=== PATIENT | female | born 1955 | race Caucasian/White ===

== ENCOUNTER 2020-04-23 15:33 | Emergency (ER) | payer OTHER ==
[2020-04-23] MEDS ORDERED: METHYLPREDNISOLONE 40 MG INJ ONE (22:09)
[2020-04-23] MEDS ORDERED: NA CHLORIDE 0.9% 250 ML ONE (22:09)
[2020-04-23] MEDS ORDERED: MORPHINE 2 MG/ML SYR ONE (22:09)
[2020-04-23] MEDS ORDERED: ONDANSETRON 4 MG/2 ML VIAL ONE (22:11)
[2020-04-23 22:44] LABS: Absolute Lymphocytes (CBC) 1.3 K/uL (0.7-4.9); Basophils % 0.4 % (0-1.3); Hematocrit 39.5 % (36.0-45.0); Lymphocytes % 28.7 % (15.3-44.8); MPV 8.1 fL (7.6-11.3); Protime INR 0.88; RBC Red Blood Cell Count 4.25 M/uL (3.86-4.86)
[2020-04-23 23:02] LABS: BUN Blood Urea Nitrogen 29 mg/dL (7-18); Bicarbonate 29 mmol/L (21-32); Glucose Level 166 mg/dL (74-106); Magnesium 2.4 mg/dL (1.8-2.4); NT PRO-BNP 456 pg/mL (<125); Potassium 4.6 mmol/L (3.5-5.1); Sodium Level 139 mmol/L (136-145); Troponin (Emerg Dept Use Only) < 0.02 ng/mL (0.0-0.045)
--- NOTE | 2020-04-23 23:24 | ER ---
Nurse's Notes [facility] Name: Kathleen Wahl Age: 64 yrs Sex: Female : 1955 Arrival Date: 04/23/2020 Time: 15:35 Bed 18 Private MD: Diagnosis: Coronavirus infection, unspecified Presentation: 04/23 15:50 Chief complaint: Patient states: Covid positive 04/14. Finished antibiotics, not ll1 feeling better. Almost done with prednisone. Still weak and tired. Some nausea and gas. Coronavirus screen: Client denies travel out of the [place] in the last 14 days. cough unrelated to allergies, difficulty breathing, fatigue, Client presents with at least one sign or symptom that may indicate coronavirus-19. Standard/surgical mask placed on the client. Client reports previous positive COVID test result. Ebola Screen: Patient denies travel to an Ebola-affected area in the 21 days before illness onset. Initial Sepsis Screen: Does the patient meet any 2 criteria? HR > 90 bpm. No. Patient's initial sepsis screen is negative. Does the patient have a suspected source of infection? Yes: Productive cough/pneumonia. Risk Assessment: Do you want to hurt yourself or someone else? Patient reports no desire to harm self or others. Onset of symptoms was April 13, 2020. 15:50 Method Of Arrival: Wheelchair ll1 15:50 Acuity: JANI 3 ll1 Historical: - Allergies: 15:49 Pseudoephedrine; ll1 15:49 paper tape; ll1 15:49 Tramadol HCl; ll1 - PMHx: 15:49 Hypertension; High Cholesterol; Hepatitis; kidney disease; ll1 - PSHx: 15:49 Cholecystectomy; Appendectomy; Tonsillectomy; Hysterectomy; ll1 - Immunization history:: Flu vaccine is up to date. - Social history:: Smoking status: Patient reports the use of cigarette tobacco products, 2 cigs/day. Screenin:00 Abuse screen: Denies threats or abuse. Nutritional screening: No deficits noted. vg1 Tuberculosis screening: No symptoms or risk factors identified. Fall Risk No fall in past 12 months (0 pts). No secondary diagnosis (0 pts). IV access (20 points). Ambulatory Aid- None/Bed Rest/Nurse Assist (0 pts). Gait- Normal/Bed Rest/Wheelchair (0 pts) Mental Status- Oriented to own ability (0 pts). Total Raman Fall Scale indicates No Risk (0-24 pts). Assessment: 22:00 General: Appears in no apparent distress. comfortable, Behavior is calm, cooperative. vg1 Pain: Complains of pain in Patient states all over. Pain currently is 8 out of 10 on a pain scale. 22:00 Neuro: Level of Consciousness is awake, alert, obeys commands, Oriented to person, vg1 place, time, situation. Cardiovascular: Rhythm is regular. Respiratory: Airway is patent Respiratory effort is even, unlabored, Respiratory pattern is regular, symmetrical. Respiratory: Reports shortness of breath on exertion cough that is productive. GI: No signs and/or symptoms were reported involving the gastrointestinal system. : No signs and/or symptoms were reported regarding the genitourinary system. EENT: No signs and/or symptoms were reported regarding the EENT system. Derm: Skin is intact, is healthy with good turgor. Musculoskeletal: Circulation, motion, and sensation intact. 22:00 Respiratory: Breath sounds with wheezes bilaterally. vg1 22:30 Reassessment: Received VO to administer Zofran 4mg IVP x1. vg1 23:00 Reassessment: Patient appears in no apparent distress at this time. Patient and/or vg1 family updated on plan of care and expected duration. Pain level reassessed. Patient is alert, oriented x 3, equal unlabored respirations, skin warm/dry/pink. Vital Signs: 15:50 BP 133 / 60; Pulse 95; Resp 17; Temp 99.2; Pulse Ox 97% on R/A; Weight 57.61 kg; Height ll1 5 ft. 1 in. (154.94 cm); Pain 7/10; 21:30 BP 127 / 61; Pulse 81; Resp 20; Pulse Ox 95% on R/A; vg1 22:00 BP 111 / 55; Pulse 82; Resp 20; Pulse Ox 95% on R/A; vg1 23:00 BP 110 / 91; Pulse 83; Resp 18; Pulse Ox 96% on R/A; vg1 15:50 Body Mass Index 24.00 (57.61 kg, 154.94 cm) ll1 ED Course: 15:35 Patient arrived in ED. rg4 15:48 Arm band placed on. ll1 15:52 Triage completed. ll1 21:04 Da Mcfarland PA is PHCP. cp 21:04 Da Garcia MD is Attending Physician. cp 21:05 Karly Mcleod, RN is Primary Nurse. vg1 22:00 Patient has correct armband on for positive identification. Bed in low position. Call vg1 light in reach. Side rails up X 1. 22:16 XRAY Chest (1 view) In Process Unspecified. EDMS 22:20 Inserted saline lock: 20 gauge in left forearm, using aseptic technique. Blood vg1 collected. 22:20 Initial lab(s) drawn, by ms, sent to lab. vg1 23:19 No provider procedures requiring assistance completed. vg1 23:50 IV discontinued, intact, bleeding controlled, No redness/swelling at site. Pressure vg1 dressing applied. Administered Medications: 22:31 Drug: NS 0.9% 250 ml Route: IV; Rate: calculated rate; Site: left forearm; vg1 23:08 Follow up: IV Status: Completed infusion; IV Intake: 250ml vg1 22:32 Drug: SOLU-Medrol 80 mg Route: IVP; Site: left forearm; vg1 23:10 Follow up: Response: No adverse reaction vg1 22:32 Drug: morphine 2 mg Route: IVP; Site: left forearm; vg1 23:10 Follow up: Response: RASS: Alert and Calm (0) vg1 22:32 Drug: Zofran (Ondansetron) 4 mg Route: IVP; Site: left forearm; vg1 23:10 Follow up: Response: No adverse reaction vg1 Intake: 23:08 IV: 250ml; Total: 250ml. vg1 Outcome: 23:23 Discharge ordered by . cp 23:50 Discharged to home ambulatory. vg1 23:50 Condition: good 23:50 Discharge instructions given to patient, Instructed on discharge instructions, follow up and referral plans. medication usage, Demonstrated understanding of instructions, follow-up care, medications, Prescriptions given X 3. 23:51 Patient left the ED. vg1 Signatures: Dispatcher [employer] EDMS Da Mcfarland PA PA cp Garcia, Rubi rg4 Karly Mcleod RN RN vg1 Ofelia Mauricio RN RN ll1 Corrections: (The following items were deleted from the chart) 23:09 22:00 BP 111 / 22; Pulse 82bpm; Resp 20bpm; Pulse Ox 95% RA; vg1 vg1 23:44 21:55 Reassessment: Received VO to administer Zofran 4mg IVP x1 vg1 vg1
--- NOTE | 2020-04-23 23:24 | EDPHYS ---
Physician Documentation [facility] Name: Kathleen Wahl Age: 64 yrs Sex: Female : 1955 Arrival Date: 04/23/2020 Time: 15:35 Bed 18 Private MD: ED Physician Da Garcia HPI: 04/23 21:20 This 64 yrs old Female presents to ER via Wheelchair with complaints of cp Shortness Of Breath, Covid+. 21:20 The patient has shortness of breath with light activity. cp 21:20 Onset: The symptoms/episode began/occurred gradually. cp 21:20 Associated signs and symptoms: Pertinent positives: headache, Pertinent negatives: cp chest pain, productive cough, fever, vomiting. Patient reports testing positive for COVID-19 on 04-14-2020. Currently taking oral prednisone and has 1 dose remaining. Completed course of antibiotics . Historical: - Allergies: 15:49 Pseudoephedrine; ll1 15:49 paper tape; ll1 15:49 Tramadol HCl; ll1 - PMHx: 15:49 Hypertension; High Cholesterol; Hepatitis; kidney disease; ll1 - PSHx: 15:49 Cholecystectomy; Appendectomy; Tonsillectomy; Hysterectomy; ll1 - Immunization history:: Flu vaccine is up to date. - Social history:: Smoking status: Patient reports the use of cigarette tobacco products, 2 cigs/day. ROS: 21:30 Constitutional: Negative for fever, poor PO intake. cp 21:30 Eyes: Negative for injury, pain, redness, and discharge. cp 21:30 ENT: Negative for ear pain, sore throat, difficulty swallowing, difficulty handling secretions. 21:30 Cardiovascular: Negative for chest pain, edema, palpitations. 21:30 Respiratory: Positive for cough, with no reported sputum, shortness of breath, on exertion. Negative for wheezing. 21:30 Abdomen/GI: Negative for abdominal pain, nausea, vomiting, and diarrhea. 21:30 Neuro: Positive for headache, Negative for altered mental status, dizziness, syncope, weakness. 21:30 All other systems are negative. Exam: 21:35 Constitutional: The patient appears in no acute distress, alert, awake, cp non-diaphoretic, non-toxic, well developed, well nourished. 21:35 Head/Face: Normocephalic, atraumatic. cp 21:35 Eyes: Periorbital structures: appear normal, Conjunctiva: normal, no exudate, no injection, Sclera: no appreciated abnormality, Lids and lashes: appear normal, bilaterally. 21:35 ENT: External ear(s): are unremarkable, Nose: is normal, Posterior pharynx: Airway: no evidence of obstruction, patent. 21:35 Neck: ROM/movement: is normal, is supple, without pain, no range of motions limitations, no meningismus. 21:35 Chest/axilla: Inspection: normal, Palpation: is normal, no crepitus, no tenderness. 21:35 Cardiovascular: Rate: normal, Rhythm: regular, Edema: is not appreciated, JVD: is not appreciated. 21:35 Respiratory: the patient does not display signs of respiratory distress, Respirations: normal, no use of accessory muscles, no retractions, labored breathing, is not present, Breath sounds: are clear throughout, no decreased breath sounds, no stridor, no wheezing. 21:35 Abdomen/GI: Inspection: abdomen appears normal, Palpation: abdomen is soft and non-tender, in all quadrants. 21:35 Back: pain, is absent, ROM is normal. 21:35 Neuro: Orientation: to person, place \T\ time. Mentation: is normal, Cerebellar function: is grossly normal, Motor: moves all fours, strength is normal, Sensation: is normal. 22:18 ECG was reviewed by the Attending Physician. cp Vital Signs: 15:50 BP 133 / 60; Pulse 95; Resp 17; Temp 99.2; Pulse Ox 97% on R/A; Weight 57.61 kg; Height ll1 5 ft. 1 in. (154.94 cm); Pain 7/10; 21:30 BP 127 / 61; Pulse 81; Resp 20; Pulse Ox 95% on R/A; vg1 22:00 BP 111 / 55; Pulse 82; Resp 20; Pulse Ox 95% on R/A; vg1 23:00 BP 110 / 91; Pulse 83; Resp 18; Pulse Ox 96% on R/A; vg1 15:50 Body Mass Index 24.00 (57.61 kg, 154.94 cm) ll1 MDM: 21:11 Patient medically screened. [facility] 23:22 Data reviewed: vital signs, nurses notes, lab test result(s), EKG, radiologic studies, cp plain films. Test interpretation: by ED physician or midlevel provider: ECG, chest xray negative for focal pneumonia. 23:22 ED course: VSS. Patient appears non-toxic and no signs of respiratory distress. Patient cp maintains oxygen sats above 90% on RA when ambulating and at rest oxygen sats were 96% on RA. Will discharge to home for continued monitoring. 04/23 21:18 Order name: Basic Metabolic Panel; Complete Time: 23:13 cp 04/23 23:13 Interpretation: Normal except: GLUC 166; BUN 29; GFR 49. cp 04/23 21:18 Order name: CBC with Diff; Complete Time: 23:13 cp 04/23 23:14 Interpretation: Normal except: MCV 92.9; PLT 128; RDW 17.8. cp 04/23 21:18 Order name: Magnesium; Complete Time: 23:13 cp 04/23 21:18 Order name: NT PRO-BNP; Complete Time: 23:13 cp 04/23 23:14 Interpretation: Abnormal: NT PRO-BNP 456. cp 04/23 21:18 Order name: PT-INR; Complete Time: 23:13 cp 04/23 21:18 Order name: Troponin (emerg Dept Use Only); Complete Time: 23:13 cp 04/23 21:18 Order name: EKG; Complete Time: 21:19 cp 04/23 21:18 Order name: XRAY Chest (1 view) cp 04/23 21:18 Order name: Cardiac monitoring; Complete Time: 22:32 cp 04/23 22:52 Order name: Urine Dipstick--Ancillary (enter results) [facility] 04/23 21:18 Order name: EKG - Nurse/Tech; Complete Time: 22:32 cp 04/23 21:18 Order name: IV Saline Lock; Complete Time: 22:32 cp 04/23 21:18 Order name: Labs collected and sent; Complete Time: 22:32 cp 04/23 21:18 Order name: O2 Per Protocol; Complete Time: 21:51 cp 04/23 21:18 Order name: O2 Sat Monitoring; Complete Time: 21:51 cp 04/23 21:20 Order name: Urine Dipstick-Ancillary (obtain specimen); Complete Time: 23:17 cp 04/23 22:36 Order name: Misc. Order: ambulate patient with pulse oxygen meter; Complete Time: 23:17 cp EC:18 Rate is 79 beats/min. Rhythm is regular. [place] interval is normal. QRS interval is normal. cp QT interval is normal. T waves are Inverted in lead aVR. Interpreted by me. Reviewed by me. Administered Medications: 22:31 Drug: NS 0.9% 250 ml Route: IV; Rate: calculated rate; Site: left forearm; vg1 23:08 Follow up: IV Status: Completed infusion; IV Intake: 250ml vg1 22:32 Drug: SOLU-Medrol 80 mg Route: IVP; Site: left forearm; vg1 23:10 Follow up: Response: No adverse reaction vg1 22:32 Drug: morphine 2 mg Route: IVP; Site: left forearm; vg1 23:10 Follow up: Response: RASS: Alert and Calm (0) vg1 22:32 Drug: Zofran (Ondansetron) 4 mg Route: IVP; Site: left forearm; vg1 23:10 Follow up: Response: No adverse reaction vg1 Disposition: 04/24 05:40 Co-signature as Attending Physician, Da Garcia MD I agree with the assessment and [facility] plan of care. Disposition: 04/23/20 23:23 Discharged to Home. Impression: Coronavirus infection, unspecified. - Condition is Stable. - Discharge Instructions: COVID-19. - Prescriptions for Albuterol Sulfate 2.5 mg /3 mL (0.083 %) Inhalation Solution for Nebulization - inhale 1 unit by NEBULIZATION route every 8 hours As needed; 1 box. Albuterol Sulfate 90 mcg/actuation - inhale 1-2 puff by INHALATION route every 4-6 hours; 1 Inhaler. Medrol (Orlin) 4 mg Oral Tablets, Dose Pack - take 1 tablet by ORAL route as directed - follow package instructions; 1 packet. - Medication Reconciliation Form, Thank You Letter, Antibiotic Education, Prescription Opioid Use form. - Follow up: Private Physician; When: 1 - 2 days; Reason: Recheck today's complaints. - Problem is new. - Symptoms have improved. Signatures: Dispatcher [employer] Da Nazario MD MD cha Page, Corey, PA PA cp Garcia, Victoria RN RN 1 Ofelia Mauricio RN RN 1 Corrections: (The following items were deleted from the chart) 04/23 23:51 23:23 04/23/2020 23:23 Discharged to Home. Impression: Coronavirus infection, vg1 unspecified. Condition is Stable. Forms are Medication Reconciliation Form, Thank You Letter, Antibiotic Education, Prescription Opioid Use. Follow up: Private Physician; When: 1 - 2 days; Reason: Recheck today's complaints. Problem is new. Symptoms have improved. cp
[2020-04-24 00:08] LABS: Urine Blood NEGATIVE (NEG); Urine Glucose 2+ (NEG); Urine Protein NEGATIVE (NEG); Urine Specific Gravity 1.015 (1.005-1.030); Urine pH 5.5 (5.0-7.0)
[2020-04-24 00:16] VITALS: TEMP 99.2
[2020-04-24 00:20] VITALS: BP 110/91; O2SAT 96
--- NOTE | 2020-04-24 08:35 | RAD REPORT ---
EXAM DESCRIPTION: RAD - Chest Single View - 04/23/2020 10:15 pm CLINICAL HISTORY: SOB Chest pain. COMPARISON: Chest Pa And Lat (2 Views) dated 12/09/2016; CHEST PA AND LAT 2 VIEW dated 01/29/2015; CH EST PA AND LAT 2 VIEW dated 05/21/2009; CHEST SINGLE VIEW dated 08/22/2008 FINDINGS: Portable technique limits examination quality. The lungs are grossly clear. The heart is normal in size. No displaced fractures. IMPRESSION: No acute intrathoracic process suspected.
== END 2020-04-23 23:51 | disposition home or self-care (01) ==
LOC: ER 15:33
DX: U07.1 COVID-19 (principal); I10 Essential (primary) hypertension; F17.210 Nicotine dependence, cigarettes, uncomplicated; Z88.5 Allergy status to narcotic agent; Z91.048 Other nonmedicinal substance allergy status
CPT/HCPCS: 96365; 93005; 85025; 80048; 36415; 83735; 85610; 81003; 84484; 83880; 71045; 96375; 99284; J2270; J7050; J2405; J2920

== ENCOUNTER 2021-03-25 14:43 | Emergency (ER) | payer OTHER ==
--- OUTSIDE RECORDS SUMMARY | 2021-03-25 15:13 | XMS REPORT | Continuity of Care Document ---
:1955 Author Organization [facility] t Address [address] [place] [address] Care Team Providers Name Role Phone Unavailable Unavailable Unavailable Problems This patient has no known problems. Allergies, Adverse Reactions, Alerts This patient has no known allergies or adverse reactions. Medications This patient has no known medications. Procedures This patient has no known procedures. Encounters Start End Encounter Admission Attending Care Care Encounter Source Date/Time Date/Time Type Type Clinicians Facility Department ID 2021-02-20 2021-02-20 ambulatory [facility] [id number] [facility] 2021-02-20 2021-02-20 ambulatory [facility] [id number] [facility] 2021-02-18 2021-02-18 ambulatory [facility] [id number] [facility] 2021-02-03 2021-02-03 Outpatient [facility] [id number] [facility] 2020-12-19 2020-12-19 Outpatient [facility] [id number] [facility] 2020-12-17 2020-12-17 Out[facility] [id number] [facility] 2020-11-21 2020-11-21 Out[facility] [id number] [facility] 2020-11-06 2020-11-06 Out[facility] [id number] [facility] 2020-11-03 2020-11-03 Out[facility] [id number] [facility] 2020-10-23 2020-10-23 [facility] [id number] [facility] 2020-10-16 2020-10-16 Out[facility] [id number] [facility] 2020-10-15 2020-10-15 [facility] [id number] [facility] 2020-09-04 2020-09-04 Out[facility] [id number] [facility] 2020-08-13 2020-08-13 Out[facility] [id number] [facility] 2020-08-08 2020-08-08 Out[facility] [id number] [facility] 2020-08-06 2020-08-06 Out[facility] [id number] [facility] 2020-08-04 2020-08-04 Out[facility] [id number] [facility] 2020-08-04 2020-08-04 [facility] [id number] [facility] 2020-07-18 2020-07-18 Out[facility] [id number] [facility] 2020-07-16 2020-07-16 Out[facility] [id number] [facility] 2020-07-15 2020-07-15 Out[facility] [id number] [facility] 2020-07-11 2020-07-11 Outpatient [facility] [id number] [facility] 2020-07-02 2020-07-02 Out[facility] [id number] [facility] 2020-07-01 2020-07-01 Out[facility] [id number] [facility] Results This patient has no known results.
[2021-03-25] MEDS ORDERED: ALBUTEROL 2.5 MG/3 ML NEB SOL ONE (15:44)
[2021-03-25] MEDS ORDERED: IPRATROPIUM BROM 0.5MG/2.5ML ONE (15:44)
[2021-03-25 16:02] LABS: Absolute Lymphocytes (CBC) 1.7 K/uL (0.7-4.9); Basophils % 0.7 % (0-1.3); Hematocrit 38.9 % (36.0-45.0); Lymphocytes % 33.7 % (15.3-44.8); MPV 7.4 fL (7.6-11.3); RBC Red Blood Cell Count 3.98 M/uL (3.86-4.86)
[2021-03-25 16:03] LABS: Protime INR 0.92
[2021-03-25 16:23] LABS: ALT/SGPT 40 U/L (12-78); AST/SGOT 42 U/L (15-37); Albumin 3.5 g/dL (3.4-5.0); Alkaline Phosphatase 129 U/L (45-117); BUN Blood Urea Nitrogen 27 mg/dL (7-18); Bicarbonate 29 mmol/L (21-32); Bilirubin Direct < 0.1 mg/dL (0-0.2); Bilirubin Total 0.2 mg/dL (0.2-1.0); Glucose Level 113 mg/dL (74-106); NT PRO-BNP 307 pg/mL (<125); Potassium 4.6 mmol/L (3.5-5.1); Protein, Total 7.9 g/dL (6.4-8.2); Sodium Level 141 mmol/L (136-145); Troponin (Emerg Dept Use Only) < 0.02 ng/mL (0.0-0.045)
--- NOTE | 2021-03-25 16:59 | RAD REPORT ---
EXAM DESCRIPTION: RAD - Chest Single View - 03/25/2021 4:32 pm CLINICAL HISTORY: COUGH COMPARISON: Chest Pa And Lat (2 Views) dated 07/11/2020; Chest Single View dated 04/23/2020; Chest Pa A nd Lat (2 Views) dated 12/09/2016; CHEST PA AND LAT 2 VIEW dated 01/29/2015 FINDINGS: Lines: None. Lungs: No evidence of edema or pneumonia. Pleural: No significant pleural effusions or pneumothorax. Cardiac: The heart size is within normal limits. Bones: No acute fractures. Other: IMPRESSION: No acute cardiopulmonary disease.
--- NOTE | 2021-03-25 18:16 | EDPHYS ---
Physician Documentation [facility] Name: Kathleen Wahl Age: 65 yrs Sex: Female : 1955 Arrival Date: 03/25/2021 Time: 14:45 Bed 20 Private MD: AUGUSTIN Physician Ellie Byrne HPI: 03/25 15:36 This 65 yrs old Female presents to ER via Ambulatory with complaints of Cough, Chest sp3 Congestion, Chest Pain. 15:36 65-year-old female with a history of hepatitis, hyperlipidemia, hypertension, chronic sp3 kidney disease presents with cough, congestion and generalized weakness for over 1 month. Patient was seen by her PCP who ordered some outpatient imaging but has not put patient on any therapy as of yet. Patient sees Dr. Byrne primary care here in the community. Patient denies chest pain or back pain but does state that she gets mild shortness of breath and has a large productive cough.. Historical: - Allergies: 15:03 paper tape; [facility] 15:03 Pseudoephedrine; [facility] 15:03 Tramadol HCl; 5 - PMHx: 15:03 Hepatitis; High Cholesterol; Hypertension; kidney disease; 5 - Immunization history:: Adult Immunizations up to date. - Social history:: Smoking status: Patient reports the use of cigarette tobacco products, smokes one-half pack cigarettes per day. ROS: 15:40 Constitutional: Negative for fever, chills, and weight loss, Eyes: Negative for injury, sp3 pain, redness, and discharge, ENT: Negative for injury, pain, and discharge, Neck: Negative for injury, pain, and swelling, Cardiovascular: Negative for chest pain, palpitations, and edema, Abdomen/GI: Negative for abdominal pain, nausea, vomiting, diarrhea, and constipation, Back: Negative for injury and pain, MS/Extremity: Negative for injury and deformity, Skin: Negative for injury, rash, and discoloration, Neuro: Negative for headache, weakness, numbness, tingling, and seizure, Psych: Negative for depression, anxiety, suicide ideation, homicidal ideation, and hallucinations, Allergy/Immunology: Negative for hives, rash, and allergies, Hematologic/Lymphatic: Negative for swollen nodes, abnormal bleeding, and unusual bruising. 15:40 Respiratory: Positive for cough. 15:40 All other systems are negative. Exam: 15:41 Constitutional: This is a well developed, well nourished patient who is awake, alert, sp3 and in no acute distress. Head/Face: Normocephalic, atraumatic. Eyes: Pupils equal round and reactive to light, extra-ocular motions intact. Lids and lashes normal. Conjunctiva and sclera are non-icteric and not injected. Cornea within normal limits. Periorbital areas with no swelling, redness, or edema. Neck: Trachea midline, no thyromegaly or masses palpated, and no cervical lymphadenopathy. Supple, full range of motion without nuchal rigidity, or vertebral point tenderness. No Meningismus. Chest/axilla: Normal chest wall appearance and motion. Nontender with no deformity. No lesions are appreciated. Cardiovascular: Regular rate and rhythm with a normal S1 and S2. No gallops, murmurs, or rubs. Normal PMI, no JVD. No pulse deficits. Abdomen/GI: Soft, non-tender, with normal bowel sounds. No distension or tympany. No guarding or rebound. No evidence of tenderness throughout. Back: No spinal tenderness. No costovertebral tenderness. Full range of motion. Skin: Warm, dry with normal turgor. Normal color with no rashes, no lesions, and no evidence of cellulitis. MS/ Extremity: Pulses equal, no cyanosis. Neurovascular intact. Full, normal range of motion. Neuro: Awake and alert, GCS 15, oriented to person, place, time, and situation. Cranial nerves II-XII grossly intact. Motor strength 5/5 in all extremities. Sensory grossly intact. Cerebellar exam normal. Normal gait. Psych: Awake, alert, with orientation to person, place and time. Behavior, mood, and affect are within normal limits. 15:41 Respiratory: Active cough and rhonchi throughout coupled with some wheezing. Patient has active productive cough as well. Patient had Covid in the past and has had 3 doses of vaccine.. Vital Signs: 14:59 BP 137 / 96; Pulse 107; Resp 20; Temp 97.1; Pulse Ox 97% ; Weight 50.35 kg; Height 5 jh5 ft. 1 in. (154.94 cm); 16:00 BP 112 / 83; Pulse 88; Resp 12; Pulse Ox 100% on R/A; ll3 17:00 BP 105 / 53; Pulse 100; Resp 17; Pulse Ox 96% on R/A; ll3 18:15 BP 121 / 67; Pulse 99; Resp 18; Pulse Ox 96% on R/A; ll3 14:59 Body Mass Index 20.97 (50.35 kg, 154.94 cm) 5 MDM: 15:28 Patient medically screened. sp3 15:44 Data reviewed: vital signs, nurses notes. ED course: 65-year-old female with upper sp3 respiratory symptoms with possible bronchitis and/or pneumonia. Will check laboratory values chest x-ray, Covid test as well as give nebulizers and other medications as indicated. I am not suspicious for sepsis or shock or ACS at this time.. 18:12 ED course: Patient is improved with nebulizer treatment. Will discharge patient home on sp3 Levaquin, prednisone, and Nebules since patient has a nebulizer machine at home.. 03/25 15:35 Order name: Basic Metabolic Panel; Complete Time: 17:24 sp3 03/25 15:35 Order name: CBC with Diff; Complete Time: 17:24 sp3 03/25 15:35 Order name: LFT's; Complete Time: 17:24 sp3 03/25 15:35 Order name: NT PRO-BNP; Complete Time: 17:24 sp3 03/25 15:35 Order name: PT-INR; Complete Time: 17:24 sp3 03/25 15:35 Order name: Troponin (emerg Dept Use Only); Complete Time: 17:24 sp3 03/25 15:35 Order name: XRAY Chest (1 view); Complete Time: 17:24 sp3 03/25 15:35 Order name: Cardiac monitoring; Complete Time: 15:40 sp3 03/25 15:35 Order name: EKG - Nurse/Tech; Complete Time: 15:39 sp3 03/25 15:35 Order name: IV Saline Lock; Complete Time: 15:50 sp3 03/25 15:35 Order name: Labs collected and sent; Complete Time: 15:50 sp3 03/25 15:35 Order name: O2 Per Protocol; Complete Time: 15:41 sp3 03/25 15:35 Order name: O2 Sat Monitoring; Complete Time: 15:41 sp3 Administered Medications: 15:50 Drug: DuoNeb (albuterol 2.5 mg, ipratropium 0.5 mg) (3:1) (2.5 mg - 0.5 mg) 3 ml Route: ll3 Nebulizer; 16:30 Follow up: Response: No adverse reaction; Marked relief of symptoms ll3 18:31 Drug: Rocephin (cefTRIAXone) 1 grams Route: IV; Rate: calculated rate; Site: right ll3 antecubital; 18:54 Follow up: Response: No adverse reaction ll3 18:39 Drug: HYDROcodone-acetaminophen 5 mg-325 mg 2 tabs Route: PO; ll3 18:54 Follow up: Response: No adverse reaction ll3 Disposition Summary: 03/25/21 18:15 Discharge Ordered Location: Home sp3 Condition: Stable sp3 Diagnosis - Acute bronchitis, unspecified sp3 Followup: sp3 - With: Private Physician - When: - Reason: Re-evaluation by your physician Discharge Instructions: - Discharge Summary Sheet sp3 - Acute Bronchitis, Adult sp3 Forms: - Medication Reconciliation Form sp3 - Thank You Letter sp3 - Antibiotic Education sp3 - Prescription Opioid Use sp3 Prescriptions: - Prednisone 20 mg Oral Tablet - take 2 tablets by ORAL route once daily for 5 days; 10 tablet; Refills: 0, sp3 Product Selection Permitted - levofloxacin 500 mg Oral Tablet - take 1 tablet by ORAL route once daily for 7 days; 7 tablet; Refills: 0, sp3 Product Selection Permitted - Albuterol Sulfate 2.5 mg /3 mL (0.083 %) Inhalation Solution for Nebulization - inhale 1 unit by NEBULIZATION route every 8 hours As needed; 1 box; Refills: 0, sp3 Product Selection Permitted Signatures: Dispatcher [employer] Ellie Oliva MD MD sp3 Riya Quintero RN RN jh5 Miguel Ma RN RN ll3
--- NOTE | 2021-03-25 18:16 | ER ---
Nurse's Notes [facility] Name: Kathleen Wahl Age: 65 yrs Sex: Female : 1955 Arrival Date: 03/25/2021 Time: 14:45 Bed 20 Private MD: Diagnosis: Acute bronchitis, unspecified Presentation: 03/25 14:59 Chief complaint: Patient states: congestion, cough, runny nose x3 days. Coronavirus [facility] screen: Vaccine status: Patient reports receiving the 2nd dose of the covid vaccine. Client denies travel out of the [place] in the last 14 days. Ebola Screen: Patient negative for fever greater than or equal to 101.5 degrees Fahrenheit, and additional compatible Ebola Virus Disease symptoms Patient denies exposure to infectious person. Patient denies travel to an Ebola-affected area in the 21 days before illness onset. Initial Sepsis Screen: Does the patient meet any 2 criteria? HR > 90 bpm. Does the patient have a suspected source of infection? Yes: Productive cough/pneumonia. Risk Assessment: Do you want to hurt yourself or someone else? Patient reports no desire to harm self or others. Onset of symptoms was March 23, 2021. 14:59 Method Of Arrival: Ambulatory [facility] 14:59 Acuity: JANI 3 [facility] Triage Assessment: 15:04 General: Appears distressed, uncomfortable, slender, well groomed, well developed, [facility] Behavior is calm, cooperative, appropriate for age. Pain: Denies pain. Cardiovascular: Capillary refill Patient's skin is warm and dry. Historical: - Allergies: 15:03 paper tape; [facility] 15:03 Pseudoephedrine; [facility] 15:03 Tramadol HCl; [facility] - PMHx: 15:03 Hepatitis; High Cholesterol; Hypertension; kidney disease; [facility] - Immunization history:: Adult Immunizations up to date. - Social history:: Smoking status: Patient reports the use of cigarette tobacco products, smokes one-half pack cigarettes per day. Screenin:30 Abuse screen: Denies threats or abuse. Nutritional screening: No deficits noted. ll3 Tuberculosis screening: No symptoms or risk factors identified. 18:17 Fall Risk IV access (20 points). Total Raman Fall Scale indicates No Risk (0-24 pts). 3 Assessment: 15:27 General: Appears in no apparent distress. uncomfortable, Behavior is calm, cooperative, ll3 Reports feeling ill for Since tuesday. Pain: Complains of pain in H/A, Chest Pain does not radiate. Pain began Tuesday. Neuro: Level of Consciousness is awake, alert, obeys commands, Oriented to person, place, time, situation, Reports headache since Tuesday. Cardiovascular: Patient's skin is warm and dry. Respiratory: Airway is patent Respiratory effort is even, unlabored, Respiratory pattern is regular, symmetrical, Breath sounds with wheezes bilaterally. Parent/caregiver reports the patient having shortness of breath cough that is non-productive. Derm: Skin is pink, warm \T\ dry. 16:30 Reassessment: Patient appears in no apparent distress at this time. Patient and/or ll3 family updated on plan of care and expected duration. Pain level reassessed. Patient is alert, oriented x 3, equal unlabored respirations, skin warm/dry/pink. Patient states symptoms have improved. 17:25 Reassessment: Patient appears in no apparent distress at this time. Patient and/or ll3 family updated on plan of care and expected duration. Pain level reassessed. Patient is alert, oriented x 3, equal unlabored respirations, skin warm/dry/pink. 18:17 Reassessment: Patient appears in no apparent distress at this time. Patient and/or ll3 family updated on plan of care and expected duration. Pain level reassessed. Patient is alert, oriented x 3, equal unlabored respirations, skin warm/dry/pink. Vital Signs: 14:59 BP 137 / 96; Pulse 107; Resp 20; Temp 97.1; Pulse Ox 97% ; Weight 50.35 kg; Height 5 [facility] ft. 1 in. (154.94 cm); 16:00 BP 112 / 83; Pulse 88; Resp 12; Pulse Ox 100% on R/A; ll3 17:00 BP 105 / 53; Pulse 100; Resp 17; Pulse Ox 96% on R/A; ll3 18:15 BP 121 / 67; Pulse 99; Resp 18; Pulse Ox 96% on R/A; ll3 14:59 Body Mass Index 20.97 (50.35 kg, 154.94 cm) [facility] ED Course: 14:45 Patient arrived in ED. [facility] 15:03 Triage completed. jh5 15:10 Ellie Byrne MD is Attending Physician. sp3 15:14 Miguel Ma, RN is Primary Nurse. ll3 15:30 Patient has correct armband on for positive identification. Bed in low position. Call 3 light in reach. Side rails up X 1. traffic monitor specialist on. Pulse ox on. NIBP on. 15:51 Basic Metabolic Panel Sent. 5 15:51 CBC with Diff Sent. 5 15:51 LFT's Sent. 5 15:51 NT PRO-BNP Sent. 5 15:52 PT-INR Sent. [facility] 15:52 Troponin (emerg Dept Use Only) Sent. 5 15:52 Initial lab(s) drawn, by tn, sent to lab. Inserted saline lock: 20 gauge in right 5 forearm, using aseptic technique. Blood collected. 16:30 EKG done. 3 16:32 XRAY Chest (1 view) In Process Unspecified. EDMS 18:17 Arm band placed on. 3 18:17 Patient maintains SpO2 saturation greater than 95% on room air. ll3 18:53 No provider procedures requiring assistance completed. IV discontinued, intact, ll3 bleeding controlled, No redness/swelling at site. Pressure dressing applied. Administered Medications: 15:50 Drug: DuoNeb (albuterol 2.5 mg, ipratropium 0.5 mg) (3:1) (2.5 mg - 0.5 mg) 3 ml Route: ll3 Nebulizer; 16:30 Follow up: Response: No adverse reaction; Marked relief of symptoms ll3 18:31 Drug: Rocephin (cefTRIAXone) 1 grams Route: IV; Rate: calculated rate; Site: right 3 antecubital; 18:54 Follow up: Response: No adverse reaction ll3 18:39 Drug: HYDROcodone-acetaminophen 5 mg-325 mg 2 tabs Route: PO; ll3 18:54 Follow up: Response: No adverse reaction 3 Outcome: 18:15 Discharge ordered by . sp3 18:53 Discharged to home ambulatory, with family. ll3 18:53 Condition: stable 18:53 Discharge instructions given to patient, family, Instructed on discharge instructions, follow up and referral plans. medication usage, Demonstrated understanding of instructions, follow-up care, medications, Prescriptions given X 3. 18:54 Patient left the ED. ll3 Signatures: Dispatcher [employer] Claudia Valentine 5 Ellie Byrne MD MD sp3 Riya Quintero RN RN 5 Miguel Ma RN RN ll3 Dorothy Pro 5 Corrections: (The following items were deleted from the chart) 16:31 16:30 Initial Neb Treatment Given as ordered 3 3
[2021-03-25] MEDS ORDERED: CEFTRIAXONE 1000 MG/VIAL ONE (18:20)
[2021-03-25] MEDS ORDERED: NA CHLORIDE 0.9% 50 ML ONE (18:21)
[2021-03-25] MEDS ORDERED: HYDROCODONE/APAP 5/325 MG TAB ONE (18:36)
[2021-03-25 19:14] VITALS: TEMP 97.1
[2021-03-25 19:17] VITALS: O2SAT 96
[2021-03-25 19:18] VITALS: BP 121/67
== END 2021-03-25 18:54 | disposition home or self-care (01) ==
LOC: ER 14:43
DX: J20.9 Acute bronchitis, unspecified (principal)
CPT/HCPCS: 36415; 71045; 80048; 80076; 83880; 84484; 85025; 85610; 94640; 96374; 99285

== ENCOUNTER 2021-06-10 16:19 | Inpatient (IN) | payer OTHER ==
--- OUTSIDE RECORDS SUMMARY | 2021-06-10 16:21 | XMS REPORT | Continuity of Care Document ---
:1955 Author Organization [facility] t Address [address] [place] [address] Care Team Providers Name Role Phone Edgar Byrne Attending Clinician Unavailable ATTAR Attending Clinician Unavailable Problems This patient has no known problems. Allergies, Adverse Reactions, Alerts This patient has no known allergies or adverse reactions. Medications This patient has no known medications. Procedures This patient has no known procedures. Encounters Start End Encounter Admission Attending Care Care Encounter Source Date/Time Date/Time Type Type Clinicians Facility Department ID 2021-05-13 Outpatient [facility], [facility] 14:[facility]:55 [place] [id number] [facility] 2021-05-13 Outpatient [facility] 14[facility]27:12 [place] [id number] [facility] 2021-05-13 Outpatient [facility] 14[facility]22:21 [place] [id number] [facility] 2021-05-13 Outpatient [facility] 14[facility]02:06 [place] [id number] [facility] 2021-05-13 Outpatient [facility] 13[facility]45:45 [place] [id number] [facility] 2021-05-13 Outpatient [facility] 13:20:23 [place] [id number] [facility] 2021-05-13 Outpatient Byrne, [facility] [id number] [facility] 12:40:59 [facility] [id number] [facility] 2021-05-21 2021-05-21 Outpatient ATTAR, [facility] [id number] [address] 00:00:00 00:00:00 [facility] [address] [facility] 2021-04-09 2021-04-09 ambulatory [facility] [id number] [facility] 2021-04-06 2021-04-06 ambulatory [facility] [id number] [facility] 2021-03-24 2021-03-24 ambulatory [facility] [id number] [facility] 2021-02-20 2021-02-20 ambulatory [facility] [id number] [facility] 2021-02-20 2021-02-20 ambulatory [facility] [id number] [facility] 2021-02-18 2021-02-18 ambulatory [facility] [id number] [facility] 2021-02-03 2021-02-03 Outpatient [facility] [id number] [facility] 2020-12-19 2020-12-19 Outpatient [facility] [id number] [facility] 2020-12-17 2020-12-17 Outpatient [facility] [id number] [facility] 2020-11-21 2020-11-21 Outpatient [facility] [id number] [facility] 2020-11-06 2020-11-06 Outpatient [facility] [id number] [facility] 2020-11-03 2020-11-03 Outpatient [facility] [id number] [facility] 2020-10-23 2020-10-23 Outpatient [facility] [id number] [facility] 2020-10-16 2020-10-16 Outpatient [facility] [id number] [facility] 2020-10-15 2020-10-15 Outpatient [facility] [id number] [facility] 2020-09-04 2020-09-04 Outpatient [facility] [id number] [facility] 2020-08-13 2020-08-13 Outpatient [facility] [id number] [facility] 2020-08-08 2020-08-08 Outpatient [facility] [id number] [facility] 2020-08-06 2020-08-06 Outpatient [facility] [id number] [facility] 2020-08-04 2020-08-04 Outpatient [facility] [id number] [facility] 2020-08-04 2020-08-04 Outpatient [facility] [id number] [facility] 2020-07-18 2020-07-18 Outpatient [facility] [id number] [facility] 2020-07-16 2020-07-16 Outpatient [facility] [id number] [facility] 2020-07-15 2020-07-15 Outpatient [facility] [id number] [facility] 2020-07-11 2020-07-11 Outpatient [facility] [id number] [facility] 2020-07-02 2020-07-02 Outpatient [facility] [id number] [facility] 2020-07-01 2020-07-01 Outpatient [facility] [id number] [facility] Results This patient has no known results.
[2021-06-10] MEDS ORDERED: NA CHLORIDE 0.9% 1,000 ML ONE ×2 (17:13→21:13)
--- NOTE | 2021-06-10 17:39 | RAD REPORT ---
EXAM DESCRIPTION: CT - Head Brain Wo Cont - 06/10/2021 5:14 pm CLINICAL HISTORY: SYNCOPE Headache, drowsiness COMPARISON: No comparisons TECHNIQUE: All CT scans are performed using dose optimization technique as appropriate and may inclu de automated exposure control or mA/KV adjustment according to patient size. FINDINGS: No intracranial hemorrhage, hydrocephalus or extra-axial fluid collection.Mild generalized brain atrophy is present with moderate periventricular and deep white matter chronic microvascular i schemic changes.No areas of brain edema or evidence of midline shift. The paranasal sinuses and mastoids are clear. The calvarium is intact. IMPRESSION: No acute intracranial abnormality.
[2021-06-10] MEDS ORDERED: METOCLOPRAMIDE 10 MG/2mL INJ ONE (18:22)
[2021-06-10] MEDS ORDERED: KETOROLAC 30 MG/ML INJ ONE (18:23)
[2021-06-10 18:31] LABS: Urine Blood Negative (Negative); Urine Glucose 2+ (Negative); Urine Protein Negative (Negative)
[2021-06-10 19:39] LABS: Potassium 6.1 mmol/L (3.5-5.1)
--- NOTE | 2021-06-10 20:06 | EDPHYS ---
Physician Documentation [facility] Name: Kathleen Wahl Age: 65 yrs Sex: Female : 1955 Arrival Date: 06/10/2021 Time: 16:24 Bed 24 Private MD: ED Physician Roni Dunbar HPI: 06/10 18:00 This 65 yrs old Female presents to ER via Wheelchair with complaints of Passed Out ma2 Prior To Arrival. 18:00 The patient has experienced syncope. Onset: The symptoms/episode began/occurred ma2 suddenly, 1 day(s) ago. Duration: This was a single episode. Associated signs and symptoms: Pertinent negatives: ataxia, chest pain, confusion. The patient has not experienced similar symptoms in the past. Historical: - Allergies: 16:33 paper tape; ap3 16:33 Pseudoephedrine; ap3 16:33 Tramadol HCl; ap3 - PMHx: 16:33 Hepatitis; High Cholesterol; Hypertension; kidney disease; Chronic obstructive lung ap3 disease; - PSHx: 16:33 Cholecystectomy; hysterectomy; ap3 - Immunization history:: Client reports receiving the 2nd dose of the Covid vaccine, and booster Pneumococcal vaccine status is unknown, Flu vaccine is up to date. - Social history:: Smoking status: Patient reports the use of cigarette tobacco products, smokes one-half pack cigarettes per day. - Family history:: not pertinent. ROS: 18:00 Constitutional: Negative for fever, chills, and weight loss. ma2 18:00 All other systems are negative. Exam: 18:00 Abdomen/GI: Exam negative for ma2 18:00 Constitutional: This is a well developed, well nourished patient who is awake, alert, and in no acute distress. ENT: Nares patent. No nasal discharge, no septal abnormalities noted. Tympanic membranes are normal and external auditory canals are clear. Oropharynx with no redness, swelling, or masses, exudates, or evidence of obstruction, uvula midline. Mucous membranes moist. Neck: Trachea midline, no thyromegaly or masses palpated, and no cervical lymphadenopathy. Supple, full range of motion without nuchal rigidity, or vertebral point tenderness. No Meningismus. Chest/axilla: Normal chest wall appearance and motion. Nontender with no deformity. No lesions are appreciated. Cardiovascular: Regular rate and rhythm with a normal S1 and S2. No gallops, murmurs, or rubs. Normal PMI, no JVD. No pulse deficits. Respiratory: Lungs have equal breath sounds bilaterally, clear to auscultation and percussion. No rales, rhonchi or wheezes noted. No increased work of breathing, no retractions or nasal flaring. Abdomen/GI: Soft, non-tender, with normal bowel sounds. No distension or tympany. No guarding or rebound. No evidence of tenderness throughout. MS/ Extremity: Pulses equal, no cyanosis. Neurovascular intact. Full, normal range of motion. Neuro: Awake and alert, GCS 15, oriented to person, place, time, and situation. Cranial nerves II-XII grossly intact. Motor strength 5/5 in all extremities. Sensory grossly intact. Cerebellar exam normal. Normal gait. Vital Signs: 16:29 BP 126 / 68; Pulse 78; Resp 17; Temp 98.1; Pulse Ox 99% ; Weight 48.99 kg; Height 5 ft. ap3 1 in. (154.94 cm); 19:17 BP 93 / 30; Pulse 69; Resp 18; Pulse Ox 93% ; lr4 20:24 BP 95 / 53; Pulse 69; Resp 18; Pulse Ox 96% ; lr4 20:37 BP 137 / 68; Pulse 80; Resp 22; Pulse Ox 97% ; lr4 20:52 BP 137 / 68; Pulse 74; Resp 18; Pulse Ox 98% on R/A; ss7 22:21 BP 115 / 66; Pulse 67; Resp 18; Pulse Ox 98% ; lr4 23:00 BP 109 / 73; Pulse 69; Resp 18; Pulse Ox 97% ; ss7 02 00:26 BP 88 / 53; Pulse 63; Resp 18; Pulse Ox 97% ; ll3 06/10 16:29 Body Mass Index 20.41 (48.99 kg, 154.94 cm) ap3 MDM: 06/10 19:01 Patient medically screened. rn 20:02 Differential Diagnosis: cardiac arrhythmia, idiopathic syncope, vasovagal episode, rn aortic stenosis, hypovolemia, hyperglycemia, dehydration, acute renal failure.. Data reviewed: vital signs, nurses notes, lab test result(s), EKG, and as a result, I will admit patient. Counseling: I had a detailed discussion with the patient and/or guardian regarding: the historical points, exam findings, and any diagnostic results supporting the discharge/admit diagnosis, lab results, the need for further work-up and treatment in the hospital. Response to treatment: the patient's symptoms have mildly improved after treatment, and as a result, I will admit patient. Admission orders: after a detailed discussion of the patient's condition and case, the admit orders are written by me. Special discussion:. ED course: Pt with acute renal failure and hyperglycemia, + hyperkalemia, will give insulin and kayexalate. NS boluses going. BP steady at the moment, improving with fluids compared to when she got here. Was signed out to me by Dr. Fitzgerald at shift change, now admitted to Dr. Harvey.. 06/10 17:05 Order name: Basic Metabolic Panel; Complete Time: 22:55 ma2 06/10 17:05 Order name: CBC with Diff; Complete Time: 22:55 ma2 06/10 17:05 Order name: CPK; Complete Time: 22:55 ma2 06/10 17:05 Order name: Ckmb; Complete Time: 22:55 ma2 06/10 17:05 Order name: Hepatic Function; Complete Time: 22:55 ma2 06/10 17:05 Order name: Lipase; Complete Time: 22:55 ma2 06/10 17:05 Order name: Magnesium; Complete Time: 22:55 ma2 06/10 17:05 Order name: Protime (+inr); Complete Time: 22:55 ma2 06/10 17:05 Order name: Ptt, Activated; Complete Time: 22:55 ma2 06/10 18:10 Order name: Glucose, Ancillary Testing; Complete Time: 18:25 EDMS 06/10 18:30 Order name: Urine Dipstick-Ancillary; Complete Time: 18:48 EDMS 06/10 18:51 Order name: SARS-COV-2 RT PCR (Document "Date of Onset" if Symptomatic); Complete Time: ma2 22:55 06/10 22:33 Order name: CBC Smear Scan; Complete Time: 22:55 EDMS 06/10 22:44 Order name: Glucose, Ancillary Testing; Complete Time: 22:55 EDMS 06/10 17:05 Order name: CT Head Brain wo Cont; Complete Time: 17:44 ma2 06/10 17:05 Order name: EKG; Complete Time: 17:06 ma2 06/10 17:05 Order name: Cardiac monitoring; Complete Time: 17:32 ma2 06/10 17:05 Order name: EKG - Nurse/Tech; Complete Time: 18:17 vt2 06/10 17:05 Order name: IV Saline Lock; Complete Time: 17:32 vt2 06/10 23:34 Order name: Glucose, Ancillary Testing; Complete Time: 00:36 EDMS 06/11 00:51 Order name: Hemoglobin A1c EDMS 06/10 17:05 Order name: Labs collected and sent; Complete Time: 17:32 ma2 06/10 17:05 Order name: NPO; Complete Time: 17:32 vt2 06/10 17:05 Order name: O2 Per Protocol; Complete Time: 17:32 vt2 06/10 17:05 Order name: O2 Sat Monitoring; Complete Time: 17:32 ma2 06/10 17:05 Order name: Urine Dipstick-Ancillary (obtain specimen); Complete Time: 18:29 vt2 06/10 17:48 Order name: Labs - recollect needed: recollec all tubes; Complete Time: 18:16 bd 06/10 18:15 Order name: Labs - recollect needed: recollect lavender and blue top; Complete Time: bd 18:16 Administered Medications: 18:00 Drug: NS 0.9% 1000 ml Route: IV; Rate: 1 bolus; Site: left forearm; lr4 19:00 Follow up: IV Status: Completed infusion; IV Intake: 1000ml lr4 19:16 Follow up: IV Status: Completed infusion; IV Intake: 1000ml lr4 18:25 Not Given (Physician Discretion): Ketorolac 60 mg IVP once lr4 18:26 Drug: Reglan (metoCLOPramide) 10 mg Route: IVP; Site: left antecubital; lr4 19:00 Follow up: Response: Pain is decreased lr4 18:26 Drug: TORadol (ketorolac) 30 mg Route: IVP; Site: left antecubital; lr4 22:22 Follow up: Response: No adverse reaction; Pain is decreased lr4 23:34 Follow up: Response: No adverse reaction ss7 19:15 Drug: NS 0.9% 1000 ml Route: IV; Rate: 1 bolus; Site: left forearm; lr4 20:15 Follow up: IV Status: Completed infusion; IV Intake: 1000ml lr4 20:15 Follow up: IV Status: Completed infusion ss7 21:20 Drug: Insulin Regular Human 10 units {Co-Signature: [email or web address] (Debbie Bowie RN).} Route: ss7 IVP; Site: left forearm; 23:33 Follow up: Response: No adverse reaction ss7 21:20 Drug: Kayexalate (polystyrene) 15 grams Route: PO; ss7 23:33 Follow up: Response: No adverse reaction ss7 21:24 Drug: Insulin Regular Human 10 units {Co-Signature: [email or web address] (Debbie Bowie RN).} Route: ss7 Sub-Q; Site: left lower abdomen; 23:33 Follow up: Response: No adverse reaction ss7 21:25 Drug: NS 0.9% 1000 ml Route: IV; Rate: 1000 ml; Site: left forearm; ss7 22:25 Follow up: Response: No adverse reaction; IV Status: Completed infusion ss7 Point of Care Testing: Blood Glucose: 22:37 Blood Glucose: 482 mg/dL; ll3 23:32 Blood Glucose: 308 mg/dL; ll3 Ranges: Critical Glucose Levels:Adult <50 mg/dl or >400 mg/dl <40 mg/dl or >180 mg/dl Disposition Summary: 06/10/21 20:05 Hospitalization Ordered Hospitalization Status: Inpatient Admission rn Provider: Campos Harvey rn Condition: Stable rn Problem: new rn Symptoms: have improved rn Bed/Room Type: Standard rn [facility]:04[facility] Room Assignment: [facility](06/11/21 00:04) Diagnosis - Acute kidney failure, unspecified rn - Hypo-osmolality and hyponatremia rn - Hyperglycemia, unspecified rn - Dehydration rn - Hyperkalemia rn Forms: - Medication Reconciliation Form rn - SBAR form rn dialysis time excluding procedures: 20:02 Critical care time: Bedside Care: 30 minutes, Consultation: 5 minutes. Total time: 35 rn minutes Signatures: Dispatcher [facility] EDTeena Ramey Roman, MD MD rn Garcia, Cindy, RN RN Campos Fitzgerald MD MD ma2 Meg Samuels RN RN ap3 Amy Reed RN RN ss7 Debbie Bowie RN RN lr4 Debbie Bowie RN lr4 Corrections: (The following items were deleted from the chart) 23: 20:05 Telemetry/MedSurg (Inpatient) rn : 20:05 rn cg 06/11 00:04 06/10 23:13 Intensive Care Unit cg cg 06/11 00:04 06/10 23:13 3- cg cg
--- NOTE | 2021-06-10 20:06 | ER ---
Nurse's Notes [facility] Name: Kathleen Wahl Age: 65 yrs Sex: Female : 1955 Arrival Date: 06/10/2021 Time: 16:24 Bed 24 Private MD: Diagnosis: Acute kidney failure, unspecified;Hypo-osmolality and hyponatremia;Hyperglycemia, unspecified;Dehydration;Hyperkalemia Presentation: 06/10 16:29 Chief complaint: Patient states: she passed out twice yesterday and once today when on ap3 the phone with her PCP's nurse. The nurse on the phone informed her to come be evaluated in the ED. Coronavirus screen: At this time, the client does not indicate any symptoms associated with coronavirus-19. Ebola Screen: No symptoms or risks identified at this time. Initial Sepsis Screen: Does the patient meet any 2 criteria? No. Patient's initial sepsis screen is negative. Does the patient have a suspected source of infection? No. Patient's initial sepsis screen is negative. Risk Assessment: Do you want to hurt yourself or someone else? Patient reports no desire to harm self or others. Onset of symptoms was June 09, 2021. 16:29 Method Of Arrival: Wheelchair ap3 16:29 Acuity: JANI 3 ap3 Triage Assessment: 16:33 General: Appears in no apparent distress. Behavior is calm, cooperative. Pain: ap3 Complains of pain in headache. Neuro: Level of Consciousness is awake, alert, obeys commands, Oriented to person, place, time, situation, Appropriate for age. Cardiovascular: Patient's skin is warm and dry. Respiratory: Airway is patent Respiratory effort is even, unlabored, Respiratory pattern is regular, symmetrical. GI: Reports nausea. Historical: - Allergies: 16:33 paper tape; ap3 16:33 Pseudoephedrine; ap3 16:33 Tramadol HCl; ap3 - PMHx: 16:33 Hepatitis; High Cholesterol; Hypertension; kidney disease; Chronic obstructive lung ap3 disease; - PSHx: 16:33 Cholecystectomy; hysterectomy; ap3 - Immunization history:: Client reports receiving the 2nd dose of the Covid vaccine, and booster Pneumococcal vaccine status is unknown, Flu vaccine is up to date. - Social history:: Smoking status: Patient reports the use of cigarette tobacco products, smokes one-half pack cigarettes per day. - Family history:: not pertinent. Screenin:34 Abuse screen: Denies threats or abuse. Nutritional screening: No deficits noted. ap3 Tuberculosis screening: No symptoms or risk factors identified. 17:33 Fall Risk IV access (20 points). ss7 Assessment: 17:33 General: Appears in no apparent distress. comfortable, Behavior is calm, cooperative, ss7 appropriate for age. Neuro: Level of Consciousness is awake, alert, obeys commands, Oriented to person, place, time, situation, Appropriate for age Cardiovascular: No deficits noted. Heart tones S1 S2. Respiratory: Breath sounds are clear bilaterally. GI: No deficits noted. Bowel sounds present X 4 quads. : No deficits noted. EENT: No deficits noted. Derm: No deficits noted. Musculoskeletal: No deficits noted. Vital Signs: 16:29 BP 126 / 68; Pulse 78; Resp 17; Temp 98.1; Pulse Ox 99% ; Weight 48.99 kg; Height 5 ft. ap3 1 in. (154.94 cm); 19:17 BP 93 / 30; Pulse 69; Resp 18; Pulse Ox 93% ; lr4 20:24 BP 95 / 53; Pulse 69; Resp 18; Pulse Ox 96% ; lr4 20:37 BP 137 / 68; Pulse 80; Resp 22; Pulse Ox 97% ; lr4 20:52 BP 137 / 68; Pulse 74; Resp 18; Pulse Ox 98% on R/A; ss7 22:21 BP 115 / 66; Pulse 67; Resp 18; Pulse Ox 98% ; lr4 23:00 BP 109 / 73; Pulse 69; Resp 18; Pulse Ox 97% ; ss7 06/11 00:26 BP 88 / 53; Pulse 63; Resp 18; Pulse Ox 97% ; ll3 06/10 16:29 Body Mass Index 20.41 (48.99 kg, 154.94 cm) ap3 ED Course: 06/10 16:24 Patient arrived in ED. as 16:30 Triage completed. ap3 16:34 Arm band placed on left wrist. ap3 17:06 Campos Fitzgerald MD is Attending Physician. ma2 17:08 Amy Reed, KAITLIN is Primary Nurse. ss7 17:14 CT Head Brain wo Cont In Process Unspecified. EDMS 17:32 Basic Metabolic Panel Sent. ss7 17:32 CBC with Diff Sent. ss7 17:32 CPK Sent. ss7 17:32 Ckmb Sent. ss7 17:32 Hepatic Function Sent. ss7 17:32 Lipase Sent. ss7 17:32 Magnesium Sent. ss7 17:32 Protime (+inr) Sent. ss7 17:32 Ptt, Activated Sent. ss7 17:33 Patient has correct armband on for positive identification. Bed in low position. Call ss7 light in reach. Side rails up X2. 17:33 No provider procedures requiring assistance completed. ss7 17:34 EKG done, by ED staff. lr4 18:16 Inserted saline lock: 20 gauge in left forearm, using aseptic technique. lr4 19:00 Attending Physician role handed off by Camops Fitzgerald MD rn 19:00 Roni Dunbar MD is Attending Physician. rn 19:08 SARS-COV-2 RT PCR (Document "Date of Onset" if Symptomatic) Sent. lr4 20:05 Campos Harvey MD is Hospitalizing Provider. rn 06/11 00:23 Report given to REPORT GIVEN TO KAITLIN CUEVAS. ll3 00:53 Patient admitted, IV remains in place. intact, No redness/swelling at site. ll3 Administered Medications: 06/10 18:00 Drug: NS 0.9% 1000 ml Route: IV; Rate: 1 bolus; Site: left forearm; lr4 19:00 Follow up: IV Status: Completed infusion; IV Intake: 1000ml lr4 19:16 Follow up: IV Status: Completed infusion; IV Intake: 1000ml lr4 18:25 Not Given (Physician Discretion): Ketorolac 60 mg IVP once lr4 18:26 Drug: Reglan (metoCLOPramide) 10 mg Route: IVP; Site: left antecubital; lr4 19:00 Follow up: Response: Pain is decreased lr4 18:26 Drug: TORadol (ketorolac) 30 mg Route: IVP; Site: left antecubital; lr4 22:22 Follow up: Response: No adverse reaction; Pain is decreased lr4 23:34 Follow up: Response: No adverse reaction ss7 19:15 Drug: NS 0.9% 1000 ml Route: IV; Rate: 1 bolus; Site: left forearm; lr4 20:15 Follow up: IV Status: Completed infusion; IV Intake: 1000ml lr4 20:15 Follow up: IV Status: Completed infusion ss7 21:20 Drug: Insulin Regular Human 10 units {Co-Signature: lr4 (Debbie Bowie RN).} Route: ss7 IVP; Site: left forearm; 23:33 Follow up: Response: No adverse reaction ss7 21:20 Drug: Kayexalate (polystyrene) 15 grams Route: PO; ss7 23:33 Follow up: Response: No adverse reaction ss7 21:24 Drug: Insulin Regular Human 10 units {Co-Signature: lr4 (Debbie Bowie RN).} Route: ss7 Sub-Q; Site: left lower abdomen; 23:33 Follow up: Response: No adverse reaction ss7 21:25 Drug: NS 0.9% 1000 ml Route: IV; Rate: 1000 ml; Site: left forearm; ss7 22:25 Follow up: Response: No adverse reaction; IV Status: Completed infusion ss7 Point of Care Testing: Blood Glucose: 22:37 Blood Glucose: 482 mg/dL; ll3 23:32 Blood Glucose: 308 mg/dL; ll3 Ranges: Intake: 19:00 IV: 1000ml; Total: 1000ml. lr4 19:16 IV: 1000ml; Total: 2000ml. lr4 20:15 IV: 1000ml; Total: 3000ml. lr4 Outcome: 18:29 Condition: stable lr4 20:05 Decision to Hospitalize by Provider. rn 06/11 00:53 Admitted to Med/surg accompanied by nurse, via stretcher, room 221, with chart, Report ll3 called to Receiving RN Instructed on the need for admit, Demonstrated understanding of instructions. 00:55 Condition: stable ll3 00:55 Patient left the ED. ll3 Signatures: Dispatcher [employer] Ruth Valentine Roman, MD MD rn Alzahri, Mohammad, MD MD ma2 Meg Samuels RN RN ap3 Loubet, Lynsea, RN RN ll3 Amy Reed RN RN ssDebbie Layne RN RN lr4 Debbie Bowie RN lr4
[2021-06-10] MEDS ORDERED: INSULIN -REGULAR HUMAN 50 UNIT/0.5 ML ML ONE (21:12)
[2021-06-10] MEDS ORDERED: SOD POLYSTYREN SUL 15 GM/60 ML UCUP ONE (21:13)
[2021-06-10 21:55] LABS: Absolute Lymphocytes (CBC) 0.8 K/uL (0.7-4.9); Hematocrit 33.3 % (36.0-45.0); Lymphocytes % 23.4 % (15.3-44.8); MPV 8.7 fL (7.6-11.3); RBC Red Blood Cell Count 3.37 M/uL (3.86-4.86)
[2021-06-10 21:58] LABS: Protime INR 0.89
--- NOTE | 2021-06-10 22:13 | P.HP ---
Certification for Inpatient With expected LOS: >2 Midnights Patient will require the following post-hospital care: None Practitioner: I am a practitioner with admitting privileges, knowledge of patient current condition, hospital course, and medical plan of care. Services: Services provided to patient in accordance with Admission requirements found in Title 42 Section 412.3 of the Code of Federal Regulations <Carol Ann Hernandez - Last Filed: 06/10/21 22:06> Patient History Date of Service: 06/10/21 Primary Care Provider: Unknown Reason for admission: Hyperglycemia, Hypotension, SOPHIE on CKD History of Present Illness: Patient is a 65-year-old female with hypertension, chronic kidney disease, COPD, insulin-dependent type 2 diabetes, and hepatitis C who presented to the ED after a syncopal episode. Patient states she was in the kitchen this morning when she began to shake and passed out. She states she also passed out twice last night. She reports feeling weak the past couple of days. She has been taking cortisone for a COPD exacerbation. In the ED patient's labs were significant for creatinine of 2.2 (baseline 1.3), WBC 3.3, sodium 116, potassium 6.1, chloride 76, glucose 1230. Head CT negative. In the ED patient was given 3L of NS, reglan, toradol, kayexalate, and 20 units of insulin. Her POC glucose was still greater than 500. Her blood pressure has also fluctuated, getting as low as 93/30. Patient will be admitted to the ICU for further evaluation and treatment of hyperglycemia and hyperkalemia with insulin drip. Home medications list reviewed: Yes - Past Medical/Surgical History Diabetic: Yes -: HTN -: CKD -: COPD -: Type 2 diabetes- insulin dependent -: Hepatitis C -: Cholecystecomy -: Hysterectomy Psychosocial/ Personal History: Patient lives at home with her , daughter, and 3 grandchildren. - Family History Mother -: Cancer (lung ) Father -: Cancer (bladder) Brother -: Diabetes - Social History Smoking Status: Heavy Tobacco smoker (>10 cigarettes/day) (3 packs/day) Counseled patient to stop smoking for: less than 10 minutes Alcohol use: No CD- Drugs: No Place of Residence: Home <Carol Ann Hernandez - Last Filed: 06/10/21 22:06> Date of Service: 06/10/21 <Campos Harvey - Last Filed: 07/16/21 11:36> Allergies pseudoephedrine Allergy (Verified 06/11/21 01:17) seizures tramadol Adverse Reaction (Verified 06/11/21 01:17) confusion PAPER TAPE Allergy (Uncoded 01/09/15 21:07) Unknown Home Medications: Empagliflozin [Jardiance] 25 mg PO DAILY 06/11/21 Levothyroxine [Synthroid*] 0.125 mg PO DAILY 06/11/21 Liraglutide [Victoza 2-Orlin] 1.8 units SQ DAILY 06/11/21 Losartan Potassium 25 mg PO DAILY 06/11/21 Sertraline HCl 200 mg PO DAILY 06/11/21 Temazepam [Restoril*] 15 mg PO BEDTIME 06/11/21 Valacyclovir HCl [Valacyclovir] 500 mg PO DAILY 06/11/21 Calcitrol [Rocaltrol*] 0.5 mcg PO DAILY #30 cap 06/12/21 Cholecalciferol (Vitamin D3) [Vitamin D 5,000 IU Cap*] 5,000 unit PO DAILY #30 cap 06/12/21 Docusate [Colace Cap*] 100 mg PO BID #60 cap 06/12/21 Insulin Glargine,Hum.rec.anlog [Lantus] 15 units SQ BEDTIME #1 vial 06/12/21 Allopurinol 300 mg PO DAILY 06/15/21 Amlodipine [Norvasc*] 5 mg PO DAILY 06/15/21 Empagliflozin [Jardiance] 25 mg PO DAILY 06/15/21 Fluticasone/Umeclidin/Vilanter [Trelegy Ellipta 100-62.5-25] 1 each IH DAILY 06/15/21 Insulin Glargine,Hum.rec.anlog [Lantus] 10 unit IN BEDTIME 06/15/21 Levothyroxine [Synthroid*] 125 mcg PO [id number] 06/15/21 Metoprolol Succinate 1 tab PO DAILY 06/15/21 Sertraline [Zoloft*] 100 mg PO BID 06/15/21 Simvastatin 20 mg PO BEDTIME 06/15/21 Review of Systems General: Weakness Respiratory: Cough, Shortness of Breath <Carol Ann Hernandez - Last Filed: 06/10/21 22:06> Physical Examination - Physical Exam General: Alert, In no apparent distress HEENT: Atraumatic, PERRLA, EOMI, Sclerae nonicteric Neck: Supple, 2+ carotid pulse no bruit, No LAD, Without JVD or thyroid abnormality Respiratory: Crackles/rales Cardiovascular: Regular rate/rhythm, Normal S1 S2 Gastrointestinal: Normal bowel sounds, No tenderness Musculoskeletal: No tenderness Integumentary: No rashes Neurological: Normal speech, Normal strength at 5/5 x4 extr, Normal tone, Normal affect - Studies Laboratory Data (last 24 hrs) 06/10/21 18:00: Sodium 116 L*, Potassium 6.1 H*, BUN 53 H, Creatinine 2.26 H, Glucose 1230 H*, Lipase 70 L <Liz Hernandezia - Last Filed: 06/10/21 22:06> Assessment and Plan - Problems (Diagnosis) (1) Type 2 diabetes mellitus with hyperosmolar hyperglycemic state (HHS) Status: Acute (2) Acute kidney injury superimposed on CKD Status: Acute (3) Hypotension Status: Acute Qualifiers: Hypotension type: hypotension due to hypovolemia Qualified Code(s): I95.89 - Other hypotension; E86.1 - Hypovolemia (4) COPD (chronic obstructive pulmonary disease) Status: Chronic Qualifiers: COPD type: unspecified COPD Qualified Code(s): J44.9 - Chronic obstructive pulmonary disease, unspecified (5) Hypothyroidism Status: Chronic Qualifiers: Hypothyroidism type: unspecified Qualified Code(s): E03.9 - Hypothyroidism, unspecified (6) Hepatitis C Status: Chronic Qualifiers: Viral hepatitis chronicity: unspecified Hepatic coma status: without hepatic coma Qualified Code(s): B19.20 - Unspecified viral hepatitis C without hepatic coma - Plan -Glucose checks every 1 hour. NPO. Patient will be admitted to ICU with insulin drip running at 2 units an hour. We will stop insulin drip once glucose is between 400-500 then will start on lantus. Source of hyperglycemia likely seco ndary to steroid use for COPD exacerbation. Patient reports she is usually compliant with her insulin. A1c ordered. -Patient's hypotension is likely due to hypovolemia. We will continue IV fluids. -Acute kidney injury likely secondary to dehydration. Patient has CKD but reports she does not have a rag sorter and cutter -Patient sees Dr. Reyes for her COPD. -Patient reports having chronic hepatitis C, but the medications make her sick. DVT PPx: heparin Code Status: DNR Discharge Plan: Home Plan to discharge in: Greater than 2 days - Advance Directives Does patient have a Living Will: No Does patient have a Durable POA for Healthcare: No - Code Status/Comfort Care Code Status Assessed: Yes (DNR) Critical Care: No Time Spent Managing Pts Care (In Minutes): 70 <Carol Ann Hernandez - Last Filed: 06/10/21 22:06> Date of Service: 06/10/21 Agree with plan of care as mentioned above. Assessment/plan: 1. Acute kidney injury 2. Dehydration 3. Hyperosmolar nonketotic syndrome PLAN: 1. IVFs 2. Monitor BS <Campos Harvey - Last Filed: 07/16/21 11:36>
[2021-06-10 22:33] LABS: Blood Morphology Comment NOT SEEN (NOT SEEN); Platelet Estimate DECR; White Blood Cell Scan OK (OK)
[2021-06-10] MEDS ORDERED: ONDANSETRON 4 MG/2 ML VIAL IV PRN (23:58)
[2021-06-10] MEDS ORDERED: INSULIN GLARGINE 100 UNIT/ML SQ ONE (23:58)
[2021-06-10] MEDS ORDERED: INSULIN -REGULAR HUMAN 50 UNIT/0.5 ML ML SQ SCH (23:58)
[2021-06-11] MEDS ORDERED: D50W 25 GM/50 ML SYRINGE IV PRN (00:53)
[2021-06-11] MEDS ORDERED: GLUCAGON 1 MG/VIAL IM PRN (00:53)
[2021-06-11] MEDS ORDERED: INSULIN -REGULAR HUMAN 50 UNIT/0.5 ML ML SQ SCH (01:00)
[2021-06-11 01:24] VITALS: BMI 20.4
[2021-06-11] MEDS: NA CHLORIDE 0.9% 1,000 ML IV SCH ×4 (01:28→21:00)
[2021-06-11] MEDS: HEPARIN 5000 UNIT/ML 1 ML VIAL SQ SCH ×3 (01:28→18:13)
[2021-06-11 04:43] LABS: Absolute Lymphocytes (CBC) 1.7 K/uL (0.7-4.9); Hematocrit 32.6 % (36.0-45.0); Lymphocytes % 31.9 % (15.3-44.8); MPV 8.7 fL (7.6-11.3); RBC Red Blood Cell Count 3.41 M/uL (3.86-4.86)
[2021-06-11] MEDS: INSULIN -REGULAR HUMAN 50 UNIT/0.5 ML ML SQ SCH ×5 (04:48→21:06)
[2021-06-11 05:08] LABS: Albumin 2.7 g/dL (3.4-5.0); Bilirubin Total 0.3 mg/dL (0.2-1.0); Potassium 3.7 mmol/L (3.5-5.1); Protein, Total 5.9 g/dL (6.4-8.2); Thyroid Stimulating Hormone 3.71 uIU/mL (0.360-3.740)
[2021-06-11] MEDS ORDERED: D5 NS IV SCH ×2 (11:00)
[2021-06-11] MEDS ORDERED: KCL IV SCH ×2 (11:00)
--- NOTE | 2021-06-11 11:52 | P.CNS ---
Date of Consult: 06/11/21 Reason for Consult: SOPHIE/ Hyponatremia Requesting Physician: Campos Harvey Primary Care Provider: Unknown Chief Complaint: Hyperglycemia, Hypotension, SOPHIE on CKD History of Present Illness: Patient is a 65-year-old female with hypertension, chronic kidney disease, COPD, insulin-dependent type 2 diabetes, and hepatitis C who presented to the ED after a syncopal episode. Patient states she was in the kitchen this morning when she began to shake and passed out. She states she also passed out twice last night. She reports feeling weak the past couple of days. She has been taking cortisone for a COPD exacerbation. In the ED patient's labs were significant for creatinine of 2.2 (baseline 1.3), WBC 3.3, sodium 116, potassium 6.1, chloride 76, glucose 1230. Head CT negative. In the ED patient was given 3L of NS, reglan, toradol, kayexalate, and 20 units of insulin. Her POC glucose was still greater than 500. Her blood pressure has also fluctuated, getting as low as 93/30. Patient will be admitted to the ICU for further evaluation and treatment of hyperglycemia and hyperkalemia with insulin drip. 18:00 This 65 yrs old Female presents to ER via Wheelchair with complaints of Passed Out ma2 Prior To Arrival. 18:00 The patient has experienced syncope. Onset: The symptoms/episode began/occurred ma2 suddenly, 1 day(s) ago. Duration: This was a single episode. Associated signs and symptoms: Pertinent negatives: ataxia, chest pain, confusion. The patient has not experienced similar symptoms in the past. Allergies pseudoephedrine Allergy (Verified 06/11/21 01:17) seizures tramadol Adverse Reaction (Verified 06/11/21 01:17) confusion PAPER TAPE Allergy (Uncoded 01/09/15 21:07) Unknown Home medications list reviewed: Yes Home Medications: Empagliflozin [Jardiance] 25 mg PO DAILY 06/11/21 Insulin Glargine,Hum.rec.anlog [Lantus] 10 units SQ BEDTIME 06/11/21 Levothyroxine [Synthroid*] 0.125 mg PO DAILY 06/11/21 Liraglutide [Victoza 2-Orlin] 1.8 units SQ DAILY 06/11/21 Losartan Potassium 25 mg PO DAILY 06/11/21 Sertraline HCl 200 mg PO DAILY 06/11/21 Temazepam [Restoril*] 15 mg PO BEDTIME 06/11/21 Valacyclovir HCl [Valacyclovir] 500 mg PO DAILY 06/11/21 - Past Medical/Surgical History Diabetic: Yes -: HTN -: CKD -: COPD -: Type 2 diabetes- insulin dependent -: Hepatitis C -: Cholecystecomy -: Hysterectomy Psychosocial/ Personal History: Patient lives at home with her , daughter, and 3 grandchildren. - Family History Mother Medical History: Cancer Father Medical History: Cancer Brother Medical History: Diabetes - Social History Smoking Status: Current every day smoker Alcohol use: No CD- Drugs: No Caffeine use: No Place of Residence: Home Review of Systems 10-point ROS is otherwise unremarkable General: Weakness, Malaise Physical Examination Temp Pulse Resp BP Pulse Ox 97.7 F 70 18 103/55 L 95 06/11/21 08:00 06/11/21 08:00 06/11/21 08:00 06/11/21 08:00 06/11/21 08:00 General: Oriented x3, Cooperative HEENT: Atraumatic Neck: Supple Respiratory: Clear to auscultation bilaterally Cardiovascular: No edema, Regular rate/rhythm Gastrointestinal: Soft and benign, Non-distended Musculoskeletal: No clubbing Integumentary: No rashes, No cyanosis Neurological: Normal speech Blood work reviewed in the chart. Imagings Data: EXAM DESCRIPTION: CT - Head Brain Wo Cont - 06/10/2021 5:14 pm CLINICAL HISTORY: SYNCOPE Headache, drowsiness COMPARISON: No comparisons TECHNIQUE: All CT scans are performed using dose optimization technique as appropriate and may include automated exposure control or mA/KV adjustment according to patient size. FINDINGS: No intracranial hemorrhage, hydrocephalus or extra-axial fluid milton ection.Mild generalized brain atrophy is present with moderate periventricular and deep white matter chronic microvascular ischemic changes.No areas of brain edema or evidence of midline shift. The paranasal sinuses and mastoids are clear. The calvarium is intact. IMPRESSION: No acute intracranial abnormality. Conclusions/Impression: SOPHIE in the setting of hypovolemia CKD III -No NSAIDs -Change IVF NS@100 Hyponatremia in the setting of hyperglycemia -Continue IVF with NS Hyperkalemia -Hold Losartan HTN with CKD complicated by hypotension -Hold Losartan -IVF bolus as needed DM II with Hyperglycemia, CKD? -RISS -ADA diet Moderate malnutrition -Advance nutrition as tolerated -Change to an ADA diet Anemia in chronic illness -Monitor H&H CKD MBD -Start Vitamin D Thank you kindly for the consultation.
--- NOTE | 2021-06-11 12:40 | RAD REPORT ---
EXAM DESCRIPTION: US - Renal Ultrasound-Complete - 06/11/2021 11:58 am CLINICAL HISTORY: SOPHIE COMPARISON: Abdomen Exam Complete dated 12/21/2016 FINDINGS: The right kidney measures grossly 10 x 5 cm. The left kidney measures grossly 8 x 5 cm. S ize measurements are somewhat due to the number of renal cysts present. Renal cortical thickness and echogenicity are normal. No hydronephrosis. Multiple thin-walled renal cysts are present in the right kidney. Largest measuring 3.7 cm. In the le ft kidney multiple cysts are also identified. Largest is 4.9 cm and contains a thin septation. In the medial left kidney a 3.4 centimeter hypoechoic focus is present not meeting sonographic criteria for simple cyst. No bladder wall thickening or mass. No intraluminal stone or mass. IMPRESSION: No hydronephrosis of either kidney. Cortical thickness and echogenicity are within kurt l range. Multiple bilateral renal cysts are present and these are mostly Bosniak 1 cyst. A 4.9 centimeter left renal cyst is Bosniak II. In the medial left kidney a 3.4 centimeter hypoechoic focus is present not meeting simple cyst criter ia. This may still be a complex partially collapsed cyst. If the patient cannot receive IV contrast f or CT imaging, close sonographic follow-up can be performed.
--- NOTE | 2021-06-11 13:26 | CON ---
Date of Consultation: 06/11/2021 Reason For Consultation: Elevated BUN and creatinine, hyponatremia. History Of Present Illness: This is a pleasant 65-year-old female with significant past medical history of secondary hypertension, renal artery stenosis status post stenting, chronic kidney disease, baseline creatinine 1.1, GFR of 40, COPD, diabetes complicated with neuropathy, no retinopathy, hep C, hypokalemia secondary to RTA secondary to hepatitis treatment, the patient was in her regular state of health. The patient last week had recurrent fall and losing of consciousness. Her weakness get worse with nausea and vomiting without any diarrhea. For that reason, the patient was brought to the hospital. Upon arrival to the hospital, the patient found to have hyperkalemia with potassium 6.1 and creatinine 2.2 and hyponatremia 116. For that reason, we have been consulted. The patient over the night was medicated and started aggressive hydration, hyperkalemia has been resolved. Her sodium has been improved from 116 to 135. The patient's apparently upon arrival to the hospital blood sugar was above 1200. The patient received aggressive hydration with normal saline. The patient tolerated food today. Denied any tremor. Denied taking any nonsteroidal. No IV contrast. Past Medical History: Includes; 1. Hypertension secondary to renal artery stenosis, status post renal artery stenting. 2. Chronic kidney disease, baseline creatinine 1.1 and GFR of 40. 3. COPD. 4. Diabetes complicated with neuropathy. 5. Hep C, status post treatment. 6. Renal artery stenosis, status post renal artery stenting. Past Surgical History: Includes; 1. Cholecystectomy. 2. Hysterectomy. 3. Renal artery stenting. Allergies: TO PAPER TAPE. Family History: Positive for hypertension, cancer, and diabetes. Social History: Active smoker. Occasional alcohol. Denied drug abuse. Home Medications: Include losartan, temazepam, valacyclovir, Zoloft, insulin, levothyroxine, and Jardiance. Current Medications: Include IV fluid, insulin, heparin. IV fluid is normal saline. Review of Systems: Head and Neck: Lightheaded. GI: Has nausea. Occasional vomiting. No diarrhea. Sanitary Chemist: No vaginal discharge. Respiratory: No shortness of breath. No cough. Cardiovascular: No chest pain. Endocrine: No polydipsia. Skin: No rash. Musculoskeletal: Generalized fatigue. Neuro: Has neuropathy. Has loss of consciousness. Physical Examination: General: When I saw the patient; the patient lying in bed. Vital Signs: Blood pressure 103/55, pulse of 70, afebrile. Reviewing the record yesterday, blood pressure down to 93 systolic. Chest: Clear to auscultation. Heart: S1, S2. Regular. Abdomen: Soft, nontender. Extremity: No edema. Neurologic: Alert, oriented. No focal. Laboratory Data: WBC 5.5, H and H 11/32.6. Sodium 135, potassium 3.7, bicarb 28, BUN 42, creatinine 1.2. Calcium 8.2, albumin 2.7, TSH 3.7. Upon admission; sodium 116, potassium 6.1, bicarb 28, BUN 53, creatinine 2.2, glucose 1230, magnesium 2.6, calcium 9.1. TSH 3.7. Urinalysis negative for infection. Assessment And Plan: 1. Acute kidney injury secondary to prerenal, secondary to GI loss, superimposed with ARB, complicated with hyperkalemia, recovered, very well back to close to baseline. Given the presence of over correction of sodium, I am going to change IV fluid to D5 half same rate and we will repeat the lab in 6 hours. I am going to go ahead and send for protein creatinine and renal ultrasound and we will send for CK and uric acid. Keep holding losartan. 2. Hyperkalemia with the presence of hyponatremia. I am going to go ahead and send for cortisol level. Currently, potassium has been normalized, in fact slightly on the lower side. I am going to send for urine electrolytes and we will follow up. Hypothyroidism has been ruled out. 3. Hyponatremia with over-correction. In the beginning, it was pseudohyponatremia because of the hyperglycemia. Corrected sodium around 124 compared to her blood sugar was on the 1200. Regardless in 9 hours, the patient fernie it from 124 to 135, which is slightly over-correction. I am going to go ahead and change IV fluid. We will send for urine electrolytes and we will repeat lab in 4 hours from changing the fluid and we will adjust accordingly. 4. Hypothyroidism has been ruled out. We will send for adrenal insufficiency. 5. Hypertension with the presence of acute kidney injury and hyperkalemia. Discontinue losartan. 6. Hypokalemia. The patient presented with severe hyperkalemia. We will hold on any supplement right now and we will follow up. 7. Diabetes as by primary. 8. Gastroenteritis as by primary. Thank you, Dr. Harvey for allowing us to participate in the care of your patient. Time spent examining the patient, [id number], discussing with the patient, reviewing data including radiology and laboratory, placing order, discussing the case with other produce team member including nursing and charge nurse, discussing the case with other subspecialists including hospitalist 65 minutes. DEE Voice ID: [id number] Report ID: [id number] MTDD
[2021-06-11] MEDS ORDERED: D5 0.45 NS 1,000 ML IV SCH (14:00)
[2021-06-11] MEDS: ALBUTEROL 2.5 MG/3 ML NEB SOL NEB PRN (19:21)
[2021-06-11] MEDS: DOCUSATE NA 100 MG CAP PO SCH (20:27)
[2021-06-11 20:43] LABS: Urine Bilirubin NEGATIVE (Negative); Urine Blood NEGATIVE (Negative); Urine Color YELLOW (Yellow); Urine Glucose 3+ (Negative); Urine Protein NEGATIVE (Negative); Urine Specific Gravity 1.025 (1.005-1.030); Urine Urobilinogen 0.2 mg/dL (0.2-1.0)
[2021-06-11 20:48] LABS: Urine Appearance CLEAR (Clear)
[2021-06-11 20:59] LABS: Urine Bacteria <20 /HPF (<20); Urine RBC <5 /HPF (NONE SEEN)
[2021-06-12] MEDS: HEPARIN 5000 UNIT/ML 1 ML VIAL SQ SCH ×2 (00:03→08:27)
[2021-06-12] MEDS: ALBUTEROL 2.5 MG/3 ML NEB SOL NEB PRN ×2 (01:37→08:55)
[2021-06-12] MEDS: INSULIN -REGULAR HUMAN 50 UNIT/0.5 ML ML SQ SCH ×2 (05:29→11:51)
[2021-06-12 05:44] LABS: Absolute Lymphocytes (CBC) 1.4 K/uL (0.7-4.9); Hematocrit 30.9 % (36.0-45.0); Lymphocytes % 30.3 % (15.3-44.8); MPV 8.5 fL (7.6-11.3); RBC Red Blood Cell Count 3.23 M/uL (3.86-4.86)
[2021-06-12 06:05] LABS: Albumin 2.3 g/dL (3.4-5.0); Bilirubin Total 0.2 mg/dL (0.2-1.0); Phosphorus 2.6 mg/dL (2.5-4.9); Protein, Total 5.3 g/dL (6.4-8.2); Uric Acid 5.2 mg/dL (2.6-6.0)
[2021-06-12 06:14] LABS: Magnesium 2.1 mg/dL (1.8-2.4); Potassium 4.2 mmol/L (3.5-5.1)
[2021-06-12] MEDS ORDERED: NACHLORIDE 0.45% 1,000 ML IV SCH (07:00)
[2021-06-12 07:21] LABS: UR PROTEIN 7.9 mg/dL (<11.9); Urine Protein/Creatinine Ratio 0.19 ratio (<0.15)
[2021-06-12] MEDS: DOCUSATE NA 100 MG CAP PO SCH (08:27)
[2021-06-12] MEDS ORDERED: CALCITROL 0.25 MCG CAP PO SCH (09:00)
[2021-06-12] MEDS ORDERED: VITAMIN D 5,000 UNIT CAP PO SCH (09:00)
[2021-06-12 10:17] VITALS: BP 101/50; TEMP 97
[2021-06-12 11:24] VITALS: O2SAT 98
[2021-06-16 08:48] LABS: ALT/SGPT 84 U/L (12-78); AST/SGOT 93 U/L (15-37); Alkaline Phosphatase 152 U/L (45-117); BUN Blood Urea Nitrogen 46 mg/dL (7-18); Bicarbonate 25 mmol/L (21-32); Bilirubin Total 0.2 mg/dL (0.2-1.0); Potassium 3.9 mmol/L (3.5-5.1); Sodium Level 126 mmol/L (136-145)
[2021-06-16 08:49] LABS: Albumin 2.6 g/dL (3.4-5.0); Bilirubin Direct < 0.1 mg/dL (0-0.2); CKMB Creatine Kinase MB < 1.0 ng/mL (1.0-3.6); Creatine Phosphokinase 47 U/L (26-192); Lipase 87 U/L (73-393); Magnesium 2.6
[2021-06-16 08:50] LABS: Glucose Level 865 mg/dL (74-106)
--- NOTE | 2021-07-16 11:38 | P.PN ---
Subjective Date of Service: 06/11/21 Patient is clinically doing well no new complaints. Patient respiratory status is stable. Patient's volume status is improved. Review of Systems 10-point ROS is otherwise unremarkable Physical Examination - Vital Signs Temperature: 97.0 F Blood Pressure: 101/50 Pulse: 72 Respirations: 18 Pulse Ox (%): 95 - Physical Exam General: Alert, In no apparent distress HEENT: Atraumatic, PERRLA, EOMI Neck: Supple, JVD not distended Respiratory: Clear to auscultation bilaterally, Normal air movement Cardiovascular: Regular rate/rhythm, Normal S1 S2 Gastrointestinal: Normal bowel sounds, No tenderness Musculoskeletal: No tenderness Integumentary: No rashes Neurological: Normal speech, Normal tone, Normal affect Lymphatics: No axilla or inguinal lymphadenopathy - Studies Medications List Reviewed: Yes Assessment & Plan - Problems (Diagnosis) (1) Hyperkalemia Status: Acute (2) Hyponatremia Status: Acute (3) Acute kidney injury superimposed on CKD Status: Acute (4) Hypotension Status: Acute Qualifiers: Hypotension type: hypotension due to hypovolemia Qualified Code(s): I95.89 - Other hypotension; E86.1 - Hypovolemia (5) Hepatitis C Status: Chronic Qualifiers: Viral hepatitis chronicity: unspecified Hepatic coma status: without hepatic coma Qualified Code(s): B19.20 - Unspecified viral hepatitis C without hepatic coma (6) Hypothyroidism Status: Chronic Qualifiers: Hypothyroidism type: acquired Qualified Code(s): E03.9 - Hypothyroidism, unspecified - Plan Plan: 1. Continue with IV fluids 2. Repeat labs 3. Monitor renal function closely 4. Strict Is or Os 5. Strict blood pressure and blood sugar control - Advance Directives Does patient have a Living Will: Yes Does patient have a Durable POA for Healthcare: Yes
--- NOTE | 2021-07-16 11:40 | P.DS ---
Discharge Date: 06/12/21 Primary Care Provider: Unknown Disposition: ROUTINE DISCHARGE Discharge Condition: GOOD Reason for Admission: Hyperglycemia, Hypotension, SOPHIE on CKD - Problems (1) Hyperkalemia Status: Acute (2) Hyponatremia Status: Acute (3) Acute kidney injury superimposed on CKD Status: Acute (4) Hypotension Status: Acute Qualifiers: Hypotension type: hypotension due to hypovolemia Qualified Code(s): I95.89 - Other hypotension; E86.1 - Hypovolemia (5) Hepatitis C Status: Chronic Qualifiers: Viral hepatitis chronicity: unspecified Hepatic coma status: without hepatic coma Qualified Code(s): B19.20 - Unspecified viral hepatitis C without hepatic coma (6) Hypothyroidism Status: Chronic Qualifiers: Hypothyroidism type: acquired Qualified Code(s): E03.9 - Hypothyroidism, unspecified Brief History of Present Illness: Patient is a 65-year-old female with hypertension, chronic kidney disease, COPD, insulin-dependent type 2 diabetes, and hepatitis C who presented to the ED after a syncopal episode. Patient states she was in the kitchen this morning when she began to shake and passed out. She states she also passed out twice last night. She reports feeling weak the past couple of days. She has been taking cortisone for a COPD exacerbation. In the ED patient's labs were significant for creatinine of 2.2 (baseline 1.3), WBC 3.3, sodium 116, potassium 6.1, chloride 76, glucose 1230. Head CT negative. In the ED patient was given 3L of NS, reglan, toradol, kayexalate, and 20 units of insulin. Her POC glucose was still greater than 500. Her blood pressure has also fluctuated, getting as low as 93/30. Patient will be admitted to the ICU for further evaluation and treatment of hyperglycemia and hyperkalemia with insulin drip. Hospital Course: Patient will hydrate her aggressively and electrolytes corrected. Patient is doing much better. At the time, patient is stable for discharge home. Vital Signs/Physical Exam: Temp Pulse Resp BP Pulse Ox 97.0 F 72 18 101/50 L 95 07/16/21 11:38 07/16/21 11:38 07/16/21 11:38 07/16/21 11:38 07/16/21 11:38 General: Alert, In no apparent distress, Oriented x3 Respiratory: Clear to auscultation bilaterally, Normal air movement Laboratory Data at Discharge: WBC Cancelled 06/12/21 06:00 Hgb Cancelled 06/12/21 06:00 Hct Cancelled 06/12/21 06:00 Plt Count Cancelled 06/12/21 06:00 PT 10.2 SECONDS (9.5-12.5) 06/10/21 21:33 INR 0.89 06/10/21 21:33 APTT 26.6 SECONDS (24.3-36.9) 06/10/21 21:33 Sodium Cancelled 06/12/21 06:00 Potassium Cancelled 06/12/21 06:00 BUN Cancelled 06/12/21 06:00 Creatinine Cancelled 06/12/21 06:00 Glucose Cancelled 06/12/21 06:00 Uric Acid 5.2 mg/dL (2.6-6.0) 06/12/21 05:12 Phosphorus 2.6 mg/dL (2.5-4.9) 06/12/21 05:12 Magnesium Cancelled 06/12/21 06:00 Total Bilirubin 0.2 mg/dL (0.2-1.0) 06/12/21 05:12 AST 48 U/L (15-37) H 06/12/21 05:12 ALT 52 U/L (12-78) 06/12/21 05:12 Alkaline Phosphatase 107 U/L (45-117) 06/12/21 05:12 Triglycerides 299 mg/dL (<150) H 06/11/21 04:05 Cholesterol 124 mg/dL (<200) 06/11/21 04:05 HDL Cholesterol 51 mg/dL (40-60) 06/11/21 04:05 Cholesterol/HDL Ratio 2.43 06/11/21 04:05 Lipase 87 U/L (73-393) 06/10/21 21:33 Home Medications: Empagliflozin [Jardiance] 25 mg PO DAILY 06/11/21 Levothyroxine [Synthroid*] 0.125 mg PO DAILY 06/11/21 Liraglutide [Victoza 2-Orlin] 1.8 units SQ DAILY 06/11/21 Losartan Potassium 25 mg PO DAILY 06/11/21 Sertraline HCl 200 mg PO DAILY 06/11/21 Temazepam [Restoril*] 15 mg PO BEDTIME 06/11/21 Valacyclovir HCl [Valacyclovir] 500 mg PO DAILY 06/11/21 Calcitrol [Rocaltrol*] 0.5 mcg PO DAILY #30 cap 06/12/21 Cholecalciferol (Vitamin D3) [Vitamin D 5,000 IU Cap*] 5,000 unit PO DAILY #30 cap 06/12/21 Docusate [Colace Cap*] 100 mg PO BID #60 cap 06/12/21 Insulin Glargine,Hum.rec.anlog [Lantus] 15 units SQ BEDTIME #1 vial 06/12/21 Allopurinol 300 mg PO DAILY 06/15/21 Amlodipine [Norvasc*] 5 mg PO DAILY 06/15/21 Empagliflozin [Jardiance] 25 mg PO DAILY 06/15/21 Fluticasone/Umeclidin/Vilanter [Trelegy Ellipta 100-62.5-25] 1 each IH DAILY 06/15/21 Insulin Glargine,Hum.rec.anlog [Lantus] 10 unit IN BEDTIME 06/15/21 Levothyroxine [Synthroid*] 125 mcg PO [id number] 06/15/21 Metoprolol Succinate 1 tab PO DAILY 06/15/21 Sertraline [Zoloft*] 100 mg PO BID 06/15/21 Simvastatin 20 mg PO BEDTIME 06/15/21 New Medications: Docusate [Colace Cap*] 100 mg PO BID #60 cap Insulin Glargine,Hum.rec.anlog [Lantus] 15 units SQ BEDTIME #1 vial Calcitrol [Rocaltrol*] 0.5 mcg PO DAILY #30 cap Cholecalciferol (Vitamin D3) [Vitamin D 5,000 IU Cap*] 5,000 unit PO DAILY #30 cap Physician Discharge Instructions: -DC IV and DC home -Follow-up with PCP in 1 to 2 weeks -Follow-up with Cardiology in 1 to 2 weeks-patient with severe aortic stenosis and may need a TAVR's -Please call Dr. Harvey at [phone] if any questions regarding hospital stay -Please call nursing station at [phone] if any nursing or medication questions -Return to the emergency room if symptoms worsen Diet: ADA Activity: Fall precautions Followup: [facility] [Provider Group] - 1-2 Weeks (call to schedule an appointment ) ABIGAIL HAYES [Primary Care Provider] - Time spent managing pt's care (in minutes): 35
== END 2021-06-12 12:05 | disposition home or self-care (01) | DRG 682 ==
LOC: ER 16:19 → ERHOLD 20:57 → 3RD-ICU 23:52 → 2ND 06-11 00:10
PROVIDERS: ADMIT Hospitalist; ATTEND Hospitalist
DX: N17.9 Acute kidney failure, unspecified (principal); E11.00 Type 2 diabetes mellitus with hyperosmolarity without nonketotic hyperglycemic-hyperosmolar coma (NKHHC); E87.1 Hypo-osmolality and hyponatremia; E44.0 Moderate protein-calorie malnutrition; I12.9 Hypertensive chronic kidney disease with stage 1 through stage 4 chronic kidney disease, or unspecified chronic kidney disease; E11.22 Type 2 diabetes mellitus with diabetic chronic kidney disease; N18.30 Chronic kidney disease, stage 3 unspecified; E86.0 Dehydration; E87.5 Hyperkalemia; Z68.20 Body mass index [BMI] 20.0-20.9, adult; E11.40 Type 2 diabetes mellitus with diabetic neuropathy, unspecified; E03.9 Hypothyroidism, unspecified; B18.2 Chronic viral hepatitis C; J44.9 Chronic obstructive pulmonary disease, unspecified; I95.9 Hypotension, unspecified; Z20.822 Contact with and (suspected) exposure to COVID-19
CPT/HCPCS: 36415; 70450; 76770; 80048; 80053; 80061; 80076; 81001; 81003; 82533; 82550; 82553; 82570; 82947; 83036; 83690; 83735; 84100; 84156; 84439; 84443; 84550; 85025; 85610; 85730; 94640; 96372; 99285; J1644; J2405; J2765; J3480; J7030; J7799; U0003

== ENCOUNTER 2021-06-14 20:15 | Inpatient (IN) | payer OTHER ==
--- OUTSIDE RECORDS SUMMARY | 2021-06-14 20:19 | XMS REPORT | Continuity of Care Document ---
:1955 Author Organization [facility] t Address [address] [place] [address] Care Team Providers Name Role Phone Edgar [...] Type Clinicians Facility Department ID 2021-05-13 Outpatient [facility], [facility] 14:27:55 [place] [id number] [facility] 2021-05-13 Outpatient Byrne, [facility] 14:27:12 [place] [id number] [facility] 2021-05-13 Outpatient Byrne, [facility] 14:22:21 [place] [id number] [facility] 2021-05-13 Outpatient [facility], [facility] 14:02:06 [place] [id number] [facility] 2021-05-13 Outpatient Byrne, [facility] 13[facility]45:45 [place] [id number] [facility] 2021-05-13 Outpatient [facility], [facility] 13:20:23 [place] [id number] [facility] 2021-05-13 Outpatient Byrne, [facility] [id number] [facility] 12:40:59 [facility] [id number] [facility] 2021-05-21 2021-05-21 Outpatient ATTAR, [facility] [id number] [address] 00:00:00 00:00:00 [facility] [address] 2021-04-09 2021-04-09 ambulatory [facility] [id number] [facility] 2021-04-06 2021-04-06 ambulatory [facility] [id number] [facility]00 [facility] 2021-03-24 2021-03-24 ambulatory [facility] [id number] [facility] 2021-02-20 2021-02-20 ambulatory [facility] [id number] [facility] 2021-02-20 2021-02-20 ambulatory [facility] [id number] [facility]00 [facility] 2021-02-18 2021-02-18 ambulatory [facility] [id number] [facility] 2021-02-03 2021-02-03 Outpatient [facility] [id number] [facility] 2020-12-19 2020-12-19 Outpatient [facility] [id number] [facility] 2020-12-17 2020-12-17 Outpatient [facility] [id number] [facility] 2020-11-21 2020-11-21 Outpatient [facility] [id number] [facility] 2020-11-06 2020-11-06 Outpatient [facility] [id number] [facility] 2020-11-03 2020-11-03 Outpatient [facility] [id number] [facility] 2020-10-23 2020-10-23 Outpatient [facility] [id number] [facility] 2020-10-16 2020-10-16 Outpatient [facility] [id number] [facility] 2020-10-15 2020-10-15 Outpatient [facility] [id number] [facility] 2020-09-04 2020-09-04 Outpatient [facility] [id number] [facility] 2020-08-13 2020-08-13 Outpatient [facility] [id number] [facility] 2020-08-08 2020-08-08 Outpatient [facility] [id number] [facility] 2020-08-06 2020-08-06 Outpatient [facility] [id number] [facility] 2020-08-04 2020-08-04 Outpatient [facility] [id number] [facility] 2020-08-04 2020-08-04 Outpatient [facility] [id number] [facility] 2020-07-18 2020-07-18 Outpatient [facility] [id number] [facility] 2020-07-16 2020-07-16 Outpatient [facility] [id number] [facility] 2020-07-15 2020-07-15 Outpatient [facility] [id number] [facility] 2020-07-11 2020-07-11 Outpatient [facility] [id number] [facility] 2020-07-02 2020-07-02 Outpatient [facility] [id number] [facility] 2020-07-01 2020-07-01 Outpatient [facility] [id number] [facility] Results This patient has no known results.
[2021-06-14] MEDS ORDERED: ONDANSETRON 4 MG/2 ML VIAL ONE (21:05)
[2021-06-14] MEDS ORDERED: NA CHLORIDE 0.9% 1,000 ML ONE (21:05)
[2021-06-14 21:15] LABS: Protime INR 0.91
[2021-06-14 21:17] LABS: Hematocrit 34.6 % (36.0-45.0); Lymphocytes % 15.2 % (15.3-44.8); MPV 8.6 fL (7.6-11.3); RBC Red Blood Cell Count 3.53 M/uL (3.86-4.86)
--- NOTE | 2021-06-14 21:27 | RAD REPORT ---
EXAM DESCRIPTION: RAD - Chest Single View - 06/14/2021 9:08 pm CLINICAL HISTORY: CONGESTION COMPARISON: <Comparisons> FINDINGS: Lines: None. Lungs: No evidence of edema or pneumonia. Pleural: No significant pleural effusions or pneumothorax. Cardiac: The heart size is within normal limits. Bones: No acute fractures. Other: IMPRESSION: No acute cardiopulmonary disease.
[2021-06-14 21:38] LABS: ALT/SGPT 55 U/L (12-78); AST/SGOT 43 U/L (15-37); Albumin 2.8 g/dL (3.4-5.0); Alkaline Phosphatase 133 U/L (45-117); BUN Blood Urea Nitrogen 28 mg/dL (7-18); Bicarbonate 24 mmol/L (21-32); Bilirubin Direct < 0.1 mg/dL (0-0.2); Bilirubin Total 0.3 mg/dL (0.2-1.0); Lipase 51 U/L (73-393); Magnesium 2.2 mg/dL (1.8-2.4); NT PRO-BNP 1051 pg/mL (<125); Potassium 5.2 mmol/L (3.5-5.1); Protein, Total 6.7 g/dL (6.4-8.2); Sodium Level 128 mmol/L (136-145)
[2021-06-14 21:45] LABS: Glucose Level 703 mg/dL (74-106)
[2021-06-14 21:51] LABS: Blood Morphology Comment NOT SEEN (NOT SEEN); Platelet Estimate DECR; White Blood Cell Scan OK (OK)
[2021-06-14 22:02] LABS: Arterial Blood Carboxyhemoglob 5.1 % (0-1.5); Blood Gas Oxyhemoglobin 39.5 % (94-97); Blood O2 Saturation 42.2 % (92-98.5)
[2021-06-14] MEDS ORDERED: INSULIN -REGULAR HUMAN 50 UNIT/0.5 ML ML ONE (22:05)
--- NOTE | 2021-06-14 22:36 | ER ---
Nurse's Notes [facility] Name: Kathleen Wahl Age: 65 yrs Sex: Female : 1955 Arrival Date: 06/14/2021 Time: 20:21 Bed 28 Private MD: Diagnosis: Other specified diabetes mellitus with hyperglycemia-uncontrolled Presentation: 06/14 20:29 Chief complaint: Patient states: high blood sugar, recently hospitalized for high blood sf1 sugar discharged on 06/12. FSBS is greater than 500. Coronavirus screen: Vaccine status: Patient reports receiving the 2nd dose of the covid vaccine. Ebola Screen: Patient negative for fever greater than or equal to 101.5 degrees Fahrenheit, and additional compatible Ebola Virus Disease symptoms Patient denies exposure to infectious person. Patient denies travel to an Ebola-affected area in the 21 days before illness onset. Initial Sepsis Screen: Does the patient meet any 2 criteria? No. Patient's initial sepsis screen is negative. Does the patient have a suspected source of infection? No. Patient's initial sepsis screen is negative. Risk Assessment: Do you want to hurt yourself or someone else? Patient reports no desire to harm self or others. Onset of symptoms was June 14, 2021. 20:29 Method Of Arrival: Ambulatory sf1 20:29 Acuity: JANI 3 sf1 Triage Assessment: 20:31 General: Appears in no apparent distress. uncomfortable, Behavior is calm, cooperative, sf1 appropriate for age. Pain: Complains of pain in top of head. Historical: - Allergies: 20:31 paper tape; sf1 20:31 Pseudoephedrine; sf1 20:31 Tramadol HCl; sf1 - Home Meds: 20:32 allopurinol 300 mg Oral tab 1 tab once daily [Active]; amlodipine 5 mg tab 1 tab once sf1 daily [Active]; aspirin 81 mg Oral tab 81 mg daily [Active]; CoQ-10 100 mg oral cap twice a day [Active]; 20:34 Jardiance 25 mg oral tab 1 tab once daily [Active]; levothyroxine 125 mcg cap 1 cap sf1 once daily [Active]; metoprolol tartrate 100 mg Oral tab 1 tab once daily [Active]; sertraline 100 mg oral tab 2 tabs once daily [Active]; simvastatin 20 mg Oral tab 1 tab once daily [Active]; losartan 25 mg oral tab 1 tab once daily [Active]; valacyclovir 500 mg Oral tab 1 tab once daily [Active]; victosa 1.8 [Active]; - PMHx: 20:31 Chronic obstructive lung disease; Hepatitis; High Cholesterol; Hypertension; kidney sf1 disease; - PSHx: 20:31 Cholecystectomy; hysterectomy; sf1 - Immunization history:: Flu vaccine is up to date. - Social history:: Smoking status: Patient reports the use of cigarette tobacco products, smokes one-half pack cigarettes per day. Screenin:50 Abuse screen: Denies threats or abuse. Nutritional screening: No deficits noted. ss7 Tuberculosis screening: No symptoms or risk factors identified. Fall Risk IV access (20 points). Gait- Weak (10 pts.). Assessment: 23:50 General: Appears in no apparent distress. comfortable, Behavior is calm, cooperative, ss7 appropriate for age. Neuro: No deficits noted. Level of Consciousness is awake, alert, obeys commands, confusion noted during sleep. Vital Signs: 20:29 BP 100 / 55; Pulse 109; Resp 20; Temp 98.6; Pulse Ox 96% ; Weight 49.44 kg; Height 5 1 ft. 1 in. (154.94 cm); Pain 8/10; 22:08 BP 98 / 58; Pulse 82; Resp 18; Pulse Ox 99% on R/A; ss7 23:00 BP 105 / 73; Pulse 78; Resp 16; Pulse Ox 98% ; 7 06/15 01:09 Pulse 72; Resp 18; Pulse Ox 98% ; sf1 01:14 BP 112 / 70; sf1 06/14 20:29 Body Mass Index 20.60 (49.44 kg, 154.94 cm) sf1 ED Course: 06/14 19:25 Inserted saline lock: 20 gauge in right forearm, using aseptic technique. lr4 19:25 No provider procedures requiring assistance completed. lr4 20:21 Patient arrived in ED. wm 20:31 Triage completed. sf1 20:31 Arm band placed on right wrist. sf1 20:38 Amy Reed RN is Primary Nurse. ss7 20:39 Aren Cruz MD is Attending Physician. 7 21:08 XRAY Chest (1 view) In Process Unspecified. EDMS 21:10 EKG done, by ED staff. lr4 21:17 Basic Metabolic Panel Sent. lr4 21:17 Basic Metabolic Panel Sent. lr4 21:17 Ketone, Serum Sent. lr4 21:39 Arterial Blood Gas: venous blood gas Sent. lr4 21:45 Notified ED physician of a critical lab result(s). Glucose 703. lp1 22:35 Giles Fuller is Hospitalizing Provider. [facility] 23:17 COVID-19 SARS RT PCR (Document "Date of Onset" if Symptomatic) Sent. ss7 23:50 Patient has correct armband on for positive identification. Bed in low position. Call 7 light in reach. Side rails up X2. 06/15 00:00 Report given to [facility] Administered Medications: 06/14 21:15 Drug: NS 0.9% 1000 ml Route: IV; Rate: 1000 ml; Site: right forearm; lr4 21:39 Follow up: IV Status: Infusion continued lr4 21:16 Drug: Zofran (Ondansetron) 4 mg Route: IVP; Site: right forearm; lr4 21:39 Follow up: Response: No adverse reaction; Nausea is decreased lr4 22:12 Drug: Insulin Regular Human 10 units {Co-Signature: lr4 (Debbie Bowie RN).} Route: ss7 IVP; Site: right forearm; 23:44 Follow up: Response: Blood sugar is lowered 7 22:12 Drug: Insulin Regular Human 10 units {Co-Signature: lr4 (Debbie Bowie RN).} Route: ss7 Sub-Q; Site: right lower abdomen; 23:44 Follow up: Response: Blood sugar is lowered [facility] Outcome: 22:36 Decision to Hospitalize by Provider. [facility] 06/15 01:23 Admitted to Med/surg via wheelchair. sf1 Admitted to Med/surg Report called to KAITLIN Rosales Condition: stable 01:27 Patient left the ED. sf1 Signatures: Dispatcher Medst Conchita Lopez RN RN lp1 Aren Cruz MD MD 7 Jamila Reyes Samantha, RN RN sf1 Amy Reed RN RN 7 Debbie Bowie RN RN lr4 Debbie Bowie RN lr4
--- NOTE | 2021-06-14 22:36 | EDPHYS ---
Physician Documentation [facility] Name: Kathleen Wahl Age: 65 yrs Sex: Female : 1955 Arrival Date: 06/14/2021 Time: 20:21 Bed 28 Private MD: ED Physician Aren Cruz HPI: 06/14 21:51 This 65 yrs old Female presents to ER via Ambulatory with complaints of High Blood mh7 Sugar. 21:51 The patient or guardian reports hyperglycemia, that was potentially precipitated by no mh7 particular event, with the patient's symptoms witnessed by no one, Treatment prior to arrival includes: taking additional insulin. Onset: The symptoms/episode began/occurred today. Associated signs and symptoms: Pertinent positives: nausea, polydipsia, polyuria, Pertinent negatives: anorexia, constipation, decreased urine output, diaphoresis, diarrhea, dry skin, hair loss, seizure activity, skin flushing, urinary incontinence, vomiting. Current symptoms: In the emergency department the patient's symptoms are unchanged from the initial presentation, despite home interventions. The patient has been recently been admitted at [facility], was discharged earlier this week. Historical: - Allergies: 20:31 paper tape; sf1 20:31 Pseudoephedrine; sf1 20:31 Tramadol HCl; sf1 - Home Meds: 20:32 allopurinol 300 mg Oral tab 1 tab once daily [Active]; amlodipine 5 mg tab 1 tab once sf1 daily [Active]; aspirin 81 mg Oral tab 81 mg daily [Active]; CoQ-10 100 mg oral cap twice a day [Active]; 20:34 Jardiance 25 mg oral tab 1 tab once daily [Active]; levothyroxine 125 mcg cap 1 cap sf1 once daily [Active]; metoprolol tartrate 100 mg Oral tab 1 tab once daily [Active]; sertraline 100 mg oral tab 2 tabs once daily [Active]; simvastatin 20 mg Oral tab 1 tab once daily [Active]; losartan 25 mg oral tab 1 tab once daily [Active]; valacyclovir 500 mg Oral tab 1 tab once daily [Active]; victosa 1.8 [Active]; - PMHx: 20:31 Chronic obstructive lung disease; Hepatitis; High Cholesterol; Hypertension; kidney sf1 disease; - PSHx: 20:31 Cholecystectomy; hysterectomy; sf1 - Immunization history:: Flu vaccine is up to date. - Social history:: Smoking status: Patient reports the use of cigarette tobacco products, smokes one-half pack cigarettes per day. ROS: 21:51 Constitutional: Negative for fever, chills, and weight loss, Eyes: Negative for injury, mh7 pain, redness, and discharge, ENT: Negative for injury, pain, and discharge, Neck: Negative for injury, pain, and swelling, Cardiovascular: Negative for chest pain, palpitations, and edema, Respiratory: Negative for shortness of breath, cough, wheezing, and pleuritic chest pain, Abdomen/GI: Negative for abdominal pain, nausea, vomiting, diarrhea, and constipation, Back: Negative for injury and pain, MS/Extremity: Negative for injury and deformity, Skin: Negative for injury, rash, and discoloration, Neuro: Negative for headache, weakness, numbness, tingling, and seizure, Psych: Negative for depression, anxiety, suicide ideation, homicidal ideation, and hallucinations, Allergy/Immunology: Negative for hives, rash, and allergies, Hematologic/Lymphatic: Negative for swollen nodes, abnormal bleeding, and unusual bruising. Exam: 21:51 Constitutional: This is a well developed, well nourished patient who is awake, alert, mh7 and in no acute distress. Head/Face: Normocephalic, atraumatic. Eyes: Pupils equal round and reactive to light, extra-ocular motions intact. Lids and lashes normal. Conjunctiva and sclera are non-icteric and not injected. Cornea within normal limits. Periorbital areas with no swelling, redness, or edema. Neck: Trachea midline, no thyromegaly or masses palpated, and no cervical lymphadenopathy. Supple, full range of motion without nuchal rigidity, or vertebral point tenderness. No Meningismus. Chest/axilla: Normal chest wall appearance and motion. Nontender with no deformity. No lesions are appreciated. 21:51 Cardiovascular: Regular rate and rhythm with a normal S1 and S2. No gallops, murmurs, or rubs. Normal PMI, no JVD. No pulse deficits. Respiratory: Lungs have equal breath sounds bilaterally, clear to auscultation and percussion. No rales, rhonchi or wheezes noted. No increased work of breathing, no retractions or nasal flaring. Abdomen/GI: Soft, non-tender, with normal bowel sounds. No distension or tympany. No guarding or rebound. No evidence of tenderness throughout. Back: No spinal tenderness. No costovertebral tenderness. Full range of motion. Skin: Warm, dry with normal turgor. Normal color with no rashes, no lesions, and no evidence of cellulitis. MS/ Extremity: Pulses equal, no cyanosis. Neurovascular intact. Full, normal range of motion. Neuro: Awake and alert, GCS 15, oriented to person, place, time, and situation. Cranial nerves II-XII grossly intact. Motor strength 5/5 in all extremities. Sensory grossly intact. Cerebellar exam normal. Normal gait. Psych: Awake, alert, with orientation to person, place and time. Behavior, mood, and affect are within normal limits. 21:51 ECG was reviewed by the Attending Physician. [facility] Vital Signs: 20:29 BP 100 / 55; Pulse 109; Resp 20; Temp 98.6; Pulse Ox 96% ; Weight 49.44 kg; Height 5 [facility] ft. 1 in. (154.94 cm); Pain 8/10; 22:08 BP 98 / 58; Pulse 82; Resp 18; Pulse Ox 99% on R/A; 7 23:00 BP 105 / 73; Pulse 78; Resp 16; Pulse Ox 98% ; 7 06/15 01:09 Pulse 72; Resp 18; Pulse Ox 98% ; 1 01:14 BP 112 / 70; 1 06/14 20:29 Body Mass Index 20.60 (49.44 kg, 154.94 cm) [facility] MDM: 06/14 22:34 Differential diagnosis: DKA, hyperglycemia, nonspecific infection. Data reviewed: vital [facility] signs, nurses notes, old medical records, lab test result(s), cardiac enzymes, CBC, electrolytes, EKG, radiologic studies, plain films. Data interpreted: Pulse oximetry: on room air is 96 %. Interpretation: normal. Counseling: I had a detailed discussion with the patient and/or guardian regarding: the historical points, exam findings, and any diagnostic results supporting the discharge/admit diagnosis, lab results, radiology results, the need for further work-up and treatment in the hospital. Response to treatment: the patient's symptoms have mildly improved after treatment. 22:36 Patient medically screened. [facility] 06/14 20:40 Order name: Glucose, Ancillary Testing; Complete Time: 20:42 [facility] 06/14 20:55 Order name: Basic Metabolic Panel [facility] 06/14 20:55 Order name: CBC with Diff; Complete Time: 22:15 [facility] 06/14 20:55 Order name: LFT's; Complete Time: 21:47 [facility] 06/14 20:55 Order name: Magnesium; Complete Time: 21:47 [facility] 06/14 20:55 Order name: NT PRO-BNP; Complete Time: 21:47 [facility] 06/14 20:55 Order name: PT-INR; Complete Time: 21:28 [facility] 06/14 20:55 Order name: Troponin HS; Complete Time: 21:47 [facility] 06/14 20:55 Order name: Lipase; Complete Time: 21:47 [facility] 06/14 20:55 Order name: Ketone, Serum; Complete Time: 21:47 [facility] 06/14 20:55 Order name: Basic Metabolic Panel; Complete Time: 21:47 [facility] 06/14 20:56 Order name: Arterial Blood Gas: venous blood gas; Complete Time: 22:15 [facility] 06/14 21:51 Order name: CBC Smear Scan; Complete Time: 22:15 [facility] 06/14 22:21 Order name: Glucose, Ancillary Testing [facility] 06/14 20:55 Order name: XRAY Chest (1 view); Complete Time: 21:29 [facility] 06/14 20:55 Order name: EKG; Complete Time: 20:56 [facility] 06/14 20:55 Order name: Cardiac monitoring; Complete Time: 21: [facility] 06/14 20:55 Order name: EKG - Nurse/Tech; Complete Time: 21: [facility] 06/14 20:55 Order name: IV Saline Lock; Complete Time: 21:17 [facility] 06/14 20:55 Order name: Labs collected and sent; Complete Time: 21:17 [facility] 06/14 20:55 Order name: O2 Per Protocol; Complete Time: 21:17 [facility] 06/14 20:55 Order name: O2 Sat Monitoring; Complete Time: 21:17 [facility] 06/14 20:55 Order name: Urine Dipstick-Ancillary (obtain specimen); Complete Time: 23:17 [facility] 06/14 22:51 Order name: COVID-19 SARS RT PCR (Document "Date of Onset" if Symptomatic) lp1 06/14 23:15 Order name: Urine Dipstick-Ancillary EDMS 06/14 23:31 Order name: Glucose, Ancillary Testing EDMS EC:51 Rate is 74 beats/min. Rhythm is regular, Normal Sinus Rhythm with No ectopy. QRS [place] mh7 is Normal. ME interval is normal. QRS interval is normal. QT interval is normal. No Q waves. T waves are Normal. No ST changes noted. Clinical impression: Normal ECG. Administered Medications: 21:15 Drug: NS 0.9% 1000 ml Route: IV; Rate: 1000 ml; Site: right forearm; lr4 21:39 Follow up: IV Status: Infusion continued lr4 21:16 Drug: Zofran (Ondansetron) 4 mg Route: IVP; Site: right forearm; lr4 21:39 Follow up: Response: No adverse reaction; Nausea is decreased lr4 22:12 Drug: Insulin Regular Human 10 units {Co-Signature: [email or web address] (Debbie Bowie RN).} Route: ss7 IVP; Site: right forearm; 23:44 Follow up: Response: Blood sugar is lowered ss7 22:12 Drug: Insulin Regular Human 10 units {Co-Signature: [email or web address] (Debbie Bowie RN).} Route: ss7 Sub-Q; Site: right lower abdomen; 23:44 Follow up: Response: Blood sugar is lowered ss7 Disposition Summary: 06/14/21 22:36 Hospitalization Ordered Hospitalization Status: Inpatient Admission [facility] Provider: Giles Fuller [facility] Condition: Stable [facility] Problem: an ongoing problem [facility] Symptoms: have improved [facility] Bed/Room Type: Standard [facility] Room Assignment: 410(06/15/21 00:42) mw Diagnosis - Other specified diabetes mellitus with hyperglycemia - uncontrolled [facility] Forms: - Medication Reconciliation Form [facility] - SBAR form [facility] Signatures: [facility] Erinn Orona RN RN mw Holmes, Maurice, MD MD [facility] Shelley Hutchinson RN RN sf1 Amy Reed RN RN ss7 Debbie Bowie RN RN lr4 Debbie Bowie RN lr4 Corrections: (The following items were deleted from the chart) 06/15 00:42 06/14 22:36 mh7
[2021-06-14 23:16] LABS: Urine Blood Negative (Negative); Urine Glucose 2+ (Negative); Urine Protein Negative (Negative); Urine Specific Gravity 1.015 (1.005-1.030); Urine pH 6.5 (5.0-7.0)
[2021-06-14] MEDS ORDERED: MORPHINE 2 MG/ML SYR IV PRN (23:46)
--- NOTE | 2021-06-14 23:57 | P.HP ---
Certification for Inpatient Patient admitted to: Inpatient With expected LOS: >2 Midnights Patient will require the following post-hospital care: None Practitioner: I am a practitioner with admitting privileges, knowledge of patient current condition, hospital course, and medical plan of care. Services: Services provided to patient in accordance with Admission requirements found in Title 42 Section 412.3 of the Code of Federal Regulations Patient History Date of Service: 06/14/21 Reason for admission: Hyperglycemia History of Present Illness: Patient is a 65-year-old female with hypertension, chronic kidney disease, COPD, insulin-dependent type 2 diabetes, and hepatitis C who presented to the ED with hyperglycemia. She was recently discharged from the hospital after treatment for hyperglycemia and it was presumed to be steroid induced (treating COPD exacerbation). In the ED patient's POC glucose was > 500 at 2000 and 2200. CMP glucose was 732 at 1200. repeat POC was 252 at 2300 after 10 units subq inuslin at 10 units IV insulin. Other labs remarkable for pH 7.3, PCO2 53.2, PO2 26.1, bicarb 26.9. Sodium 128, potassium 5.2, creatinine 1.57, BNP 1051, acetone negative. Patient requests diabetic counseling which has been ordered. Patient will be admitted for glucose monitor and treatment of hyperglycemia with moderate sliding scale insulin. Allergies pseudoephedrine Allergy (Verified 06/11/21 01:17) seizures tramadol Adverse Reaction (Verified 06/11/21 01:17) confusion PAPER TAPE Allergy (Uncoded 01/09/15 21:07) Unknown Home medications list reviewed: Yes Home Medications: Empagliflozin [Jardiance] 25 mg PO DAILY 06/11/21 Levothyroxine [Synthroid*] 0.125 mg PO DAILY 06/11/21 Liraglutide [Victoza 2-Orlin] 1.8 units SQ DAILY 06/11/21 Losartan Potassium 25 mg PO DAILY 06/11/21 Sertraline HCl 200 mg PO DAILY 06/11/21 Temazepam [Restoril*] 15 mg PO BEDTIME 06/11/21 Valacyclovir HCl [Valacyclovir] 500 mg PO DAILY 06/11/21 Calcitrol [Rocaltrol*] 0.5 mcg PO DAILY #30 cap 06/12/21 Cholecalciferol (Vitamin D3) [Vitamin D 5,000 IU Cap*] 5,000 unit PO DAILY #30 cap 06/12/21 Docusate [Colace Cap*] 100 mg PO BID #60 cap 06/12/21 Insulin Glargine,Hum.rec.anlog [Lantus] 15 units SQ BEDTIME #1 vial 06/12/21 - Past Medical/Surgical History Diabetic: Yes -: HTN -: CKD -: COPD -: Type 2 diabetes- insulin dependent -: Hepatitis C -: Cholecystecomy -: Hysterectomy Psychosocial/ Personal History: Patient lives at home with her , daughter, and 3 grandchildren. - Family History Mother -: Cancer Father -: Cancer Brother -: Diabetes - Social History Smoking Status: Heavy Tobacco smoker (>10 cigarettes/day) Counseled patient to stop smoking for: less than 10 minutes Alcohol use: No CD- Drugs: No Caffeine use: No Review of Systems General: Weakness, Other (headache, dizziness) Physical Examination - Physical Exam General: Alert, In no apparent distress, Oriented x3 HEENT: Atraumatic, PERRLA, EOMI, Sclerae nonicteric Neck: Supple, 2+ carotid pulse no bruit, No LAD, Without JVD or thyroid abnormality Respiratory: Clear to auscultation bilaterally, Normal air movement Cardiovascular: Regular rate/rhythm, Normal S1 S2 Gastrointestinal: Normal bowel sounds, No tenderness Musculoskeletal: No tenderness Integumentary: No rashes Neurological: Normal speech, Normal strength at 5/5 x4 extr, Normal tone, Normal affect - Studies Laboratory Data (last 24 hrs) 06/14/21 20:58: PT 10.4, INR 0.91 06/14/21 20:58: WBC 6.30 D, Hgb 11.6 L, Hct 34.6 L, Plt Count 91 L D 06/14/21 20:58: Sodium 128 L, Potassium 5.2 H, BUN 28 H, Creatinine 1.57 H, Glucose 703 H*, Magnesium 2.2, Total Bilirubin 0.3, AST 43 H, ALT 55, Alkaline Phosphatase 133 H, Lipase 51 L Assessment and Plan - Problems (Diagnosis) (1) Type 2 diabetes mellitus with hyperglycemia, with long-term current use of insulin Current Visit: Yes Status: Acute (2) Chronic kidney disease, stage IV (severe) Current Visit: Yes Status: Chronic (3) COPD (chronic obstructive pulmonary disease) Current Visit: Yes Status: Chronic Qualifiers: COPD type: unspecified COPD Qualified Code(s): J44.9 - Chronic obstructive pulmonary disease, unspecified (4) Hepatitis C Current Visit: No Status: Chronic Qualifiers: Viral hepatitis chronicity: unspecified Hepatic coma status: without hepatic coma Qualified Code(s): B19.20 - Unspecified viral hepatitis C without hepatic coma (5) Hypothyroidism Current Visit: No Status: Chronic Qualifiers: Hypothyroidism type: acquired Qualified Code(s): E03.9 - Hypothyroidism, unspecified - Plan -Initial blood sugar was 700. She had 10 units subcu and 10 units IV insulin in the ED. glucose has come down to 250. Acetone negative. pH 7.33. Patient is stable. will initiate moderate sliding scale insulin with every 6 hours Accu-Ch eks -Potassium was elevated at 5.2. Will give Kayexalate and recheck in the morning -NPO. We will continue IV fluids at 100 cc an hour -Morphine as needed pain and Zofran as needed nausea -Patient has a history of hypertension but was hypotensive on last admission. We will monitor on telemetry DVT PPx: Heparin CODE STATUS: DNR Discharge Plan: Home Plan to discharge in: Greater than 2 days - Advance Directives Does patient have a Living Will: Yes Does patient have a Durable POA for Healthcare: Yes - Code Status/Comfort Care Code Status Assessed: Yes (DNR) Critical Care: No Time Spent Managing Pts Care (In Minutes): 70
[2021-06-15 02:00] VITALS: BMI 20.5
[2021-06-15] MEDS: NA CHLORIDE 0.9% 1,000 ML IV SCH ×3 (02:26→22:26)
[2021-06-15] MEDS ORDERED: SOD POLYSTYREN SUL 15 GM/60 ML UCUP PO ONE (02:26)
[2021-06-15] MEDS ORDERED: GLUCAGON 1 MG/VIAL IM PRN (02:26)
[2021-06-15] MEDS ORDERED: D50W 25 GM/50 ML SYRINGE IV PRN (02:26)
[2021-06-15] MEDS: INSULIN -REGULAR HUMAN 50 UNIT/0.5 ML ML SQ SCH ×5 (02:26→21:00)
[2021-06-15 04:18] LABS: Absolute Lymphocytes (CBC) 1.5 K/uL (0.7-4.9); Hematocrit 33.7 % (36.0-45.0); Lymphocytes % 22.1 % (15.3-44.8); MPV 8.8 fL (7.6-11.3); RBC Red Blood Cell Count 3.48 M/uL (3.86-4.86)
[2021-06-15 04:27] LABS: Urine Appearance CLEAR (Clear); Urine Bilirubin NEGATIVE (Negative); Urine Blood NEGATIVE (Negative); Urine Color YELLOW (Yellow); Urine Glucose 3+ (Negative); Urine Protein NEGATIVE (Negative); Urine Specific Gravity 1.015 (1.005-1.030); Urine Urobilinogen 0.2 mg/dL (0.2-1.0)
[2021-06-15 04:32] LABS: Albumin 2.8 g/dL (3.4-5.0); Bilirubin Total 0.2 mg/dL (0.2-1.0); Potassium 3.9 mmol/L (3.5-5.1); Protein, Total 6.3 g/dL (6.4-8.2)
[2021-06-15 04:34] LABS: Urine Microscopic Reflex NO UMIC
--- NOTE | 2021-06-15 08:49 | EKG ---
Test Date: 2021-06-14 Test Time: 21:10:39 Mill Order Scheduler: STEPHANIE MEASUREMENT RESULTS: Intervals: Rate: 74 MN: 124 QRSD: 76 QT: 368 QTc: 408 [place]: P: 73 MN: 124 QRS: 52 T: 65 INTERPRETIVE STATEMENTS: Normal sinus rhythm Normal ECG Compared to ECG 06/10/2021 17:34:30 Ventricular premature complex(es) no longer present Electronically Signed On 06-15-21 08:47:37 CATIA DESIGNER by Jacky Dukes
[2021-06-15] MEDS ORDERED: NA CHLORIDE 0.9% 500 ML IV ONE (08:57)
[2021-06-15] MEDS: HEPARIN 5000 UNIT/ML 1 ML VIAL SQ SCH ×2 (09:07→21:15)
[2021-06-15] MEDS ORDERED: MORPHINE 4 MG/ML SYR IV PRN (12:43)
[2021-06-15] MEDS ORDERED: D10W 125 ML IV PRN (14:33)
--- NOTE | 2021-06-15 18:04 | P.PN ---
Subjective Date of Service: 06/15/21 Chief Complaint: Hyperglycemia Patient is complaining of headache. Her blood sugar seems to fluctuate. She has been borderline hypotensive. Physical Examination - Vital Signs Temperature: 97.9 F Blood Pressure: 104/56 Pulse: 72 Respirations: 18 Pulse Ox (%): 96 - Studies Laboratory Data (last 24 hrs) 06/14/21 20:58: PT 10.4, INR 0.91 06/14/21 20:58: WBC 6.30 D, Hgb 11.6 L, Hct 34.6 L, Plt Count 91 L D 06/14/21 20:58: Sodium 128 L, Potassium 5.2 H, BUN 28 H, Creatinine 1.57 H, Glucose 703 H*, Magnesium 2.2, Total Bilirubin 0.3, AST 43 H, ALT 55, Alkaline Phosphatase 133 H, Lipase 51 L Assessment And Plan - Current Problems (Diagnosis) (1) Hypotension Current Visit: No Status: Acute Qualifiers: Hypotension type: hypotension due to hypovolemia Qualified Code(s): I95.89 - Other hypotension; E86.1 - Hypovolemia (2) Type 2 diabetes mellitus with hyperosmolar hyperglycemic state (HHS) Current Visit: No Status: Acute (3) Hypothyroidism Current Visit: No Status: Chronic Qualifiers: Hypothyroidism type: acquired Qualified Code(s): E03.9 - Hypothyroidism, unspecified (4) Acute kidney injury superimposed on CKD Current Visit: No Status: Acute - Plan Physical Exam General: Alert, In no apparent distress, Oriented x3 HEENT: Atraumatic, PERRLA, EOMI, Sclerae nonicteric Neck: Supple, No LAD, Without JVD or thyroid abnormality Respiratory: Clear to auscultation bilaterally, Normal air movement Cardiovascular: Regular rate/rhythm, Normal S1 S2 Gastrointestinal: Normal bowel sounds, No tenderness Musculoskeletal: No tenderness Integumentary: No rashes Neurological: Normal speech, Normal strength at 5/5 x4 extr, Normal affect Plan Patient's blood sugar readings were extremely high on presentation but now significantly improved to fluctuating. Continue insulin sliding scale. Hold Lantus insulin due to risk of hypoglycemia. Acute renal failure resolved. Continue IV hydration given borderline hypotension. UA with no evidence of UTI. Chest x-ray is clear. Covid 19+. Patient with upper respiratory symptoms. Continue Accu-Cheks and insulin sliding scale. No indication for antibiotics at this time.
[2021-06-15] MEDS ORDERED: HOME MED 1 EA UNK (Simvastatin [Simvastatin] 20 MG Tablet) PO SCH (21:00)
[2021-06-15] MEDS: SERTRALINE HCL 100 MG TAB PO SCH (21:14)
[2021-06-15] MEDS: DOCUSATE NA 100 MG CAP PO SCH (21:14)
[2021-06-15] MEDS: ATORVASTATIN 10 MG TAB PO SCH (21:14)
[2021-06-15] MEDS: ONDANSETRON 4 MG/2 ML VIAL IV PRN (22:12)
[2021-06-16 04:00] LABS: Absolute Lymphocytes (CBC) 1.1 K/uL (0.7-4.9); Hematocrit 29.2 % (36.0-45.0); Lymphocytes % 26.7 % (15.3-44.8); MPV 8.7 fL (7.6-11.3); RBC Red Blood Cell Count 3.02 M/uL (3.86-4.86)
[2021-06-16] MEDS: ONDANSETRON 4 MG/2 ML VIAL IV PRN (04:04)
[2021-06-16 04:37] LABS: Albumin 2.2 g/dL (3.4-5.0); Bilirubin Total 0.2 mg/dL (0.2-1.0); Protein, Total 5.3 g/dL (6.4-8.2)
--- NOTE | 2021-06-16 06:36 | P.PN ---
Date of Service: 06/16/21 Subjective: Feeling better, but feels breathing and cough is slightly worse Also feels like she has a lot going on at home, concerned about being discharged ROS: 10 point ROS as noted above, otherwise negative Physical exam GEN: Alert, oriented, NAD HEENT: Normal conjunctiva, sclera anicteric CV: Regular rate and rhythm, no edema Pulm: Nonlabored respirations on room air, +cough ABD: Soft, nontender, nondistended Neuro: Normal speech, normal affect Problem List Type 2 diabetes mellitus with hyperosmolar hyperglycemic state Hypothyroidism Hypertension COVID-19+, without pneumonia SOPHIE on CKDIII Blood glucose levels have improved significantly Continue sliding scale Lantus on hold due to risk of hypoglycemia Patient's appetite improved, will adjust insulin as needed SOPHIE resolved Decrease IV fluids, monitor blood pressure No evidence of active infection at this time Patient is now Covid positive, reports history of Covid pneumonia 2 years ago, has received flu vaccination/booster Check inflammatory markers Patient feels very fatigued, congested; requesting mucinex Monitor through today Code: DNR Dispo: home, likely tomorrow Time Spent Managing Pts Care (In Minutes): 35
[2021-06-16 07:09] LABS: Ferritin 32.4 ng/mL (8-388)
[2021-06-16 07:12] LABS: C-Reactive Protein < 2.90 mg/L (<3.00)
[2021-06-16] MEDS: INSULIN -REGULAR HUMAN 50 UNIT/0.5 ML ML SQ SCH ×4 (07:30→20:37)
[2021-06-16] MEDS: HEPARIN 5000 UNIT/ML 1 ML VIAL SQ SCH ×2 (08:02→20:36)
[2021-06-16] MEDS: allopurinoL 300 MG TAB PO SCH (08:04)
[2021-06-16] MEDS: CALCITROL 0.25 MCG CAP PO SCH (08:04)
[2021-06-16] MEDS: VITAMIN D 5,000 UNIT CAP PO SCH (08:04)
[2021-06-16] MEDS: SERTRALINE HCL 100 MG TAB PO SCH ×2 (08:04→20:36)
[2021-06-16] MEDS: LEVOTHYROXINE SOD 0.125 MG TAB PO SCH (08:05)
[2021-06-16] MEDS: VALACYCLOVIR 500 MG TAB PO SCH (08:05)
[2021-06-16] MEDS: DOCUSATE NA 100 MG CAP PO SCH ×2 (08:05→20:36)
[2021-06-16] MEDS: NA CHLORIDE 0.9% 1,000 ML IV SCH (08:26)
[2021-06-16] MEDS: HOME MED 1 EA UNK (Empagliflozin [Jardiance] 25 MG Tablet) PO SCH (08:47)
[2021-06-16] MEDS: HOME MED 1 EA UNK (Fluticasone/Umeclidin/Vilanter [Trelegy Ellipta 100-62.5-25] Blst.W.Dev IH SCH (08:47)
[2021-06-16] MEDS ORDERED: METOPROLOL XL 100 MG TAB PO SCH (09:00)
[2021-06-16] MEDS ORDERED: HOME MED 1 EA UNK (Losartan Potassium [Losartan Potassium] 25 MG Tablet) PO SCH (09:00)
[2021-06-16] MEDS ORDERED: AMLODIPINE 5 MG TAB PO SCH (09:00)
[2021-06-16] MEDS ORDERED: LOSARTAN POTASSIUM 50 MG TABLET PO SCH (09:00)
[2021-06-16] MEDS ORDERED: HOME MED 1 EA UNK (Empagliflozin [Jardiance] 25 MG Tablet) PO SCH (09:00)
[2021-06-16] MEDS: ACETAMINOPHEN 500 MG TAB PO PRN ×2 (09:22→15:59)
[2021-06-16] MEDS: ATORVASTATIN 10 MG TAB PO SCH (20:36)
[2021-06-17 03:58] LABS: Hematocrit 29.4 % (36.0-45.0); Lymphocytes % 29.1 % (15.3-44.8); MPV 8.9 fL (7.6-11.3); RBC Red Blood Cell Count 2.99 M/uL (3.86-4.86)
[2021-06-17 04:15] LABS: ALT/SGPT 35 U/L (12-78); AST/SGOT 37 U/L (15-37); Albumin 2.2 g/dL (3.4-5.0); Alkaline Phosphatase 101 U/L (45-117); BUN Blood Urea Nitrogen 20 mg/dL (7-18); Bicarbonate 28 mmol/L (21-32); Bilirubin Total 0.2 mg/dL (0.2-1.0); Ferritin 26.1 ng/mL (8-388); Glucose Level 197 mg/dL (74-106); Potassium 4.8 mmol/L (3.5-5.1); Protein, Total 5.5 g/dL (6.4-8.2); Sodium Level 140 mmol/L (136-145)
[2021-06-17 04:18] LABS: C-Reactive Protein < 2.90 mg/L (<3.00)
[2021-06-17] MEDS: ACETAMINOPHEN 500 MG TAB PO PRN (06:37)
[2021-06-17] MEDS: CALCITROL 0.25 MCG CAP PO SCH (08:08)
[2021-06-17] MEDS: allopurinoL 300 MG TAB PO SCH (08:09)
[2021-06-17] MEDS: VITAMIN D 5,000 UNIT CAP PO SCH (08:09)
[2021-06-17] MEDS: VALACYCLOVIR 500 MG TAB PO SCH (08:09)
[2021-06-17] MEDS: SERTRALINE HCL 100 MG TAB PO SCH (08:09)
[2021-06-17] MEDS: INSULIN -REGULAR HUMAN 50 UNIT/0.5 ML ML SQ SCH ×2 (08:09→11:54)
[2021-06-17] MEDS: DOCUSATE NA 100 MG CAP PO SCH (08:09)
[2021-06-17] MEDS: HEPARIN 5000 UNIT/ML 1 ML VIAL SQ SCH (08:13)
[2021-06-17] MEDS: LEVOTHYROXINE SOD 0.125 MG TAB PO SCH (08:13)
[2021-06-17] MEDS ORDERED: GUAIFENESIN 600 MG SA TAB PO SCH (09:00)
[2021-06-17] MEDS: HOME MED 1 EA UNK (Fluticasone/Umeclidin/Vilanter [Trelegy Ellipta 100-62.5-25] Blst.W.Dev IH SCH (09:00)
[2021-06-17] MEDS: HOME MED 1 EA UNK (Empagliflozin [Jardiance] 25 MG Tablet) PO SCH (09:00)
[2021-06-17 09:16] VITALS: O2SAT 95
[2021-06-17 13:05] VITALS: BP 111/56; TEMP 97.7
--- NOTE | 2021-06-17 20:53 | P.DS ---
Admission Date: 06/14/21 Discharge Date: 06/17/21 Disposition: ROUTINE DISCHARGE Discharge Condition: GOOD Reason for Admission: Hyperglycemia Procedures: Problem List Type 2 diabetes mellitus with hyperosmolar hyperglycemic state Hypothyroidism Hypertension COVID-19+, without pneumonia SOPHIE on CKDIII Brief History of Present Illness: 65-year-old female with hypertension, chronic kidney disease, COPD, insulin- dependent type 2 diabetes, and hepatitis C Presented to the ED with hyperglycemia. She was recently discharged from the hospital after treatment for hyperglycemia and it was presumed to be steroid induced (treating COPD exacerbation). In the ED patient's POC glucose was > 500 at 2000 and 2200. CMP glucose was 732 at 1200. repeat POC was 252 at 2300 after 10 units subq inuslin at 10 units IV insulin. Other labs remarkable for pH 7.3, PCO2 53.2, PO2 26.1, bicarb 26.9. Sodium 128, potassium 5.2, creatinine 1.57, BNP 1051, acetone negative. Patient requests diabetic counseling which has been ordered. Patient will be admitted for glucose monitor and treatment of hyperglycemia with moderate sliding scale insulin. Hospital Course: Patient was found to have high glucose levels. Secondary to steroid usage. Patient was also noted to be Covid positive. She reported history of prior Covid infection, and is also received Covid vaccinations She reported some head/nasal congestion and some chest congestion. Chest x-ray was negative for any pulmonary opacities. She did not require any oxygen supplementation, otherwise seem to have a mild case of Covid. No evidence of COVID-19 pneumonia. Her inflammatory markers remained negative/normal. Her glucose improved on sliding scale insulin. There is initial concern for h ypoglycemia due to decreased appetite. However her appetite improved, and her blood glucose levels increased as well. No changes to medications on discharge. Recommend continuing current dosage of Victoza, Jardiance, and Lantus. Patient is to continue to monitor her blood glucose levels closely and keep track of them. Discussed she may need to further titrate her insulin have better control, but should discuss with her PCP. Continue with a diabetic diet Follow-up with PCP within 1 week If respiratory symptoms worsen, she will follow-up with pulmonology or the ED. Advised to quarantine/minimize contact with family members over the next week. To wear a mask indoors in any shared spaces. Vital Signs/Physical Exam: Temp Pulse Resp BP Pulse Ox 97.7 F 80 20 111/56 L 99 06/17/21 12:00 06/17/21 12:00 06/17/21 12:00 06/17/21 12:00 06/17/21 12:00 Physical exam GEN: Alert, oriented, NAD HEENT: Normal conjunctiva, sclera anicteric CV: Regular rate and rhythm, no edema Pulm: Nonlabored respirations on room air, +dry cough ABD: Soft, nontender, nondistended Neuro: Normal speech, normal affect Laboratory Data at Discharge: WBC 3.50 K/uL (4.3-10.9) L D 06/17/21 03:33 Hgb 9.7 g/dL (12.0-15.0) L 06/17/21 03:33 Hct 29.4 % (36.0-45.0) L 06/17/21 03:33 Plt Count 78 K/uL (152-406) L D 06/17/21 03:33 PT 10.4 SECONDS (9.5-12.5) 06/14/21 20:58 INR 0.91 06/14/21 20:58 Sodium 140 mmol/L (136-145) 06/17/21 03:33 Potassium 4.8 mmol/L (3.5-5.1) 06/17/21 03:33 BUN 20 mg/dL (7-18) H 06/17/21 03:33 Creatinine 1.04 mg/dL (0.55-1.3) 06/17/21 03:33 Glucose 197 mg/dL (74-106) H 06/17/21 03:33 Magnesium 2.2 mg/dL (1.8-2.4) 06/14/21 20:58 Total Bilirubin 0.2 mg/dL (0.2-1.0) 06/17/21 03:33 AST 37 U/L (15-37) 06/17/21 03:33 ALT 35 U/L (12-78) 06/17/21 03:33 Alkaline Phosphatase 101 U/L (45-117) 06/17/21 03:33 Lipase 51 U/L (73-393) L 06/14/21 20:58 Home Medications: Empagliflozin [Jardiance] 25 mg PO DAILY 06/11/21 Levothyroxine [Synthroid*] 0.125 mg PO DAILY 06/11/21 Liraglutide [Victoza 2-Orlin] 1.8 units SQ DAILY 06/11/21 Losartan Potassium 25 mg PO DAILY 06/11/21 Sertraline HCl 200 mg PO DAILY 06/11/21 Temazepam [Restoril*] 15 mg PO BEDTIME 06/11/21 Valacyclovir HCl [Valacyclovir] 500 mg PO DAILY 06/11/21 Calcitrol [Rocaltrol*] 0.5 mcg PO DAILY #30 cap 06/12/21 Cholecalciferol (Vitamin D3) [Vitamin D 5,000 IU Cap*] 5,000 unit PO DAILY #30 cap 06/12/21 Docusate [Colace Cap*] 100 mg PO BID #60 cap 06/12/21 Insulin Glargine,Hum.rec.anlog [Lantus] 15 units SQ BEDTIME #1 vial 06/12/21 Allopurinol 300 mg PO DAILY 06/15/21 Amlodipine [Norvasc*] 5 mg PO DAILY 06/15/21 Empagliflozin [Jardiance] 25 mg PO DAILY 06/15/21 Fluticasone/Umeclidin/Vilanter [Trelegy Ellipta 100-62.5-25] 1 each IH DAILY 06/15/21 Insulin Glargine,Hum.rec.anlog [Lantus] 10 unit IN BEDTIME 06/15/21 Levothyroxine [Synthroid*] 125 mcg PO [id number] 06/15/21 Metoprolol Succinate 1 tab PO DAILY 06/15/21 Sertraline [Zoloft*] 100 mg PO BID 06/15/21 Simvastatin 20 mg PO BEDTIME 06/15/21 Physician Discharge Instructions: Patient was found to have high glucose levels. Secondary to steroid usage. Patient was also noted to be Covid positive. She reported history of prior Covid infection, and is also received Covid vaccinations She reported some head/nasal congestion and some chest congestion. Chest x-ray was negative for any pulmonary opacities. She did not require any oxygen supplementation, otherwise seem to have a mild case of Covid. No evidence of COVID-19 pneumonia. Her inflammatory markers remained negative/normal. Her glucose improved on sliding scale insulin. There is initial concern for hypoglycemia due to decreased appetite. However her appetite improved, and her blood glucose levels increased as well. No changes to medications on discharge. Recommend continuing current dosage of Victoza, Jardiance, and Lantus. Patient is to continue to monitor her blood glucose levels closely and keep track of them. Discussed she may need to further titrate her insulin have better control, but should discuss with her PCP. Continue with a diabetic diet Follow-up with PCP within 1 week If respiratory symptoms worsen, she will follow-up with pulmonology or the ED. Advised to quarantine/minimize contact with family members over the next week. To wear a mask indoors in any shared spaces. Diet: ADA Activity: Ad rocio Followup: Steven Rasmussen MD [ACTIVE - CAN ADMIT] - 1-2 Weeks (Call to schedule an appointment) Catrachito Yip MD [Primary Care Provider] - 1-2 Weeks (Call to schedule an appointment) Time spent managing pt's care (in minutes): 45
== END 2021-06-17 16:17 | disposition home health service (06) | DRG 637 ==
LOC: ER 20:15 → ERHOLD 23:50 → 4TH 06-15 00:55
PROVIDERS: ADMIT Internal Medicine; ATTEND Hospitalist
DX: E11.00 Type 2 diabetes mellitus with hyperosmolarity without nonketotic hyperglycemic-hyperosmolar coma (NKHHC) (principal); U07.1 COVID-19; N17.9 Acute kidney failure, unspecified; I12.9 Hypertensive chronic kidney disease with stage 1 through stage 4 chronic kidney disease, or unspecified chronic kidney disease; N18.30 Chronic kidney disease, stage 3 unspecified; E11.22 Type 2 diabetes mellitus with diabetic chronic kidney disease; J44.9 Chronic obstructive pulmonary disease, unspecified; E03.9 Hypothyroidism, unspecified; F17.210 Nicotine dependence, cigarettes, uncomplicated; B19.20 Unspecified viral hepatitis C without hepatic coma; T38.0X5A Adverse effect of glucocorticoids and synthetic analogues, initial encounter; Z88.5 Allergy status to narcotic agent; Z66 Do not resuscitate; Z79.4 Long term (current) use of insulin; Z88.8 Allergy status to other drugs, medicaments and biological substances; Z91.048 Other nonmedicinal substance allergy status; Z79.82 Long term (current) use of aspirin; Z79.890 Hormone replacement therapy; Z79.899 Other long term (current) drug therapy; Z90.49 Acquired absence of other specified parts of digestive tract; Z90.710 Acquired absence of both cervix and uterus; Z86.16 Personal history of COVID-19
CPT/HCPCS: 36415; 71045; 80048; 80053; 80076; 81003; 82010; 82728; 82805; 82947; 83690; 83735; 83880; 84484; 85025; 85610; 86140; 93005; 96372; 96374; 96375; 97116; 97161; 99285; J1644; J2405; J7030; J7040; U0003

== ENCOUNTER 2022-09-21 04:09 | Emergency (ER) | payer OTHER ==
--- OUTSIDE RECORDS SUMMARY | 2022-09-21 04:16 | XMS REPORT | Continuity of Care Document ---
:1955 Author Organization [facility] t Address [address] [facility] [address] [place] [id number] Care Team Providers Name Role Phone Asked, No Pcp Primary Care Physician Unavailable Isauro Byrne Attending Clinician Unavailable Jamila Lu MA Attending Clinician Unavailable LAI SHEPPARD Attending Clinician Unavailable ELIZABETH ESCAMILAL Attending Clinician Unavailable GAVIN ROSSI Attending Clinician Unavailable ELIZABETH ESCAMILLA Admitting Clinician Unavailable Payers Payer Name Policy Type Policy Effective Date Expiration Date Sour ce Number [facility] 53 [id number] 2020 Commo n Spirit MEDICARE 00:00:[address] [place] [address] Problems Condition Condition Condition Status Onset Resolution Last Treating Co mments Source Name Details Category Date Date Treatment Clinician Date CKD CKD Disease Active [facility] (chronic (chronic [address] st kidney kidney 00:00: Hospita disease) disease) 00 l HTN HTN Disease Active [facility] (hypertens (hypertens 5-03 st ion) ion) 00:00: Hospita 00 l Renal Renal Disease Active [facility] artery artery 5-03 st stenosis stenosis 00:00: Hospit a 00 l Aortic Aortic Disease Active [facility] valve valve 5-03 st stenosis, stenosis, 00:00: [facility] etiology etiology 00 l of cardiac of cardiac valve valve disease disease unspecifie unspecifie d d [id number] Decreased Problem Com mon hearing of Spirit left ear [facility] [id number] Decreased Problem Com mon hearing of Spirit both ears - [facility] [id number] Type 2 Problem Commo n 05 diabetes Spirit mellitus - CHI with diabetic 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 - [facility]I insulin [facility] [id number] Type 2 Problem Common diabetes Spirit mellitus - [facility] with [facility] [id number] Essential Problem Comm on (primary) Spirit hypertensi - CHI on [facility] [id number] Current Problem Common moderate Spirit episode of - [facility] major [facility] prior episode [id number] Acquired Problem Comm on hypothyroi Spirit dism - [place] [facility] [id number] CHARLES Problem Common (generaliz Spirit ed anxiety - CHI disorder) [facility] [id number] Tobacco Problem Commo n use Spirit disorder - CHI [facility] [id number] Chronic Problem Commo n hepatitis Spirit C without - [facility] hepatic [facility] [id number] Mixed Problem Common hyperlipid Spirit emia - [place] [facility] Acute COPD Problem Common exacerbati exacerbati Sp carmen on of COPD on - CHI [facility] Chronic Chronic Problem Common kidney kidney Spirit disease disease, - [facility] stage 3 [facility] All[facility]ies, Adverse Reactions, Alerts Allergy Allergy Status Severity Reaction(s) Onset Inactive Treating Comm ents Source Name Type Date Date Clinician Adhesive Propensi Active Other (See Blisters Methodi Tape-Crystal ty to Comments) 08-[address] icones adverse 00:00: paper Hospita reaction 00 tape l s to drug Pseudoep Propensi Active Seizure Seizures Met hodi hedrine ty to 05-27 adverse 00:00: Hospita reaction 00 l s to drug Tramadol Propensi Active Altered Metho di ty to Mental 05-27 adverse Status 00:00: Hospita reaction 00 l s to drug tramadol tramadol Active Unknown Commo n Spirit - [facility] Family History Family Member Diagnosis Comments Start Date Stop Date Source Natural brother Heart disease Method [facility] Natural father Bladder Cancer Method [facility] Natural father CABG/Stent [facility] Natural father Hyperlipidemia Method [facility] Natural [facility] Hy[facility] Social History Social Habit Start Date Stop Date Quantity Comments Source Gender identity [facility] Sexual orientation Method [facility] History of Tobacco Current Smoker Co mmon Spirit - Use CHI [facility] Alcohol intake 2022-08-26 2022-08-26 Lifetime [facility] 00:00:00 00:00:00 non-drinker Hospital (finding) History of Social 2022-08-26 2022-08-[address] function 00:00:00 00:00:00 Hospital Cigarettes smoked 2021-08-12 2021-08-12 [facility] current (pack per 00:00:00 00:00:00 Hospita l day) - Reported Cigarette 2021-08-12 2021-08-12 [facility] pack-years 00:00:00 00:00:00 Hospital Tobacco use and 2021-08-12 2021-08-12 Smokeless [facility] exposure 00:00:00 00:00:00 tobacco non-user Hospital Sex Ass[birth year] At [birth year] [facility] 00:00:00 00:00:00 Hospital Smoking Status Start Date Stop Date Source Smokes tobacco daily 2021-08-12 00:00:00 [facility] Medications Ordered Filled Start Stop Current Ordering Indication Dosage Frequency Signature Comments Components Source Medication Medication Date Date Medication? Clinician (SIG) Name Name aspirin Yes 81mg QD Take 1 Methodi (ECOTRIN) 5-11 tablet (81 st 81 MG 16:01: mg total) Hospita enteric 35 by mouth l coated every tablet evening. co-enzyme Yes 60mg QD Take 2 Method i Q-10 30 mg 5-[address] capsule 16:01: (60 mg Hospita 35 total) by l mouth every evening. multivitami Yes 1{tbl} QD Take 1 Me thodi n tablet 5-[address] 16:01: mouth Hospita 35 daily. l ZINC ORAL Yes Take by Metho di 5-[address] 16:01: Hospita 35 l vitamin E Yes 1000U QD Take 1 Metho di 1000 UNIT 5-[address] capsule 16:01: (1,000 Hospita 35 Units l total) by mouth daily. ascorbic 0 Yes QD Take by Method i acid 5-[address] (SHAYAN-C 16:01: daily. Hospita ORAL) 35 l loperamide Yes 2mg Q.25D Take 1 Meth lilian (IMODIUM) 2 5-11 capsule (2 st mg capsule 16:01: mg total) Ho spita 35 by mouth 4 l (four) times a day as needed for diarrhea. cholecalcif Yes Take by Met hodi vandana, 6-[address] vitamin D3, 13:10: Hospit a (VITAMIN D3 47 l ORAL) predniSONE 2021- No 20mg QD Take 1 Meth lilian (DELTASONE) 09-24 06-13 tablet (20 s t 20 mg 00:00: 04:59 mg total) Hospit a tablet 00 :00 by mouth l daily for 3 days. busPIRone Yes 5mg Take 1 Method i (BUSPAR) 5 3-17 tablet (5 st MG tablet 00:00: mg total) Hos mimi 00 by mouth l as needed. calcitrioL Yes .25ug QD Take 1 Meth lilian (ROCALTROL) 3-[address] 0.25 MCG 00:00: (0.25 mcg [facility] capsule 00 total) by l mouth daily. predniSONE 2021- No 10mg Take 10 mg [facility] (DELTASONE) -18 09-[address] 10 mg 00:00: 00:00 as needed. Hospi ta tablet 00 :00 l levothyroxi Yes 125ug QD Take 1 Met hodi ne 1-[address] (SYNTHROID) 00:00: (125 mcg Ho spita 125 mcg 00 total) by l tablet mouth every morning. ipratropium 2020-04 Yes INHALE ONE Methodi -albuteroL 2-30 (1) VIAL st (DUO-NEB) 00:00: VIA Hospita 0.5-2.5 00 NEBULIZER l mg/3 mL FOUR TIMES nebulizer A DAY NEEDED. Ipratropium Ipratropium 2020-04 No 3{ml_as QID Ipratropiu -Albuterol -Albuterol 2-23 _needed m-Albutero 0.5-2.5 (3) 0.5-2.5 (3) 00:00: } l 0.5-2.5 MG/3ML MG/3ML 00 (3) MG/3ML Ipratropium Ipratropium 2020-04 No 3{ml_as QID Ipratropiu -Albuterol -Albuterol 2-23 _needed m-Albutero 0.5-2.5 (3) 0.5-2.5 (3) 00:00: } l 0.5-2.5 MG/3ML MG/3ML 00 (3) MG/3ML Ipratropium Ipratropium 2020-04 No 3{ml_as QID Ipratropiu -Albuterol -Albuterol 2-23 _needed m-Albutero 0.5-2.5 (3) 0.5-2.5 (3) 00:00: } l 0.5-2.5 MG/3ML MG/3ML 00 (3) MG/3ML methylPREDN methylPREDN 2020-04- No QD methylPRED ISolone 4 ISolone 4 04-22 NISolone 4 MG MG 00:00: 00:00 MG 00 :00 methylPREDN methylPREDN 2020-04- No QD methylPRED ISolone 4 ISolone 4 04-22 NISolone 4 MG MG 00:00: 00:00 MG 00 :00 methylPREDN methylPREDN 2020-04- No QD methylPRED ISolone 4 ISolone 4 04-22 NISolone 4 MG MG 00:00: 00:00 MG 00 :00 Azithromyci Azithromyci 2020-04- No QD Azithromyc n 250 MG n 250 MG 04-21 in 250 MG 00:00: 00:00 00 :00 Azithromyci Azithromyci 2020-04- No QD Azithromyc n 250 MG n 250 MG 04-21 in 250 MG 00:00: 00:00 00 :00 Azithromyci Azithromyci 2020-04- No QD Azithromyc n 250 MG n 250 MG 04-21-08 in 250 MG 00:00: 00:00 00 :00 Temazepam Temazepam 2020-04 No QD Temazepam 15 MG 15 MG 0-19 15 MG 00:00: 00 Temazepam Temazepam 2020-04 No QD Temazepam 15 MG 15 MG 0-19 15 MG 00:00: 00 Temazepam Temazepam 2020-04 No QD Temazepam 15 MG 15 MG 0-19 15 MG 00:00: 00 Temazepam Temazepam 2020-04 No QD Temazepam 15 MG 15 MG 0-19 15 MG 00:00: 00 Temazepam Temazepam 2020-04 No QD Temazepam 15 MG 15 MG 0-19 15 MG 00:00: 00 Temazepam Temazepam 2020-04 No QD Temazepam 15 MG 15 MG 0-19 15 MG 00:00: 00 Temazepam Temazepam 2020-04 No QD Temazepam 15 MG 15 MG 0-19 15 MG 00:00: 00 Temazepam Temazepam 2020-04 No QD Temazepam 15 MG 15 MG 0-19 15 MG 00:00: 00 Temazepam Temazepam 2020-04 No QD Temazepam 15 MG 15 MG 0-19 15 MG 00:00: 00 Neomycin-Po Neomycin-Po 2020-0 No 4{drops TID Neomycin-P lymyxin-HC lymyxin-HC 9-03 _into_a olymyxin-H 3.521251-9 3.5-02333-2 00:00: ffected C 00 _ear} 3.5- 1 Neomycin-Po Neomycin-Po 2020-0 No 4{drops TID Neomycin-P lymyxin-HC lymyxin-HC 9-03 _into_a olymyxin-H 3.5-47666-7 3.5-95894-9 00:00: ffected C 00 _ear} 3.5-88508- 1 Neomycin-Po Neomycin-Po 2020-0 No 4{drops TID Neomycin-P lymyxin-HC lymyxin-HC 9-03 _into_a olymyxin-H 3.5-97617-8 3.5-08889-2 00:00: ffected C 00 _ear} 3.5-19491- 1 Neomycin-Po Neomycin-Po 2021-0 No 4{drops TID Neomycin-P lymyxin-HC lymyxin-HC 9-03 _into_a olymyxin-H 3.5-27316-8 3.5-16189-1 00:00: ffected C 00 _ear} 3.5-14339- 1 Neomycin-Po Neomycin-Po 2021-0 No 4{drops TID Neomycin-P lymyxin-HC lymyxin-HC 9-03 _into_a olymyxin-H 3.5-53806-6 3.5-05335-1 00:00: ffected C 00 _ear} 3.5-47024- 1 Neomycin-Po Neomycin-Po 202-0 No 4{drops TID Neomycin-P lymyxin-HC lymyxin-HC 9-03 _into_a olymyxin-H 3.5-78925-7 3.5-07454-0 00:00: ffected C 00 _ear} 3.5-13240- 1 Neomycin-Po Neomycin-Po 202-0 No 4{drops TID Neomycin-P lymyxin-HC lymyxin-HC 9-03 _into_a olymyxin-H 3.5-48195-7 3.5-85287-7 00:00: ffected C 00 _ear} 3.5-75878- 1 Neomycin-Po Neomycin-Po 2021-0 No 4{drops TID Neomycin-P lymyxin-HC lymyxin-HC 9-03 _into_a olymyxin-H 3.5-77189-1 3.5-94955-1 00:00: ffected C 00 _ear} 3.5-04071- 1 Neomycin-Po Neomycin-Po 2021-0 No 4{drops TID Neomycin-P lymyxin-HC lymyxin-HC 9-03 _into_a olymyxin-H 3.5-04603-8 3.5-67282-6 00:00: ffected C 00 _ear} 3.5-93441- 1 Neomycin-Po Neomycin-Po 2021-0 No 4{drops TID Neomycin-P lymyxin-HC lymyxin-HC 9-03 _into_a olymyxin-H 3.5-94293-4 3.5-43267-4 00:00: ffected C 00 _ear} 3.5-62487- 1 Neomycin-Po Neomycin-Po 2021-0 No 4{drops TID Neomycin-P lymyxin-HC lymyxin-HC 9-03 _into_a olymyxin-H 3.522805-4 3.586363-2 00:00: ffected C 00 _ear} 3.5- 1 Azithromyci Azithromyci 2020- No QD Azithromyc n 250 MG n 250 MG 12-19 09-08 in 250 MG 00:00: 00:00 00 :00 Debrox 6.5 Debrox 6.5 2020- No 5{drops BID Debrox 6.5 % % 6-30 07-10 _into_a % 00:00: 00:00 ffected 00 :00 _ear} Debrox 6.5 Debrox 6.5 2020- No 5{drops BID Debrox 6.5 % % 6-30 07-10 _into_a % 00:00: 00:00 ffected 00 :00 _ear} Glucose Glucose 0 No Glucose testing testing 428 testing strips n/s strips n/s 00:00: strips n/s 00 Accu-Chek Accu-Chek 2020-0 No Accu-Chek FastClix FastClix 4-28 FastClix Lancets - Lancets - 00:00: Lancets - 00 Accu-Chek Accu-Chek 2021-0 No Accu-Chek FastClix FastClix 4-28 FastClix Lancets - Lancets - 00:00: Lancets - 00 Glucose Glucose 2020-0 No Glucose testing testing 4-28 testing strips n/s strips n/s 00:00: strips n/s 00 Accu-Chek Accu-Chek 2021-0 No Accu-Chek FastClix FastClix 4-28 FastClix Lancets - Lancets - 00:00: Lancets - 00 Glucose Glucose 2020-0 No Glucose testing testing 4-28 testing strips n/s strips n/s 00:00: strips n/s 00 Accu-Chek Accu-Chek 2021-0 No Accu-Chek FastClix FastClix 4-28 FastClix Lancets - Lancets - 00:00: Lancets - 00 Glucose Glucose 2021-0 No Glucose testing testing 4-28 testing strips n/s strips n/s 00:00: strips n/s 00 Glucose Glucose 2021-0 No Glucose testing testing 4-28 testing strips n/s strips n/s 00:00: strips n/s 00 Accu-Chek Accu-Chek 2021-0 No Accu-Chek FastClix FastClix 4-28 FastClix Lancets - Lancets - 00:00: Lancets - 00 Accu-Chek Accu-Chek 2021-0 No Accu-Chek FastClix FastClix 4-28 FastClix Lancets - Lancets - 00:00: Lancets - 00 Glucose Glucose 2021-0 No Glucose testing testing 4-28 testing strips n/s strips n/s 00:00: strips n/s 00 Accu-Chek Accu-Chek 2021-0 No Accu-Chek FastClix FastClix 4-28 FastClix Lancets - Lancets - 00:00: Lancets - 00 Glucose Glucose 2021-0 No Glucose testing testing 4-28 testing strips n/s strips n/s 00:00: strips n/s 00 Accu-Chek Accu-Chek 2021-0 No Accu-Chek FastClix FastClix 4-28 FastClix Lancets - Lancets - 00:00: Lancets - 00 Glucose Glucose 2021-0 No Glucose testing testing 4-28 testing strips n/s strips n/s 00:00: strips n/s 00 Accu-Chek Accu-Chek 2021-0 No Accu-Chek FastClix FastClix 4-28 FastClix Lancets - Lancets - 00:00: Lancets - 00 Glucose Glucose 2021-0 No Glucose testing testing 4-28 testing strips n/s strips n/s 00:00: strips n/s 00 Accu-Chek Accu-Chek 2021-0 No Accu-Chek FastClix FastClix 4-28 FastClix Lancets - Lancets - 00:00: Lancets - 00 Glucose Glucose 2021-0 No Glucose testing testing 4-28 testing strips n/s strips n/s 00:00: strips n/s 00 Glucose Glucose 2021-0 No Glucose testing testing 4-28 testing strips n/s strips n/s 00:00: strips n/s 00 Accu-Chek Accu-Chek 2021-0 No Accu-Chek FastClix FastClix 4-28 FastClix Lancets - Lancets - 00:00: Lancets - 00 Accu-Chek Accu-Chek 2021-0 No Accu-Chek FastClix FastClix 4-28 FastClix Lancets - Lancets - 00:00: Lancets - 00 Glucose Glucose 2021-0 No Glucose testing testing 4-28 testing strips n/s strips n/s 00:00: strips n/s 00 Accu-Chek Accu-Chek 2021-0 No Accu-Chek FastClix FastClix 4-28 FastClix Lancets - Lancets - 00:00: Lancets - 00 Glucose Glucose 2021-0 No Glucose testing testing 4-28 testing strips n/s strips n/s 00:00: strips n/s 00 Accu-Chek Accu-Chek 2021-0 No Accu-Chek FastClix FastClix 4-28 FastClix Lancets - Lancets - 00:00: Lancets - 00 Glucose Glucose 2021-0 No Glucose testing testing 4-28 testing strips n/s strips n/s 00:00: strips n/s 00 Accu-Chek Accu-Chek 2021-0 No Accu-Chek FastClix FastClix 4-28 FastClix Lancets - Lancets - 00:00: Lancets - 00 Glucose Glucose 2021-0 No Glucose testing testing 4-28 testing strips n/s strips n/s 00:00: strips n/s 00 Accu-Chek Accu-Chek 2021-0 No Accu-Chek FastClix FastClix 4-28 FastClix Lancets - Lancets - 00:00: Lancets - 00 Glucose Glucose 2021-0 No Glucose testing testing 4-28 testing strips n/s strips n/s 00:00: strips n/s 00 Glucose Glucose 2021-0 No Glucose testing testing 4-28 testing strips n/s strips n/s 00:00: strips n/s 00 Accu-Chek Accu-Chek 2021-0 No Accu-Chek FastClix FastClix 4-28 FastClix Lancets - Lancets - 00:00: Lancets - 00 Accu-Chek Accu-Chek 2020-0 No Accu-Chek FastClix FastClix 4-28 FastClix Lancets - Lancets - 00:00: Lancets - 00 Glucose Glucose 2020-0 No Glucose testing testing -28 testing strips n/s strips n/s 00:00: strips n/s 00 Accu-Chek Accu-Chek 2020-0 No Accu-Chek FastClix FastClix 4-28 FastClix Lancets - Lancets - 00:00: Lancets - 00 Glucose Glucose 2020-0 No Glucose testing testing 28 testing strips n/s strips n/s 00:00: strips n/s 00 Levothyroxi Levothyroxi 0 No QD Levothyrox ne Sodium ne Sodium 4-02 ine Sodium 125 MCG 125 MCG 00:00: 125 MCG 00 Metoprolol Metoprolol 2020-0 No 1{table QD Metoprolol Succinate Succinate 4-02 t} Succinate ER 100 MG ER 100 MG 00:00: ER 100 MG 00 Levothyroxi Levothyroxi No QD Levothyrox ne Sodium ne Sodium 4-02 ine Sodium 125 MCG 125 MCG 00:00: 125 MCG 00 Metoprolol Metoprolol 2020-0 No 1{table QD Metoprolol Succinate Succinate 4-02 t} Succinate ER 100 MG ER 100 MG 00:00: ER 100 MG 00 Levothyroxi Levothyroxi 0 No QD Levothyrox ne Sodium ne Sodium 4-02 ine Sodium 125 MCG 125 MCG 00:00: 125 MCG 00 Metoprolol Metoprolol 2020-0 No 1{table QD Metoprolol Succinate Succinate 4-02 t} Succinate ER 100 MG ER 100 MG 00:00: ER 100 MG 00 Levothyroxi Levothyroxi 0 No QD Levothyrox ne Sodium ne Sodium 4-02 ine Sodium 125 MCG 125 MCG 00:00: 125 MCG 00 Metoprolol Metoprolol 2020-0 No 1{table QD Metoprolol Succinate Succinate 4-02 t} Succinate ER 100 MG ER 100 MG 00:00: ER 100 MG 00 Levothyroxi Levothyroxi 2021-0 No QD Levothyrox ne Sodium ne Sodium 4-02 ine Sodium 125 MCG 125 MCG 00:00: 125 MCG 00 Metoprolol Metoprolol No 1{table QD Metoprolol Succinate Succinate 4-02 t} Succinate ER 100 MG ER 100 MG 00:00: ER 100 MG 00 Metoprolol Metoprolol No 1{table QD Metoprolol Succinate Succinate 4-02 t} Succinate ER 100 MG ER 100 MG 00:00: ER 100 MG 00 Levothyroxi Levothyroxi No QD Levothyrox ne Sodium ne Sodium 4-02 ine Sodium 125 MCG 125 MCG 00:00: 125 MCG 00 Metoprolol Metoprolol No 1{table QD Metoprolol Succinate Succinate 4-02 t} Succinate ER 100 MG ER 100 MG 00:00: ER 100 MG 00 Levothyroxi Levothyroxi No QD Levothyrox ne Sodium ne Sodium 4-02 ine Sodium 125 MCG 125 MCG 00:00: 125 MCG 00 Levothyroxi Levothyroxi No QD Levothyrox ne Sodium ne Sodium 4-02 ine Sodium 125 MCG 125 MCG 00:00: 125 MCG 00 Metoprolol Metoprolol No 1{table QD Metoprolol Succinate Succinate 4-02 t} Succinate ER 100 MG ER 100 MG 00:00: ER 100 MG 00 Levothyroxi Levothyroxi No QD Levothyrox ne Sodium ne Sodium 4-02 ine Sodium 125 MCG 125 MCG 00:00: 125 MCG 00 Metoprolol Metoprolol No 1{table QD Metoprolol Succinate Succinate 4-02 t} Succinate ER 100 MG ER 100 MG 00:00: ER 100 MG 00 Metoprolol Metoprolol No 1{table QD Metoprolol Succinate Succinate 4-02 t} Succinate ER 100 MG ER 100 MG 00:00: ER 100 MG 00 Levothyroxi Levothyroxi No QD Levothyrox ne Sodium ne Sodium 4-02 ine Sodium 125 MCG 125 MCG 00:00: 125 MCG 00 albuterol 2019-04 Yes 1mg 2.4 mL (1 Met hodi (ACCUNEB) 2-28 mg total) st 1.25 mg/3 00:00: as needed. Ho spita mL 00 l nebulizer solution insulin 2019-04 Yes 25U QD Inject Methodi GLARGINE 2-[address] (LANTUS) 00:00: (25 Units [facility] 100 unit/mL 00 total) l injection under the (vial) skin nightly. empaglifloz 2019-04 Yes 1{tbl} QD Take 1 Me thodi in 2-[address] (Jardiance) 00:00: mouth Hospi ta 25 mg 00 daily. l tablet allopurinoL 2019-04 Yes 300mg QD Take 1 Met hodi (ZYLOPRIM) 2-[address] 300 MG 00:00: (300 mg Hospita tablet 00 total) by l mouth every evening. amLODIPine 2019-04 Yes 5mg QD Take 1 Metho di (NORVASC) 5 2-15 tablet (5 st mg tablet 00:00: mg total) Hos mimi 00 by mouth l every evening. 1/2 tablet if diastolic is below 60 metoprolol 2019-04 Yes 100mg QD Take 1 Meth lilian succinate 2-[address] XL 00:00: (100 mg Hospita (TOPROL-XL) 00 total) by l 100 mg 24 mouth hr tablet daily. sertraline 2019-04 Yes 200mg QD Take 2 Meth lilian (ZOLOFT) 2-[address] 100 MG 00:00: (200 mg Hospita tablet 00 total) by l mouth nightly. simvastatin 2019-04 Yes 1 tablet Me thodi (ZOCOR) 20 2-[address] mg tablet 00:00: evening Hospi ta 00 l valACYclovi 2019-04 Yes 500mg QD Take 0.5 M ethodi r (VALTREX) 2-[address] 1000 MG 00:00: (500 mg Hospita tablet 00 total) by l mouth daily. temazepam 2019-04 Yes Methodi (RESTORIL) 2-03 st 15 mg 00:00: Hospita capsule 00 l liraglutide 2019-04 Yes 1.8mg QD Inject 0.3 Methodi (VICTOZA) 1-19 mL (1.[address] 0.6 mg/0.1 00:00: total) Hospi ta mL (18 mg/3 00 under the l mL) pen skin every injector evening. losartan 2019-04 Yes 25mg QD Take 1 Methodi (COZAAR) 25 1-04 tablet (25 st MG tablet 00:00: mg total) Hos mimi 00 by mouth l daily. Jardiance Jardiance No 1{table QD Jardiance 25 MG 25 MG t} 25 MG Sertraline Sertraline No 1{table QD Sertraline HCl 100 MG HCl 100 MG t} HCl 100 MG CoQ-10 CoQ-10 No CoQ-10 Losartan Losartan No 1{table QD Losartan Potassium Potassium t} Potassium 25 MG 25 MG 25 MG Aspirin 81 Aspirin 81 No 1{table QD Aspirin 81 81 MG 81 MG t} 81 MG Zinc Zinc No Zinc Valacyclovi Valacyclovi No QD Valacyclov r HCl 1 GM r HCl 1 GM ir HCl 1 GM Simvastatin Simvastatin No 1{table QD Simvastati 20 MG 20 MG t_in_ n 20 MG e_eveni ng} Lantus Lantus No QD Lantus SoloStar SoloStar SoloStar 100 UNIT/ML 100 UNIT/ML 100 UNIT/ML Amlodipine Amlodipine No 1{table QD Amlodipine Besylate 5 Besylate 5 t} Besylate 5 MG MG MG Victoza 18 Victoza 18 No QD Victoza 18 MG/3ML MG/3ML MG/3ML Metoprolol Metoprolol No 1{table QD Metoprolol Tartrate Tartrate t_with_ Tartrate 100 MG 100 MG food} 100 MG Metformin Metformin No 1{table BID Metformin HCl 1000 MG HCl 1000 MG t_with_ HCl 1000 a_meal} MG Levothyroxi Levothyroxi No QD Levothyrox ne Sodium ne Sodium ine Sodium 125 MCG 125 MCG 125 MCG Allopurinol Allopurinol No 1{table QD Allopurino 300 MG 300 MG t} l 300 MG Jardiance Jardiance No 1{table QD Jardiance 25 MG 25 MG t} 25 MG Sertraline Sertraline No 1{table QD Sertraline HCl 100 MG HCl 100 MG t} HCl 100 MG CoQ-10 CoQ-10 No CoQ-10 Losartan Losartan No 1{table QD Losartan Potassium Potassium t} Potassium 25 MG 25 MG 25 MG Aspirin 81 Aspirin 81 No 1{table QD Aspirin 81 81 MG 81 MG t} 81 MG Temazepam Temazepam No 1{capsu QD Temazepam 15 MG 15 MG le_at_b 15 MG edtime_ as_need ed} Zinc Zinc No Zinc Metoprolol Metoprolol No 1{table QD Metoprolol Tartrate Tartrate t_with_ Tartrate 100 MG 100 MG food} 100 MG Valacyclovi Valacyclovi No QD Valacyclov r HCl 1 GM r HCl 1 GM ir HCl 1 GM Lantus Lantus No QD Lantus SoloStar SoloStar SoloStar 100 UNIT/ML 100 UNIT/ML 100 UNIT/ML Losartan Losartan No 1{table QD Losartan Potassium Potassium t} Potassium 25 MG 25 MG 25 MG Victoza 18 Victoza 18 No QD Victoza 18 MG/3ML MG/3ML MG/3ML Jardiance Jardiance No 1{table QD Jardiance 25 MG 25 MG t} 25 MG Simvastatin Simvastatin No 1{table QD Simvastati 20 MG 20 MG t_in_th n 20 MG e_eveni ng} Metformin Metformin No 1{table BID Metformin HCl 1000 MG HCl 1000 MG t_with_ HCl 1000 a_meal} MG Sertraline Sertraline No 1{table QD Sertraline HCl 100 MG HCl 100 MG t} HCl 100 MG Amlodipine Amlodipine No 1{table QD Amlodipine Besylate 5 Besylate 5 t} Besylate 5 MG MG MG Levothyroxi Levothyroxi No QD Levothyrox ne Sodium ne Sodium ine Sodium 125 MCG 125 MCG 125 MCG CoQ-10 CoQ-10 No CoQ-10 Aspirin 81 Aspirin 81 No 1{table QD Aspirin 81 81 MG 81 MG t} 81 MG Allopurinol Allopurinol No 1{table QD Allopurino 300 MG 300 MG t} l 300 MG Temazepam Temazepam No 1{capsu QD Temazepam 15 MG 15 MG le_at_b 15 MG edtime_ as_need ed} Zinc Zinc No Zinc Metoprolol Metoprolol No 1{table QD Metoprolol Tartrate Tartrate t_with_ Tartrate 100 MG 100 MG food} 100 MG Valacyclovi Valacyclovi No QD Valacyclov r HCl 1 GM r HCl 1 GM ir HCl 1 GM Lantus Lantus No QD Lantus SoloStar SoloStar SoloStar 100 UNIT/ML 100 UNIT/ML 100 UNIT/ML Losartan Losartan No 1{table QD Losartan Potassium Potassium t} Potassium 25 MG 25 MG 25 MG Victoza 18 Victoza 18 No QD Victoza 18 MG/3ML MG/3ML MG/3ML Jardiance Jardiance No 1{table QD Jardiance 25 MG 25 MG t} 25 MG Simvastatin Simvastatin No 1{table QD Simvastati 20 MG 20 MG t_in_th n 20 MG e_eveni ng} Metformin Metformin No 1{table BID Metformin HCl 1000 MG HCl 1000 MG t_with_ HCl 1000 a_meal} MG Sertraline Sertraline No 1{table QD Sertraline HCl 100 MG HCl 100 MG t} HCl 100 MG Amlodipine Amlodipine No 1{table QD Amlodipine Besylate 5 Besylate 5 t} Besylate 5 MG MG MG Levothyroxi Levothyroxi No QD Levothyrox ne Sodium ne Sodium ine Sodium 125 MCG 125 MCG 125 MCG CoQ-10 CoQ-10 No CoQ-10 Aspirin 81 Aspirin 81 No 1{table QD Aspirin 81 81 MG 81 MG t} 81 MG Allopurinol Allopurinol No 1{table QD Allopurino 300 MG 300 MG t} l 300 MG Temazepam Temazepam No 1{capsu QD Temazepam 15 MG 15 MG le_at_b 15 MG edtime_ as_need ed} Zinc Zinc No Zinc Metoprolol Metoprolol No 1{table QD Metoprolol Tartrate Tartrate t_with_ Tartrate 100 MG 100 MG food} 100 MG Valacyclovi Valacyclovi No QD Valacyclov r HCl 1 GM r HCl 1 GM ir HCl 1 GM Lantus Lantus No QD Lantus SoloStar SoloStar SoloStar 100 UNIT/ML 100 UNIT/ML 100 UNIT/ML Losartan Losartan No 1{table QD Losartan Potassium Potassium t} Potassium 25 MG 25 MG 25 MG Victoza 18 Victoza 18 No QD Victoza 18 MG/3ML MG/3ML MG/3ML Jardiance Jardiance No 1{table QD Jardiance 25 MG 25 MG t} 25 MG Simvastatin Simvastatin No 1{table QD Simvastati 20 MG 20 MG t_in_th n 20 MG e_eveni ng} Metformin Metformin No 1{table BID Metformin HCl 1000 MG HCl 1000 MG t_with_ HCl 1000 a_meal} MG Sertraline Sertraline No 1{table QD Sertraline HCl 100 MG HCl 100 MG t} HCl 100 MG Amlodipine Amlodipine No 1{table QD Amlodipine Besylate 5 Besylate 5 t} Besylate 5 MG MG MG Levothyroxi Levothyroxi No QD Levothyrox ne Sodium ne Sodium ine Sodium 125 MCG 125 MCG 125 MCG CoQ-10 CoQ-10 No CoQ-10 Aspirin 81 Aspirin 81 No 1{table QD Aspirin 81 81 MG 81 MG t} 81 MG Allopurinol Allopurinol No 1{table QD Allopurino 300 MG 300 MG t} l 300 MG Temazepam Temazepam No 1{capsu QD Temazepam 15 MG 15 MG le_at_b 15 MG edtime_ as_need ed} Zinc Zinc No Zinc Aspirin 81 Aspirin 81 No 1{table QD Aspirin 81 81 MG 81 MG t} 81 MG Losartan Losartan No 1{table QD Losartan Potassium Potassium t} Potassium 25 MG 25 MG 25 MG Lantus Lantus No QD Lantus SoloStar SoloStar SoloStar 100 UNIT/ML 100 UNIT/ML 100 UNIT/ML Victoza 18 Victoza 18 No QD Victoza 18 MG/3ML MG/3ML MG/3ML Simvastatin Simvastatin No 1{table QD Simvastati 20 MG 20 MG t_in_th n 20 MG e_eveni ng} Amlodipine Amlodipine No 1{table QD Amlodipine Besylate 5 Besylate 5 t} Besylate 5 MG MG MG Valacyclovi Valacyclovi No QD Valacyclov r HCl 1 GM r HCl 1 GM ir HCl 1 GM Sertraline Sertraline No 1{table QD Sertraline HCl 100 MG HCl 100 MG t} HCl 100 MG Jardiance Jardiance No 1{table QD Jardiance 25 MG 25 MG t} 25 MG CoQ-10 CoQ-10 No CoQ-10 Metformin Metformin No 1{table BID Metformin HCl 1000 MG HCl 1000 MG t_with_ HCl 1000 a_meal} MG Allopurinol Allopurinol No 1{table QD Allopurino 300 MG 300 MG t} l 300 MG Aspirin 81 Aspirin 81 No 1{table QD Aspirin 81 81 MG 81 MG t} 81 MG Amlodipine Amlodipine No 1{table QD Amlodipine Besylate 5 Besylate 5 t} Besylate 5 MG MG MG CoQ-10 CoQ-10 No CoQ-10 Losartan Losartan No 1{table QD Losartan Potassium Potassium t} Potassium 25 MG 25 MG 25 MG Levothyroxi Levothyroxi No QD Levothyrox ne Sodium ne Sodium ine Sodium 125 MCG 125 MCG 125 MCG Sertraline Sertraline No 1{table QD Sertraline HCl 100 MG HCl 100 MG t} HCl 100 MG Simvastatin Simvastatin No 1{table QD Simvastati 20 MG 20 MG t_in_th n 20 MG e_eveni ng} Victoza 18 Victoza 18 No QD Victoza 18 MG/3ML MG/3ML MG/3ML Jardiance Jardiance No 1{table QD Jardiance 25 MG 25 MG t} 25 MG Zinc Zinc No Zinc Allopurinol Allopurinol No 1{table QD Allopurino 300 MG 300 MG t} l 300 MG Temazepam Temazepam No 1{capsu QD Temazepam 15 MG 15 MG le_at_b 15 MG edtime_ as_need ed} Valacyclovi Valacyclovi No QD Valacyclov r HCl 1 GM r HCl 1 GM ir HCl 1 GM Metformin Metformin No 1{table BID Metformin HCl 1000 MG HCl 1000 MG t_with_ HCl 1000 a_meal} MG Lantus Lantus No QD Lantus SoloStar SoloStar SoloStar 100 UNIT/ML 100 UNIT/ML 100 UNIT/ML Aspirin 81 Aspirin 81 No 1{table QD Aspirin 81 81 MG 81 MG t} 81 MG Amlodipine Amlodipine No 1{table QD Amlodipine Besylate 5 Besylate 5 t} Besylate 5 MG MG MG CoQ-10 CoQ-10 No CoQ-10 Losartan Losartan No 1{table QD Losartan Potassium Potassium t} Potassium 25 MG 25 MG 25 MG Levothyroxi Levothyroxi No QD Levothyrox ne Sodium ne Sodium ine Sodium 125 MCG 125 MCG 125 MCG Sertraline Sertraline No 1{table QD Sertraline HCl 100 MG HCl 100 MG t} HCl 100 MG Simvastatin Simvastatin No 1{table QD Simvastati 20 MG 20 MG t_in_th n 20 MG e_eveni ng} Victoza 18 Victoza 18 No QD Victoza 18 MG/3ML MG/3ML MG/3ML Jardiance Jardiance No 1{table QD Jardiance 25 MG 25 MG t} 25 MG Zinc Zinc No Zinc Allopurinol Allopurinol No 1{table QD Allopurino 300 MG 300 MG t} l 300 MG Temazepam Temazepam No 1{capsu QD Temazepam 15 MG 15 MG le_at_b 15 MG edtime_ as_need ed} Valacyclovi Valacyclovi No QD Valacyclov r HCl 1 GM r HCl 1 GM ir HCl 1 GM Metformin Metformin No 1{table BID Metformin HCl 1000 MG HCl 1000 MG t_with_ HCl 1000 a_meal} MG Lantus Lantus No QD Lantus SoloStar SoloStar SoloStar 100 UNIT/ML 100 UNIT/ML 100 UNIT/ML Losartan Losartan No 1{table QD Losartan Potassium Potassium t} Potassium 25 MG 25 MG 25 MG Aspirin 81 Aspirin 81 No 1{table QD Aspirin 81 81 MG 81 MG t} 81 MG CoQ-10 CoQ-10 No CoQ-10 Temazepam Temazepam No 1{capsu QD Temazepam 15 MG 15 MG le_at_b 15 MG edtime_ as_need ed} Levothyroxi Levothyroxi No QD Levothyrox ne Sodium ne Sodium ine Sodium 125 MCG 125 MCG 125 MCG Sertraline Sertraline No 1{table QD Sertraline HCl 100 MG HCl 100 MG t} HCl 100 MG Simvastatin Simvastatin No 1{table QD Simvastati 20 MG 20 MG t_in_th n 20 MG e_eveni ng} Victoza 18 Victoza 18 No QD Victoza 18 MG/3ML MG/3ML MG/3ML Jardiance Jardiance No 1{table QD Jardiance 25 MG 25 MG t} 25 MG Zinc Zinc No Zinc Lantus Lantus No QD Lantus SoloStar SoloStar SoloStar 100 UNIT/ML 100 UNIT/ML 100 UNIT/ML Allopurinol Allopurinol No 1{table QD Allopurino 300 MG 300 MG t} l 300 MG Valacyclovi Valacyclovi No QD Valacyclov r HCl 1 GM r HCl 1 GM ir HCl 1 GM Metformin Metformin No 1{table BID Metformin HCl 1000 MG HCl 1000 MG t_with_ HCl 1000 a_meal} MG Amlodipine Amlodipine No 1{table QD Amlodipine Besylate 5 Besylate 5 t} Besylate 5 MG MG MG Losartan Losartan No 1{table QD Losartan Potassium Potassium t} Potassium 25 MG 25 MG 25 MG Aspirin 81 Aspirin 81 No 1{table QD Aspirin 81 81 MG 81 MG t} 81 MG CoQ-10 CoQ-10 No CoQ-10 Temazepam Temazepam No QD Temazepam 15 MG 15 MG 15 MG Levothyroxi Levothyroxi No QD Levothyrox ne Sodium ne Sodium ine Sodium 125 MCG 125 MCG 125 MCG Sertraline Sertraline No 1{table QD Sertraline HCl 100 MG HCl 100 MG t} HCl 100 MG Simvastatin Simvastatin No 1{table QD Simvastati 20 MG 20 MG t_in_th n 20 MG e_eveni ng} Victoza 18 Victoza 18 No QD Victoza 18 MG/3ML MG/3ML MG/3ML Jardiance Jardiance No 1{table QD Jardiance 25 MG 25 MG t} 25 MG Zinc Zinc No Zinc Lantus Lantus No QD Lantus SoloStar SoloStar SoloStar 100 UNIT/ML 100 UNIT/ML 100 UNIT/ML Allopurinol Allopurinol No 1{table QD Allopurino 300 MG 300 MG t} l 300 MG Valacyclovi Valacyclovi No QD Valacyclov r HCl 1 GM r HCl 1 GM ir HCl 1 GM Metformin Metformin No 1{table BID Metformin HCl 1000 MG HCl 1000 MG t_with_ HCl 1000 a_meal} MG Amlodipine Amlodipine No 1{table QD Amlodipine Besylate 5 Besylate 5 t} Besylate 5 MG MG MG Amlodipine Amlodipine No 1{table QD Amlodipine Besylate 5 Besylate 5 t} Besylate 5 MG MG MG Lantus Lantus No QD Lantus SoloStar SoloStar SoloStar 100 UNIT/ML 100 UNIT/ML 100 UNIT/ML Losartan Losartan No Losartan Potassium Potassium Potassium 25 MG 25 MG 25 MG Metformin Metformin No 1{table BID Metformin HCl 1000 MG HCl 1000 MG t_with_ HCl 1000 a_meal} MG Aspirin 81 Aspirin 81 No 1{table QD Aspirin 81 81 MG 81 MG t} 81 MG Levothyroxi Levothyroxi No QD Levothyrox ne Sodium ne Sodium ine Sodium 125 MCG 125 MCG 125 MCG Temazepam Temazepam No QD Temazepam 15 MG 15 MG 15 MG Victoza 18 Victoza 18 No QD Victoza 18 MG/3ML MG/3ML MG/3ML CoQ-10 CoQ-10 No CoQ-10 Sertraline Sertraline No 1{table QD Sertraline HCl 100 MG HCl 100 MG t} HCl 100 MG Jardiance Jardiance No 1{table QD Jardiance 25 MG 25 MG t} 25 MG Zinc Zinc No Zinc Valacyclovi Valacyclovi No QD Valacyclov r HCl 1 GM r HCl 1 GM ir HCl 1 GM Simvastatin Simvastatin No 1{table QD Simvastati 20 MG 20 MG t_in_th n 20 MG e_eveni ng} Allopurinol Allopurinol No 1{table QD Allopurino 300 MG 300 MG t} l 300 MG Amlodipine Amlodipine No 1{table QD Amlodipine Besylate 5 Besylate 5 t} Besylate 5 MG MG MG Lantus Lantus No QD Lantus SoloStar SoloStar SoloStar 100 UNIT/ML 100 UNIT/ML 100 UNIT/ML Losartan Losartan No Losartan Potassium Potassium Potassium 25 MG 25 MG 25 MG Metformin Metformin No 1{table BID Metformin HCl 1000 MG HCl 1000 MG t_with_ HCl 1000 a_meal} MG Aspirin 81 Aspirin 81 No 1{table QD Aspirin 81 81 MG 81 MG t} 81 MG Temazepam Temazepam No QD Temazepam 15 MG 15 MG 15 MG Victoza 18 Victoza 18 No QD Victoza 18 MG/3ML MG/3ML MG/3ML Sertraline Sertraline No 2{table Sertraline HCl 100 MG HCl 100 MG ts} HCl 100 MG CoQ-10 CoQ-10 No CoQ-10 Levothyroxi Levothyroxi No QD Levothyrox ne Sodium ne Sodium ine Sodium 125 MCG 125 MCG 125 MCG Jardiance Jardiance No 1{table QD Jardiance 25 MG 25 MG t} 25 MG Zinc Zinc No Zinc Valacyclovi Valacyclovi No QD Valacyclov r HCl 1 GM r HCl 1 GM ir HCl 1 GM Simvastatin Simvastatin No 1{table QD Simvastati 20 MG 20 MG t_in_th n 20 MG e_eveni ng} Allopurinol Allopurinol No 1{table QD Allopurino 300 MG 300 MG t} l 300 MG Lantus Lantus No QD Lantus SoloStar SoloStar SoloStar 100 UNIT/ML 100 UNIT/ML 100 UNIT/ML Jardiance Jardiance No 1{table QD Jardiance 25 MG 25 MG t} 25 MG Victoza 18 Victoza 18 No QD Victoza 18 MG/3ML MG/3ML MG/3ML Losartan Losartan No Losartan Potassium Potassium Potassium 25 MG 25 MG 25 MG Aspirin 81 Aspirin 81 No 1{table QD Aspirin 81 81 MG 81 MG t} 81 MG Zinc Zinc No Zinc Sertraline Sertraline No 1{table QD Sertraline HCl 100 MG HCl 100 MG t} HCl 100 MG metFORMIN metFORMIN No metFORMIN HCl 1000 MG HCl 1000 MG HCl 1000 MG Temazepam Temazepam No Temazepam 15 MG 15 MG 15 MG Levothyroxi Levothyroxi No QD Levothyrox ne Sodium ne Sodium ine Sodium 125 MCG 125 MCG 125 MCG Sure Sure No Sure Comfort Comfort Comfort Insulin Insulin Insulin Syringe 31G Syringe 31G Syringe X 08/31" 1 X 08/31" 1 31G X ML ML 08/31" 1 ML Allopurinol Allopurinol No 1{table QD Allopurino 300 MG 300 MG t} l 300 MG NovoFine NovoFine No NovoFine Plus 32G X Plus 32G X Plus 32G X 4 MM 4 MM 4 MM valACYclovi valACYclovi No QD valACYclov r HCl 1 GM r HCl 1 GM ir HCl 1 GM Simvastatin Simvastatin No 1{table QD Simvastati 20 MG 20 MG t_in_ n 20 MG e_eveni ng} amLODIPine amLODIPine No 1{table QD amLODIPine Besylate 5 Besylate 5 t} Besylate 5 MG MG MG CoQ-10 CoQ-10 No CoQ-10 Lantus Lantus No QD Lantus SoloStar SoloStar SoloStar 100 UNIT/ML 100 UNIT/ML 100 UNIT/ML Jardiance Jardiance No 1{table QD Jardiance 25 MG 25 MG t} 25 MG Victoza 18 Victoza 18 No QD Victoza 18 MG/3ML MG/3ML MG/3ML Losartan Losartan No Losartan Potassium Potassium Potassium 25 MG 25 MG 25 MG Aspirin 81 Aspirin 81 No 1{table QD Aspirin 81 81 MG 81 MG t} 81 MG Zinc Zinc No Zinc Sertraline Sertraline No 1{table QD Sertraline HCl 100 MG HCl 100 MG t} HCl 100 MG metFORMIN metFORMIN No metFORMIN HCl 1000 MG HCl 1000 MG HCl 1000 MG Temazepam Temazepam No Temazepam 15 MG 15 MG 15 MG Levothyroxi Levothyroxi No QD Levothyrox ne Sodium ne Sodium ine Sodium 125 MCG 125 MCG 125 MCG Sure Sure No Sure Comfort Comfort Comfort Insulin Insulin Insulin Syringe 31G Syringe 31G Syringe X 08/31" 1 X 08/31" 1 31G X ML ML 08/31" 1 ML Allopurinol Allopurinol No 1{table QD Allopurino 300 MG 300 MG t} l 300 MG NovoFine NovoFine No NovoFine Plus 32G X Plus 32G X Plus 32G X 4 MM 4 MM 4 MM valACYclovi valACYclovi No QD valACYclov r HCl 1 GM r HCl 1 GM ir HCl 1 GM Simvastatin Simvastatin No 1{table QD Simvastati 20 MG 20 MG t_in_th n 20 MG e_eveni ng} amLODIPine amLODIPine No 1{table QD amLODIPine Besylate 5 Besylate 5 t} Besylate 5 MG MG MG CoQ-10 CoQ-10 No CoQ-10 Levothyroxi Levothyroxi No QD Levothyrox ne Sodium ne Sodium ine Sodium 125 MCG 125 MCG 125 MCG Sure Sure No Sure Comfort Comfort Comfort Insulin Insulin Insulin Syringe 31G Syringe 31G Syringe X 08/31" 1 X 08/31" 1 31G X ML ML 08/31" 1 ML Jardiance Jardiance No 1{table QD Jardiance 25 MG 25 MG t} 25 MG Temazepam Temazepam No Temazepam 15 MG 15 MG 15 MG CoQ-10 CoQ-10 No CoQ-10 metFORMIN metFORMIN No metFORMIN HCl 1000 MG HCl 1000 MG HCl 1000 MG Sertraline Sertraline No 1{table QD Sertraline HCl 100 MG HCl 100 MG t} HCl 100 MG amLODIPine amLODIPine No 1{table QD amLODIPine Besylate 5 Besylate 5 t} Besylate 5 MG MG MG Lantus Lantus No QD Lantus SoloStar SoloStar SoloStar 100 UNIT/ML 100 UNIT/ML 100 UNIT/ML valACYclovi valACYclovi No QD valACYclov r HCl 1 GM r HCl 1 GM ir HCl 1 GM Simvastatin Simvastatin No 1{table QD Simvastati 20 MG 20 MG t_in_th n 20 MG e_eveni ng} NovoFine NovoFine No NovoFine Plus 32G X Plus 32G X Plus 32G X 4 MM 4 MM 4 MM Victoza 18 Victoza 18 No QD Victoza 18 MG/3ML MG/3ML MG/3ML Aspirin 81 Aspirin 81 No 1{table QD Aspirin 81 81 MG 81 MG t} 81 MG Zinc Zinc No Zinc Allopurinol Allopurinol No 1{table QD Allopurino 300 MG 300 MG t} l 300 MG Losartan Losartan No Losartan Potassium Potassium Potassium 25 MG 25 MG 25 MG Losartan Losartan No Losartan Potassium Potassium Potassium 25 MG 25 MG 25 MG Lantus Lantus No QD Lantus SoloStar SoloStar SoloStar 100 UNIT/ML 100 UNIT/ML 100 UNIT/ML Jardiance Jardiance No 1{table QD Jardiance 25 MG 25 MG t} 25 MG Allopurinol Allopurinol No 1{table QD Allopurino 300 MG 300 MG t} l 300 MG Zinc Zinc No Zinc Victoza 18 Victoza 18 No QD Victoza 18 MG/3ML MG/3ML MG/3ML Simvastatin Simvastatin No 1{table QD Simvastati 20 MG 20 MG t_in_th n 20 MG e_eveni ng} Sertraline Sertraline No 1{table QD Sertraline HCl 100 MG HCl 100 MG t} HCl 100 MG CoQ-10 CoQ-10 No CoQ-10 Metoprolol Metoprolol No 1{table QD Metoprolol Succinate Succinate t} Succinate ER 100 MG ER 100 MG ER 100 MG metFORMIN metFORMIN No 1{table BID metFORMIN HCl 1000 MG HCl 1000 MG t_with_ HCl 1000 a_meal} MG amLODIPine amLODIPine No 1{table QD amLODIPine Besylate 5 Besylate 5 t} Besylate 5 MG MG MG Losartan Losartan No 1{table QD Losartan Potassium Potassium t} Potassium 25 MG 25 MG 25 MG Sure Sure No Sure Comfort Comfort Comfort Insulin Insulin Insulin Syringe 31G Syringe 31G Syringe X 08/31" 1 X 08/31" 1 31G X ML ML 08/31" 1 ML Victoza 18 Victoza 18 No Victoza 18 MG/3ML MG/3ML MG/3ML valACYclovi valACYclovi No QD valACYclov r HCl 1 GM r HCl 1 GM ir HCl 1 GM Levothyroxi Levothyroxi No Levothyrox ne Sodium ne Sodium ine Sodium 125 MCG 125 MCG 125 MCG Temazepam Temazepam No Temazepam 15 MG 15 MG 15 MG NovoFine NovoFine No NovoFine Plus 32G X Plus 32G X Plus 32G X 4 MM 4 MM 4 MM Aspirin 81 Aspirin 81 No 1{table QD Aspirin 81 81 MG 81 MG t} 81 MG Losartan Losartan No Losartan Potassium Potassium Potassium 25 MG 25 MG 25 MG Lantus Lantus No QD Lantus SoloStar SoloStar SoloStar 100 UNIT/ML 100 UNIT/ML 100 UNIT/ML Jardiance Jardiance No 1{table QD Jardiance 25 MG 25 MG t} 25 MG Allopurinol Allopurinol No 1{table QD Allopurino 300 MG 300 MG t} l 300 MG Zinc Zinc No Zinc Victoza 18 Victoza 18 No QD Victoza 18 MG/3ML MG/3ML MG/3ML Simvastatin Simvastatin No 1{table QD Simvastati 20 MG 20 MG t_in_th n 20 MG e_eveni ng} Sertraline Sertraline No 1{table QD Sertraline HCl 100 MG HCl 100 MG t} HCl 100 MG CoQ-10 CoQ-10 No CoQ-10 Metoprolol Metoprolol No 1{table QD Metoprolol Succinate Succinate t} Succinate ER 100 MG ER 100 MG ER 100 MG metFORMIN metFORMIN No 1{table BID metFORMIN HCl 1000 MG HCl 1000 MG t_with_ HCl 1000 a_meal} MG amLODIPine amLODIPine No 1{table QD amLODIPine Besylate 5 Besylate 5 t} Besylate 5 MG MG MG Losartan Losartan No 1{table QD Losartan Potassium Potassium t} Potassium 25 MG 25 MG 25 MG Sure Sure No Sure Comfort Comfort Comfort Insulin Insulin Insulin Syringe 31G Syringe 31G Syringe X 08/31" 1 X 08/31" 1 31G X ML ML 08/31" 1 ML Victoza 18 Victoza 18 No Victoza 18 MG/3ML MG/3ML MG/3ML valACYclovi valACYclovi No QD valACYclov r HCl 1 GM r HCl 1 GM ir HCl 1 GM Levothyroxi Levothyroxi No Levothyrox ne Sodium ne Sodium ine Sodium 125 MCG 125 MCG 125 MCG Temazepam Temazepam No QD Temazepam 15 MG 15 MG 15 MG NovoFine NovoFine No NovoFine Plus 32G X Plus 32G X Plus 32G X 4 MM 4 MM 4 MM Aspirin 81 Aspirin 81 No 1{table QD Aspirin 81 81 MG 81 MG t} 81 MG Losartan Losartan No Losartan Potassium Potassium Potassium 25 MG 25 MG 25 MG Victoza 18 Victoza 18 No QD Victoza 18 MG/3ML MG/3ML MG/3ML Jardiance Jardiance No 1{table QD Jardiance 25 MG 25 MG t} 25 MG Allopurinol Allopurinol No 1{table QD Allopurino 300 MG 300 MG t} l 300 MG Zinc Zinc No Zinc Lantus Lantus No QD Lantus SoloStar SoloStar SoloStar 100 UNIT/ML 100 UNIT/ML 100 UNIT/ML Simvastatin Simvastatin No 1{table QD Simvastati 20 MG 20 MG t_in_th n 20 MG e_eveni ng} Sertraline Sertraline No 1{table QD Sertraline HCl 100 MG HCl 100 MG t} HCl 100 MG CoQ-10 CoQ-10 No CoQ-10 Metoprolol Metoprolol No 1{table QD Metoprolol Succinate Succinate t} Succinate ER 100 MG ER 100 MG ER 100 MG metFORMIN metFORMIN No 1{table BID metFORMIN HCl 1000 MG HCl 1000 MG t_with_ HCl 1000 a_meal} MG amLODIPine amLODIPine No 1{table QD amLODIPine Besylate 5 Besylate 5 t} Besylate 5 MG MG MG Losartan Losartan No 1{table QD Losartan Potassium Potassium t} Potassium 25 MG 25 MG 25 MG Sure Sure No Sure Comfort Comfort Comfort Insulin Insulin Insulin Syringe 31G Syringe 31G Syringe X 08/31" 1 X 08/31" 1 31G X ML ML 08/31" 1 ML Victoza 18 Victoza 18 No Victoza 18 MG/3ML MG/3ML MG/3ML valACYclovi valACYclovi No QD valACYclov r HCl 1 GM r HCl 1 GM ir HCl 1 GM Levothyroxi Levothyroxi No Levothyrox ne Sodium ne Sodium ine Sodium 125 MCG 125 MCG 125 MCG Temazepam Temazepam No QD Temazepam 15 MG 15 MG 15 MG NovoFine NovoFine No NovoFine Plus 32G X Plus 32G X Plus 32G X 4 MM 4 MM 4 MM Aspirin 81 Aspirin 81 No 1{table QD Aspirin 81 81 MG 81 MG t} 81 MG Temazepam Temazepam No QD Temazepam 15 MG 15 MG 15 MG Losartan Losartan No 1{table QD Losartan Potassium Potassium t} Potassium 25 MG 25 MG 25 MG metFORMIN metFORMIN No 1{table BID metFORMIN HCl 1000 MG HCl 1000 MG t_with_ HCl 1000 a_meal} MG Lantus Lantus No QD Lantus SoloStar SoloStar SoloStar 100 UNIT/ML 100 UNIT/ML 100 UNIT/ML Allopurinol Allopurinol No 1{table QD Allopurino 300 MG 300 MG t} l 300 MG valACYclovi valACYclovi No QD valACYclov r HCl 1 GM r HCl 1 GM ir HCl 1 GM Levothyroxi Levothyroxi No Levothyrox ne Sodium ne Sodium ine Sodium 125 MCG 125 MCG 125 MCG amLODIPine amLODIPine No 1{table QD amLODIPine Besylate 5 Besylate 5 t} Besylate 5 MG MG MG Simvastatin Simvastatin No 1{table QD Simvastati 20 MG 20 MG t_in_th n 20 MG e_eveni ng} Aspirin 81 Aspirin 81 No 1{table QD Aspirin 81 81 MG 81 MG t} 81 MG CoQ-10 CoQ-10 No CoQ-10 Metoprolol Metoprolol No 1{table QD Metoprolol Succinate Succinate t} Succinate ER 100 MG ER 100 MG ER 100 MG Jardiance Jardiance No 1{table QD Jardiance 25 MG 25 MG t} 25 MG Zinc Zinc No Zinc Sertraline Sertraline No Sertraline HCl 100 MG HCl 100 MG HCl 100 MG Sure Sure No Sure Comfort Comfort Comfort Insulin Insulin Insulin Syringe 31G Syringe 31G Syringe X 08/31" 1 X 08/31" 1 31G X ML ML 08/31" 1 ML Losartan Losartan No Losartan Potassium Potassium Potassium 25 MG 25 MG 25 MG NovoFine NovoFine No NovoFine Plus 32G X Plus 32G X Plus 32G X 4 MM 4 MM 4 MM Victoza 18 Victoza 18 No Victoza 18 MG/3ML MG/3ML MG/3ML valACYclovi valACYclovi No QD valACYclov r HCl 1 GM r HCl 1 GM ir HCl 1 GM Temazepam Temazepam No QD Temazepam 15 MG 15 MG 15 MG Victoza 18 Victoza 18 No Victoza 18 MG/3ML MG/3ML MG/3ML Allopurinol Allopurinol No 1{table QD Allopurino 300 MG 300 MG t} l 300 MG Lantus Lantus No QD Lantus SoloStar SoloStar SoloStar 100 UNIT/ML 100 UNIT/ML 100 UNIT/ML Levothyroxi Levothyroxi No Levothyrox ne Sodium ne Sodium ine Sodium 125 MCG 125 MCG 125 MCG amLODIPine amLODIPine No 1{table QD amLODIPine Besylate 5 Besylate 5 t} Besylate 5 MG MG MG Simvastatin Simvastatin No 1{table QD Simvastati 20 MG 20 MG t_in_th n 20 MG e_eveni ng} Aspirin 81 Aspirin 81 No 1{table QD Aspirin 81 81 MG 81 MG t} 81 MG CoQ-10 CoQ-10 No CoQ-10 Metoprolol Metoprolol No 1{table QD Metoprolol Succinate Succinate t} Succinate ER 100 MG ER 100 MG ER 100 MG Sure Sure No Sure Comfort Comfort Comfort Insulin Insulin Insulin Syringe 31G Syringe 31G Syringe X 08/31" 1 X 08/31" 1 31G X ML ML 08/31" 1 ML Zinc Zinc No Zinc Sertraline Sertraline No Sertraline HCl 100 MG HCl 100 MG HCl 100 MG Jardiance Jardiance No 1{table QD Jardiance 25 MG 25 MG t} 25 MG metFORMIN metFORMIN No metFORMIN HCl 1000 MG HCl 1000 MG HCl 1000 MG Losartan Losartan No Losartan Potassium Potassium Potassium 25 MG 25 MG 25 MG NovoFine NovoFine No NovoFine Plus 32G X Plus 32G X Plus 32G X 4 MM 4 MM 4 MM Losartan Losartan No 1{table QD Losartan Potassium Potassium t} Potassium 25 MG 25 MG 25 MG Simvastatin Simvastatin No 1{table QD Simvastati 20 MG 20 MG t_in_ n 20 MG e_eveni ng} Jardiance Jardiance No Jardiance 25 MG 25 MG 25 MG Sertraline Sertraline No 1{table QD Sertraline HCl 100 MG HCl 100 MG t} HCl 100 MG Zinc Zinc No Zinc metFORMIN metFORMIN No metFORMIN HCl 1000 MG HCl 1000 MG HCl 1000 MG Losartan Losartan No Losartan Potassium Potassium Potassium 25 MG 25 MG 25 MG Metoprolol Metoprolol No 1{table QD Metoprolol Succinate Succinate t} Succinate ER 100 MG ER 100 MG ER 100 MG Allopurinol Allopurinol No Allopurino 300 MG 300 MG l 300 MG amLODIPine amLODIPine No amLODIPine Besylate 5 Besylate 5 Besylate 5 MG MG MG Simvastatin Simvastatin No Simvastati 20 MG 20 MG n 20 MG NovoFine NovoFine No NovoFine Plus 32G X Plus 32G X Plus 32G X 4 MM 4 MM 4 MM Losartan Losartan No 1{table QD Losartan Potassium Potassium t} Potassium 25 MG 25 MG 25 MG Levothyroxi Levothyroxi No QD Levothyrox ne Sodium ne Sodium ine Sodium 125 MCG 125 MCG 125 MCG Sure Sure No Sure Comfort Comfort Comfort Insulin Insulin Insulin Syringe 31G Syringe 31G Syringe X 08/31" 1 X 08/31" 1 31G X ML ML 08/31" 1 ML Lantus Lantus No QD Lantus SoloStar SoloStar SoloStar 100 UNIT/ML 100 UNIT/ML 100 UNIT/ML valACYclovi valACYclovi No QD valACYclov r HCl 1 GM r HCl 1 GM ir HCl 1 GM Victoza 18 Victoza 18 No QD Victoza 18 MG/3ML MG/3ML MG/3ML Aspirin 81 Aspirin 81 No 1{table QD Aspirin 81 81 MG 81 MG t} 81 MG metFORMIN metFORMIN No 1{table BID metFORMIN HCl 1000 MG HCl 1000 MG t_with_ HCl 1000 a_meal} MG Jardiance Jardiance No 1{table QD Jardiance 25 MG 25 MG t} 25 MG CoQ-10 CoQ-10 No CoQ-10 Allopurinol Allopurinol No 1{table QD Allopurino 300 MG 300 MG t} l 300 MG amLODIPine amLODIPine No 1{table QD amLODIPine Besylate 5 Besylate 5 t} Besylate 5 MG MG MG Victoza 18 Victoza 18 No Victoza 18 MG/3ML MG/3ML MG/3ML Allopurinol Allopurinol No 1{table QD Allopurino 300 MG 300 MG t} l 300 MG Losartan Losartan No 1{table QD Losartan Potassium Potassium t} Potassium 25 MG 25 MG 25 MG CoQ-10 CoQ-10 No CoQ-10 Simvastatin Simvastatin No 1{table QD Simvastati 20 MG 20 MG t_in_th n 20 MG e_eveni ng} valACYclovi valACYclovi No QD valACYclov r HCl 1 GM r HCl 1 GM ir HCl 1 GM Sertraline Sertraline No 1{table QD Sertraline HCl 100 MG HCl 100 MG t} HCl 100 MG Zinc Zinc No Zinc Metoprolol Metoprolol No 1{table QD Metoprolol Succinate Succinate t} Succinate ER 100 MG ER 100 MG ER 100 MG Jardiance Jardiance No 1{table QD Jardiance 25 MG 25 MG t} 25 MG NovoFine NovoFine No NovoFine Plus 32G X Plus 32G X Plus 32G X 4 MM 4 MM 4 MM Aspirin 81 Aspirin 81 No 1{table QD Aspirin 81 81 MG 81 MG t} 81 MG Victoza 18 Victoza 18 No Victoza 18 MG/3ML MG/3ML MG/3ML Simvastatin Simvastatin No Simvastati 20 MG 20 MG n 20 MG Losartan Losartan No Losartan Potassium Potassium Potassium 25 MG 25 MG 25 MG metFORMIN metFORMIN No metFORMIN HCl 1000 MG HCl 1000 MG HCl 1000 MG Jardiance Jardiance No Jardiance 25 MG 25 MG 25 MG metFORMIN metFORMIN No 1{table BID metFORMIN HCl 1000 MG HCl 1000 MG t_with_ HCl 1000 a_meal} MG Victoza 18 Victoza 18 No QD Victoza 18 MG/3ML MG/3ML MG/3ML Allopurinol Allopurinol No Allopurino 300 MG 300 MG l 300 MG amLODIPine amLODIPine No 1{table QD amLODIPine Besylate 5 Besylate 5 t} Besylate 5 MG MG MG amLODIPine amLODIPine No amLODIPine Besylate 5 Besylate 5 Besylate 5 MG MG MG Lantus Lantus No QD Lantus SoloStar SoloStar SoloStar 100 UNIT/ML 100 UNIT/ML 100 UNIT/ML Levothyroxi Levothyroxi No Levothyrox ne Sodium ne Sodium ine Sodium 125 MCG 125 MCG 125 MCG Sure Sure No Sure Comfort Comfort Comfort Insulin Insulin Insulin Syringe 31G Syringe 31G Syringe X 08/31" 1 X 08/31" 1 31G X ML ML 08/31" 1 ML Allopurinol Allopurinol No 1{table QD Allopurino 300 MG 300 MG t} l 300 MG Losartan Losartan No 1{table QD Losartan Potassium Potassium t} Potassium 25 MG 25 MG 25 MG CoQ-10 CoQ-10 No CoQ-10 Simvastatin Simvastatin No 1{table QD Simvastati 20 MG 20 MG t_in_ n 20 MG e_eveni ng} valACYclovi valACYclovi No QD valACYclov r HCl 1 GM r HCl 1 GM ir HCl 1 GM Sertraline Sertraline No 1{table QD Sertraline HCl 100 MG HCl 100 MG t} HCl 100 MG Zinc Zinc No Zinc Metoprolol Metoprolol No 1{table QD Metoprolol Succinate Succinate t} Succinate ER 100 MG ER 100 MG ER 100 MG Jardiance Jardiance No 1{table QD Jardiance 25 MG 25 MG t} 25 MG NovoFine NovoFine No NovoFine Plus 32G X Plus 32G X Plus 32G X 4 MM 4 MM 4 MM Aspirin 81 Aspirin 81 No 1{table QD Aspirin 81 81 MG 81 MG t} 81 MG Victoza 18 Victoza 18 No Victoza 18 MG/3ML MG/3ML MG/3ML Simvastatin Simvastatin No Simvastati 20 MG 20 MG n 20 MG Losartan Losartan No Losartan Potassium Potassium Potassium 25 MG 25 MG 25 MG metFORMIN metFORMIN No metFORMIN HCl 1000 MG HCl 1000 MG HCl 1000 MG Jardiance Jardiance No Jardiance 25 MG 25 MG 25 MG metFORMIN metFORMIN No 1{table BID metFORMIN HCl 1000 MG HCl 1000 MG t_with_ HCl 1000 a_meal} MG Victoza 18 Victoza 18 No QD Victoza 18 MG/3ML MG/3ML MG/3ML Allopurinol Allopurinol No Allopurino 300 MG 300 MG l 300 MG amLODIPine amLODIPine No 1{table QD amLODIPine Besylate 5 Besylate 5 t} Besylate 5 MG MG MG amLODIPine amLODIPine No amLODIPine Besylate 5 Besylate 5 Besylate 5 MG MG MG Lantus Lantus No QD Lantus SoloStar SoloStar SoloStar 100 UNIT/ML 100 UNIT/ML 100 UNIT/ML Levothyroxi Levothyroxi No Levothyrox ne Sodium ne Sodium ine Sodium 125 MCG 125 MCG 125 MCG Sure Sure No Sure Comfort Comfort Comfort Insulin Insulin Insulin Syringe 31G Syringe 31G Syringe X 08/31" 1 X 08/31" 1 31G X ML ML 08/31" 1 ML Allopurinol Allopurinol No 1{table QD Allopurino 300 MG 300 MG t} l 300 MG Losartan Losartan No 1{table QD Losartan Potassium Potassium t} Potassium 25 MG 25 MG 25 MG CoQ-10 CoQ-10 No CoQ-10 Simvastatin Simvastatin No 1{table QD Simvastati 20 MG 20 MG t_in_ n 20 MG e_eveni ng} valACYclovi valACYclovi No QD valACYclov r HCl 1 GM r HCl 1 GM ir HCl 1 GM Sertraline Sertraline No 1{table QD Sertraline HCl 100 MG HCl 100 MG t} HCl 100 MG Zinc Zinc No Zinc Metoprolol Metoprolol No 1{table QD Metoprolol Succinate Succinate t} Succinate ER 100 MG ER 100 MG ER 100 MG Jardiance Jardiance No 1{table QD Jardiance 25 MG 25 MG t} 25 MG NovoFine NovoFine No NovoFine Plus 32G X Plus 32G X Plus 32G X 4 MM 4 MM 4 MM Aspirin 81 Aspirin 81 No 1{table QD Aspirin 81 81 MG 81 MG t} 81 MG Victoza 18 Victoza 18 No Victoza 18 MG/3ML MG/3ML MG/3ML Simvastatin Simvastatin No Simvastati 20 MG 20 MG n 20 MG Losartan Losartan No Losartan Potassium Potassium Potassium 25 MG 25 MG 25 MG metFORMIN metFORMIN No metFORMIN HCl 1000 MG HCl 1000 MG HCl 1000 MG Jardiance Jardiance No Jardiance 25 MG 25 MG 25 MG metFORMIN metFORMIN No 1{table BID metFORMIN HCl 1000 MG HCl 1000 MG t_with_ HCl 1000 a_meal} MG Victoza 18 Victoza 18 No QD Victoza 18 MG/3ML MG/3ML MG/3ML Allopurinol Allopurinol No Allopurino 300 MG 300 MG l 300 MG amLODIPine amLODIPine No 1{table QD amLODIPine Besylate 5 Besylate 5 t} Besylate 5 MG MG MG amLODIPine amLODIPine No amLODIPine Besylate 5 Besylate 5 Besylate 5 MG MG MG Lantus Lantus No QD Lantus SoloStar SoloStar SoloStar 100 UNIT/ML 100 UNIT/ML 100 UNIT/ML Levothyroxi Levothyroxi No Levothyrox ne Sodium ne Sodium ine Sodium 125 MCG 125 MCG 125 MCG Sure Sure No Sure Comfort Comfort Comfort Insulin Insulin Insulin Syringe 31G Syringe 31G Syringe X 08/31" 1 X 08/31" 1 31G X ML ML 08/31" 1 ML amLODIPine amLODIPine No 1{table QD amLODIPine Besylate 5 Besylate 5 t} Besylate 5 MG MG MG Losartan Losartan No 1{table QD Losartan Potassium Potassium t} Potassium 25 MG 25 MG 25 MG Accu-Chek Accu-Chek No Accu-Chek Monica Plus Monica Plus Monica Plus - - - Allopurinol Allopurinol No 1{table QD Allopurino 300 MG 300 MG t} l 300 MG valACYclovi valACYclovi No QD valACYclov r HCl 1 GM r HCl 1 GM ir HCl 1 GM CoQ-10 CoQ-10 No CoQ-10 Zinc Zinc No Zinc Metoprolol Metoprolol No 1{table QD Metoprolol Succinate Succinate t} Succinate ER 100 MG ER 100 MG ER 100 MG Simvastatin Simvastatin No 1{table QD Simvastati 20 MG 20 MG t_in_th n 20 MG e_eveni ng} NovoFine NovoFine No NovoFine Plus 32G X Plus 32G X Plus 32G X 4 MM 4 MM 4 MM Jardiance Jardiance No Jardiance 25 MG 25 MG 25 MG Aspirin 81 Aspirin 81 No 1{table QD Aspirin 81 81 MG 81 MG t} 81 MG Simvastatin Simvastatin No Simvastati 20 MG 20 MG n 20 MG Losartan Losartan No Losartan Potassium Potassium Potassium 25 MG 25 MG 25 MG metFORMIN metFORMIN No 1{table BID metFORMIN HCl 1000 MG HCl 1000 MG t_with_ HCl 1000 a_meal} MG metFORMIN metFORMIN No metFORMIN HCl 1000 MG HCl 1000 MG HCl 1000 MG Victoza 18 Victoza 18 No Victoza 18 MG/3ML MG/3ML MG/3ML Jardiance Jardiance No 1{table QD Jardiance 25 MG 25 MG t} 25 MG Allopurinol Allopurinol No Allopurino 300 MG 300 MG l 300 MG Sertraline Sertraline No Sertraline HCl 100 MG HCl 100 MG HCl 100 MG amLODIPine amLODIPine No amLODIPine Besylate 5 Besylate 5 Besylate 5 MG MG MG Lantus Lantus No QD Lantus SoloStar SoloStar SoloStar 100 UNIT/ML 100 UNIT/ML 100 UNIT/ML Levothyroxi Levothyroxi No Levothyrox ne Sodium ne Sodium ine Sodium 125 MCG 125 MCG 125 MCG Sure Sure No Sure Comfort Comfort Comfort Insulin Insulin Insulin Syringe 31G Syringe 31G Syringe X 08/31" 1 X 08/31" 1 31G X ML ML 08/31" 1 ML CoQ-10 CoQ-10 No CoQ-10 valACYclovi valACYclovi No QD valACYclov r HCl 1 GM r HCl 1 GM ir HCl 1 GM amLODIPine amLODIPine No 1{table QD amLODIPine Besylate 5 Besylate 5 t} Besylate 5 MG MG MG Zinc Zinc No Zinc Simvastatin Simvastatin No 1{table QD Simvastati 20 MG 20 MG t_in_ n 20 MG e_eveni ng} Metoprolol Metoprolol No 1{table QD Metoprolol Succinate Succinate t} Succinate ER 100 MG ER 100 MG ER 100 MG Allopurinol Allopurinol No 1{table QD Allopurino 300 MG 300 MG t} l 300 MG NovoFine NovoFine No NovoFine Plus 32G X Plus 32G X Plus 32G X 4 MM 4 MM 4 MM Jardiance Jardiance No 1{table QD Jardiance 25 MG 25 MG t} 25 MG metFORMIN metFORMIN No metFORMIN HCl 1000 MG HCl 1000 MG HCl 1000 MG Losartan Losartan No Losartan Potassium Potassium Potassium 25 MG 25 MG 25 MG Jardiance Jardiance No Jardiance 25 MG 25 MG 25 MG Simvastatin Simvastatin No Simvastati 20 MG 20 MG n 20 MG Victoza 18 Victoza 18 No Victoza 18 MG/3ML MG/3ML MG/3ML amLODIPine amLODIPine No amLODIPine Besylate 5 Besylate 5 Besylate 5 MG MG MG Sertraline Sertraline No Sertraline HCl 100 MG HCl 100 MG HCl 100 MG Losartan Losartan No 1{table QD Losartan Potassium Potassium t} Potassium 25 MG 25 MG 25 MG Allopurinol Allopurinol No Allopurino 300 MG 300 MG l 300 MG Accu-Chek Accu-Chek No Accu-Chek Monica Plus Monica Plus Monica Plus - - - Aspirin 81 Aspirin 81 No 1{table QD Aspirin 81 81 MG 81 MG t} 81 MG Lantus Lantus No QD Lantus SoloStar SoloStar SoloStar 100 UNIT/ML 100 UNIT/ML 100 UNIT/ML Levothyroxi Levothyroxi No Levothyrox ne Sodium ne Sodium ine Sodium 125 MCG 125 MCG 125 MCG Sure Sure No Sure Comfort Comfort Comfort Insulin Insulin Insulin Syringe 31G Syringe 31G Syringe X 08/31" 1 X 08/31" 1 31G X ML ML 08/31" 1 ML valACYclovi valACYclovi No QD valACYclov r HCl 1 GM r HCl 1 GM ir HCl 1 GM Losartan Losartan No 1{table QD Losartan Potassium Potassium t} Potassium 25 MG 25 MG 25 MG Zinc Zinc No Zinc NovoFine NovoFine No NovoFine Plus 32G X Plus 32G X Plus 32G X 4 MM 4 MM 4 MM Lantus Lantus No QD Lantus SoloStar SoloStar SoloStar 100 UNIT/ML 100 UNIT/ML 100 UNIT/ML Levothyroxi Levothyroxi No Levothyrox ne Sodium ne Sodium ine Sodium 125 MCG 125 MCG 125 MCG Sure Sure No Sure Comfort Comfort Comfort Insulin Insulin Insulin Syringe 31G Syringe 31G Syringe X 08/31" 1 X 08/31" 1 31G X ML ML 08/31" 1 ML Simvastatin Simvastatin No 1{table QD Simvastati 20 MG 20 MG t_in_ n 20 MG e_eveni ng} amLODIPine amLODIPine No amLODIPine Besylate 5 Besylate 5 Besylate 5 MG MG MG Victoza 18 Victoza 18 No Victoza 18 MG/3ML MG/3ML MG/3ML Allopurinol Allopurinol No 1{table QD Allopurino 300 MG 300 MG t} l 300 MG Allopurinol Allopurinol No Allopurino 300 MG 300 MG l 300 MG Sertraline Sertraline No Sertraline HCl 100 MG HCl 100 MG HCl 100 MG CoQ-10 CoQ-10 No CoQ-10 Simvastatin Simvastatin No Simvastati 20 MG 20 MG n 20 MG Metoprolol Metoprolol No 1{table QD Metoprolol Succinate Succinate t} Succinate ER 100 MG ER 100 MG ER 100 MG Accu-Chek Accu-Chek No Accu-Chek Monica Plus Monica Plus Monica Plus - - - amLODIPine amLODIPine No 1{table QD amLODIPine Besylate 5 Besylate 5 t} Besylate 5 MG MG MG metFORMIN metFORMIN No metFORMIN HCl 1000 MG HCl 1000 MG HCl 1000 MG Jardiance Jardiance No 1{table QD Jardiance 25 MG 25 MG t} 25 MG Albuterol Albuterol No Albuterol Sulfate HFA Sulfate HFA Sulfate 108 (90 108 (90 HFA 108 Base) Base) (90 Base) MCG/ACT MCG/ACT MCG/ACT Losartan Losartan No Losartan Potassium Potassium Potassium 25 MG 25 MG 25 MG Aspirin 81 Aspirin 81 No 1{table QD Aspirin 81 81 MG 81 MG t} 81 MG Jardiance Jardiance No Jardiance 25 MG 25 MG 25 MG Lantus Lantus No QD Lantus SoloStar SoloStar SoloStar 100 UNIT/ML 100 UNIT/ML 100 UNIT/ML valACYclovi valACYclovi No QD valACYclov r HCl 1 GM r HCl 1 GM ir HCl 1 GM Levothyroxi Levothyroxi No Levothyrox ne Sodium ne Sodium ine Sodium 125 MCG 125 MCG 125 MCG Sure Sure No Sure Comfort Comfort Comfort Insulin Insulin Insulin Syringe 31G Syringe 31G Syringe X 08/31" 1 X 08/31" 1 31G X ML ML 08/31" 1 ML NovoFine NovoFine No NovoFine Plus 32G X Plus 32G X Plus 32G X 4 MM 4 MM 4 MM Simvastatin Simvastatin No 1{table QD Simvastati 20 MG 20 MG t_in_ n 20 MG e_eveni ng} Metoprolol Metoprolol No 1{table QD Metoprolol Succinate Succinate t} Succinate ER 100 MG ER 100 MG ER 100 MG amLODIPine amLODIPine No amLODIPine Besylate 5 Besylate 5 Besylate 5 MG MG MG Losartan Losartan No Losartan Potassium Potassium Potassium 25 MG 25 MG 25 MG Allopurinol Allopurinol No 1{table QD Allopurino 300 MG 300 MG t} l 300 MG Allopurinol Allopurinol No Allopurino 300 MG 300 MG l 300 MG Accu-Chek Accu-Chek No Accu-Chek Monica Plus Monica Plus Monica Plus - - - CoQ-10 CoQ-10 No CoQ-10 Simvastatin Simvastatin No Simvastati 20 MG 20 MG n 20 MG Sertraline Sertraline No Sertraline HCl 100 MG HCl 100 MG HCl 100 MG Zinc Zinc No Zinc amLODIPine amLODIPine No 1{table QD amLODIPine Besylate 5 Besylate 5 t} Besylate 5 MG MG MG metFORMIN metFORMIN No metFORMIN HCl 1000 MG HCl 1000 MG HCl 1000 MG Jardiance Jardiance No 1{table QD Jardiance 25 MG 25 MG t} 25 MG Albuterol Albuterol No Albuterol Sulfate HFA Sulfate HFA Sulfate 108 (90 108 (90 HFA 108 Base) Base) (90 Base) MCG/ACT MCG/ACT MCG/ACT Jardiance Jardiance No Jardiance 25 MG 25 MG 25 MG Aspirin 81 Aspirin 81 No 1{table QD Aspirin 81 81 MG 81 MG t} 81 MG Victoza 18 Victoza 18 No Victoza 18 MG/3ML MG/3ML MG/3ML Lantus Lantus No QD Lantus SoloStar SoloStar SoloStar 100 UNIT/ML 100 UNIT/ML 100 UNIT/ML valACYclovi valACYclovi No QD valACYclov r HCl 1 GM r HCl 1 GM ir HCl 1 GM Levothyroxi Levothyroxi No Levothyrox ne Sodium ne Sodium ine Sodium 125 MCG 125 MCG 125 MCG Sure Sure No Sure Comfort Comfort Comfort Insulin Insulin Insulin Syringe 31G Syringe 31G Syringe X 08/31" 1 X 08/31" 1 31G X ML ML 08/31" 1 ML NovoFine NovoFine No NovoFine Plus 32G X Plus 32G X Plus 32G X 4 MM 4 MM 4 MM Simvastatin Simvastatin No 1{table QD Simvastati 20 MG 20 MG t_in_ n 20 MG e_eveni ng} Metoprolol Metoprolol No 1{table QD Metoprolol Succinate Succinate t} Succinate ER 100 MG ER 100 MG ER 100 MG amLODIPine amLODIPine No amLODIPine Besylate 5 Besylate 5 Besylate 5 MG MG MG Losartan Losartan No Losartan Potassium Potassium Potassium 25 MG 25 MG 25 MG Allopurinol Allopurinol No 1{table QD Allopurino 300 MG 300 MG t} l 300 MG Allopurinol Allopurinol No Allopurino 300 MG 300 MG l 300 MG Accu-Chek Accu-Chek No Accu-Chek Monica Plus Monica Plus Monica Plus - - - CoQ-10 CoQ-10 No CoQ-10 Simvastatin Simvastatin No Simvastati 20 MG 20 MG n 20 MG Sertraline Sertraline No Sertraline HCl 100 MG HCl 100 MG HCl 100 MG Zinc Zinc No Zinc amLODIPine amLODIPine No 1{table QD amLODIPine Besylate 5 Besylate 5 t} Besylate 5 MG MG MG metFORMIN metFORMIN No metFORMIN HCl 1000 MG HCl 1000 MG HCl 1000 MG Jardiance Jardiance No 1{table QD Jardiance 25 MG 25 MG t} 25 MG Albuterol Albuterol No Albuterol Sulfate HFA Sulfate HFA Sulfate 108 (90 108 (90 HFA 108 Base) Base) (90 Base) MCG/ACT MCG/ACT MCG/ACT Jardiance Jardiance No Jardiance 25 MG 25 MG 25 MG Aspirin 81 Aspirin 81 No 1{table QD Aspirin 81 81 MG 81 MG t} 81 MG Victoza 18 Victoza 18 No Victoza 18 MG/3ML MG/3ML MG/3ML Zinc Zinc No Zinc Valacyclovi Valacyclovi No QD Valacyclov r HCl 1 GM r HCl 1 GM ir HCl 1 GM Simvastatin Simvastatin No 1{table QD Simvastati 20 MG 20 MG t_in_th n 20 MG e_eveni ng} Lantus Lantus No QD Lantus SoloStar SoloStar SoloStar 100 UNIT/ML 100 UNIT/ML 100 UNIT/ML Amlodipine Amlodipine No 1{table QD Amlodipine Besylate 5 Besylate 5 t} Besylate 5 MG MG MG Victoza 18 Victoza 18 No QD Victoza 18 MG/3ML MG/3ML MG/3ML Metoprolol Metoprolol No 1{table QD Metoprolol Tartrate Tartrate t_with_ Tartrate 100 MG 100 MG food} 100 MG Metformin Metformin No 1{table BID Metformin HCl 1000 MG HCl 1000 MG t_with_ HCl 1000 a_meal} MG Levothyroxi Levothyroxi No QD Levothyrox ne Sodium ne Sodium ine Sodium 125 MCG 125 MCG 125 MCG Allopurinol Allopurinol No 1{table QD Allopurino 300 MG 300 MG t} l 300 MG Immunizations Ordered Immunization Filled Immunization Date Status Commen ts Source Name Name MONIQUE STRONG 2021-07-21 Completed [facility]:00:00 [facility] MONIQUE PABONLuis 2020-12-02 Completed [facility] VACCINATION 00:00:00 [facility] MONIQUE PABONLuis 2020-07-22 Completed [facility] VACCINATION 00:00:00 [facility] MONIQUE PABONLuis 2020-06-26 Completed [facility] 00:00:00 Hospital Vital Signs Vital Name Observation Time Observation Value Comments Source height 2021-04-09 10:00:00 61 [in_i] [facility] weight 2021-04-09 10:00:00 123 [lb_av] [facility] bmi 2021-04-09 10:00:00 23.24 kg/m2 [facility] height 2021-02-19 11:40:00 61 [in_i] [facility] weight 2021-02-19 11:40:00 123 [lb_av] [facility] bmi 2021-02-19 11:40:00 23.24 kg/m2 [facility] height 2021-02-03 09:20:00 61 [in_i] [facility] weight 2021-02-03 09:20:00 123 [lb_av] [facility] temperature 2021-02-03 09:20:00 98 [degF] [facility] bmi 2021-02-03 09:20:00 23.24 kg/m2 [facility] blood pressure 2021-02-03 09:20:00 128 mm[Hg] [facility] blood pressure 2021-02-03 09:20:00 67 mm[Hg] [facility] height 2020-12-19 16:00:00 61 [in_i] Common [facility] weight 2020-12-19 16:00:00 122.4 [lb_av] Common [facility] bmi 2020-12-19 16:00:00 23.12 kg/m2 Common [facility] height 2020-11-03 10:50:00 61 [in_i] Common [facility] weight 2020-11-03 10:50:00 122.4 [lb_av] [facility] temperature 2020-11-03 10:50:00 97.2 [degF] [facility] bmi 2020-11-03 10:50:00 23.12 kg/m2 [facility] oximetry 2020-11-03 10:50:00 95 % [facility] respiratory rate 2020-11-03 10:50:00 17 /min Comm on [facility] blood pressure 2020-11-03 10:50:00 136 mm[Hg] Common [facility] - [facility] [place] [facility] blood pressure 2020-11-03 10:50:00 59 mm[Hg] Common [facility] diastolic [place] [facility] height 2020-10-23 11:40:00 61 [in_i] [facility] weight 2020-10-23 11:40:00 118.8 [lb_av] [facility] temperature 2020-10-23 11:40:00 97.0 [degF] Common [facility] bmi 2020-10-23 11:40:00 22.44 kg/m2 [facility] oximetry 2020-10-23 11:40:00 96 % [facility] respiratory rate 2020-10-23 11:40:00 16 /min Comm on [facility] blood pressure 2020-10-23 11:40:00 138 mm[Hg] Common [facility] - [facility] [place] [facility] blood pressure 2020-10-23 11:40:00 62 mm[Hg] [facility] [place] [facility] height 2020-10-15 09:10:00 61 [in_i] [facility] weight 2020-10-15 09:10:00 121.9 [lb_av] Common [facility] temperature 2020-10-15 09:10:00 96.6 [degF] [facility] bmi 2020-10-15 09:10:00 23.03 kg/m2 Common [facility] oximetry 2020-10-15 09:10:00 96 % Common [facility] respiratory rate 2020-10-15 09:10:00 16 /min Comm on [facility] blood pressure 2020-10-15 09:10:00 132 mm[Hg] Common [facility] - [facility] [place] blood pressure 2020-10-15 09:10:00 60 mm[Hg] [facility] [place] [facility] height 2020-08-04 13:50:00 61 [in_i] Common [facility] weight 2020-08-04 13:50:00 120.5 [lb_av] [facility] temperature 2020-08-04 13:50:00 96.8 [degF] [facility] bmi 2020-08-04 13:50:00 22.77 kg/m2 [facility] oximetry 2020-08-04 13:50:00 97 % [facility] respiratory rate 2020-08-04 13:50:00 20 /min Comm on [facility] blood pressure 2020-08-04 13:50:00 130 mm[Hg] Common [facility] - [facility] [place] blood pressure 2020-08-04 13:50:00 58 mm[Hg] [facility] height 2020-08-04 14:00:00 61 [in_i] Common [facility] weight 2020-08-04 14:00:00 120.5 [lb_av] Common [facility] temperature 2020-08-04 14:00:00 96.8 [degF] [facility] bmi 2020-08-04 14:00:00 22.77 kg/m2 Common [facility] oximetry 2020-08-04 14:00:00 97 % Common [facility] blood pressure 2020-08-04 14:00:00 130 mm[Hg] Common [facility] - [facility] [place] [facility] blood pressure 2020-08-04 14:00:00 58 mm[Hg] Common [facility] - [facility] [place] [facility] height 2020-07-01 15:30:00 61 [in_i] Common [facility] weight 2020-07-01 15:30:00 126.3 [lb_av] [facility] temperature 2020-07-01 15:30:00 97.1 [degF] Common [facility] bmi 2020-07-01 15:30:00 23.86 kg/m2 [facility] oximetry 2020-07-01 15:30:00 97 % [facility] respiratory rate 2020-07-01 15:30:00 16 /min Comm on [facility] blood pressure 2020-07-01 15:30:00 121 mm[Hg] Common [facility] - [facility] [place] [facility] blood pressure 2020-07-01 15:30:00 57 mm[Hg] Common [facility] - [facility] [place] [facility] Systolic blood 2022-08-26 20:54:00 122 mm[Hg] [facility] pressure Diastolic blood 2022-08-26 20:54:00 65 mm[Hg] [facility] pressure Heart rate 2022-08-26 20:54:00 65 /min [facility] Body height 2022-08-26 20:54:00 154.9 cm [facility] Body weight 2022-08-26 20:54:00 54.341 kg [facility] BMI 2022-08-26 20:54:00 22.64 kg/m2 [facility] Oxygen saturation in 2022-08-26 20:54:00 99 /min [facility] Arterial blood by Pulse oximetry Procedures Procedure Date / Time Performed Performing Clinician Sour e ESTIMATED GFR 2022-08-26 22:10:00 [facility] BASIC METABOLIC PANEL 2022-08-26 22:10:00 [facility] CBC WITH PLATELET AND 2022-08-26 22:10:00 [facility] DIFFERENTIAL ECG 12-LEAD 2022-08-26 21:06:39 [facility] TTE COMPLETE, WO 2022-08-26 20:08:54 [facility] CONTRAST, W DOPPLER ([id number]) BASIC METABOLIC PANEL 2021-09-24 20:38:00 [facility] ESTIMATED GFR 2021-09-24 20:38:00 [facility] CBC WITH PLATELET AND 2021-09-24 20:01:00 [facility] DIFFERENTIAL TTE COMPLETE, WO 2021-09-24 17:43:04 [facility] CONTRAST, W DOPPLER ([id number]) Plan of Care Planned Activity Planned Date Details Comments Source Future Scheduled 2022-09-17 Screening for [facility] Test 10:21:56 malignant neoplasm of colon (procedure) [code = 262060078] Future Scheduled 2022-09-17 HEPATITIS B VACCINES [facility] Test 10:21:56 (1 of 3 - Risk 3-dose series) [code = HEPATITIS B VACCINES (1 of 3 - Risk 3-dose series)] Future Scheduled 2022-09-17 65+ PNEUMOCOCCAL [facility] Test 10:21:56 VACCINE (2 - PPSV23 if available, else PCV20) [code = 65+ PNEUMOCOCCAL VACCINE (2 - PPSV23 if available, else PCV20)] Future Scheduled 2022-09-17 SHINGLES VACCINES (1 [facility] Test 10:21:56 of 2) [code = SHINGLES VACCINES (1 of 2)] Future Scheduled 2022-09-17 COVID-19 [facility]ACCINE ([facility] - [facility] 10:21:56 Booster for Moderna series) [code = COVID-19 VACCINE (5 - Booster for Moderna series)] Future Scheduled 2022-09-17 [facility]FL[facility]EN[facility]ACCINE [facility] Test 10:21:56 [code = INFLUENZA VACCINE] Future Scheduled 2022-09-17 BREAST CANCER [facility] Test 10:21:56 SCREENING [code = BREAST CANCER SCREENING] Encounters Start End Encounter Admission Attending Care Care Encounter Source Date/Time Date/Time Type Type Clinicians Facility Department ID 2021-05-13 Out[facility] Byrne, [facility] Common 14:27:55 Isauro [id number] [facility] 2021-05-13 Outpatient [facility], [facility] Common 14:27:12 Isauro [id number] [facility] 2021-05-13 Outpatient Byrne, [facility] Common 14:22:21 Isauro [id number] [facility] 2021-05-13 Outpatient Byrne, [facility] Common 14:02:06 Isauro [id number] [facility] 2021-05-13 Outpatient Byrne, [facility] Common 13:45:45 Isauro [id number] [facility] 2021-05-13 Outpatient Byrne, [facility] Common 13:20:23 Isauro [id number] [facility] 2021-05-13 Outpatient Byrne, [facility] Common 12:40:59 Isauro [id number] [facility] 2022-09-08 2022-09-08 Orders Tabitha, 1.2.840.1 [id number] [facility] 00:00:00 00:00:00 Only Jamila [id number] 3.430.2.7 Hospit a .3.382855 l .8 2022-08-26 2022-08-27 Outpatient SILVER, [facility] [id number] [place] 00:00:00 00:00:[address] LAI [address] 2022-08-26 2022-08-26 [facility], 1.2.840.1 [id number] [facility] 17:15:00 17:20:[id number] [place] 3.430.2.7 Hospit a .3.139394 l .8 2022-08-26 2022-08-26 [facility], 1.2.840.1 [id number] [facility] 15:15:00 16:40:42 plinary Lai [address]64.1.[address] Visit David 3.430.2.7 Hospit a .3.706611 l .8 2022-08-26 2022-08-26 Outpatient [facility] [id number] [place] 00:00:00 00:00:00 LAI [address] 2022-08-26 2022-08-26 Outpatient [facility] [id number] [place] 00:00:00 00:00:00 LAI [address] 2022-08-26 2022-08-26 Orders Tabitha, 1.2.840.1 [id number] [facility] 00:00:00 00:00:00 Only Jamila [id number] 3.430.2.7 Hospit a .3.014197 l .8 2022-08-26 2022-08-26 Travel 1.2.840.1 [id number] [facility] 00:00:00 00:00:[id number] 3.430.2.7 [id number] Ho spita .3.235521 084.8 l .8 2021-09-28 2021-09-28 Orders Tabitha, 1.2.840.1 [id number] [facility] 00:00:00 00:00:00 Only Jamila [id number] 3.430.2.7 Hospit a .3.442030 l .8 2021-09-24 2021-09-24 [facility], 1.2.840.1 [id number] [facility] 15:30:00 15:35:[address] David 3.430.2.7 Hospit a .3.744145 l .8 2021-09-24 2021-09-24 [facility], 1.2.840.1 [id number] [facility] 13:30:00 14:28:20 plinary L[address].1.[address] Visit David 3.430.2.7 Hospit a .3.443465 l .8 2021-09-24 2021-09-24 Outpatient SILVER, [facility] [id number] [place] 00:00:00 00:00:00 LAI [address] 2021-09-24 2021-09-24 Outpatient [facility] [id number] [place] 00:00:00 00:00:00 LAI [address] 2021-09-24 2021-09-24 Outpatient [facility] [id number] [place] 00:00:00 00:00:00 LAI [address] 2021-09-24 2021-09-24 Orders Tabitha, 1.2.840.1 [id number] [facility] 00:00:00 00:00:00 Only Jamila [id number] 3.430.2.7 Hospit a .3.457963 l .8 2021-09-24 2021-09-24 Orders Tabitha, [id number] Methodi 00:00:00 00:00:00 Only Jamila [address].1.[address] 3.430.2.7 Hospit a .[id number] l .8 2021-09-24 2021-09-24 Travel 1.2.840.1 [id number] [id number] Methodi 00:00:00 00:00:[address] 3.430.2.7 0.2.7.3.698 spita .3.877898 084.8 l .8 2021-08-18 2021-08-19 Inpatient FRANCINE, [facility] [id number] [place] 00:00:00 00:00:00 ELIZABETH [address] 2021-08-13 2021-08-13 Outpatient FRANCINE, [facility] [id number] [place] 00:00:00 00:00:00 ELIZABETH [address] 2021-08-13 2021-08-13 Outpatient FRANCINE, [facility] [id number] [place] 00:00:00 00:00:00 ELIZABETH [address] 2021-07-09 2021-07-09 Outpatient SILVER, [facility] [id number] [place] 00:00:00 00:00:00 LAI [address] 2021-07-09 2021-07-09 Outpatient SILVER, [facility] [id number] [place] 00:00:00 00:00:00 LAI [address] 2021-05-21 2021-05-21 Outpatient ATTAR, [facility] [id number] [place] 00:00:00 00:00:00 MOHAMMED [address] 2021-04-09 2021-04-09 OL DIG E/M STLMLC STLMLC [id number] Common 00:00:00 00:00:00 [facility] 11-20 Spir it MIN [facility] 2021-04-06 2021-04-06 (TEL) STLMLC STLMLC [id number] Co mmon 00:00:00 00:00:00 [facility] 2021-03-24 2021-03-24 (TEL) STLMLC STLMLC [id number] Co mmon 00:00:00 00:00:00 [facility] 2021-02-20 2021-02-20 (TEL) STLMLC STLMLC [id number] Co mmon 00:00:00 00:00:00 [facility] 2021-02-20 2021-02-20 (TEL) STLMLC STLMLC [id number] Co mmon 00:00:00 00:00:00 [facility] 2021-02-19 2021-02-19 OFFICE STLMLC STLMLC [id number] Co mmon 00:00:00 00:00:00 VISIT [facility] ESTAB PT - CHI LEVEL 3 [facility] 2021-02-18 2021-02-18 (TEL) STLMLC STLMLC [id number] Co mmon 00:00:00 00:00:00 [facility] 2021-02-03 2021-02-03 OFFICE STLMLC STLMLC [id number] Co mmon 00:00:00 00:00:00 VISIT [facility] ESTAB PT - CHI LEVEL 4 [facility] 2020-12-19 2020-12-19 OL DIG E/M STLMLC STLMLC [id number] Common 00:00:00 00:00:00 [facility] 03-07 Spir it MIN [facility] 2020-12-17 2020-12-17 (TEL) STLMLC STLMLC [id number] Co mmon 00:00:00 00:00:00 [facility] 2020-11-21 2020-11-21 (TEL) STLMLC STLMLC [id number] Co mmon 00:00:00 00:00:00 [facility] 2020-11-06 2020-11-06 (TEL) STLMLC STLMLC [id number] Co mmon 00:00:00 00:00:00 [facility] 2020-11-03 2020-11-03 OFFICE STLMLC STLMLC [id number] Co mmon 00:00:00 00:00:00 VISIT [facility] ESTAB PT - CHI LEVEL 4 [facility] 2020-10-23 2020-10-23 OFFICE STLMLC STLMLC [id number] Co mmon 00:00:00 00:00:00 VISIT EST Spir it PT LEVEL 3 [facility] 2020-10-16 2020-10-16 (TEL) STLMLC STLMLC [id number] Co mmon 00:00:00 00:00:00 [facility] 2020-10-15 2020-10-15 OFFICE STLMLC STLMLC [id number] Co mmon 00:00:00 00:00:00 VISIT EST Spir it PT LEVEL 3 - CHI [facility] 2020-10-13 2020-10-13 (TEL) STLMLC STLMLC [id number] Co mmon 00:00:00 00:00:00 [facility] 2020-09-04 2020-09-04 (TEL) STLMLC STLMLC [id number] Co mmon 00:00:00 00:00:00 [facility] 2020-08-13 2020-08-13 (TEL) STLMLC STLMLC [id number] Co mmon 00:00:00 00:00:00 [facility] 2020-08-08 2020-08-08 (TEL) STLMLC STLMLC [id number] Co mmon 00:00:00 00:00:00 [facility] 2020-08-06 2020-08-06 (TEL) STLMLC STLMLC [id number] Co mmon 00:00:00 00:00:00 [facility] 2020-08-04 2020-08-04 OFFICE STLMLC STLMLC [id number] Co mmon 00:00:00 00:00:00 VISIT Spirit [facility] PT - CHI LEVEL 4 [facility] 2020-08-04 2020-08-04 SUB ANNUAL STLMLC STLMLC [id number] Common 00:00:00 00:00:00 MCR [facility] WELLNESS - CHI VISIT [facility] 2020-07-18 2020-07-18 (TEL) STLMLC STLMLC [id number] Co mmon 00:00:00 00:00:00 [facility] 2020-07-16 2020-07-16 (TEL) STLMLC STLMLC [id number] Co mmon 00:00:00 00:00:00 [facility] 2020-07-15 2020-07-15 (TEL) STLMLC STLMLC [id number] Co mmon 00:00:00 00:00:00 [facility] 2020-07-11 2020-07-11 (TEL) STLMLC STLMLC [id number] Co mmon 00:00:00 00:00:00 [facility] 2020-07-02 2020-07-02 (TEL) STLMLC STLMLC [id number] Co mmon 00:00:00 00:00:00 [facility] 2020-07-01 2020-07-01 OFFICE STLMLC STLMLC [id number] Co mmon 00:00:00 00:00:00 VISIT [facility] PT LEVEL 4 - [place] [facility] Results Test Description Test Time Test Comments Results Result Comments Source ECG 12 lead 2022-08-26 23:27:21 Test Item Value Reference Range Interpretation Comme nts Ventricular rate (test code = 253) 65 Atrial rate (test code = 255) 65 RI interval (test code = 266) 120 QRSD interval (test code = 260) 66 QT interval (test code = 264) 382 QTC interval (test code = 265) 397 P axis 1 (test code = 267) 74 QRS axis 1 (test code = 268) 63 T wave axis (test code = 270) 46 EKG impression (test code = 273) Normal sinus rhythm-Low voltage QRS-Borderline ECG-In automated comparison with ECG of 09-JUL-2021 14:27,-No significant change was found- Edyta FelicianoARS-CoV-2 (COVID-19) RNA [Presence] in Respiratory specimen by МАРИНА with probe [id number] 13:35:48 Test Item Value Reference Range Interpretation Comments SARS-CoV-2 (COVID-19) RNA Not detected [Presence] in Respiratory specimen by МАРИНА with probe detection (test code = 14894-5) Whether patient is employed in a Unknown healthcare setting (test code = 58204-3) Whether the patient has symptoms Unknown related to condition of interest (test code = 06063-2) Whether the patient was Unknown hospitalized for condition of interest (test code = 33950-8) Whether the patient was admitted Unknown to intensive care unit (ICU) for condition of interest (test code = 49911-7) Whether patient resides in a Unknown congregate care setting (test code = 72407-2) status (test code = Unknown 37353-4) Date and time of symptom onset Unknown (test code = 44525-4) INES Vasquez Pa And Lat (2 Views)Chest Pa And Lat (2 Views)
[2022-09-21] MEDS ORDERED: IBUPROFEN 200 MG TAB PO ONE (05:16)
[2022-09-21] MEDS ORDERED: LIDOCAINE 1% MPF 5 ML VIAL ONE (05:16)
[2022-09-21] MEDS ORDERED: GENTAMICIN 0.3% OPTH DROP 5ML ONE (05:17)
[2022-09-21] MEDS ORDERED: TETRACAINE HCL 0.5% 4ML OPTH ONE (05:17)
[2022-09-21] MEDS ORDERED: FLUORESCEIN SODIUM 1 MG/WRAP ONE (05:17)
[2022-09-21] MEDS ORDERED: CEFTRIAXONE 1000 MG/VIAL ONE (05:17)
[2022-09-21] MEDS ORDERED: ACETAMINOPHEN 325 MG TABLET ONE (05:34)
--- NOTE | 2022-09-21 06:08 | ER ---
Nurse's Notes [facility] Name: Kathleen Wahl Age: 67 yrs Sex: Female : 1955 Arrival Date: 09/21/2022 Time: 04:09 Bed 7 Private MD: Diagnosis: Other mucopurulent conjunctivitis, left eye;Acute bacterial conjunctivitis left eye initial encounter, acute upper respiratory infection with left tear duct infection Presentation: 09/21 04:29 Chief complaint: Patient states: drainage from left eye that started yesterday. as6 Coronavirus screen: At this time, the client does not indicate any symptoms associated with coronavirus-19. Ebola Screen: No symptoms or risks identified at this time. Initial Sepsis Screen: Does the patient meet any 2 criteria? No. Patient's initial sepsis screen is negative. Does the patient have a suspected source of infection? No. Patient's initial sepsis screen is negative. Risk Assessment: Do you want to hurt yourself or someone else? Patient reports no desire to harm self or others. Onset of symptoms was September 20, 2022. 04:29 Acuity: JANI 4 as6 04:29 Method Of Arrival: Ambulatory as6 Historical: - Allergies: 04:29 paper tape; as6 04:29 Pseudoephedrine; as6 04:29 Tramadol HCl; as6 - PMHx: 04:29 Chronic obstructive lung disease; High Cholesterol; Hypertension; Hepatitis; kidney as6 disease; Diabetes mellitus; - PSHx: 04:29 Cholecystectomy; hysterectomy; section; valve replacement; as6 - Immunization history:: Client reports receiving the 2nd dose of the Covid vaccine, moderna. - Social history:: Smoking status: Patient reports the use of cigarette tobacco products, smokes one-half pack cigarettes per day. - Family history:: not pertinent. Screenin:32 [facility] ED Fall Risk Assessment (Adult) History of falling in the last 3 months, jj7 including since admission No falls in past 3 months (0 pts) Confusion or Disorientation No (0 pts) Intoxicated or Sedated No (0 pts) Impaired Gait Yes (1 pt) Mobility Assist Device Used No (0 pt) Altered Elimination No (0 pt) Score/Fall Risk Level 0 - 2 = Low Risk. [facility] ED Fall Risk Assessment (Adult) Score/Fall Risk Level 0 - 2 = Low Risk Oriented to surroundings, Maintained a safe environment. Abuse screen: Denies threats or abuse. Nutritional screening: No deficits noted. Tuberculosis screening: No symptoms or risk factors identified. 04:34 [facility] ED Fall Risk Assessment (Adult) History of falling in the last 3 months, rv including since admission No falls in past 3 months (0 pts) Confusion or Disorientation No (0 pts) Intoxicated or Sedated No (0 pts) Impaired Gait No (0 pts) Mobility Assist Device Used No (0 pt) Altered Elimination No (0 pt) Score/Fall Risk Level 0 - 2 = Low Risk Oriented to surroundings, Maintained a safe environment, Educated pt \T\ family on fall prevention, incl call for assistance when getting out of bed, Assessed \T\ reinforced patient's understanding of fall precautions, Provided non-skid footwear, Hourly rounding (assess needs \T\ fall precautionary measures) done, Used ambulatory aids as needed (educated on \T\ assisted with), Used gait belt as appropriate. Abuse screen: Denies threats or abuse. Denies injuries from another. Nutritional screening: No deficits noted. Tuberculosis screening: No symptoms or risk factors identified. Assessment: 04:32 General: Appears in no apparent distress. comfortable, Behavior is calm, cooperative, jj7 appropriate for age. EENT: Eyes with exudate noted from left outer canthus and outer aspect of conjuctiva of left eye. 04:33 General: Appears uncomfortable, Behavior is calm, cooperative. Pain: Complains of pain rv in left eye. Neuro: Level of Consciousness is awake, alert, obeys commands, Oriented to person, place, time, situation. Cardiovascular: Capillary refill < 3 seconds. Respiratory: Airway is patent Respiratory effort is even, unlabored. EENT: Eyes drainage from left eye. Vital Signs: 04:29 BP 148 / 113; Pulse 80; Resp 18 S; Temp 98.8(O); Pulse Ox 98% on R/A; Weight 53.07 kg as6 (R); Height 5 ft. 1 in. (R); Pain 4/10; 05:35 BP 132 / 87; Pulse 69; Resp 20; Pulse Ox 99% ; jj7 06:22 BP 138 / 62; Pulse 68; Resp 17; Pulse Ox 97% ; jj7 04:29 Body Mass Index 22.11 (53.07 kg, 154.94 cm) as6 04:29 Pain Scale: Adult as6 ED Course: 04:14 Patient arrived in ED. ag3 04:15 Gee Kennedy MD is Attending Physician. sp4 04:28 Arm band placed on. as6 04:31 Triage completed. as6 04:31 Latisha Zuleta, RN is Primary Nurse. jj7 04:34 Patient has correct armband on for positive identification. Client placed on continuous rv cardiac and pulse oximetry monitoring. NIBP monitoring applied. 05:57 Assist provider with eye exam of left eye. using fluorescein stain, Performed by Gee Kennedy MD Patient tolerated well. 06:06 Aaron Magana MD is Referral Physician. sp4 06:25 Patient did not have IV access during this emergency room visit. jj7 Administered Medications: 05:20 Not Given (pt states she has ckd and cant take): Ibuprofen PO 600 mg PO once jj7 05:21 CANCELLED (Duplicate Order): Acetaminophen PO 650 mg PO once jj7 05:34 Drug: Rocephin (cefTRIAXone) IM 1 grams Route: IM; Site: left gluteus; jj7 05:59 Follow up: Response: No adverse reaction jj7 05:35 Drug: Acetaminophen PO 650 mg Route: PO; jj7 05:58 Follow up: Response: No adverse reaction jj7 06:22 Follow up: Response: No adverse reaction jj7 05:53 CANCELLED (Inappropriate at this time): Geodon IM 10 mg IM once as6 05:57 Drug: Tetracaine Ophthalmic Drops 0.5 % 1 drops {Note: administered by dr kennedy.} jj7 Route: Ophthalmic; Site: left eye; 05:59 Follow up: Response: No adverse reaction jj7 06:21 Follow up: Response: No adverse reaction jj7 05:58 Drug: Gentamicin Ophthalmic Drops 0.3 % 2 drops Route: Ophthalmic; Site: left eye; jj7 05:59 Follow up: Response: No adverse reaction jj7 06:21 Follow up: Response: No adverse reaction jj7 Medication: 04:32 VIS not applicable for this client. jj7 04:34 VIS not applicable for this client. rv Outcome: 06:08 Discharge ordered by MD. ardon 06:24 Discharged to home ambulatory, with significant other. jj7 06:24 Condition: improved 06:24 Discharge instructions given to patient, Instructed on discharge instructions, medication usage, Demonstrated understanding of instructions, medications, Prescriptions given X 2. 06:25 Patient left the ED. jj7 Signatures: Manuel Kim, RN RN [facility] ag3 Geoffrey López RN RN as6 Latisha Zuleta RN RN jj7 Gee Kennedy MD MD sp4
--- NOTE | 2022-09-21 06:08 | EDPHYS ---
Physician Documentation [facility] Name: Kathleen Wahl Age: 67 yrs Sex: Female : 1955 Arrival Date: 09/21/2022 Time: 04:09 Bed 7 Private MD: ED Physician Gee Kennedy HPI: 09/21 04:15 This 67 yrs old Female presents to ER via Unassigned with complaints of sp4 Drainage From Eye. 05:44 Very pleasant 67-year-old female presents with left eye drainage starting yesterday. sp4 05:44 Patient reports pain and yellowish drainage from the left associated with difficulty sp4 opening left eye. Right eye is normal. Historical: - Allergies: 04:29 paper tape; as6 04:29 Pseudoephedrine; as6 04:29 Tramadol HCl; as6 - PMHx: 04:29 Chronic obstructive lung disease; High Cholesterol; Hypertension; Hepatitis; kidney as6 disease; Diabetes mellitus; - PSHx: 04:29 Cholecystectomy; hysterectomy; section; valve replacement; as6 - Immunization history:: Client reports receiving the 2nd dose of the Covid vaccine, moderna. - Social history:: Smoking status: Patient reports the use of cigarette tobacco products, smokes one-half pack cigarettes per day. - Family history:: not pertinent. ROS: 05:44 Constitutional: Negative for fever, chills, and weight loss, Eyes: Negative for injury, sp4 positive for left eye pain, left eye drainage, purulent discharge, redness. Otherwise negative 05:44 ENT: Negative for injury, pain, and discharge, Neck: Negative for injury, pain, and swelling. 05:44 All other systems are negative. Exam: 05:44 Constitutional: This is a well developed, well nourished patient who is awake, alert, sp4 and in no acute distress. Head/Face: Normocephalic, atraumatic. Eyes: Pupils equal round and reactive to light, extra-ocular motions intact. Left eyelids erythema upper and lower eyelids. Left conjunctival erythema. Left purulent discharge. ENT: Nares patent. No nasal discharge, no septal abnormalities noted. Tympanic membranes are normal and external auditory canals are clear. Oropharynx with no redness, swelling, or masses, exudates, or evidence of obstruction, uvula midline. Mucous membranes moist. Neck: Trachea midline, no thyromegaly or masses palpated, and no cervical lymphadenopathy. Supple, full range of motion without nuchal rigidity, or vertebral point tenderness. No Meningismus. Chest/axilla: Normal chest wall appearance and motion. Nontender with no deformity. No lesions are appreciated. Cardiovascular: Regular rate and rhythm with a normal S1 and S2. No gallops, murmurs, or rubs. Normal PMI, no JVD. No pulse deficits. Respiratory: Lungs have equal breath sounds bilaterally, clear to auscultation and percussion. No rales, rhonchi or wheezes noted. No increased work of breathing, no retractions or nasal flaring. Abdomen/GI: Soft, non-tender, with normal bowel sounds. No distension or tympany. No guarding or rebound. No evidence of tenderness throughout. Back: No spinal tenderness. No costovertebral tenderness. Skin: Warm, dry with normal turgor. Normal color with no rashes, no lesions, and no evidence of cellulitis. MS/ Extremity: Pulses equal, no cyanosis. Neurovascular intact. Full, normal range of motion. Neuro: Awake and alert, GCS 15, oriented to person, place, time, and situation. Cranial nerves II-XII grossly intact. Motor strength 5/5 in all extremities. Sensory grossly intact. Psych: Awake, alert, with orientation to person, place and time. Behavior, mood, and affect are within normal limits 06:04 Eyes: Exam is negative for Left eye fluorescein exam reveals no signs of corneal sp4 abrasions, no corneal ulcer, no signs of herpetic ulcers. There is significant purulent discharge appears to be coming from infected tear duct.. Vital Signs: 04:29 BP 148 / 113; Pulse 80; Resp 18 S; Temp 98.8(O); Pulse Ox 98% on R/A; Weight 53.07 kg as6 (R); Height 5 ft. 1 in. (R); Pain 4/10; 05:35 BP 132 / 87; Pulse 69; Resp 20; Pulse Ox 99% ; jj7 06:22 BP 138 / 62; Pulse 68; Resp 17; Pulse Ox 97% ; jj7 04:29 Body Mass Index 22.11 (53.07 kg, 154.94 cm) as6 04:29 Pain Scale: Adult as6 MDM: 05:44 Data reviewed: vital signs, nurses notes, old medical records. sp4 06:05 Differential diagnosis: Corneal abrasion of Corneal ulcer of Foreign body in Acute sp4 iritis of ED course: Patient will be given IM Rocephin, provided gentamicin ophthalmic drops, and will be prescribed Keflex twice a day and for 10 days. Will advise use of Tylenol to. 06:08 Patient medically screened. sp4 09/21 04:38 Order name: Eye Tray; Complete Time: 05:19 sp4 09/21 04:38 Order name: Fluoresene Opth strip; Complete Time: 05:19 sp4 Administered Medications: 05:20 Not Given (pt states she has ckd and cant take): Ibuprofen PO 600 mg PO once jj7 05:21 CANCELLED (Duplicate Order): Acetaminophen PO 650 mg PO once jj7 05:34 Drug: Rocephin (cefTRIAXone) IM 1 grams Route: IM; Site: left gluteus; jj7 05:59 Follow up: Response: No adverse reaction jj7 05:35 Drug: Acetaminophen PO 650 mg Route: PO; jj7 05:58 Follow up: Response: No adverse reaction jj7 06:22 Follow up: Response: No adverse reaction jj7 05:53 CANCELLED (Inappropriate at this time): Geodon IM 10 mg IM once as6 05:57 Drug: Tetracaine Ophthalmic Drops 0.5 % 1 drops {Note: administered by dr kennedy.} jj7 Route: Ophthalmic; Site: left eye; 05:59 Follow up: Response: No adverse reaction jj7 06:21 Follow up: Response: No adverse reaction jj7 05:58 Drug: Gentamicin Ophthalmic Drops 0.3 % 2 drops Route: Ophthalmic; Site: left eye; jj7 05:59 Follow up: Response: No adverse reaction jj7 06:21 Follow up: Response: No adverse reaction jj7 Disposition Summary: 09/21/22 06:08 Discharge Ordered Location: Home sp4 Problem: new sp4 Symptoms: have improved sp4 Condition: Stable sp4 Diagnosis - Other mucopurulent conjunctivitis, left eye sp4 - Acute bacterial conjunctivitis left eye initial encounter, acute upper respiratory sp4 infection with left tear duct infection Followup: sp4 - With: Aaron Magana MD - When: 2 - 3 days - Reason: Recheck today's complaints Discharge Instructions: - Discharge Summary Sheet sp4 - Bacterial Conjunctivitis, Adult, [id number] sp4 Forms: - Antibiotic Education sp4 Prescriptions: - tobramycin 0.3 % Ophthalmic drops - instill 2 drop by OPHTHALMIC route every 4 hours for 5 days solution; 5 sp4 milliliter; Refills: 0, Product Selection Permitted - Cephalexin 500 mg Oral Capsule - take 1 capsule by ORAL route every 12 hours for 10 days; 20 capsule; Refills: sp4 0, Product Selection Permitted Signatures: Geoffrey López RN RN as6 Latisha Zuleta RN RN jj7 Gee Kennedy MD MD sp4 Corrections: (The following items were deleted from the chart) 05:21 05:21 Acetaminophen PO 650 mg PO once ordered. jj7 jj7 05:53 05:43 Geodon IM 10 mg IM once ordered. sp4 as6
[2022-09-21 06:32] VITALS: TEMP 98.8
[2022-09-21 06:34] VITALS: BP 138/62; O2SAT 97
== END 2022-09-21 06:25 | disposition home or self-care (01) ==
LOC: ER 04:09
DX: H10.022 Other mucopurulent conjunctivitis, left eye (principal); J06.9 Acute upper respiratory infection, unspecified; J44.9 Chronic obstructive pulmonary disease, unspecified; I10 Essential (primary) hypertension; F17.210 Nicotine dependence, cigarettes, uncomplicated
CPT/HCPCS: 96372; 99284; J2001; J0696

== ENCOUNTER 2023-01-06 07:55 | Day surgery (SDC) | payer OTHER ==
[2023-01-06] MEDS ORDERED: NA CHLORIDE 0.9% 1,000 ML ONE (08:31)
[2023-01-06] MEDS ORDERED: FENTANYL CITR 100 MCG/2 ML ONE (09:44)
[2023-01-06] MEDS ORDERED: propofoL 200 MG/20 ML VIAL IV ONE (09:44)
[2023-01-06] MEDS ORDERED: MIDAZOLAM HCL 2 MG/2 ML INJ ONE (09:47)
[2023-01-06] MEDS ORDERED: KETOROLAC 30 MG/ML INJ ONE (09:48)
[2023-01-06] MEDS ORDERED: dexAMETHasone 10 MG/ML VIAL ONE (09:48)
[2023-01-06] MEDS ORDERED: LIDOCAINE 2% MPF 5 ML VIAL ONE (09:48)
[2023-01-06] MEDS ORDERED: ONDANSETRON 4 MG/2 ML VIAL ONE (09:49)
[2023-01-06] MEDS ORDERED: NS 0.9% VIAL 20 ML ONE (09:50)
[2023-01-06] MEDS ORDERED: propofoL 1,000 MG/100 ML VIAL IV ONE (09:54)
[2023-01-06] MEDS ORDERED: REMIFENTANIL HCL 1 MG VIAL IV ONE (09:54)
[2023-01-06] MEDS ORDERED: SUCCINYLCHOLINE 20 MG/ML (10 ML) IV ONE (09:55)
[2023-01-06] MEDS ORDERED: LIDOCAINE HCL/EPINEPHRINE 20 ML MDV ONE (09:58)
[2023-01-06] MEDS ORDERED: BACITRACIN OINTMENT 14 GM TUBE TOP ONE (09:58)
[2023-01-06] MEDS ORDERED: OXYMETAZOLINE HCL 0.05% 15ML NAS ONE (09:58)
[2023-01-06] MEDS ORDERED: EPINEPHRINE/PF 1 MG/ML AMP ONE (09:58)
[2023-01-06] MEDS ORDERED: Phenylephrine HCl 10 MG/ML 1 ML VIAL ONE (10:37)
[2023-01-06] MEDS ORDERED: NS 0.9% VIAL 10 ML ONE (10:37)
[2023-01-06] MEDS ORDERED: OFLOXACIN OPH 0.3%-5 ML BTL ONE (10:39)
--- NOTE | 2023-01-06 12:22 | RAD REPORT ---
EXAM DESCRIPTION: RAD - Chest Single View - 01/06/2023 12:13 pm CLINICAL HISTORY: s/p bronchoscopy Chest pain. COMPARISON: <Comparisons> FINDINGS: Portable technique limits examination quality. The lungs are emphysematous. No pneumothorax. The heart is normal in size. No displaced fractures.Sara gical clips are seen in the left periclavicular region. IMPRESSION: No postprocedure pneumothorax seen.
[2023-01-06 13:18] VITALS: BP 111/52; TEMP 97; O2SAT 95
--- NOTE | 2023-01-07 15:33 | OP ---
Date of Procedure: 01/06/2023 Surgeon: JAISON TURPIN Preoperative Diagnoses: 1.Chronic bilateral serous otitis media. 2.Chronic dysphonia. 3.Chronic tobacco use disorder. Postoperative Diagnoses: 1.Chronic bilateral serous otitis media. 2.Chronic dysphonia. 3.Chronic tobacco use disorder. Procedures: 1.Bilateral ear exam with myringotomy and T-tube insertion. 2.Diagnostic flexible bronchoscopy. 3.Diagnostic direct laryngoscopy with operating telescope. 4.Bilateral diagnostic nasal endoscopy and nasopharyngoscopy. Anesthesia: General endotracheal anesthesia was administered. Specimens: None. Estimated Blood Loss: None. Findings: Left subsegmental bronchiole friable mucosa, bilateral true vocal fold Lisy's edema, cer umen surrounding the flanges of bilateral Iris bobbin tympanostomy tubes possibly causing pain. Complications: None. Disposition: Stable. The patient tolerated the procedure well. Indications For Procedure: Patient is a pleasant 67-year-old female who has chronic tobacco use, who I had placed tubes in the office under local anesthetic. She was complaining of chronic hoarseness and ear pain and exam demonstrated cerumen surrounding the flanges of both tubes. She did not want t o be scoped in the office due to moderate to severe anxiety and she did not want me to replace the tu bes under local anesthetic. Thus, we decided it was best to take her to the operating room and place her under sedation to perform the procedures. She understood. All questions were answered. Risks versus benefits and complications were explained in detail and a consent form was signed which was pl aced in the chart. Description Of Procedure: Patient was transferred from the preoperative holding area to the operativ e suite by the Department of Anesthesia, placed on the operating room table supine, sedated, intubate d in normal fashion. A Zeiss microscope was utilized to examine the ears and replace the tubes. A 5 mm ear speculum was placed in the lateral ends of bilateral ear canals and the Iris bobbin tympano stomy tubes were removed with a straight pick and alligator forceps. The cerumen that was located on the tympanic membranes was also removed with alligator forceps. I then enlarged the incision with m yringotomy knife and inserted T tubes into bilateral incision sites and repositioned with a straight pick. Antibiotic drops were placed into the canals and cotton balls were placed into the meatal open ings. Next, table was rotated 90 degrees. I introduced the flexible bronchoscope through the endotracheal tube down to the anna. Anna was sharp as were the tracheal rings. I did not detect any mucosal lesions, erythema, edema, or obstruction. The scope was then advanced into bilateral mainstem bronch i followed by subsegmental bronchioles. There were some mucus located in the smaller subsegmental ri ght bronchiole, which was suctioned and then I noted that there was friable mucosa in the left subseg mental bronchioles, but no evidence of mucosal lesions. The scope was completely withdrawn through t he endotracheal tube. Next, a rigid direct laryngoscope was introduced into the right oral commissure along the endotrachea l tube and suspended from the Velarde stand. I examined the true and false vocal folds with the telesco pe and patient had evidence of Lisy's edema, but no evidence of true false vocal fold mucosal lesio ns, polyps, or airway obstruction. Subglottis was normal as well. The scope was de-suspended and al l areas of the hypopharynx and oropharynx were examined. I did not detect any mucosal lesions. A bi manual palpation exam was performed with no palpable masses. I then also introduced a rigid 0 degree nasal endoscope into bilateral nasal cavities after decongesting them with Afrin and I inserted the scope back to the nasopharynx and I did not detect any mucosal lesions obstructing the eustachian tub es thereby contributing to middle ear effusion. The nasopharynx was intact. No abnormalities visual ized. The scope was completely removed. The patient tolerated the procedure well. She will be discharged home on antibiotic eardrops to use twice daily for 3 days and will follow up in 2 to 4 weeks or sooner, if needed. YENI/ROBYN Voice ID: [id number] Report ID: [id number]
== END 2023-01-06 12:50 | disposition home or self-care (01) ==
LOC: OR 07:55
PROVIDERS: ATTEND Otolaryngology Facial Plastic Surgery
PROC: 0BJ08ZZ Inspection of Tracheobronchial Tree, Via Natural or Artificial Opening Endoscopic (ICD-10-PCS; 2023-01-06)
PROC: 0CJS8ZZ Inspection of Larynx, Via Natural or Artificial Opening Endoscopic (ICD-10-PCS; 2023-01-06)
PROC: 0CJY8ZZ Inspection of Mouth and Throat, Via Natural or Artificial Opening Endoscopic (ICD-10-PCS; 2023-01-06)
PROC: 099670Z Drainage of Left Middle Ear with Drainage Device, Via Natural or Artificial Opening (ICD-10-PCS; principal; 2023-01-06 09:45)
PROC: 099570Z Drainage of Right Middle Ear with Drainage Device, Via Natural or Artificial Opening (ICD-10-PCS; 2023-01-06 09:45)
DX: H65.23 Chronic serous otitis media, bilateral (principal); R49.0 Dysphonia; Z72.0 Tobacco use; I10 Essential (primary) hypertension; E11.9 Type 2 diabetes mellitus without complications; N18.30 Chronic kidney disease, stage 3 unspecified; E03.9 Hypothyroidism, unspecified; J44.9 Chronic obstructive pulmonary disease, unspecified; F17.210 Nicotine dependence, cigarettes, uncomplicated; F32.A Depression, unspecified; Z79.4 Long term (current) use of insulin
CPT/HCPCS: 69436; 31622; 31526; 31231; 82947 ×2; 71045; J2704 ×2; A4216 ×2; J2371; J2001; J2250; J3010; J1100; J2405; J3490; J7030; J0171

== ENCOUNTER 2023-07-26 16:23 | Observation (INO) | payer OTHER ==
[2023-07-26] MEDS ORDERED: NA CHLORIDE 0.9% 1,000 ML ONE (17:09)
--- NOTE | 2023-07-26 17:19 | RAD REPORT ---
EXAM DESCRIPTION: RAD - Chest Single View - 07/26/2023 5:09 pm CLINICAL HISTORY: CHEST PAIN Chest pain. COMPARISON: <Comparisons> FINDINGS: Portable technique limits examination quality. The lungs are emphysematous but grossly clear. The heart is normal in size. No displaced fractures. IMPRESSION: No acute intrathoracic process suspected.
[2023-07-26 17:37] LABS: Absolute Eosinophils 0.1 K/uL (0-0.5); Absolute Lymphocytes (CBC) 1.4 K/uL (0.7-4.9); Absolute Monocytes 0.5 K/uL (0.1-1.3); Absolute Neutrophil 4.6 K/uL (1.8-8.0); Basophils % 0.2 % (0-1.3); Eosinophils % 0.9 % (0-4.4); Hematocrit 40.1 % (36.0-45.0); Hemoglobin 13.6 g/dL (12.0-15.0); Lymphocytes % 21.1 % (15.3-44.8); MCH 33.8 pg (27.0-35.0); MCV 99.4 fL (80-100); MPV 7.3 fL (7.6-11.3); Monocytes % 8.1 % (3.3-12.3); Neutrophils % 69.7 % (41.7-73.7); Nucleated Red Blood Cells % 0.1 % (0-0); Platelets 148 thou/uL (152-406); RBC Red Blood Cell Count 4.04 M/uL (3.86-4.86)
[2023-07-26 17:49] LABS: Anion Gap 9.2 mEq/L (5.0-15.0); Potassium 4.2 mEq/L (3.5-5.1); Troponin High Sensitivity 26.9 pg/mL (<58.9)
[2023-07-26 17:50] LABS: Magnesium 1.8 mg/dL (1.6-2.4)
[2023-07-26] MEDS ORDERED: LORAZEPAM 1 MG TABLET ONE (17:54)
[2023-07-26] MEDS ORDERED: METOPROLOL TAR 50 MG TAB ONE (17:54)
[2023-07-26 18:18] LABS: Thyroid Stimulating Hormone 4.3 uIU/mL (0.358-3.740)
[2023-07-26] MEDS ORDERED: ASPIRIN 325 MG TAB ONE (20:07)
--- NOTE | 2023-07-26 20:30 | EDPHYS ---
Physician Documentation [facility] Name: Kathleen Wahl Age: 68 yrs Sex: Female : 1955 Arrival Date: 07/26/2023 Time: 16:23 Bed 15 Private MD: Catrachito Yip ED Physician Gee Kennedy HPI: 07/25 17:41 This 68 yrs old Female presents to ER via Wheelchair with complaints of Chest Pain, ci Shortness Of Breath. 17:41 Patient is a 68-year-old female with PMH COPD, hepatitis, CKD, hyperlipidemia, DM 2 who ci presents to the ED with chief complaint of palpitations that began 3 days ago progressively got worse today. Patient reports she stopped taking all of her medications abruptly on because her spent had advised her to stop taking Ozempic. Patient's states that she has lost 10 pounds in 8 days and now weighs 95 pounds since being on Ozempic. wanted her to cut back on medication but not stop abruptly. Patient is on 100 mg of metoprolol daily, 10 mg of amlodipine, 112 mcg of Synthroid.. Historical: - Allergies: 16:28 paper tape; as6 16:28 Pseudoephedrine; as6 16:28 Tramadol HCl; as6 - PMHx: 16:28 Chronic obstructive lung disease; Hepatitis; kidney disease; High Cholesterol; diabetes as6 mellitus; Hypertension; - PSHx: 16:28 Cholecystectomy; section; Valve replacement; hysterectomy; as6 - Immunization history:: Adult Immunizations up to date. - Infectious Disease History:: Denies. - Social history:: Smoking status: Patient denies any tobacco usage or history of. - History obtained from: . ROS: 17:41 Constitutional: Negative for fever, chills, and weight loss, ci 17:41 Cardiovascular: Positive for palpitations, Negative for chest pain, edema, orthopnea, 17:41 Respiratory: Negative for dyspnea on exertion, hemoptysis, orthopnea, shortness of breath, 17:41 Psych: Negative for homicidal ideation, suicidal ideation, Exam: 17:41 Constitutional: This is a well developed, well nourished patient who is awake, alert, ci and in no acute distress. Head/Face: Normocephalic, atraumatic. Eyes: Pupils equal round and reactive to light, extra-ocular motions intact. Lids and lashes normal. Conjunctiva and sclera are non-icteric and not injected. Cornea within normal limits. Periorbital areas with no swelling, redness, or edema. ENT: Nares patent. No nasal discharge, no septal abnormalities noted. Tympanic membranes are normal and external auditory canals are clear. Oropharynx with no redness, swelling, or masses, exudates, or evidence of obstruction, uvula midline. Mucous membranes moist. Neck: Trachea midline, no thyromegaly or masses palpated, and no cervical lymphadenopathy. Supple, full range of motion without nuchal rigidity, or vertebral point tenderness. No Meningismus. Chest/axilla: Normal chest wall appearance and motion. Nontender with no deformity. No lesions are appreciated. Cardiovascular: Sinus tachycardia nut regular rhythm with a normal S1 and S2. No gallops, murmurs, or rubs. Normal PMI, no JVD. No pulse deficits. Respiratory: Lungs have equal breath sounds bilaterally, clear to auscultation and percussion. No rales, rhonchi or wheezes noted. No increased work of breathing, no retractions or nasal flaring. Abdomen/GI: Soft, non-tender, with normal bowel sounds. No distension or tympany. No guarding or rebound. No evidence of tenderness throughout. Back: No spinal tenderness. No costovertebral tenderness. Full range of motion. Skin: Warm, dry with normal turgor. Normal color with no rashes, no lesions, and no evidence of cellulitis. MS/ Extremity: Pulses equal, no cyanosis. Neurovascular intact. Full, normal range of motion. Neuro: Awake and alert, GCS 15, oriented to person, place, time, and situation. Cranial nerves II-XII grossly intact. Motor strength 5/5 in all extremities. Sensory grossly intact. Cerebellar exam normal. Normal gait. 17:55 ECG was reviewed by the Attending Physician. ci 17:55 Psych: Behavior/mood is cooperative, anxious, Patient has no thoughts/intents to harm ci self or others. Judgement / Insight is normal. Vital Signs: 16:29 BP 152 / 99; Pulse 147; Resp 20 S; Temp 97.8(TE); Pulse Ox 97% on R/A; Weight 43.09 kg as6 (R); Height 5 ft. 1 in. (R); Pain 3/10; 16:35 BP 155 / 82; Pulse 114; Resp 18; Pulse Ox 99% on R/A; rs5 23:08 BP 126 / 74; Pulse 82; Resp 18; Pulse Ox 98% on R/A; kd4 16:29 Body Mass Index 17.95 (43.09 kg, 154.94 cm) as6 16:29 Pain Scale: Adult as6 MDM: 16:52 Patient medically screened. ci 17:41 Differential diagnosis: acute myocardial infarction, coronary artery disease pneumonia, ci pneumothorax, stable angina, unstable angina, Electrolyte abnormality, thyroid disorder, dysrhythmia. HEART Score: History: Slightly Suspicious (0), ECG: Non specific repolarization disturbance / LBTB / PM (1), Age: > or = 65 years (2), Risk Factors: 1 or 2 risk factors (1), Troponin: < or = 1 x Normal Limit (0), Total Score = 4. 17:48 Historians other than the Patient: Spouse/Significant Other: Concerned about weight ci loss, now weighing 95 pounds.. Care significantly affected by the following chronic conditions: Diabetes, Congestive Heart Failure. ED course: Patient presents for palpitations after abruptly stopping all her medications. She is nontoxic-appearing, vital signs stable except tachycardic and slightly hypertensive. EKG shows sinus tachycardia with HR 131, no acute ischemic changes. Will obtain labs, chest x-ray. History of hypothyroidism, will check TSH. Patient takes 100 mg metoprolol which was ordered. Final disposition is pending labs and imaging.. 17:55 Data reviewed: vital signs, nurses notes, EKG, radiologic studies, plain films. ci 19:46 ED course: HR improved to 92 on the monitor.. ci 07/25 16:53 Order name: Basic Metabolic Panel; Complete Time: 17:54 ci 07/25 17:54 Interpretation: Abnormal: CRE 1.42; GLUC 287. ci 07/25 16:53 Order name: CBC with Diff; Complete Time: 17:46 ci 07/25 17:46 Interpretation: Abnormal: PLT 148. ci 07/25 16:53 Order name: Magnesium; Complete Time: 17:54 ci 07/25 16:53 Order name: NT PRO-BNP; Complete Time: 17:54 ci 07/25 17:54 Interpretation: Abnormal: NT PRO-BNP 873. ci / 16:53 Order name: Troponin HS; Complete Time: 17:54 ci 07/25 17:54 Order name: Thyroid Stimulating Hormone; Complete Time: 19:13 EDMS 07/25 19:13 Interpretation: Abnormal: TSH 4.300. ci 04/ 18:21 Order name: T4 Free; Complete Time: 19:13 EDMS 07/25 20:52 Order name: Magnesium EDMS 07/25 20:52 Order name: Urinalysis W/Microscopic EDMS 07/25 20:52 Order name: UR CREAT EDMS 07/25 20:53 Order name: UR SODIUM EDMS 07/25 20:53 Order name: Comprehensive Metabolic Panel EDMS 07/25 20:53 Order name: Comprehensive Metabolic Panel EDMS 07/25 20:53 Order name: Comprehensive Metabolic Panel EDMS 07/25 20:53 Order name: Comprehensive Metabolic Panel EDMS 07/25 20:53 Order name: Comprehensive Metabolic Panel EDMS 07/25 20:53 Order name: Troponin High Sensitivity EDMS 07/25 20:53 Order name: Troponin High Sensitivity EDMS 07/25 20:53 Order name: Troponin High Sensitivity EDMS 07/25 23:50 Order name: Glucose, Ancillary Testing EDMS 07/25 16:53 Order name: XRAY Chest (1 view); Complete Time: 17:46 ci 07/25 17:54 Interpretation: No acute disease. ci / 16:53 Order name: Cardiac monitoring; Complete Time: 17:34 ci 07/25 16:53 Order name: EKG - Nurse/Tech; Complete Time: 17:34 ci 07/25 16:53 Order name: IV Saline Lock; Complete Time: 17:21 ci 07/25 16:53 Order name: Labs collected and sent; Complete Time: 17:21 ci 07/25 16:53 Order name: O2 Per Protocol; Complete Time: 17:41 ci 07/25 16:53 Order name: O2 Sat Monitoring; Complete Time: 17:41 ci EC:55 Rate is 131 beats/min. Rhythm is regular. QRS [place] is Normal. Clinical impression: ci Sinus tachycardia. Administered Medications: 17:16 Drug: NS 0.9% IV 1000 ml IV at 1000 ml once Route: IV; Rate: 1000 ml; Site: right rs5 antecubital; 17:56 Drug: Metoprolol PO 100 mg PO once Route: PO; rs5 17:56 Drug: LORazepam PO 1 mg PO once Route: PO; rs5 20:21 Drug: Aspirin PO 325 mg PO once Route: PO; kd4 Disposition Summary: 07/26/23 20:29 Hospitalization Ordered Notes: Hospitalization Status: Observation sp4 Provider: Jolene Gomez spRalph Location: Telemetry/MedSurg (observation) sp4 Condition: Stable sp4 Problem: new sp4 Symptoms: have improved sp4 Bed/Room Type: Standard sp4 Room Assignment: 402(07/26/23 22:01) ty Diagnosis - Angina pectoris, unspecified sp4 - Hypertensive crisis, unspecified sp4 Forms: - Medication Reconciliation Form sp4 - SBAR form sp4 - Leadership Thank You Letter sp4 Signatures: Dispatcher [employer] EDMS Geoffrey López RN RN as6 Wesley Sheppard RN RN rs5 Gee Kennedy MD MD sp4 Elliott Levy Tylor ty Dahissa, Karim, RN RN kd4 Corrections: (The following items were deleted from the chart) 16:54 16:54 BASIC METABOLIC PANEL+C.LAB.BRZ ordered. EDMS EDMS 16:54 16:54 CBC+H.LAB.BRZ ordered. EDMS EDMS 16:54 16:54 MAGNESIUM+C.LAB.BRZ ordered. EDMS EDMS 16:54 16:54 PROBNP+C.LAB.BRZ ordered. EDMS EDMS 16:54 16:54 Troponin High Sensitivity+C.LAB.BRZ ordered. EDMS EDMS 16:54 16:54 Chest Single View+RAD.RAD.BRZ ordered. EDMS EDMS 17:48 17:48 LAB ADD ON+C.LAB.BRZ ordered. EDMS EDMS 17:50 17:41 Differential diagnosis: acute myocardial infarction, coronary artery disease ci pneumonia, pneumothorax, stable angina, unstable angina, Electrolyte abnormality, thyroid disorder ci 17:58 17:41 Constitutional: This is a well developed, well nourished patient who is awake, ci alert, and in no acute distress. Head/Face: Normocephalic, atraumatic. Eyes: Pupils equal round and reactive to light, extra-ocular motions intact. Lids and lashes normal. Conjunctiva and sclera are non-icteric and not injected. Cornea within normal limits. Periorbital areas with no swelling, redness, or edema. ENT: Nares patent. No nasal discharge, no septal abnormalities noted. Tympanic membranes are normal and external auditory canals are clear. Oropharynx with no redness, swelling, or masses, exudates, or evidence of obstruction, uvula midline. Mucous membranes moist. Neck: Trachea midline, no thyromegaly or masses palpated, and no cervical lymphadenopathy. Supple, full range of motion without nuchal rigidity, or vertebral point tenderness. No Meningismus. Chest/axilla: Normal chest wall appearance and motion. Nontender with no deformity. No lesions are appreciated. Cardiovascular: Sinus tachycardia nut regular rhythm with a normal S1 and S2. No gallops, murmurs, or rubs. Normal PMI, no JVD. No pulse deficits. Respiratory: Lungs have equal breath sounds bilaterally, clear to auscultation and percussion. No rales, rhonchi or wheezes noted. No increased work of breathing, no retractions or nasal flaring. Abdomen/GI: Soft, non-tender, with normal bowel sounds. No distension or tympany. No guarding or rebound. No evidence of tenderness throughout. Back: No spinal tenderness. No costovertebral tenderness. Full range of motion. Skin: Warm, dry with normal turgor. Normal color with no rashes, no lesions, and no evidence of cellulitis. MS/ Extremity: Pulses equal, no cyanosis. Neurovascular intact. Full, normal range of motion. Neuro: Awake and alert, GCS 15, oriented to person, place, time, and situation. Cranial nerves II-XII grossly intact. Motor strength 5/5 in all extremities. Sensory grossly intact. Cerebellar exam normal. Normal gait. Psych: Awake, alert, with orientation to person, place and time. Behavior, mood, and affect are within normal limits. ci 22:01 20:29 sp4 ty
--- NOTE | 2023-07-26 20:30 | ER ---
Nurse's Notes [facility] Name: Kathleen Wahl Age: 68 yrs Sex: Female : 1955 Arrival Date: 07/26/2023 Time: 16:23 Bed 15 Private MD: Catrachito Yip Diagnosis: Angina pectoris, unspecified;Hypertensive crisis, unspecified Presentation: 07/25 16:30 Chief complaint: Patient states: pt hasn't been taking any of her medicine x1 week and as6 has been having cp sob since with worsening today. Coronavirus screen: At this time, the client does not indicate any symptoms associated with coronavirus-19. Ebola Screen: No symptoms or risks identified at this time. Initial Sepsis Screen: Does the patient meet any 2 criteria? No. Patient's initial sepsis screen is negative. Does the patient have a suspected source of infection? No. Patient's initial sepsis screen is negative. Risk Assessment: Do you want to hurt yourself or someone else? Patient reports no desire to harm self or others. Onset of symptoms was July 21, 2023. 16:30 Method Of Arrival: Wheelchair as6 07/26 00:12 Acuity: JANI 3 kd4 Historical: - Allergies: 07/25 16:28 paper tape; as6 16:28 Pseudoephedrine; as6 16:28 Tramadol HCl; as6 - PMHx: 16:28 Chronic obstructive lung disease; Hepatitis; kidney disease; High Cholesterol; diabetes as6 mellitus; Hypertension; - PSHx: 16:28 Cholecystectomy; section; Valve replacement; hysterectomy; as6 - Immunization history:: Adult Immunizations up to date. - Infectious Disease History:: Denies. - Social history:: Smoking status: Patient denies any tobacco usage or history of. - History obtained from: . Screenin:40 [facility] ED Fall Risk Assessment (Adult) History of falling in the last 3 months, rs5 including since admission No falls in past 3 months (0 pts) Confusion or Disorientation No (0 pts) Intoxicated or Sedated No (0 pts) Impaired Gait No (0 pts) Mobility Assist Device Used No (0 pt) Altered Elimination No (0 pt) Score/Fall Risk Level 0 - 2 = Low Risk Oriented to surroundings, Maintained a safe environment. 16:40 Abuse screen: Denies threats or abuse. Nutritional screening: No deficits noted. rs5 Tuberculosis screening: No symptoms or risk factors identified. Assessment: 16:35 General: Appears distressed, uncomfortable, Behavior is cooperative, anxious. Pain: rs5 Complains of pain in chest Pain does not radiate. Pain currently is 2 out of 10 on a pain scale. Quality of pain is described as aching, Pain began Is continuous. Neuro: Level of Consciousness is awake, alert, obeys commands, Oriented to person, place, time, situation. Cardiovascular: Patient's skin is warm and dry. Rhythm is sinus tachycardia. Respiratory: Airway is patent Respiratory effort is even, unlabored, Respiratory pattern is regular, symmetrical. GI: Abdomen is round non-distended, Abd is soft and non tender X 4 quads. : No signs and/or symptoms were reported regarding the genitourinary system. EENT: No signs and/or symptoms were reported regarding the EENT system. 16:35 Derm: Skin is intact, Skin is pink, warm \T\ dry. Musculoskeletal: Range of motion: rs5 intact in all extremities. 16:41 Reassessment: Patient and/or family updated on plan of care and expected duration. Pain rs5 level reassessed. Patient is alert, oriented x 3, equal unlabored respirations, skin warm/dry/pink. 07/26 00:04 Reassessment: patient sent to unit, all belonging sent with patient. patient stable. kd4 Vital Signs: 07/25 16:29 BP 152 / 99; Pulse 147; Resp 20 S; Temp 97.8(TE); Pulse Ox 97% on R/A; Weight 43.09 kg as6 (R); Height 5 ft. 1 in. (R); Pain 3/10; 16:35 BP 155 / 82; Pulse 114; Resp 18; Pulse Ox 99% on R/A; rs5 23:08 BP 126 / 74; Pulse 82; Resp 18; Pulse Ox 98% on R/A; kd4 16:29 Body Mass Index 17.95 (43.09 kg, 154.94 cm) as6 16:29 Pain Scale: Adult as6 ED Course: 16:25 Patient arrived in ED. mr 16:25 Catrachito Yip MD is Private Physician. mr 16:31 Triage completed. as6 16:40 No provider procedures requiring assistance completed. rs5 16:40 Patient has correct armband on for positive identification. Placed in gown. Bed in low rs5 position. Call light in reach. Side rails up X2. Client placed on continuous cardiac and pulse oximetry monitoring. NIBP monitoring applied. property assessment monitor on. Pulse ox on. 16:41 Wesley Sheppard, RN is Primary Nurse. rs5 16:52 Elliott Levy is Attending Physician. ci 17:11 XRAY Chest (1 view) In Process Unspecified. EDMS 17:15 Inserted saline lock: 22 gauge in left forearm, using aseptic technique. Blood nj1 collected. 17:41 Basic Metabolic Panel Sent. em1 17:41 CBC with Diff Sent. em1 17:41 Magnesium Sent. em1 17:41 Troponin HS Sent. em1 17:42 NT PRO-BNP Sent. em1 19:46 Primary Nurse role handed off by Wesley Sheppard, KAITLIN as6 20:05 Gabriela Clement, KAITLIN is Primary Nurse. kd4 20:14 Attending Physician role handed off by Elliott Levy sp4 20:14 Gee Kennedy MD is Attending Physician. sp4 20:29 Jolene Gomez MD is Hospitalizing Provider. sp4 22:30 COVID swab sent to lab. kd4 22:30 Per power house control room operator, pt to remain in ED until floor is ready for patient. cm10 23:42 BG 118. kd4 07/26 00:11 Patient admitted, IV remains in place. kd4 00:12 Provided Education on: need for admit. kd4 00:12 Arm band placed on. kd4 Administered Medications: 07/25 17:16 Drug: NS 0.9% IV 1000 ml IV at 1000 ml once Route: IV; Rate: 1000 ml; Site: right rs5 antecubital; 17:56 Drug: Metoprolol PO 100 mg PO once Route: PO; rs5 17:56 Drug: LORazepam PO 1 mg PO once Route: PO; rs5 20:21 Drug: Aspirin PO 325 mg PO once Route: PO; kd4 Medication: 17:51 VIS not applicable for this client. rs5 Outcome: 20:29 Decision to Hospitalize by Provider. sp4 07/26 00:11 Admitted to Tele accompanied by tech, via wheelchair, kd4 Condition: good Instructed on the need for admit, 00:13 Patient left the ED. kd4 Signatures: Dispatcher [employer] EDMS Ludivina Soto, Reg Reg Masoud Mclean em1 Geoffrey López, RN RN as6 Wesley Sheppard RN RN rs5 Gee Kennedy MD MD sp4 Yola Mansfield RN RN nj1 Jacey Kwong RN RN cm10 Elliott Levy Karim, RN RN kd4 Corrections: (The following items were deleted from the chart) 07/25 17:48 16:35 BP 155 / 82; Pulse 114bpm; Resp 80bpm; Pulse Ox 99% RA; rs5 rs5 19:04 16:30 Acuity: JANI 2 as6 kd4 23:41 23:40 COVID swab sent to lab. kd4 kd4
[2023-07-26] MEDS ORDERED: HYDRALAZINE HCL 20 MG/ML VIAL IV PRN (20:49)
[2023-07-26] MEDS ORDERED: ONDANSETRON 4 MG/2 ML VIAL IV PRN (20:49)
[2023-07-26] MEDS ORDERED: MELATONIN 5 MG TABLET PO PRN (20:49)
--- NOTE | 2023-07-26 20:52 | P.HP ---
Certification for Inpatient Patient admitted to: Observation With expected LOS: <2 Midnights Patient will require the following post-hospital care: None Practitioner: I am a practitioner with admitting privileges, knowledge of patient current condition, hospital course, and medical plan of care. Services: Services provided to patient in accordance with Admission requirements found in Title 42 Section 412.3 of the Code of Federal Regulations Patient History Date of Service: 07/27/23 Reason for admission: Chest pain and palpitation History of Present Illness: 68-year-old female with past medical history of HTN/DM/hepatitis/COPD/hypothyroidism who abruptly stopped taking all her medications since the last 1 week. She states her has felt she was taking too many medication and has asked her to stop taking them. Although spouse reports he was trying to take patient to stop taking only Ozempic as she was losing too much weight.; Patient developed new onset palpitation with chest pressure since the last 3 days which has been progressive in nature. She describes symptoms worse with activity. She denies any nausea or vomiting. She denies any headache or dizziness. She presented to the hospital today because of worsening symptoms. She has been on Synthroid Norvasc Toprol as well as Ozempic at home. On arrival in the ED she was noted with marked elevated blood pressure with systolic in the 180s over 110s, heart rate was in the 140s, EKG shows sinus tachycardia at 1 6 7 bpm, no ST segment changes, proBNP was elevated at 893, troponin negative at 26, CBC was unremarkable, BMP shows creatinine of 1.42 Chest x-ray shows emphysematous changes but no pulmonary edema or congestion. TSH is elevated at 4.3 Free T4 low at 0.59. Allergies pseudoephedrine Allergy (Verified 01/03/23 13:47) seizures tramadol Adverse Reaction (Verified 01/03/23 13:47) confusion PAPER TAPE Allergy (Uncoded 01/03/23 13:47) Unknown Home Medications: Empagliflozin [Jardiance] 25 mg PO DAILY 06/11/21 Levothyroxine [Synthroid*] 0.125 mg PO DAILY 06/11/21 Liraglutide [Victoza 2-Orlin] 1.8 units SQ DAILY 06/11/21 Losartan Potassium 25 mg PO DAILY 06/11/21 Sertraline HCl 200 mg PO DAILY 06/11/21 Temazepam [Restoril*] 15 mg PO BEDTIME 06/11/21 Valacyclovir HCl [Valacyclovir] 500 mg PO DAILY 06/11/21 Calcitrol [Rocaltrol*] 0.5 mcg PO DAILY #30 cap 06/12/21 Cholecalciferol (Vitamin D3) [Vitamin D 5,000 IU Cap*] 5,000 unit PO DAILY #30 cap 06/12/21 Docusate [Colace Cap*] 100 mg PO BID #60 cap 06/12/21 Insulin Glargine,Hum.rec.anlog [Lantus] 15 units SQ BEDTIME #1 vial 06/12/21 Allopurinol 300 mg PO DAILY 06/15/21 Amlodipine [Norvasc*] 5 mg PO DAILY 06/15/21 Empagliflozin [Jardiance] 25 mg PO DAILY 06/15/21 Fluticasone/Umeclidin/Vilanter [Trelegy Ellipta 100-62.5-25] 1 each IH DAILY 06/15/21 Insulin Glargine,Hum.rec.anlog [Lantus] 10 unit IN BEDTIME 06/15/21 Levothyroxine [Synthroid*] 125 mcg PO [id number] 06/15/21 Metoprolol Succinate 1 tab PO DAILY 06/15/21 Sertraline [Zoloft*] 100 mg PO BID 06/15/21 Simvastatin 20 mg PO BEDTIME 06/15/21 Semaglutide [Ozempic] 0.25 mg SQ 01/03/23 - Past Medical/Surgical History Diabetic: Yes -: HTN -: CKD -: COPD -: Type 2 diabetes- insulin dependent -: Hepatitis C -: Anxiety/depression -: Cholecystecomy -: Hysterectomy Psychosocial/ Personal History: Patient lives at home with her , daughter, and 3 grandchildren. - Family History Mother -: Cancer Father -: Cancer Brother -: Diabetes - Social History Smoking Status: Never smoker Alcohol use: No CD- Drugs: No Caffeine use: No Place of Residence: Home Review of Systems 10-point ROS is otherwise unremarkable Cardiovascular: Chest Pain, Palpitations Neurological: Weakness Physical Examination - Physical Exam General: Alert, In no apparent distress, Oriented x3, Cooperative HEENT: Atraumatic, Normocephalic Neck: Supple, 2+ carotid pulse no bruit, JVD not distended Respiratory: Clear to auscultation bilaterally, Normal air movement Cardiovascular: Normal pulses, Regular rate/rhythm, Normal S1 S2 Gastrointestinal: Normal bowel sounds, Soft and benign, Non-distended, No rebound, No guarding Musculoskeletal: No clubbing, No swelling Integumentary: No rashes, No breakdown - Studies Laboratory Data (last 24 hrs) 07/26/23 07/26/23 17:15 17:15 WBC 6.60 Hgb 13.6 Hct 40.1 Plt Count 148 L Sodium 135 L Potassium 4.2 BUN 22 H Creatinine 1.42 H Glucose 287 H Magnesium 1.8 Assessment and Plan - Plan Impression Atypical chest painMay be related to palpitation Medication noncompliance Recurrent palpitationS- due to metoprolol nonadherence Hypertension urgencydue to the long compliant DM with hyperglycemia History of anxiety/depression Hypothyroidismuncontrolled Plan Admit to observation Serial sets of cardiac enzymesinitial set negative Aggressive IV fluid for tachycardia Restart home dose of metoprolol, for rate control as well as restart amlodipine IV labetalol as needed for now Low free T4, on Synthroid 112 mics daily but noncompliant restart Synthroid at same dose for now Mild hyperglycemia, on hold Ozempic, continue to hold since significant weight loss previously on lantus 20qam and 15 qpm but stopped , will restart at lower dose Lantus subcut 15 unit qhs for now, insulin sliding scale with Accu-Chek Subcutaneous Lovenox for DVT prophylaxis Disposition, possible DC in a.m. if negative set of cardiac enzymes Advance directivefull code - Advance Directives Does patient have a Living Will: Yes Does patient have a Durable POA for Healthcare: Yes
[2023-07-26] MEDS ORDERED: LABETALOL 20 MG/4ML SYRINGE IV PRN (21:04)
[2023-07-27] MEDS: INSULIN REGULAR (HUMAN) 100 UNIT/ML SQ SCH
[2023-07-27] MEDS: FAMOTIDINE 20 MG TAB PO SCH (00:08)
[2023-07-27] MEDS: INSULIN GLARGINE 100 UNIT/ML SQ SCH (00:08)
[2023-07-27] MEDS: NA CHLORIDE 0.9% 1,000 ML IV SCH (00:08)
[2023-07-27 00:50] VITALS: O2SAT 98
[2023-07-27 02:50] LABS: Sqamous Epithelial <5 /HPF (None Seen); Urine Bacteria None Seen /HPF (<20); Urine Bilirubin NEGATIVE (Negative); Urine Blood Negative (Negative); Urine Clarity Clear (Clear); Urine Color Colorless (Yellow); Urine Culture Reflex Order NOT NEEDED; Urine Glucose NEGATIVE (Negative); Urine Ketones NEGATIVE (Negative); Urine Micro Reflex YN NO BILL MICROSCOPIC; Urine Nitrite NEGATIVE (Negative); Urine Protein NEGATIVE (Negative); Urine RBC None Seen /HPF (None Seen); Urine Urobilinogen Normal (Normal); Urine WBC <5 /HPF (<5); Urine pH 5.5 (5.0-7.0)
[2023-07-27 03:07] VITALS: BMI 17.9
[2023-07-27 09:27] LABS: Albumin 3.1 g/dL (3.4-5.0); Albumin/Globulin Ratio 0.9 (1.1-1.8); Anion Gap 5.7 mEq/L (5.0-15.0); Bilirubin Total 0.2 mg/dL (0.2-1.0); Globulin 3.4 g/dL (2.3-3.5); Potassium 3.7 mEq/L (3.5-5.1); Protein, Total 6.5 g/dL (6.4-8.2)
[2023-07-27] MEDS: ASPIRIN EC 81 MG TAB PO SCH (10:11)
[2023-07-27] MEDS: ENOXAPARIN 30 MG/0.3 ML SQ SCH (10:12)
--- NOTE | 2023-07-27 10:46 | P.PN ---
Subjective Date of Service: 07/27/23 Chief Complaint: Chest pain and palpitation Pt is resting comfortably in bed. She stopped taking her meds a few day ago. Her only wanted her to stop taking ozempic because it made her lose weight. Will resume her home meds. Pt denies any chest pain or palpitation. She was eat ing break fast when I saw her. No other complaints. Review of Systems General: Other (cachectic) Eyes: Unremarkable ENT: Unremarkable Respiratory: Unremarkable Cardiovascular: Unremarkable Gastrointestinal: Unremarkable Genitourinary: Unremarkable Musculoskeletal: Unremarkable Integumentary: Unremarkable Neurological: Unremarkable Lymphatics: Unremarkable Physical Examination - Vital Signs Temperature: 97.7 F Blood Pressure: 126/59 Pulse: 71 Respirations: 17 Pulse Ox (%): 98 - Physical Exam General: Alert, In no apparent distress, Oriented x3, Cachectic HEENT: Atraumatic, Normocephalic, PERRLA Neck: Supple, 2+ carotid pulse no bruit Respiratory: Clear to auscultation bilaterally, Normal air movement Cardiovascular: No edema, Normal pulses, Regular rate/rhythm, Normal S1 S2 Capillary refill: <2 Seconds Gastrointestinal: Normal bowel sounds, Soft and benign, Non-distended Musculoskeletal: No clubbing, No swelling Integumentary: No rashes, No breakdown Neurological: Normal gait, Normal speech, Normal strength at 5/5 x4 extr, Normal tone Lymphatics: No axilla or inguinal lymphadenopathy - Studies Laboratory Data (last 24 hrs) 07/26/23 07/26/23 17:15 17:15 WBC 6.60 Hgb 13.6 Hct 40.1 Plt Count 148 L Sodium 135 L Potassium 4.2 BUN 22 H Creatinine 1.42 H Glucose 287 H Magnesium 1.8 Assessment And Plan - Plan Atypical chest pain: Likely due to palpitation. Will trend troponin. 26 <- 28. Medication noncompliance: Pt was encouraged to be compliant with home meds. Palpitation: Pt stopped taking metoprolol. Continue IVF Hypertension urgency: Due to non-compliance. resolved. Will Continue home meds. DM with hyperglycemia: Will continue accuchek, SSI and ADA diet. History of anxiety/depression: Continue home meds Hypothyroidism: Will resume synthroid. Pt complains of cold intolerance. DVT ppx: lovenox Dispo: pending hospital course.
--- NOTE | 2023-07-27 12:34 | EKG ---
Test Date: 2023-07-26 Test Time: 19:52:08 Gr[employer] 1 [employer] 6 Teacher: LUL MEASUREMENT RESULTS: Intervals: Rate: 102 VT: 142 QRSD: 66 QT: 334 QTc: 435 [place]: P: 77 VT: 142 QRS: 35 T: 69 INTERPRETIVE STATEMENTS: Sinus tachycardia Otherwise normal ECG Compared to ECG 07/26/2023 16:45:42 No significant changes Electronically Signed On 07-27-23 12:32:44 CDT by Heath Williamson
--- NOTE | 2023-07-27 12:34 | EKG ---
Test Date: 2023-07-26 Test Time: 16:45:42 Crew Dispatcher: MEASUREMENT RESULTS: Intervals: Rate: 131 OK: 126 QRSD: 68 QT: 306 QTc: 451 [place]: P: 88 OK: 126 QRS: 76 T: 80 INTERPRETIVE STATEMENTS: Sinus tachycardia Otherwise normal ECG Compared to ECG 07/26/2023 16:44:10 Atrial abnormality no longer present Electronically Signed On 07-27-23 12:33:06 CDT by Heath Williamson
--- NOTE | 2023-07-27 12:35 | EKG ---
Test Date: 2023-07-26 Test Time: 16:44:10 Manager Background: MEASUREMENT RESULTS: Intervals: Rate: 129 MS: 114 QRSD: 70 QT: 302 QTc: 442 [place]: P: 77 MS: 114 QRS: 74 T: 77 INTERPRETIVE STATEMENTS: Sinus tachycardia Right atrial enlargement Borderline ECG Compared to ECG 06/14/2021 21:10:39 Atrial abnormality now present Sinus rhythm no longer present Electronically Signed On 07-27-23 12:33:08 CDT by Heath Williamson
[2023-07-27] MEDS: SERTRALINE HCL 100 MG TAB PO SCH (20:18)
[2023-07-28] MEDS: TEMAZEPAM 15 MG CAP ONE (00:06)
[2023-07-28] MEDS: TEMAZEPAM 15 MG CAP PO SCH (00:10)
[2023-07-28] MEDS: LEVOTHYROXINE SOD 0.125 MG TAB PO SCH (05:59)
[2023-07-28] MEDS ORDERED: LEVOTHYROXINE SOD 0.1 MG TAB PO SCH (06:00)
[2023-07-28 07:27] LABS: Absolute Eosinophils 0.1 K/uL (0-0.5); Absolute Lymphocytes (CBC) 1.2 K/uL (0.7-4.9); Absolute Monocytes 0.3 K/uL (0.1-1.3); Absolute Neutrophil 2.6 K/uL (1.8-8.0); Basophils % 0.4 % (0-1.3); Eosinophils % 3.2 % (0-4.4); Hematocrit 35.3 % (36.0-45.0); Hemoglobin 11.5 g/dL (12.0-15.0); Lymphocytes % 27.7 % (15.3-44.8); MCHC 32.5 g/dL (32.0-36.0); MCV 101.4 fL (80-100); MPV 7.4 fL (7.6-11.3); Neutrophils % 61.7 % (41.7-73.7); Platelets 97 thou/uL (152-406); RBC Red Blood Cell Count 3.48 M/uL (3.86-4.86)
[2023-07-28] MEDS: PANTOPRAZOLE 40MG TABLET PO SCH (07:30)
[2023-07-28 07:42] LABS: Albumin 2.7 g/dL (3.4-5.0); Albumin/Globulin Ratio 0.8 (1.1-1.8); Bilirubin Total 0.3 mg/dL (0.2-1.0); Globulin 3.3 g/dL (2.3-3.5)
[2023-07-28 08:35] LABS: Blood Morphology Comment NOT SEEN (NOT SEEN); Platelet Estimate DECR; White Blood Cell Scan OK (OK)
[2023-07-28] MEDS ORDERED: SERTRALINE HCL 100 MG TAB PO SCH ×2 (09:00→21:00)
[2023-07-28] MEDS ORDERED: INSULIN GLARGINE 100 UNIT/ML SQ SCH (09:00)
[2023-07-28] MEDS ORDERED: LEVOTHYROXINE SOD 0.125 MG TAB PO SCH (09:00)
[2023-07-28] MEDS ORDERED: HOME MED 1 EA UNK (Empagliflozin [Jardiance] 25 MG Tablet) PO SCH (09:00)
[2023-07-28] MEDS: **PT MED**Empagliflozin [Jardiance] 25 MG Tablet PO SCH (09:00)
[2023-07-28] MEDS: ASPIRIN 81 MG CHEWABLE TABLET PO SCH (10:23)
[2023-07-28] MEDS: VITAMIN D 5,000 UNIT CAP PO SCH (10:23)
[2023-07-28] MEDS: allopurinoL 300 MG TAB PO SCH (10:23)
[2023-07-28] MEDS: AMLODIPINE 5 MG TAB PO SCH (10:23)
[2023-07-28] MEDS: PIOGLITAZONE 15 MG TAB PO SCH (10:23)
[2023-07-28] MEDS: METOPROLOL XL 100 MG TAB PO SCH (10:24)
--- NOTE | 2023-07-28 11:17 | P.DS ---
Admission Date: 07/26/23 Discharge Date: 07/28/23 Disposition: ROUTINE DISCHARGE Discharge Condition: GOOD Reason for Admission: Chest pain and palpitation Brief History of Present Illness: 68-year-old female with past medical history of HTN/DM/hepatitis/COPD/hypothyroidism who abruptly stopped taking all her medications since the last 1 week. She states her has felt she was taking too many medication and has asked her to stop taking them. Although spouse reports he was trying to take patient to stop taking only Ozempic as she was losing too much weight.; Patient developed new onset palpitation with chest pressure since the last 3 days which has been progressive in nature. She describes symptoms worse with activity. She denies any nausea or vomiting. She denies any headache or dizziness. She presented to the hospital today because of worsening symptoms. She has been on Synthroid Norvasc Toprol as well as Ozempic at home. On arrival in the ED she was noted with marked elevated blood pressure with systolic in the 180s over 110s, heart rate was in the 140s, EKG shows sinus tachycardia at 1 6 7 bpm, no ST segment changes, proBNP was elevated at 893, troponin negative at 26, CBC was unremarkable, BMP shows creatinine of 1.42 Chest x-ray shows emphysematous changes but no pulmonary edema or congestion. TSH is elevated at 4.3 Free T4 low at 0.59. Hospital Course: Pt is a 68yo female with past medical history of HTN/DM/hepatitis/COPD/hypothyroidism who presented with palpitation and chest pressure. Of note, pt abruptly stopped taking all her medications for more than 1 week because her felt she was taking too many pills. However pt started taking ozempic and her noticed that pt was losing weight. On admission, pt had elevated blood pressure with systolic in the 180s over 110s, heart rate was in the 140s, EKG shows sinus tachycardia at 167 bpm, no ST segment changes, proBNP was elevated at 893, troponin negative at 26, CBC was unremarkable, BMP shows creatinine of 1.42. Chest x-ray showed emphysematous changes but no pulmonary edema or congestion. TSH is elevated at 4.3 Free T4 low at 0.59. We admitted pt to r/o ACS. troponin was negative x3. We resumed her home meds and encouraged pt to be compliant with her home meds. The weight loss was due to ozempic. Pt was in NAD prior to discharge. Vital Signs/Physical Exam: Temp Pulse Resp BP Pulse Ox 97 F 80 15 167/70 H 96 07/28/23 08:00 07/28/23 10:24 07/28/23 08:00 07/28/23 10:24 07/28/23 08:00 Laboratory Data at Discharge: WBC 4.20 thou/uL (4.3-10.9) L 07/28/23 06:23 Hgb 11.5 g/dL (12.0-15.0) L 07/28/23 06:23 Hct 35.3 % (36.0-45.0) L 07/28/23 06:23 Plt Count 97 thou/uL (152-406) L 07/28/23 06:23 Sodium 141 mEq/L (136-145) 07/28/23 06:23 Potassium 4.0 mEq/L (3.5-5.1) 07/28/23 06:23 BUN 16 mg/dL (7-18) 07/28/23 06:23 Creatinine 0.75 mg/dL (0.55-1.02) 07/28/23 06:23 Glucose 94 mg/dL (74-106) 07/28/23 06:23 Magnesium 1.6 mg/dL (1.6-2.4) 07/26/23 21:04 Total Bilirubin 0.3 mg/dL (0.2-1.0) 07/28/23 06:23 AST 26 U/L (15-37) 07/28/23 06:23 ALT 21 U/L (13-56) 07/28/23 06:23 Alkaline Phosphatase 80 U/L (45-117) 07/28/23 06:23 Home Medications: Losartan Potassium 25 mg PO DAILY 06/11/21 Sertraline HCl 200 mg PO DAILY 06/11/21 Temazepam [Restoril*] 15 mg PO BEDTIME 06/11/21 Valacyclovir HCl [Valacyclovir] 500 mg PO DAILY 06/11/21 Cholecalciferol (Vitamin D3) [Vitamin D 5,000 IU Cap*] 5,000 unit PO DAILY #30 cap 06/12/21 Insulin Glargine,Hum.rec.anlog [Lantus] 15 units SQ BEDTIME #1 vial 06/12/21 Allopurinol 300 mg PO DAILY 06/15/21 Amlodipine [Norvasc*] 5 mg PO DAILY 06/15/21 Empagliflozin [Jardiance] 25 mg PO DAILY 06/15/21 Insulin Glargine,Hum.rec.anlog [Lantus] 30 unit IN DAILY 06/15/21 Metoprolol Succinate 1 tab PO DAILY 06/15/21 Simvastatin 20 mg PO BEDTIME 06/15/21 Semaglutide [Ozempic] 0.25 mg SQ UD 01/03/23 Albuterol Inhaler [Ventolin Inhaler*] 2 puff IH Q6H PRN 07/27/23 Albuterol Neb [Proventil 0.083% Neb Soln] 2.5 mg IH Q6HP PRN 07/27/23 Aspirin Chewable [Aspirin Chewable*] 81 mg PO DAILY 07/27/23 Fluticasone [Flonase 50MCG Nasal [place]*] 2 sprays NS DAILY 07/27/23 Guaifenesin [Mucinex] 600 mg PO BIDP PRN 07/27/23 Multivit-Min/FA/Lycopen/Lutein [Centrum Silver Tablet] 1 each PO DAILY 07/27/23 Pioglitazone HCl [Actos] 15 mg PO DAILY 07/27/23 predniSONE [Deltasone*] 10 mg PO DAILY 07/27/23 Levothyroxine [Synthroid*] 0.125 mg PO DAILYAC 60 Days #60 tab 07/28/23 New Medications: Levothyroxine [Synthroid*] 0.125 mg PO DAILYAC 60 Days #60 tab Physician Discharge Instructions: Continue ad rocio activity. Take home meds as prescribed. Take levothyroxine 125mg po daily. Follow up with PCP within 1 week. Diet: AHA Activity: Ad rocio Followup: Catrachito Yip MD [Primary Care Provider] - 1-2 Weeks (call for an apt for one week )
[2023-07-28 12:40] VITALS: BP 139/59; TEMP 97.9
[2023-07-28] MEDS ORDERED: ATORVASTATIN 10 MG TAB PO SCH (21:00)
== END 2023-07-28 14:30 | disposition home or self-care (01) ==
LOC: ER 16:23 → ERHOLD 20:45 → 4TH 23:37
PROVIDERS: ADMIT Internal Medicine; ATTEND Hospitalist
DX: R07.89 Other chest pain (principal); I10 Essential (primary) hypertension; J44.9 Chronic obstructive pulmonary disease, unspecified; E03.9 Hypothyroidism, unspecified; Z88.8 Allergy status to other drugs, medicaments and biological substances; E11.65 Type 2 diabetes mellitus with hyperglycemia; F41.9 Anxiety disorder, unspecified; F32.A Depression, unspecified; R00.2 Palpitations; Z91.148 Patient's other noncompliance with medication regimen for other reason; K75.9 Inflammatory liver disease, unspecified
CPT/HCPCS: 36415; 71045; 80048; 80053; 81001; 82570; 82947; 83735; 83880; 84300; 84439; 84443; 84484; 85025; 93005; 99285; G0378; J1650; J7030

== ENCOUNTER 2024-01-16 12:20 | Emergency (ER) | payer OTHER ==
[2024-01-16] MEDS ORDERED: LIDOCAINE VISCOUS 2% 10ML ORAL SOLN ONE (12:42)
--- NOTE | 2024-01-16 12:53 | ER ---
Nurse's Notes [facility] Name: Kathleen Wahl Age: 68 yrs Sex: Female : 1955 Arrival Date: 01/16/2024 Time: 12:20 Bed 19 Private MD: Diagnosis: Rectal pain Presentation: 01/15 12:28 Chief complaint: Patient states: rectal pain since last Tuesday, then it slipped out and iw i've been having bleeding. 12:28 Method Of Arrival: Ambulatory iw 12:28 Acuity: JANI 3 iw 12:39 Coronavirus screen: At this time, the client does not indicate any symptoms associated mb9 with coronavirus-19. Ebola Screen: No symptoms or risks identified at this time. Initial Sepsis Screen: Does the patient meet any 2 criteria? No. Patient's initial sepsis screen is negative. Does the patient have a suspected source of infection? No. Patient's initial sepsis screen is negative. Risk Assessment: Do you want to hurt yourself or someone else? Patient reports no desire to harm self or others. Onset of symptoms was January 16, 2024. Historical: - Allergies: 12:28 paper tape; iw 12:28 Pseudoephedrine; iw 12:28 Tramadol HCl; iw - PMHx: 12:28 Hepatitis; diabetes mellitus; Chronic obstructive lung disease; High Cholesterol; iw Hypertension; kidney disease; - PSHx: 12:28 section; Cholecystectomy; hysterectomy; Valve replacement; iw - Immunization history:: Adult Immunizations up to date. - Infectious Disease History:: Denies. - Social history:: Smoking status: Patient denies any tobacco usage or history of. Screenin:38 [facility] ED Fall Risk Assessment (Adult) History of falling in the last 3 months, mb9 including since admission No falls in past 3 months (0 pts) Confusion or Disorientation No (0 pts) Intoxicated or Sedated No (0 pts) Impaired Gait No (0 pts) Mobility Assist Device Used No (0 pt) Altered Elimination No (0 pt) Score/Fall Risk Level 0 - 2 = Low Risk Oriented to surroundings, Maintained a safe environment, Educated pt \T\ family on fall prevention, incl call for assistance when getting out of bed. Abuse screen: Denies threats or abuse. Nutritional screening: No deficits noted. Tuberculosis screening: No symptoms or risk factors identified. Assessment: 12:55 General: Appears in no apparent distress. Behavior is calm, cooperative. Pain: mb9 Complains of pain in buttocks. Neuro: Berrios Agitation-Sedation Scale (RASS): 0 - Alert and Calm Level of Consciousness is awake, alert, obeys commands, Oriented to person, place, time, situation, Appropriate for age. Cardiovascular: Patient's skin is warm and dry. Respiratory: Airway is patent Respiratory effort is even, unlabored, Respiratory pattern is regular, symmetrical. GI: Reports rectal pain. : No signs and/or symptoms were reported regarding the genitourinary system. EENT: No signs and/or symptoms were reported regarding the EENT system. Derm: Skin is pink, warm \T\ dry. Musculoskeletal: Range of motion: intact in all extremities. Vital Signs: 12:30 BP 137 / 69; Pulse 91; Resp 16; Temp 97.6; Pulse Ox 96% on R/A; Pain 8/10; iw 12:30 Pain Scale: Adult iw ED Course: 12:23 Patient arrived in ED. mg5 12:26 Twin Sutton DO is Attending Physician. ms3 12:28 Triage completed. iw 12:30 Arm band placed on. iw 12:33 Ludivina Salinas, RN is Primary Nurse. mb9 12:34 Ludivina Salinas, KAITLIN is Primary Nurse. mb9 12:38 Placed in gown. Bed in low position. Call light in reach. Side rails up X 1. Provided mb9 Education on: press call light if needing anything. Client placed on continuous cardiac and pulse oximetry monitoring. NIBP monitoring applied. 12:51 Served as a adult secondary education instructor during rectal exam. zm 12:52 Jose Ford MD is Referral Physician. ms3 13:07 Patient did not have IV access during this emergency room visit. mb9 Administered Medications: 12:52 Drug: Lidocaine Mucous Membrane Gel 2 % 1 application Mucous Membrane once Route: mb9 Mucous Membrane; Medication: 12:37 VIS not applicable for this client. mb9 Outcome: 12:53 Discharge ordered by . ms3 13:07 Discharged to home ambulatory, mb9 13:07 Condition: stable 13:07 Discharge instructions given to patient, Instructed on discharge instructions, follow up and referral plans. Demonstrated understanding of instructions, follow-up care, medications, Prescriptions given X 2, 13:07 Patient left the ED. mb9 Signatures: Kat Romero RN RN iw Twin Sutton DO DO ms3 Yuni Kwong Mary Beth, RN RN mb9 Carli Stanton mg5
--- NOTE | 2024-01-16 12:53 | EDPHYS ---
Physician Documentation [facility] Name: Kathleen Wahl Age: 68 yrs Sex: Female : 1955 Arrival Date: 01/16/2024 Time: 12:20 Bed 19 Private MD: ED Physician Twin Sutton HPI: 01/15 18:03 This 68 yrs old Female presents to ER via Ambulatory with complaints of Rectal Pain. ms3 18:03 68-year-old female with past medical history of hepatitis, diabetes, COPD, ms3 hyperlipidemia, hypertension presents to the emergency department for rectal pain that is ongoing for 1 week. Patient states the discomfort is an 8/10 and feels as if there is something falling out of her rectum. She denies any alleviating factors. Historical: - Allergies: 12:28 paper tape; iw 12:28 Pseudoephedrine; iw 12:28 Tramadol HCl; iw - PMHx: 12:28 Hepatitis; diabetes mellitus; Chronic obstructive lung disease; High Cholesterol; iw Hypertension; kidney disease; - PSHx: 12:28 section; Cholecystectomy; hysterectomy; Valve replacement; iw - Immunization history:: Adult Immunizations up to date. - Infectious Disease History:: Denies. - Social history:: Smoking status: Patient denies any tobacco usage or history of. ROS: 18:03 Constitutional: Negative for fever, and chills. Cardiovascular: Negative for chest ms3 pain, and palpitations. Respiratory: Negative for shortness of breath, cough, wheezing, and pleuritic chest pain, 18:03 MS/Extremity: Negative for injury and deformity, Skin: Negative for injury, rash, and discoloration, 18:03 Abdomen/GI: Positive for rectal pain, Exam: 18:03 Constitutional: This is a well developed, well nourished patient who is awake, alert, ms3 and in no acute distress. Head/Face: Normocephalic, atraumatic. Chest/axilla: Normal chest wall appearance and motion. Nontender with no deformity. Cardiovascular: Regular rate and rhythm with a normal S1 and S2. No gallops, murmurs, or rubs. Normal PMI, no JVD. No pulse deficits. Respiratory: Lungs have equal breath sounds bilaterally, clear to auscultation and percussion. No rales, rhonchi or wheezes noted. No increased work of breathing, no retractions or nasal flaring. 18:03 Abdomen/GI: Inspection: abdomen appears normal, Bowel sounds: normal, in all quadrants, Palpation: abdomen is soft and non-tender, Rectal exam: rectal tone normal, swelling, that is mild, tenderness, that is mild, fecal impaction, is not appreciated, the exam is chaperoned by an oil burner technician, Vital Signs: 12:30 BP 137 / 69; Pulse 91; Resp 16; Temp 97.6; Pulse Ox 96% on R/A; Pain 8/10; iw 12:30 Pain Scale: Adult iw MDM: 12:41 Patient medically screened. ms3 18:03 Differential diagnosis: hemorrhoids, fissure. Data reviewed: vital signs, nurses notes, ms3 and as a result, I will discharge patient. I considered the following discharge prescriptions or medication management in the emergency department Medications were administered in the Emergency Department. See MAR. Counseling: I had a detailed discussion with the patient and/or guardian regarding the historical points, exam findings, and any diagnostic results supporting the discharge/admit diagnosis, the need for outpatient follow up, to return to the emergency department if symptoms worsen or persist or if there are any questions or concerns that arise at home. Special discussion: I discussed with the patient/guardian in detail that at this point there is no indication for admission to the hospital. It is understood, however, that if the symptoms persist or worsen the patient needs to return immediately for re-evaluation. ED course: Discussed physical exam findings with patient. No mass or prolapsed hemorrhoid identified on exam. Patient states when sitting down she feels the mass fall out. No mass palpated on rectal exam. Possible anterior fissure/swelling, no induration or fluctuance. Patient to follow-up with gastroenterology in 2 to 3 days as discussed. All questions were answered. Return precautions discussed include worsening symptoms, or any other concerns.. Administered Medications: 12:52 Drug: Lidocaine Mucous Membrane Gel 2 % 1 application Mucous Membrane once Route: mb9 Mucous Membrane; Disposition Summary: 01/16/24 12:53 Discharge Ordered Notes: Location: Home ms3 Condition: Stable ms3 Diagnosis - Rectal pain ms3 Followup: ms3 - With: Jose Ford MD - When: 2 - 3 days - Reason: Recheck today's complaints Discharge Instructions: - Discharge Summary Sheet ms3 - Anal Fissure, Adult, [id number] ms3 Forms: - Medication Reconciliation Form ms3 - Antibiotic Education ms3 - Prescription Opioid Use ms3 - Patient Portal Instructions ms3 - Leadership Thank You Letter ms3 Prescriptions: - Anusol-HC 2.5 % Topical cream with perineal applicator - apply 1 application RECTAL route 4 times per day as needed for hemorrhoids; 30 ms3 gram tube; Refills: 0, Product Selection Permitted - Anusol-HC 25 mg Rectal Suppository - insert 1 suppository RECTAL route every 12 hours As needed; 20 suppository; ms3 Refills: 0, Product Selection Permitted Signatures: Kat Romero RN RN Twin Ga DO DO ms3 Ludivina Salinas RN RN mb9
[2024-01-16 13:32] VITALS: BP 137/69; TEMP 97.6; O2SAT 96
== END 2024-01-16 13:07 | disposition home or self-care (01) ==
LOC: ER 12:20
DX: K62.89 Other specified diseases of anus and rectum (principal)
CPT/HCPCS: 99283

== ENCOUNTER 2024-05-04 08:24 | Emergency (ER) | payer OTHER ==
[2024-05-04] MEDS ORDERED: HYDROCODONE/APAP 5/325 MG TAB ONE ×2 (08:55→11:56)
--- NOTE | 2024-05-04 10:43 | RAD REPORT ---
EXAMINATION: XR LEFT FOOT CLINICAL INDICATION: Pain;Swelling TECHNIQUE: Multiple projections of the left foot were obtained. COMPARISON: No prior exam. FINDINGS: Diffuse osteopenia. Fractures are present involving the base of the proximal phalanx of the first, second or third and fourth toes. No dislocation seen. Mild soft tissue swelling is present. Small calcaneal spurs.
--- NOTE | 2024-05-04 11:16 | RAD REPORT ---
EXAMINATION: XR RIGHT KNEE CLINICAL INDICATION: Female, 68 years old. PAIN TECHNIQUE: Multiple views of the right knee were obtained. COMPARISON: No prior exam. FINDINGS: Prominent diffuse osteopenia. Heavy chondrocalcinosis seen of the menisci. Small joint effu sirisha. Moderate vascular atherosclerosis. No fracture appreciated.
--- NOTE | 2024-05-04 11:47 | ER ---
Nurse's Notes [facility] Name: Kathleen Wahl Age: 68 yrs Sex: Female : 1955 Arrival Date: 05/04/2024 Time: 08:24 Bed 7 Private MD: Diagnosis: 1st, 2nd, 3rd, 4th Proximal phalanx fractures of left foot;Pain in right knee Presentation: 05/04 08:41 Chief complaint: Patient states: L foot and R knee pain after falling out of bed ss yesterday morning. Coronavirus screen: Client denies travel out of the [place] in the last 14 days. Ebola Screen: Patient denies exposure to infectious person. Patient denies travel to an Ebola-affected area in the 21 days before illness onset. Initial Sepsis Screen: Does the patient meet any 2 criteria? No. Patient's initial sepsis screen is negative. Does the patient have a suspected source of infection? No. Patient's initial sepsis screen is negative. Risk Assessment: Do you want to hurt yourself or someone else? Patient reports no desire to harm self or others. Onset of symptoms was May 03, 2024. 08:41 Method Of Arrival: Wheelchair ss 08:41 Acuity: JANI 3 ss Historical: - Allergies: 08:42 paper tape; ss 08:42 Pseudoephedrine; ss 08:42 Tramadol HCl; ss - PMHx: 08:42 Chronic obstructive lung disease; diabetes mellitus; kidney disease; High Cholesterol; ss Hepatitis; Hypertension; - PSHx: 08:42 section; hysterectomy; Cholecystectomy; Valve replacement; ss - Immunization history:: Client reports receiving the 2nd dose of the Covid vaccine. - Infectious Disease History:: Denies. - Social history:: Smoking status: Patient reports the use of cigarette tobacco products, "3 cigarettes/ day". Screenin:33 [facility] ED Fall Risk Assessment (Adult) History of falling in the last 3 months, iw including since admission Yes- single mechanical fall (1 pt) Confusion or Disorientation No (0 pts) Intoxicated or Sedated No (0 pts) Impaired Gait Yes (1 pt) Mobility Assist Device Used Yes (1 pt) Altered Elimination No (0 pt) Score/Fall Risk Level 3 or more points = High Risk Oriented to surroundings, Maintained a safe environment. Abuse screen: Denies threats or abuse. Denies injuries from another. Nutritional screening: No deficits noted. Nutritional screening: No deficits noted. Tuberculosis screening: No symptoms or risk factors identified. Assessment: 09:00 General: Appears in no apparent distress. Behavior is calm, cooperative. Pain: iw Complains of pain in left foot and right knee. Neuro: Level of Consciousness is awake, alert, obeys commands, Oriented to person, place, time, situation. Cardiovascular: Patient's skin is warm and dry. Respiratory: Respiratory effort is even, Respiratory pattern is regular. 12:10 Reassessment: Patient appears in no apparent distress at this time. Patient and/or iw family updated on plan of care and expected duration. Pain level reassessed. Patient is alert, oriented x 3, equal unlabored respirations, skin warm/dry/pink. Vital Signs: 08:41 BP 154 / 74; Pulse 82; Resp 18; Temp 97.7(TE); Pulse Ox 98% on R/A; Weight 48.08 kg; ss Height 5 ft. 1 in. ; Pain 7/10; 12:10 BP 134 / 78; Pulse 81; Resp 16; Pulse Ox 98% on R/A; iw 08:41 Body Mass Index 20.03 (48.08 kg, 154.94 cm) ss 08:41 Pain Scale: Adult ss ED Course: 08:27 Patient arrived in ED. ra3 08:29 Twin Sutton DO is Attending Physician. ms3 08:32 Kat Romero, RN is Primary Nurse. iw 08:42 Triage completed. ss 08:42 Arm band placed on right wrist. ss 09:33 No provider procedures requiring assistance completed. iw 10:37 Foot Left 3 View XRAY In Process Unspecified. EDMS 10:37 Knee Right 3 View XRAY In Process Unspecified. EDMS 11:45 Timothy Peña DPM is Referral Physician. ms3 11:45 Sawyer Disla MD is Referral Physician. ms3 12:10 Patient did not have IV access during this emergency room visit. iw 12:10 Ortho shoe applied to left foot. iw Administered Medications: 09:00 Drug: HYDROcodone-acetaminophen PO 5 mg-325 mg 1 tabs PO once Route: PO; iw 09:50 Follow up: Response: No adverse reaction iw 12:10 Drug: HYDROcodone-acetaminophen PO 5 mg-325 mg 1 tabs PO once Route: PO; iw 12:10 Follow up: Response: No adverse reaction; Medication administered at discharge. iw Outcome: 11:46 Discharge ordered by MD. [email or web address] 12:11 Patient left the ED. iw Signatures: Dispatcher [employer] Kat Cid RN RN iw Blanchard, Shelby, RN RN ss Sims, Marcus, DO DO ms3 Mariya Locke ra3
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
[2024-05-04 12:15] VITALS: TEMP 97.7; O2SAT 98
[2024-05-04 12:16] VITALS: BP 134/78
== END 2024-05-04 12:11 | disposition home or self-care (01) ==
LOC: ER 08:24
DX: S92.412A Displaced fracture of proximal phalanx of left great toe, initial encounter for closed fracture (principal); S92.512A Displaced fracture of proximal phalanx of left lesser toe(s), initial encounter for closed fracture; M25.561 Pain in right knee; W06.XXXA Fall from bed, initial encounter
CPT/HCPCS: 99283

== ENCOUNTER 2024-07-03 09:28 | Emergency (ER) | payer OTHER ==
--- NOTE | 2024-07-03 12:03 | RAD REPORT ---
Exam:Knee Right 3 View HISTORY: Right knee pain FINDINGS: No fracture or dislocation seen Osteoporosis. Chondrocalcinosis If the patient continues to have symptoms to suggest an occult fracture, ligamentous or meniscal inju ry then MRI would be recommended
--- NOTE | 2024-07-03 12:04 | RAD REPORT ---
Exam:Foot Right 2 View CLINICAL HISTORY: Right foot pain FINDINGS: Limited two-view series obtained Bones are osteoporotic Lucency involving the lateral aspect of the base of the first proximal phalanx most likely indicates a fracture with avulsion of the fracture fragment. Cortical irregularity involves the proximal aspect of the third proximal phalanx probably minimally d isplaced fracture. No dislocation seen
--- NOTE | 2024-07-03 12:29 | ER ---
Nurse's Notes [facility] Name: Kathleen Wahl Age: 68 yrs Sex: Female : 1955 Arrival Date: 07/03/2024 Time: 09:28 Bed 14 Private MD: Diagnosis: Nondisplaced fracture of distal phalanx of right lesser toe(s) Presentation: 07/03 10:25 Chief complaint: Patient states: fell yesterday , injured right foot and right knee. iw 10:26 Coronavirus screen: At this time, the client does not indicate any symptoms associated iw with coronavirus-19. Ebola Screen: No symptoms or risks identified at this time. Initial Sepsis Screen: Does the patient meet any 2 criteria? No. Patient's initial sepsis screen is negative. Does the patient have a suspected source of infection? No. Patient's initial sepsis screen is negative. Risk Assessment: Do you want to hurt yourself or someone else? Patient reports no desire to harm self or others. 10:26 Method Of Arrival: Wheelchair iw 10:26 Acuity: JANI 4 iw Triage Assessment: 10:27 General: Appears in no apparent distress. Behavior is calm, cooperative. Pain: iw Complains of pain in right foot and right knee. Musculoskeletal: Range of motion: limited in right knee. Injury Description: Bruise sustained to right foot. Historical: - Allergies: 10:27 Pseudoephedrine; iw 10:27 paper tape; iw 10:27 Tramadol HCl; iw - PMHx: 10:27 kidney disease; Chronic obstructive lung disease; Hepatitis; diabetes mellitus; iw Hypertension; High Cholesterol; - PSHx: 10:27 section; hysterectomy; Cholecystectomy; Valve replacement; iw - Immunization history:: Adult Immunizations up to date. - Infectious Disease History:: Denies. - Social history:: Smoking status: Patient reports the use of cigarette tobacco products, denies chronic smoking, but will smoke occasionally. Screenin:[address] [facility] ED Fall Risk Assessment (Adult) History of falling in the last 3 months, kc6 including since admission Yes- fall prone (multiple falls) (3 pts) Confusion or Disorientation No (0 pts) Intoxicated or Sedated No (0 pts) Impaired Gait Yes (1 pt) Mobility Assist Device Used Yes (1 pt) Altered Elimination No (0 pt) Score/Fall Risk Level 3 or more points = High Risk Oriented to surroundings, Maintained a safe environment, Educated pt \T\ family on fall prevention, incl call for assistance when getting out of bed. Abuse screen: Denies threats or abuse. Denies injuries from another. Nutritional screening: No deficits noted. Tuberculosis screening: No symptoms or risk factors identified. Assessment: 11:32 General: Appears in no apparent distress. comfortable, well groomed, well developed, kc6 Behavior is calm, cooperative, appropriate for age. Pain: Complains of pain in right foot and right knee. Neuro: Level of Consciousness is awake, alert, obeys commands, Oriented to person, place, time, situation, Appropriate for age. Cardiovascular: Capillary refill < 3 seconds. Respiratory: Airway is patent Trachea midline Respiratory effort is even, unlabored, Respiratory pattern is regular, symmetrical. GI: No signs and/or symptoms were reported involving the gastrointestinal system. : No signs and/or symptoms were reported regarding the genitourinary system. EENT: No signs and/or symptoms were reported regarding the EENT system. Derm: Skin is intact, is healthy with good turgor, Skin is pink, warm \T\ dry. Bruising that is dark purple, on right foot and right knee. Musculoskeletal: Capillary refill < 3 seconds, Range of motion: limited in right ankle Swelling present in right foot. 12:32 Reassessment: Patient appears in no apparent distress at this time. No changes from kc6 previously documented assessment. Patient and/or family updated on plan of care and expected duration. Pain level reassessed. Patient is alert, oriented x 3, equal unlabored respirations, skin warm/dry/pink. 13:32 Reassessment: Patient appears in no apparent distress at this time. No changes from kc6 previously documented assessment. Patient and/or family updated on plan of care and expected duration. Pain level reassessed. Patient is alert, oriented x 3, equal unlabored respirations, skin warm/dry/pink. Vital Signs: 10:28 BP 112 / 57; Pulse 84; Resp 16; Temp 97.9; Pulse Ox 97% on R/A; Weight 46.27 kg; Height iw 5 ft. 2 in. ; Pain 7/10; 11:32 BP 128 / 51; Pulse 71; Resp 17 S; Pulse Ox 100% on R/A; kc6 10:28 Body Mass Index 18.66 (46.27 kg, 157.48 cm) iw 10:28 Pain Scale: Adult ED Course: 09:32 Patient arrived in ED. cj3 09:40 Castillo Causey MD is Attending Physician. jj9 10:27 Triage completed. iw 10:27 Arm band placed on. iw 10:40 Foot Right 2 View XRAY In Process Unspecified. EDMS 10:41 Knee Right 3 View XRAY In Process Unspecified. EDMS 11:23 Vida Tolbert RN is Primary Nurse. kc6 11:25 Patient has correct armband on for positive identification. Bed in low position. Call kc6 light in reach. Side rails up X 1. Adult w/ patient. Pulse ox on. NIBP on. Door closed. Noise minimized. Lights dimmed. Warm blanket given. Pillow given. Verbal reassurance given. 11:25 Patient maintains SpO2 saturation greater than 95% on room air. kc6 13:30 Crutch training done. Ortho shoe applied to right foot. kc6 13:47 No provider procedures requiring assistance completed. Patient did not have IV access kc6 during this emergency room visit. Administered Medications: No medications were administered Medication: 13:47 VIS not applicable for this client. kc6 Outcome: 12:29 Discharge ordered by . [email or web address] 13:47 Discharged to home via wheelchair, with crutches, with significant other, kc6 13:47 Condition: good 13:47 Discharge instructions given to patient, Instructed on discharge instructions, follow up and referral plans. crutch walking, Demonstrated understanding of instructions, follow-up care, crutch walking, 13:47 Patient left the ED. kc6 Signatures: Dispatcher [employer] EDWV Kat Romero RN RN iw Vida Tolbert RN RN kc6 Mar Zuleta cj3 Castillo Causey MD MD jj9 Corrections: (The following items were deleted from the chart) 11:33 11:[address] [facility] ED Fall Risk Assessment (Adult) History of falling in the last 3 months, kc6 including since admission Yes- single mechanical fall (1 pt) Confusion or Disorientation No (0 pts) Intoxicated or Sedated No (0 pts) Impaired Gait Yes (1 pt) Mobility Assist Device Used Yes (1 pt) Altered Elimination No (0 pt) Score/Fall Risk Level 3 or more points = High Risk Oriented to surroundings, Maintained a safe environment, Educated pt \T\ family on fall prevention, incl call for assistance when getting out of bed, kc6 13:47 13:46 Crutch training done. Ortho shoe applied to right foot. kc6 kc6
--- NOTE | 2024-07-03 12:30 | EDPHYS ---
Physician Documentation [facility] Name: Kathleen Wahl Age: 68 yrs Sex: Female : 1955 Arrival Date: 07/03/2024 Time: 09:28 Bed 14 Private MD: ED Physician Castillo Causey HPI: 07/03 16:44 This 68 yrs old Female presents to ER via Wheelchair with complaints of Foot Injury, jj9 Fall Injury. 09:53 The patient presents with decreased range of motion, an injury, pain, that is acute. jj9 68-year-old female comes emergency department complaining of right foot pain after an accident a day ago. The patient is not quite clear how that happened she thinks she probably just to her foot. She noticed pain and difficulty walking as well as discoloration to the toes and bottom of her feet. She denies any other injuries.. Historical: - Allergies: 10:27 Pseudoephedrine; iw 10:27 paper tape; iw 10:27 Tramadol HCl; iw - PMHx: 10:27 kidney disease; Chronic obstructive lung disease; Hepatitis; diabetes mellitus; iw Hypertension; High Cholesterol; - PSHx: 10:27 section; hysterectomy; Cholecystectomy; Valve replacement; iw - Immunization history:: Adult Immunizations up to date. - Infectious Disease History:: Denies. - Social history:: Smoking status: Patient reports the use of cigarette tobacco products, denies chronic smoking, but will smoke occasionally. ROS: 09:40 Constitutional: Negative for fever, chills, and weight loss, jj9 Exam: 09:54 Constitutional: This is a well developed, well nourished patient who is awake, alert, jj9 and in no acute distress. Head/Face: Normocephalic, atraumatic. Eyes: Pupils equal round and reactive to light, extra-ocular motions intact. Lids and lashes normal. Conjunctiva and sclera are non-icteric and not injected. Cornea within normal limits. Periorbital areas with no swelling, redness, or edema. ENT: Nares patent. No nasal discharge, no septal abnormalities noted. Tympanic membranes are normal and external auditory canals are clear. Oropharynx with no redness, swelling, or masses, exudates, or evidence of obstruction, uvula midline. Mucous membranes moist. Neck: Trachea midline, no thyromegaly or masses palpated, and no cervical lymphadenopathy. Supple, full range of motion without nuchal rigidity, or vertebral point tenderness. No Meningismus. Chest/axilla: Normal chest wall appearance and motion. Nontender with no deformity. No lesions are appreciated. Cardiovascular: Regular rate and rhythm with a normal S1 and S2. No gallops, murmurs, or rubs. Normal PMI, no JVD. No pulse deficits. Respiratory: Lungs have equal breath sounds bilaterally, clear to auscultation and percussion. No rales, rhonchi or wheezes noted. No increased work of breathing, no retractions or nasal flaring. Abdomen/GI: Soft, non-tender, with normal bowel sounds. No distension or tympany. No guarding or rebound. No evidence of tenderness throughout. Back: No spinal tenderness. No costovertebral tenderness. Full range of motion. Female : Normal external genitalia. MS/ Extremity: pain, swelling, and discoloration to right foot Neuro: Awake and alert, GCS 15, oriented to person, place, time, and situation. Cranial nerves II-XII grossly intact. Motor strength 5/5 in all extremities. Sensory grossly intact. Cerebellar exam normal. Normal gait. Vital Signs: 10:28 BP 112 / 57; Pulse 84; Resp 16; Temp 97.9; Pulse Ox 97% on R/A; Weight 46.27 kg; Height iw 5 ft. 2 in. ; Pain 7/10; 11:32 BP 128 / 51; Pulse 71; Resp 17 S; Pulse Ox 100% on R/A; kc6 10:28 Body Mass Index 18.66 (46.27 kg, 157.48 cm) iw 10:28 Pain Scale: Adult iw MDM: 10:23 Medical Screening Exam initiated jj9 12:25 Differential diagnosis: fracture, sprain, arthritis, cellulitis. Data reviewed: vital jj9 signs, nurses notes. ED course: 68-year-old female comes emergency department for evaluation of right foot pain of unclear circumstances patient believes she probably twisted her foot. Knee x-rays negative for acute fracture. X-rays of the right foot show fracture of the first proximal phalanx with avulsion of the fracture fragment, there is a cortical irregularity to the proximal aspect of the third proximal phalanx probably minimally displaced fracture no dislocation is seen. The patient will continue orthopedic boot, advised to follow-up with podiatry, nonweightbearing until seen by podiatry, crutches as needed. Tylenol or Motrin for pain and discomfort. Return to the emergency department worsening of symptoms or any department. The patient understand and agrees with plan.. 07/03 09:56 Order name: Foot Right 2 View XRAY; Complete Time: 12:23 jj9 07/03 10:31 Order name: Knee Right 3 View XRAY; Complete Time: 12:23 iw Administered Medications: No medications were administered Disposition Summary: 07/03/24 12:29 Discharge Ordered Notes: Location: Home jj9 Problem: new jj9 Condition: Stable jj9 Diagnosis - Nondisplaced fracture of distal phalanx of right lesser toe(s) jj9 Followup: jj9 - With: Private Physician - When: - Reason: Re-evaluation by your physician Discharge Instructions: - Discharge Summary Sheet jj9 - Toe Fracture jj9 Forms: - Medication Reconciliation Form jj9 - Antibiotic Education jj9 - Prescription Opioid Use jj9 - Patient Portal Instructions jj9 - Leadership Thank You Letter jj9 Signatures: Dispatcher [employer] Kat Cid, KAITLIN RN Castillo Farooq MD MD jj9
[2024-07-03 16:24] VITALS: TEMP 97.9
[2024-07-03 16:25] VITALS: BP 128/51; O2SAT 100
== END 2024-07-03 13:47 | disposition home or self-care (01) ==
LOC: ER 09:28
DX: S92.534A Nondisplaced fracture of distal phalanx of right lesser toe(s), initial encounter for closed fracture (principal); W18.30XA Fall on same level, unspecified, initial encounter; F17.210 Nicotine dependence, cigarettes, uncomplicated
CPT/HCPCS: 99283

== ENCOUNTER 2024-07-05 21:18 | Inpatient (IN) | payer OTHER ==
[2024-07-05 21:51] LABS: Absolute Eosinophils 0.1 K/uL (0-0.5); Absolute Lymphocytes (CBC) 1.1 K/uL (0.7-4.9); Absolute Monocytes 0.3 K/uL (0.1-1.3); Basophils % 0.7 % (0-1.3); Eosinophils % 2.3 % (0-4.4); Hematocrit 28.5 % (36.0-45.0); Hemoglobin 9.4 g/dL (12.0-15.0); Lymphocytes % 30.9 % (15.3-44.8); MCH 33.1 pg (27.0-35.0); MCHC 32.8 g/dL (32.0-36.0); MCV 100.7 fL (80-100); MPV 8.1 fL (7.6-11.3); Monocytes % 8.2 % (3.3-12.3); Neutrophils % 57.9 % (41.7-73.7); Nucleated Red Blood Cells % 0.1 % (0-0); Platelets 87 thou/uL (152-406); RBC Red Blood Cell Count 2.83 M/uL (3.86-4.86); Red Cell Distribution Width 16.3 % (12.1-15.2)
[2024-07-05 22:01] LABS: PT Prothrombin Time 11.4 SECONDS (10-13.0)
[2024-07-05 22:10] LABS: Albumin 2.3 g/dL (3.4-5.0); Albumin/Globulin Ratio 0.7 (1.1-1.8); Anion Gap 7.8 mEq/L (5.0-15.0); Bilirubin Total 0.2 mg/dL (0.2-1.0); Globulin 3.3 g/dL (2.3-3.5); Potassium 3.8 mEq/L (3.5-5.1); Protein, Total 5.6 g/dL (6.4-8.2); Troponin High Sensitivity 9.4 pg/mL (<58.9)
--- NOTE | 2024-07-05 22:16 | RAD REPORT ---
Procedure: Chest Single View HISTORY: Central venous line placement FINDINGS: A central venous line has been placed with its tip in the SVC No pneumothorax
[2024-07-05] MEDS ORDERED: NA CHLORIDE 0.9% 500 ML ONE (22:18)
[2024-07-05] MEDS ORDERED: NA CHLORIDE 0.9% 1,000 ML ONE (22:19)
[2024-07-05] MEDS ORDERED: NOREPINEPHRINE BITARTRATE/D5W 4 MG/250 ML BAG IV ONE (22:19)
[2024-07-05 22:28] LABS: Blood Morphology Comment NOT SEEN (NOT SEEN); Platelet Estimate DECR; White Blood Cell Scan OK (OK)
[2024-07-05 22:41] LABS: Influenza A Ag Negative; Influenza B Ag Negative; SARS-CoV-2 Antigen Rapid Res Negative (Negative)
[2024-07-06 00:53] LABS: Sqamous Epithelial <5 /HPF (None Seen); Urine Bacteria <20 /HPF (<20); Urine Bilirubin NEGATIVE (Negative); Urine Blood Negative (Negative); Urine Clarity Turbid (Clear); Urine Color Colorless (Yellow); Urine Crystals Unidentified Few /HPF (None Seen); Urine Culture Reflex Order NOT NEEDED; Urine Glucose 3+ (Negative); Urine Ketones NEGATIVE (Negative); Urine Microscopic Reflex YN ORDER UMIC; Urine Mucus Slight /HPF (None Seen); Urine Nitrite NEGATIVE (Negative); Urine Protein NEGATIVE (Negative); Urine RBC <5 /HPF (None Seen); Urine Urobilinogen Normal (Normal); Urine WBC <5 /HPF (<5); Urine pH 5.5 (5.0-7.0)
[2024-07-06 01:14] LABS: Barbiturates NEGATIVE (NEGATIVE); Benzodiazepines POSITIVE (NEGATIVE); Cocaine NEGATIVE (NEGATIVE); METHAMPHETAM NEGATIVE (NEGATIVE); Methadone NEGATIVE (NEGATIVE); Opiates NEGATIVE (NEGATIVE); Phencyclidine NEGATIVE (NEGATIVE); THC Cannibis NEGATIVE (NEGATIVE)
--- NOTE | 2024-07-06 03:03 | EDPHYS ---
Physician Documentation [facility] Name: Kathleen Florez Age: 68 yrs Sex: Female : 1955 Arrival Date: 07/05/2024 Time: 21:18 Bed 3 Private MD: ED Physician Gee Kennedy HPI: 07/05 21:30 This 68 yrs old Female presents to ER via EMS with complaints of Blood Pressure Problem.cp 21:30 68-year-old female presents with acute hypotension syncopal episode at home. History of cp COPD, diabetes, hypertension. Patient's medications include losartan, sertraline, temazepam, Valtrex, cholecalciferol, insulin, allopurinol, amlodipine, Jardiance, insulin glargine, metoprolol, simvastatin, semaglutide, albuterol, aspirin, fluticasone, guaifenesin, pioglitazone, prednisone, Synthroid.. Historical: - Allergies: 21:59 paper tape; ld1 21:59 Pseudoephedrine; ld1 21:59 Tramadol HCl; ld1 - PMHx: 21:59 Chronic obstructive lung disease; diabetes mellitus; Hepatitis; High Cholesterol; ld1 Hypertension; kidney disease; 07/06 02:29 RT FOOT FX; dd2 - PSHx: 07/05 21:59 section; Cholecystectomy; hysterectomy; Valve replacement; ld1 - Immunization history:: Adult Immunizations up to date. - Infectious Disease History:: Denies. - Social history:: Smoking status: Patient reports the use of cigarette tobacco products, smokes one-half pack cigarettes per day. - Family history:: not pertinent. ROS: 21:33 Constitutional: Negative for body aches, chills, fever, cp 21:33 Cardiovascular: Negative for chest pain, edema, 21:33 Eyes: Negative for injury, pain, redness, and discharge, cp 21:33 ENT: Negative for drainage from ear(s), ear pain, sore throat, difficulty swallowing, difficulty handling secretions, 21:33 Respiratory: Negative for cough, shortness of breath, wheezing, 21:33 Abdomen/GI: Negative for abdominal pain, vomiting, diarrhea, constipation, black/tarry stool, rectal bleeding, 21:33 Neuro: Positive for syncope, weakness, Negative for altered mental status, seizure activity, 21:33 All other systems are negative, cp Exam: 21:38 Constitutional: The patient appears in no acute distress, alert, awake, cp non-diaphoretic, non-toxic, well developed, well nourished, frail, 21:38 Head/Face: Normocephalic, atraumatic. cp 21:38 Eyes: Periorbital structures: appear normal, Pupils: constricted, bilaterally, Extraocular movements: intact throughout, Conjunctiva: normal, no exudate, no injection, Sclera: no appreciated abnormality, Lids and lashes: appear normal, bilaterally, 21:38 ENT: External ear(s): are unremarkable, Nose: is normal, Mouth: Lips: dry, Oral mucosa: dry, Posterior pharynx: Airway: no evidence of obstruction, patent, 21:38 Neck: ROM/movement: is normal, is supple, without pain, no range of motions limitations, 21:38 Chest/axilla: Inspection: normal, Palpation: is normal, no crepitus, no tenderness, 21:38 Cardiovascular: Rate: bradycardic, Rhythm: regular, Edema: is not appreciated, JVD: is not appreciated, 21:38 Respiratory: the patient does not display signs of respiratory distress, Respirations: normal, no use of accessory muscles, no retractions, labored breathing, is not present, Breath sounds: are clear throughout, no decreased breath sounds, no stridor, no wheezing, 21:38 Abdomen/GI: Inspection: abdomen appears normal, Palpation: abdomen is soft and non-tender, in all quadrants, 21:38 Neuro: Orientation: to person, place, situation, Mentation: able to follow commands, Motor: moves all fours, no focal deficits, 07/06 03:00 Constitutional: Frail elderly female, pale, hypotensive on arrival, nondiaphoretic. sp4 Positive for generalized weakness. Vital Signs: 07/05 21:27 BP 75 / 46; Pulse 59; Resp 15; Temp 98.1(O); Pulse Ox 92% on R/A; Pain 0/10; dd2 21:29 Weight 48.99 kg; Height 5 ft. 0 in. ; dd2 21:30 BP 65 / 43; Pulse 59; Resp 15 S; Pulse Ox 91% on R/A; dd2 21:36 BP 76 / 47; Pulse 59; Resp 15 S; Pulse Ox 89% on R/A; dd2 22:11 BP 136 / 66; Pulse 55; Resp 15 S; Pulse Ox 100% on R/A; dd2 22:40 BP 103 / 58; Pulse 61; Resp 15 S; Pulse Ox 95% on R/A; dd2 23:50 BP 126 / 62; Pulse 58; Resp 16; Pulse Ox 96% on R/A; jb4 07/06 00:30 BP 125 / 74; Pulse 58; Resp 14; Pulse Ox 93% on R/A; dd2 01:10 BP 124 / 61; Pulse 60; Resp 15; Pulse Ox 100% on 4 lpm NC; dd2 01:44 BP 120 / 64; Pulse 63; Resp 15; Pulse Ox 100% on 4 lpm NC; dd2 02:10 BP 119 / 73; Pulse 62; Resp 15; Pulse Ox 100% on 4 lpm NC; dd2 02:40 BP 117 / 85; Pulse 63; Resp 16; Pulse Ox 100% on 4 lpm NC; dd2 03:05 BP 112 / 68; Pulse 63; Resp 15; Pulse Ox 100% on 4 lpm NC; dd2 03:30 BP 116 / 52; Pulse 65; Resp 16; Pulse Ox 100% on 3 lpm NC; dd2 04:02 BP 120 / 83; Pulse 64; Resp 16; Pulse Ox 100% on 3 lpm NC; dd2 04:30 BP 113 / 57; Pulse 65; Resp 15; Pulse Ox 100% on 3 lpm NC; dd2 05:21 BP 129 / 65; Pulse 66; Resp 16; Temp 98.3; Pulse Ox 100% on 3 lpm NC; dd2 07/05 21:29 Body Mass Index 21.09 (48.99 kg, 152.4 cm) dd2 07/05 21:27 Pain Scale: Adult dd2 NIH Stroke Scale Scores: 03:00 NIHSS Score: 0 sp4 Coats Coma Score: 07/05 21:43 Eye Response: to voice(3). Motor Response: obeys commands(6). Verbal Response: dd2 confused(4). Total: 13. 07/06 03:00 Eye Response: spontaneous(4). Motor Response: obeys commands(6). Verbal Response: sp4 oriented(5). Total: 15. Procedures: 02:58 Central Line: the site was prepped with Betadine, in sterile fashion, a triple lumen sp4 catheter was inserted, in the right internal jugular vein, in 1 attempts. placement was verified, by CXR, by blood return, Ultrasound-guided central line, the site was dressed with 4X4s, Tegaderm, using sterile technique, the patient tolerated the procedure, well, Ultrasound-guided central line placed for acute hypotension and shock. MDM: 07/05 21:25 Medical Screening Exam initiated cp 22:00 Differential diagnosis: bronchitis, pneumonia UTI, sepsis, anemia, GI bleed. cp 07/06 02:54 ED course: EXAM: CT Head Without Intravenous Contrast CLINICAL HISTORY: The patient is sp4 68 years old and is Female; WEAKNESS TECHNIQUE: Axial computed tomography images of the head/brain without intravenous contrast. Sagittal and coronal reformatted images were created and reviewed. This CT exam was performed using one or more of the following dose reduction techniques: automated exposure control, adjustment of the mA and/or kV according to patient size, and/or use of iterative reconstruction technique. COMPARISON: CT of the head June 10, 2021 FINDINGS: BRAIN: There is diffuse cerebral atrophy present, consistent with this patient's age. There is patchy hypoattenuation of the deep white matter which is non-specific, but most likely owing to chronic small vessel ischemic change in a patient of this age group. No intracranial hemorrhage, mass effect, midline shift is seen. There are no extra-axial fluid collections. VENTRICLES: Unremarkable. No ventriculomegaly. BONES/JOINTS: No acute fracture. SOFT TISSUES: Unremarkable. SINUSES: Unremarkable as visualized. No acute sinusitis. MASTOID AIR CELLS: Fluid is present within the right mastoid air cells. ORBITS: Unremarkable as visualized. IMPRESSION: No acute intracranial findings.. 02:55 ED course: [address] [facility]OLOG[facility] REPORT Name: KATHLEEN FLOREZ Acct Number: [id number] :1955 Age:68 Sex:F Ord Phys: Todd Mcfarland PAC Unit Number: [id number] [place] [facility] Dr: Catrachito Yip MD Status: REG ER ER Exam Date: 07/05/24 Procedure: Chest Single View HISTORY: Central venous line placement FINDINGS: A central venous line has been placed with its tip in the SVC No pneumothorax . 02:59 Differential Diagnosis altered mental status, sepsis, flu. Data reviewed: vital signs, sp4 nurses notes, EMS record, old medical records, lab test result(s), EKG, radiologic studies, CT scan, plain films. Consideration of Admission/Observation Patient was admitted/placed on observation. Escalation of care including admission/observation considered. Management of patient was discussed with the following: Hospitalist: Ru CALDERON. 07/05 21:26 Order name: Blood Culture Adult (2) cp 07/05 21:26 Order name: CBC with Diff; Complete Time: 22:49 cp 07/05 22:17 Interpretation: Normal except: WBC 3.50; RBC 2.83; HGB 9.4; HCT 28.5; MCV 100.7; PLT cp 87; RDW 16.3. 07/05 21:26 Order name: CMP; Complete Time: 22:17 cp 07/05 22:17 Interpretation: Normal except: CL 112; GLUC 199; BUN 46; CRE 1.74; GFR 31; AST 58; ALK cp 125; CA 8.0; TP 5.6; ALB 2.3; A/G 0.7. 07/05 21:26 Order name: Lactate w/ 2H reflex if indic.; Complete Time: 22:17 cp 07/05 21:26 Order name: Protime (+inr); Complete Time: 22:17 cp 07/05 21:26 Order name: Ptt, Activated; Complete Time: 22:17 cp 07/05 21:26 Order name: Urinalysis w/ reflexes; Complete Time: 01:06 cp 07/06 01:06 Interpretation: Normal except: UCLA Turbid; UGLUC 3+; UESTR 25. cp 07/05 21:26 Order name: Troponin High Sensitivity; Complete Time: 22:17 cp 07/05 21:26 Order name: COVID-19 Ag + Flu A+B Ag; Complete Time: 22:49 cp 07/05 22:24 Order name: Glucose, Ancillary Testing; Complete Time: 22:49 EDMS 07/05 22:28 Order name: CBC Smear Scan; Complete Time: 22:49 EDMS 07/05 22:48 Order name: Urine Drug Screen; Complete Time: 01:21 ld1 07/06 01:21 Interpretation: Normal except: BZO POSITIVE. cp 07/06 02:02 Order name: D-Dimer cp 07/06 04:57 Order name: Lactate w/ 2H reflex if indic. EDMS 07/06 04:57 Order name: Thyroid Stimulating Hormone EDMS 07/06 04:57 Order name: Urinalysis w/ reflexes EDMS 07/06 04:57 Order name: CBC with Automated Diff EDMS 07/06 04:57 Order name: CBC with Automated Diff EDMS 07/06 04:57 Order name: Comprehensive Metabolic Panel EDMS 07/06 04:57 Order name: Comprehensive Metabolic Panel EDMS 07/06 04:57 Order name: Troponin High Sensitivity EDMS 07/06 04:57 Order name: Troponin High Sensitivity EDMS 07/06 04:57 Order name: Troponin High Sensitivity EDMS 07/06 04:57 Order name: Troponin High Sensitivity EDMS 07/06 05:05 Order name: Vancomycin Level Trough EDMS 07/05 22:05 Order name: CXR XRAY; Complete Time: 22:17 ld1 07/05 22:49 Interpretation: Report review. cp 07/05 23:22 Order name: CT Head Brain wo Cont cp 07/06 04:58 Order name: Chest Abdomen Pelvis W Cont EDMS 07/06 04:59 Order name: Echo with Doppler EDMS 07/05 21:26 Order name: EKG; Complete Time: 21:26 cp 07/05 21:26 Order name: Accucheck; Complete Time: 22:27 cp 07/05 21:26 Order name: Cardiac monitoring; Complete Time: 22:08 cp 07/05 21:26 Order name: EKG - Nurse/Tech; Complete Time: 22:08 cp 07/05 21:26 Order name: IV Saline Lock - Large Bore; Complete Time: 22:08 cp 07/05 21:26 Order name: Labs collected and sent; Complete Time: 22:08 cp 07/05 21:26 Order name: O2 Per Protocol; Complete Time: 22:08 cp 07/05 21:26 Order name: O2 Sat Monitoring; Complete Time: 22:08 cp 07/05 21:26 Order name: Vital Signs; Complete Time: 22:08 cp EC/20 21:35 Rate is 60 beats/min. Rhythm is regular. MT interval is normal. QRS interval is normal. cp QT interval is normal. T waves are Inverted in leads aVL, aVR, V2. Interpreted by me. Reviewed by me. Administered Medications: 22:35 Drug: Norepinephrine IV 0.1 mcg/kg/min IV at calculated rate Per protocol; (Standard dd2 concentration 4 mg / 250 mL D5W); Recommended max rate 3 mcg/kg/min; Titrate 0.05 mcg/kg/min as often as every 5 minutes to achieve goal (see titration policy); Goal parameter MAP greater than 65 mmHg. Route: IV; Rate: calculated rate; Site: right jugular; 22:50 Follow up: Response: No adverse reaction dd2 07/06 04:47 Follow up: IV Status: Infusion continued upon admission dd2 07/05 22:36 Drug: NS 0.9% IV (30 ml/kg) 30 ml/kg IV at bolus once; Sepsis Protocol; to be given as ld1 a bolus over 90 minutes Route: IV; Rate: bolus; Site: right jugular; 07/06 00:06 Follow up: IV Status: Completed infusion; IV Intake: 1500ml dd2 Disposition: 02:58 Co-signature as Attending Physician, Gee Kennedy MD I agree with the assessment sp4 and plan of care. I reviewed the patient's care provided by Advanced Practice Provider \T\ agree w/ the diagnosis \T\ care plan. I personally saw the pt \T\ performed a substantive portion of the visit, incldng all aspects of the (History/Exam/Medical Decision Making). Disposition Summary: 07/06/24 03:03 Hospitalization Ordered Notes: Hospitalization Status: Inpatient Admission sp4 Provider: Oliver Vences Location: Intensive Care Unit sp4 Condition: Serious sp4 Problem: new sp4 Symptoms: have improved sp4 Bed/Room Type: Standard sp4 Room Assignment: 7-(07/06/24 04:16) rv1 Diagnosis - Acute cardiogenic shock, moderate dehydration, acute renal failure, pancytopenia, sp4 COPD exacerbation, chronic hepatitis, Forms: - Medication Reconciliation Form sp4 - SBAR form sp4 - Leadership Thank You Letter sp4 Critical care time excluding procedures: 03:02 Critical care time: Bedside Care: 36 minutes, Consultation: 12 minutes, Family sp4 Intervention: 12 minutes. Total time: 60 minutes NIH Stroke Scale - NIH Stroke Score Date: 07/06/2024 Time: 03:00 Total Score = 0 10. Dysarthria (speech clarity - read or repeat words) - 0(Normal) 11. Extinction and Inattention (visual/tactile/auditory/spatial/personal) - 0(No abnormality) 1a. Level of Consciousness (LOC) - 0(Alert) 1b. Level of Consciousness (LOC) (Month \T\ Age) - 0(Both) 1c. LOC Commands (Open \T\ Closes Eyes/Heat Regulator) - 0(Both) 2. Best Gaze (Lateral Gaze Paresis) - 0(Normal) 3. Visual Field Loss - 0(No visual loss) 4. Facial Palsy - 0(Normal) 5a. Left Arm: Motor (10-second hold) - 0(No drift) 5b. Right Arm: Motor (10-second hold) - 0(No drift) 6a. Left Leg: Motor (5-second hold - always test supine) - 0(No drift) 6b. Right Leg: Motor (5-second hold - always test supine) - 0(No drift) 7. Limb Ataxia (finger/nose \T\ heel/hendrickson - test with eyes open) - 0(Absent) 8. Sensory Loss (pinprick arms/legs/face) - 0(Normal) 9. Best Language: Aphasia (description/naming/reading) - 0(No aphasia) Initials: sp4 Signatures: Dispatcher [employer] EDMS Da Mcfarland PA PA cp Sims, Lauren, RN RN ld1 Josselyn Bush rv1 Gee Kennedy MD MD sp4 MATEUS BOLANOS RN RN dd2 Corrections: (The following items were deleted from the chart) 07/05 21:26 21:26 BLOOD CULTURE*+BA.LAB.BRZ ordered. EDMS EDMS 21: 21:26 CBC+H.LAB.BRZ ordered. EDMS EDMS 21:26 21:26 COMPREHENSIVE METABOLIC PANEL+C.LAB.BRZ ordered. EDMS EDMS 21:26 21:26 LACTATE+C.LAB.BRZ ordered. EDMS EDMS 21:26 21:26 PROTIME (+INR)+COAG.LAB.BRZ ordered. EDMS EDMS 21:26 21:26 PTT, ACTIVATED+COAG.LAB.BRZ ordered. EDMS EDMS 21:26 Urinalysis+U.LAB.BRZ ordered. EDMS EDMS 21: Troponin High Sensitivity+C.LAB.BRZ ordered. EDMS EDMS 21:26 COVID-19 Ag + Flu A+B Ag+I.LAB.BRZ ordered. EDMS EDMS 22:05 22:05 Chest Single View+RAD.RAD.BRZ ordered. EDMS EDMS 07/06 02:07/05 21:59 Immunization history: Adult Immunizations up to date, ld1 dd2 07/06 02:07/05 21:59 Infectious Disease History: Denies. ld1 dd2 07/06 02:07/05 21:59 Social history: Smoking status: Patient reports the use of dd2 cigarette tobacco products, smokes one pack cigarettes per day. ld1 07/06 04:16 03:03 sp4 rv1 14:16 03:00 5-year-old female presents with acute hypotension syncopal episode at home. History of COPD, diabetes, hypertension. Patient's medications include losartan, sertraline, temazepam, Valtrex, cholecalciferol, insulin, allopurinol, amlodipine, Jardiance, insulin glargine, metoprolol, simvastatin, semaglutide, albuterol, aspirin, fluticasone, guaifenesin, pioglitazone, prednisone, Synthroid.. sp4 07/07 01:42 07/06 03:00 All other systems are negative, sp4
--- NOTE | 2024-07-06 03:03 | ER ---
Nurse's Notes [facility] Name: Kathleen Wahl Age: 68 yrs Sex: Female : 1955 Arrival Date: 07/05/2024 Time: 21:18 Bed 3 Private MD: Diagnosis: Acute cardiogenic shock, moderate dehydration, acute renal failure, pancytopenia, COPD exacerbation, chronic hepatitis, Presentation: 07/05 21:27 Chief complaint: EMS states: TONED OUT FOR SYNCOPAL EPISODE. EMS REPORTS THAT PT dd2 ATTEMPTED TO STAND AND PASSED OUT. BP ON ARRIVAL WAS 58/32, IV INITIATED AND 500 CC NS INFUSED WITH NO BP CHANGE. EPI X1 IVP WITH NO CHANGE. PT STARTED ON NOREPINEPHRINE AT 0.2 MCG/KG/MIN WITH NOTICEABLE CHANGE TO BP 130/80. MEDICINE PAUSED AND BP 90/52. Coronavirus screen: At this time, the client does not indicate any symptoms associated with coronavirus-19. Ebola Screen: No symptoms or risks identified at this time. Initial Sepsis Screen: Does the patient meet any 2 criteria? Systolic BP < 90 mmHg. Mean Arterial Pressure (MAP) < 65. Yes Does the patient have a suspected source of infection? No. Patient's initial sepsis screen is negative. Risk Assessment: Do you want to hurt yourself or someone else? Patient reports no desire to harm self or others. Onset of symptoms is unknown. Care prior to arrival: Medication(s) given: Normal saline infusion, 800 CC EPI IVP , NOREPINEPHRINE 0.2 MCG/KG/MIN IV initiated. 18 GA, 20 GA, in the left in the right forearm, Glucose check: 234. 21:27 Method Of Arrival: EMS: [facility] dd2 21:27 Acuity: JANI 2 dd2 Historical: - Allergies: 21:59 paper tape; ld1 21:59 Pseudoephedrine; ld1 21:59 Tramadol HCl; ld1 - PMHx: 21:59 Chronic obstructive lung disease; diabetes mellitus; Hepatitis; High Cholesterol; ld1 Hypertension; kidney disease; 07/06 02:29 RT FOOT FX; dd2 - PSHx: 07/05 21:59 section; Cholecystectomy; hysterectomy; Valve replacement; ld1 - Immunization history:: Adult Immunizations up to date. - Infectious Disease History:: Denies. - Social history:: Smoking status: Patient reports the use of cigarette tobacco products, smokes one-half pack cigarettes per day. - Family history:: not pertinent. Screenin:43 [facility] ED Fall Risk Assessment (Adult) History of falling in the last 3 months, dd2 including since admission Yes- fall prone (multiple falls) (3 pts) Confusion or Disorientation Yes (5 pts) Intoxicated or Sedated No (0 pts) Impaired Gait Mobility Assist Device Used Altered Elimination No (0 pt) Score/Fall Risk Level 3 or more points = High Risk Oriented to surroundings, Maintained a safe environment, Educated pt \T\ family on fall prevention, incl call for assistance when getting out of bed, Assessed \T\ reinforced patient's understanding of fall precautions, Hourly rounding (assess needs \T\ fall precautionary measures) done, Used ambulatory aids as needed (educated on \T\ assisted with). Abuse screen: Denies threats or abuse. Denies injuries from another. Nutritional screening: No deficits noted. Tuberculosis screening: No symptoms or risk factors identified. Assessment: 21:39 Reassessment: MD NOTIFIED OF BP 65/43. VERBAL CONSENT OBTAINED FROM SPOUSE AND PT FOR dd2 CENTRAL LINE PLACEMENT. SUPPLIES AT BEDSIDE. 21:43 General: Appears ill, Behavior is calm, cooperative, appropriate for age. Pain: Denies dd2 pain. Neuro: Berrios Agitation-Sedation Scale (RASS): -1 Drowsy Level of Consciousness is obeys commands, lethargic, Oriented to person, place. Cardiovascular: Capillary refill < 3 seconds JVD is absent Patient's skin is warm and dry. Rhythm is sinus rhythm Parent/caregiver reports patient has had syncope, low blood pressure. Respiratory: Airway is patent Respiratory effort is even, shallow, Respiratory pattern is regular, symmetrical, Breath sounds are clear bilaterally. GI: No deficits noted. No signs and/or symptoms were reported involving the gastrointestinal system. Abdomen is flat, Bowel sounds present X 4 quads. Abd is soft and non tender. : No deficits noted. EENT: No deficits noted. No signs and/or symptoms were reported regarding the EENT system. Derm: No deficits noted. No signs and/or symptoms reported regarding the dermatologic system. Musculoskeletal: Circulation, motion, and sensation intact. Range of motion: limited in rt foot Reports broken rt foot. 23:57 Reassessment: Pt is resting in bed talking to family member at the bedside. jb4 Respirations are even and unlabored. Remains on Levophed. No s/s of pain or distress noted. 07/06 01:38 Reassessment: Patient is alert, oriented x 3, equal unlabored respirations, skin dd2 warm/dry/pink. Pt remains on Norepinephrine at this time. BP stable. Patient denies pain at this time. Patient states symptoms have improved. 05:14 Reassessment: REPORT CALLED TO [facility] ICU. dd2 Vital Signs: 07/05 21:27 BP 75 / 46; Pulse 59; Resp 15; Temp 98.1(O); Pulse Ox 92% on R/A; Pain 0/10; dd2 21:29 Weight 48.99 kg; Height 5 ft. 0 in. ; dd2 21:30 BP 65 / 43; Pulse 59; Resp 15 S; Pulse Ox 91% on R/A; dd2 21:36 BP 76 / 47; Pulse 59; Resp 15 S; Pulse Ox 89% on R/A; dd2 22:11 BP 136 / 66; Pulse 55; Resp 15 S; Pulse Ox 100% on R/A; dd2 22:40 BP 103 / 58; Pulse 61; Resp 15 S; Pulse Ox 95% on R/A; dd2 23:50 BP 126 / 62; Pulse 58; Resp 16; Pulse Ox 96% on R/A; jb4 07/06 00:30 BP 125 / 74; Pulse 58; Resp 14; Pulse Ox 93% on R/A; dd2 01:10 BP 124 / 61; Pulse 60; Resp 15; Pulse Ox 100% on 4 lpm NC; dd2 01:44 BP 120 / 64; Pulse 63; Resp 15; Pulse Ox 100% on 4 lpm NC; dd2 02:10 BP 119 / 73; Pulse 62; Resp 15; Pulse Ox 100% on 4 lpm NC; dd2 02:40 BP 117 / 85; Pulse 63; Resp 16; Pulse Ox 100% on 4 lpm NC; dd2 03:05 BP 112 / 68; Pulse 63; Resp 15; Pulse Ox 100% on 4 lpm NC; dd2 03:30 BP 116 / 52; Pulse 65; Resp 16; Pulse Ox 100% on 3 lpm NC; dd2 04:02 BP 120 / 83; Pulse 64; Resp 16; Pulse Ox 100% on 3 lpm NC; dd2 04:30 BP 113 / 57; Pulse 65; Resp 15; Pulse Ox 100% on 3 lpm NC; dd2 05:21 BP 129 / 65; Pulse 66; Resp 16; Temp 98.3; Pulse Ox 100% on 3 lpm NC; dd2 07/05 21:29 Body Mass Index 21.09 (48.99 kg, 152.4 cm) dd2 07/05 21:27 Pain Scale: Adult dd2 Choco Coma Score: 07/05 21:43 Eye Response: to voice(3). Motor Response: obeys commands(6). Verbal Response: dd2 confused(4). Total: 13. 07/06 03:00 Eye Response: spontaneous(4). Motor Response: obeys commands(6). Verbal Response: sp4 oriented(5). Total: 15. NIH Stroke Scale Scores: 03:00 NIHSS Score: 0 sp4 ED Course: 07/05 21:21 Patient arrived in ED. rv1 21:24 Da Mcfarland PA is PHCP. cp 21:24 Gee Kennedy MD is Attending Physician. cp 21:39 Surgical consent explained by staff, explained by physician, verbal consent by pt. dd2 21:39 Provided Education on: Provided Education on: Procedure Consent, medication. dd2 21:43 Patient has correct armband on for positive identification. Placed in gown. Bed in low dd2 position. Call light in reach. Side rails up X2. Client placed on continuous cardiac and pulse oximetry monitoring. NIBP monitoring applied. case monitor on. Door closed. Noise minimized. Warm blanket given. Pillow given. Verbal reassurance given. 21:58 Triage completed. dd2 21:59 Arm band placed on right wrist. Patient placed in an exam room, on a stretcher, on ld1 oxygen, on cardiac nurse specialist, on pulse oximetry. 22:02 Oxygen administration via nasal cannula \T\ 3L/min Response to oxygen therapy: symptoms dd2 improved. 22:02 Assisted provider with central line placement. Set up central line tray. Triple lumen dd2 line placed in right internal jugular. Line placed by Gee Kennedy MD Placement verified by blood return, Dressed with Tegaderm, Blood was collected. Patient tolerated well. Before procedure, did Practitioner(s) obtain informed consent? Yes. Patient \T\ family education about procedure, CLABSI prevention and S/S of infection? Yes. Time-out/Briefing performed prior to start of procedure? Yes. Was handwashing/sanitizing done immediately prior to procedure? Yes. Was patient positioned to in a way to prevent air embolism? Yes. Was procedure site sterilized? Yes, with chlorhexidine. Was the site allowed to dry? Yes. Was local anesthetic and/or sedation utilized? No. During the procedure, did the Practitioner(s) maintain a sterile field? Yes. Were unused ports clamped during insertion? Yes. Was a 2nd qualified MD obtained after 3 unsuccessful insertion attempts? No. Was blood aspirated from each lumen? Yes. After the procedure, did the Practitioner(s) clean the site and apply a sterile dressing? Yes. 22:02 Initial lab(s) drawn, by me, sent to lab. First set of blood cultures drawn by ED dd2 staff, EKG done, by ED staff, reviewed by Da PETERSON COVID swab sent to lab. Flu and/or RSV swab sent to lab. 22:09 Second set of blood cultures drawn by me. oe 22:12 CXR XRAY In Process Unspecified. EDMS 22:27 COVID-19 Ag + Flu A+B Ag Sent. oe 22:27 Blood Culture Adult (2) Sent. oe 07/06 00:13 CT Head Brain wo Cont In Process Unspecified. EDMS 03:02 Oliver Vences MD is Hospitalizing Provider. sp4 03:57 MATEUS BOLANOS, RN is Primary Nurse. dd2 05:11 Patient admitted, IV remains in place. dd2 Administered Medications: 07/05 22:35 Drug: Norepinephrine IV 0.1 mcg/kg/min IV at calculated rate Per protocol; (Standard dd2 concentration 4 mg / 250 mL D5W); Recommended max rate 3 mcg/kg/min; Titrate 0.05 mcg/kg/min as often as every 5 minutes to achieve goal (see titration policy); Goal parameter MAP greater than 65 mmHg. Route: IV; Rate: calculated rate; Site: right jugular; 22:50 Follow up: Response: No adverse reaction dd2 07/06 04:47 Follow up: IV Status: Infusion continued upon admission dd2 07/05 22:36 Drug: NS 0.9% IV (30 ml/kg) 30 ml/kg IV at bolus once; Sepsis Protocol; to be given as ld1 a bolus over 90 minutes Route: IV; Rate: bolus; Site: right jugular; 07/06 00:06 Follow up: IV Status: Completed infusion; IV Intake: 1500ml dd2 Medication: 07/05 21:43 VIS not applicable for this client. dd2 Intake: 07/06 00:06 IV: 1500ml; Total: 1500ml. dd2 Outcome: 03:03 Decision to Hospitalize by Provider. sp4 05:11 Admitted to ER Hold. Please see [facility] for further documentation. dd2 05:11 Condition: stable 05:11 Instructed on the need for admit, Demonstrated understanding of instructions, 06:09 Patient left the ED. dd2 NIH Stroke Scale - NIH Stroke Score Date: 07/06/2024 Time: 03:00 Total Score = 0 10. Dysarthria (speech clarity - read or repeat words) - 0(Normal) 11. Extinction and Inattention (visual/tactile/auditory/spatial/personal) - 0(No abnormality) 1a. Level of Consciousness (LOC) - 0(Alert) 1b. Level of Consciousness (LOC) (Month \T\ Age) - 0(Both) 1c. LOC Commands (Open \T\ Closes Eyes/Cigar Roller) - 0(Both) 2. Best Gaze (Lateral Gaze Paresis) - 0(Normal) 3. Visual Field Loss - 0(No visual loss) 4. Facial Palsy - 0(Normal) 5a. Left Arm: Motor (10-second hold) - 0(No drift) 5b. Right Arm: Motor (10-second hold) - 0(No drift) 6a. Left Leg: Motor (5-second hold - always test supine) - 0(No drift) 6b. Right Leg: Motor (5-second hold - always test supine) - 0(No drift) 7. Limb Ataxia (finger/nose \T\ heel/hendrickson - test with eyes open) - 0(Absent) 8. Sensory Loss (pinprick arms/legs/face) - 0(Normal) 9. Best Language: Aphasia (description/naming/reading) - 0(No aphasia) Initials: sp4 Signatures: Dispatcher [employer] EDMS Da Mcfarland PA PA cp Bryson, James, RN RN jb4 Jose Johnson Lauren, RN RN ld1 Josselyn Bush rv1 Gee Kennedy MD MD sp4 MATEUS BOLANOS RN RN dd2 Corrections: (The following items were deleted from the chart) :07/05 21:27 Chief complaint: EMS states: TONED OUT FOR SYNCOPAL EPISODE. EMS ld1 REPORTS THAT PT ATTEMPTED TO STAND AND PASSED OUT. BP ON ARRIVAL WAS 58/32, IV INITIATED AND 500 CC NS INFUSED WITH NO BP CHANGE. EPI X1 IVP WITH NO CHANGE. PT STARTED ON NOREPINEPHRINE AT 0.2MCG/KG/MIN WITH NOTICEABLE CHANGE TO BP 130/80. MEDICINE PAUSED AND BP 90/52. ld1 07/06 02:07/05 21:27 Method Of Arrival: EMS: [facility] ld1 dd2 07/06 02:07/05 21:27 BP 75 / 46; Pulse 59bpm; Resp 15bpm; Pulse Ox 92% RA; Temp 98.1F dd2 Oral; Pain 0/10, Adult; ld1 07/06 02:07/05 21:39 Reassessment: MD NOTIFIED OF BP 65/43. VERBAL CONSENT OBTAINED FROM dd2 SPOUSE AND PT FOR CENTRAL LINE PLACEMENT. ld1 07/06 02:07/05 21:27 Chief complaint: EMS states: TONED OUT FOR SYNCOPAL EPISODE. EMS dd2 REPORTS THAT PT ATTEMPTED TO STAND AND PASSED OUT. BP ON ARRIVAL WAS 58/32, IV INITIATED AND 500 CC NS INFUSED WITH NO BP CHANGE. EPI X1 IVP WITH NO CHANGE. PT STARTED ON NOREPINEPHRINE AT 0.2MCG/KG/MIN WITH NOTICEABLE CHANGE TO BP 130/80. MEDICINE PAUSED AND BP 90/52. ld1 07/06 02:07/05 21:27 Chief complaint: EMS states: TONED OUT FOR SYNCOPAL EPISODE. EMS dd2 REPORTS THAT PT ATTEMPTED TO STAND AND PASSED OUT. BP ON ARRIVAL WAS 58/32, IV INITIATED AND 500 CC NS INFUSED WITH NO BP CHANGE. EPI X1 IVP WITH NO CHANGE. PT STARTED ON NOREPINEPHRINE AT 0.2MCG/KG/MIN WITH NOTICEABLE CHANGE TO BP 130/80. MEDICINE PAUSED AND BP 90/52. dd2 07/06 02:07/05 21:27 Acuity: JANI 2 ld1 dd2 07/06 21:27 Chief complaint: EMS states: TONED OUT FOR SYNCOPAL EPISODE. EMS dd2 REPORTS THAT PT ATTEMPTED TO STAND AND PASSED OUT. BP ON ARRIVAL WAS 58/32, IV INITIATED AND 500 CC NS INFUSED WITH NO BP CHANGE. EPI X1 IVP WITH NO CHANGE. PT STARTED ON NOREPINEPHRINE AT 0.2MCG/KG/MIN WITH NOTICEABLE CHANGE TO BP 130/80. MEDICINE PAUSED AND BP 90/52. dd2 07/06 01:07/05 21:27 Coronavirus screen: At this time, the client does not indicate any dd2 symptoms associated with coronavirus-19. ld1 07/06 01:07/05 21:27 Ebola Screen: No symptoms or risks identified at this time. ld1 dd2 07/06 21:27 Initial Sepsis Screen: Does the patient meet any 2 criteria? dd2 Systolic BP < 90 mmHg. Mean Arterial Pressure (MAP) < 65. Yes Does the patient have a suspected source of infection? No. Patient's initial sepsis screen is negative. ld1 07/06 21:27 Risk Assessment: Do you want to hurt yourself or someone else? dd2 Patient reports no desire to harm self or others. ld1 07/06 21:27 Onset of symptoms is unknown. ld1 dd07/06 21:27 Care prior to arrival: Medication(s) given: Normal saline infusion, dd2 500 mL, EPI IVP, NOREPINEPHRINE 0.2MCG/KG/MIN IV initiated. 18 GA, 20 GA, in the left in the right forearm, Glucose check: 234 ld1 07/06 21:27 Chief complaint: EMS states: TONED OUT FOR SYNCOPAL EPISODE. EMS dd2 REPORTS THAT PT ATTEMPTED TO STAND AND PASSED OUT. BP ON ARRIVAL WAS 58/32, IV INITIATED AND 500 CC NS INFUSED WITH NO BP CHANGE. EPI X1 IVP WITH NO CHANGE. PT STARTED ON NOREPINEPHRINE AT 0.2 MCG/KG/MIN WITH NOTICEABLE CHANGE TO BP 130/80. MEDICINE PAUSED AND BP 90/52. dd2 07/06 01:07/05 21:59 Immunization history: Adult Immunizations up to date, ld1 dd2 07/06 01:07/05 21:59 Infectious Disease History: Denies. 1 2 07/06 02:29 07/05 21:59 Social history: Smoking status: Patient reports the use of dd2 cigarette tobacco products, smokes one pack cigarettes per day. ld07/06 02:31 07/05 21:29 48.99 kg; 1 dd2 07/06 02:31 07/05 21:30 BP 65 / 43; Pulse 59bpm; Resp 15bpm; Pulse Ox 91% RA; [facility] dd07/06 02:31 07/05 21:36 BP 76 / 47; Pulse 59bpm; Resp 15bpm; Pulse Ox 89% RA; [facility] 07/06 02:32 07/05 22:40 BP 103 / 58; Pulse 61bpm; Resp 15bpm; Pulse Ox 95% RA; [facility] 07/06 02:32 07/05 22:11 BP 136 / 66; Pulse 55bpm; Resp 15bpm; Pulse Ox 100% RA; [facility] 07/06 02:33 07/05 22:35 Norepinephrine IV 4.899 mcg/min IV at calculated rate in right dd2 jugular 07/06 02:33 07/05 22:50 Response: No adverse reaction 2 07/06 02:34 07/05 22:02 Oxygen administration via nasal cannula \T\ 3L/min 1 07/06 02:35 07/05 22:02 Assisted provider with central line placement. Set up central line dd2 tray. Triple lumen line placed in right internal jugular. Line placed by Gee Kennedy MD Placement verified by blood return, Dressed with Tegaderm, Blood was collected. Patient tolerated well. Before procedure, did Practitioner(s) obtain informed consent? Yes. Patient \T\ family education about procedure, CLABSI prevention and S/S of infection? Yes. Time-out/Briefing performed prior to start of procedure? Yes. Was handwashing/sanitizing done immediately prior to procedure? Yes. Was patient positioned to in a way to prevent air embolism? Yes. Was procedure site sterilized? Yes, with chlorhexidine. Was the site allowed to dry? Yes. Was local anesthetic and/or sedation utilized? Yes. During the procedure, did the Practitioner(s) maintain a sterile field? Yes. Were unused ports clamped during insertion? Yes. Was a 2nd qualified MD obtained after 3 unsuccessful insertion attempts? No. Was blood aspirated from each lumen? Yes. After the procedure, did the Practitioner(s) clean the site and apply a sterile dressing? Yes. ld1 07/06 02:35 07/05 22:02 Initial lab(s) drawn, by me, sent to lab. First set of blood dd2 cultures drawn by ED staff, EKG done, by ED staff, reviewed by Da PETERSON COVID swab sent to lab. Flu and/or RSV swab sent to lab. ld1 07/06 02:36 07/05 21:29 Shyanne Sutton, KAITLIN is Primary Nurse. 1 dd2 07/06 02:36 07/05 21:59 Triage completed. ld1 dd2 07/06 05:14 05:12 Provided Education on: dd2 dd2
--- NOTE | 2024-07-06 03:06 | RAD REPORT ---
EXAM: CT Head Without Intravenous Contrast CLINICAL HISTORY: The patient is 68 years old and is Female; WEAKNESS TECHNIQUE: Axial computed tomography images of the head/brain without intravenous contrast. Sagittal and cor onal reformatted images were created and reviewed. This CT exam was performed using one or more of the following dose reduction techniques: automated exposure control, adjustment of the mA and/or kV according to patient size, and/or use of iterative reconstruction technique. COMPARISON: CT of the head June 10, 2021 FINDINGS: BRAIN: There is diffuse cerebral atrophy present, consistent with this patient's age. There is patchy hypoattenuation of the deep white matter which is non-specific, but most likely owing to chronic small vessel ischemic change in a patient of this age group. No intracranial hemorrhage, ma ss effect, midline shift is seen. There are no extra-axial fluid collections. VENTRICLES: Unremarkable. No ventriculomegaly. BONES/JOINTS: No acute fracture. SOFT TISSUES: Unremarkable. SINUSES: Unremarkable as visualized. No acute sinusitis. MASTOID AIR CELLS: Fluid is present within the right mastoid air cells. ORBITS: Unremarkable as visualized. IMPRESSION: No acute intracranial findings. Electronically signed by: Jessica Salcedo MD 07/06/2024 02:09 AM CDT Due to temporary technical issues with the [employer] reporting system, reports are being teodora d by the in-house radiologist without review as a courtesy to ensure prompt reporting the interpreting radiologist is fully responsible for the content of the report. Transcribed Date/Time: 07/06/2024 3:06 AM
--- NOTE | 2024-07-06 04:41 | P.HP ---
Certification for Inpatient Patient admitted to: Inpatient With expected LOS: >2 Midnights Practitioner: I am a practitioner with admitting privileges, knowledge of patient current condition, hospital course, and medical plan of care. Services: Services provided to patient in accordance with Admission requirements found in Title 42 Section 412.3 of the Code of Federal Regulations Patient History Date of Service: 07/06/24 Reason for admission: Syncope / Hypotension History of Present Illness: 68-year-old female with past medical history of HTN/DM/hepatitis/COPD /hypothyroidism / CKD stage 3 came in with hypotension and presyncopal episodes at home. Denies any chest pain. No fever or chills. No nausea vomiting or diarrhea. Presents with generalized weakness and hypotension. Denies any palpitation. No sick contacts. Denies any shortness of breath. Patient has been on Ozempic previously and stopped because of the weight loss. Patient could not offer any history hence most of the history is obtained from the chart review and also talking to the ER physician. Patient apparently has fallen and has pain in the right leg Patient was found to be in hypotension and was assessed in the ER and was started on IV hydration and Levophed and is being admitted to the ICU. Allergies pseudoephedrine Allergy (Verified 01/03/23 13:47) seizures tramadol Adverse Reaction (Verified 01/03/23 13:47) confusion PAPER TAPE Allergy (Uncoded 01/03/23 13:47) Unknown Home medications list reviewed: Yes Home Medications: Losartan Potassium 25 mg PO DAILY 06/11/21 Sertraline HCl 200 mg PO DAILY 06/11/21 Temazepam [Restoril*] 15 mg PO BEDTIME 06/11/21 Valacyclovir HCl [Valacyclovir] 500 mg PO DAILY 06/11/21 Cholecalciferol (Vitamin D3) [Vitamin D 5,000 IU Cap*] 5,000 unit PO DAILY #30 cap 06/12/21 Insulin Glargine,Hum.rec.anlog [Lantus] 15 units SQ BEDTIME #1 vial 06/12/21 Allopurinol 300 mg PO DAILY 06/15/21 Amlodipine [Norvasc*] 5 mg PO DAILY 06/15/21 Empagliflozin [Jardiance] 25 mg PO DAILY 06/15/21 Insulin Glargine,Hum.rec.anlog [Lantus] 30 unit IN DAILY 06/15/21 Metoprolol Succinate 1 tab PO DAILY 06/15/21 Simvastatin 20 mg PO BEDTIME 06/15/21 Semaglutide [Ozempic] 0.25 mg SQ UD 01/03/23 Albuterol Inhaler [Ventolin Inhaler*] 2 puff IH Q6H PRN 07/27/23 Albuterol Neb [Proventil 0.083% Neb Soln] 2.5 mg IH Q6HP PRN 07/27/23 Aspirin Chewable [Aspirin Chewable*] 81 mg PO DAILY 07/27/23 Fluticasone [Flonase 50MCG Nasal [place]*] 2 sprays NS DAILY 07/27/23 Guaifenesin [Mucinex] 600 mg PO BIDP PRN 07/27/23 Multivit-Min/FA/Lycopen/Lutein [Centrum Silver Tablet] 1 each PO DAILY 07/27/23 Pioglitazone HCl [Actos] 15 mg PO DAILY 07/27/23 predniSONE [Deltasone*] 10 mg PO DAILY 07/27/23 Levothyroxine [Synthroid*] 0.125 mg PO DAILYAC 60 Days #60 tab 07/28/23 - Past Medical/Surgical History Diabetic: Yes Past Medical History: Reviewed- Non-Contributory -: HTN -: CKD -: COPD -: Type 2 diabetes- insulin dependent -: Hepatitis C -: Anxiety/depression Past Surgical History: Reviewed- Non-Contributory -: Cholecystecomy -: Hysterectomy -: C- Section Psychosocial/ Personal History: Patient lives at home with her , daughter, and 3 grandchildren. - Family History Family History: Reviewed- Non-Contributory - Family History Mother -: Cancer Father -: Cancer Brother -: Diabetes - Social History Smoking Status: Former smoker Alcohol use: No CD- Drugs: No Caffeine use: No Review of Systems is unable to be obtained Physical Examination - Vital Signs Temperature: 97.8 F Blood Pressure: 112/60 Pulse: 92 Respirations: 18 Pulse Ox (%): 94 - Physical Exam General: Cachectic, Other (Lethargic) HEENT: Atraumatic, Normocephalic Neck: Supple Respiratory: Clear to auscultation bilaterally, Normal air movement Cardiovascular: Regular rate/rhythm, Normal S1 S2 Capillary refill: <2 Seconds Gastrointestinal: Soft and benign, W/out hepatosplenomegaly Musculoskeletal: No clubbing, No swelling Integumentary: No rashes Neurological: Other (Lethargic ) Lymphatics: No axilla or inguinal lymphadenopathy - Studies Laboratory Data (last 24 hrs) 07/05/24 07/05/24 07/05/24 21:43 21:43 21:43 WBC 3.50 L Hgb 9.4 L Hct 28.5 L Plt Count 87 L PT 11.4 INR 1.00 APTT 31.0 Sodium 140 Potassium 3.8 BUN 46 H Creatinine 1.74 H Glucose 199 H Total Bilirubin 0.2 AST 58 H ALT 30 Alkaline Phosphatase 125 H Assessment and Plan - Plan Shock Hypovolemic versus sepsis Started on IV hydration Monitor closely on telemetry Continue Levophed To titrate to MAP of more than 65 Syncopal episodes Syncopal workup CT head negative for any acute changes Will get an echocardiogram Cardiac enzymes will be trended Pancytopenia Will do a sepsis workup Will get a lactic acid levels History of hypertension Antihypertensives held due to hypotension Hyperlipidemia Continue statin Acute kidney injury on CKD stage II Monitor renal parameters Electrolytes monitor and replace accordingly Diabetes Insulin sliding scale Accu-Chek before every meal and at bedtime Anemia of chronic disease Monitor H&H closely No overt bleeding at this time GI/DVT prophylaxis Advanced directive full code Discharge Plan: Home Plan to discharge in: 48 Hours - Advance Directives Does patient have a Living Will: No Does patient have a Durable POA for Healthcare: No - Code Status/Comfort Care Code Status: Full Code Time Spent Managing Pts Care (In Minutes): 62
[2024-07-06] MEDS ORDERED: IPRATROPIUM BROM 0.5MG/2.5ML NEB PRN (04:52)
[2024-07-06] MEDS ORDERED: ALBUTEROL 2.5 MG/3 ML NEB SOL NEB PRN ×2 (04:52→10:47)
[2024-07-06] MEDS: NA CHLORIDE 0.9% 1,000 ML IV SCH (06:36)
[2024-07-06] MEDS: ACETAMINOPHEN 325 MG TABLET PO PRN (06:36)
[2024-07-06] MEDS: PIPER TAZO 2.25 GM in NA CHLORIDE 0.9% 50 ML IV SCH ×2 (06:37→12:29)
[2024-07-06] MEDS: VANCOMYCIN 1 GM in NA CHLORIDE 0.9% 250 ML IVPB SCH (06:37)
[2024-07-06 06:41] LABS: Absolute Eosinophils 0.2 K/uL (0-0.5); Absolute Lymphocytes (CBC) 1.3 K/uL (0.7-4.9); Absolute Monocytes 0.4 K/uL (0.1-1.3); Absolute Neutrophil 4.1 K/uL (1.8-8.0); Basophils % 0.6 % (0-1.3); Eosinophils % 3.4 % (0-4.4); Hematocrit 34.1 % (36.0-45.0); Hemoglobin 11.3 g/dL (12.0-15.0); Lymphocytes % 21.8 % (15.3-44.8); MCH 33.5 pg (27.0-35.0); MCHC 33.1 g/dL (32.0-36.0); MCV 101.1 fL (80-100); MPV 8.4 fL (7.6-11.3); Monocytes % 6.6 % (3.3-12.3); Neutrophils % 67.6 % (41.7-73.7); Platelets 130 thou/uL (152-406); RBC Red Blood Cell Count 3.37 M/uL (3.86-4.86); Red Cell Distribution Width 16.4 % (12.1-15.2)
[2024-07-06 06:54] LABS: Albumin 2.5 g/dL (3.4-5.0); Albumin/Globulin Ratio 0.7 (1.1-1.8); Anion Gap 7.9 mEq/L (5.0-15.0); Bilirubin Total 0.3 mg/dL (0.2-1.0); Globulin 3.8 g/dL (2.3-3.5); Magnesium 1.9 mg/dL (1.6-2.4); Phosphorus 4.9 mg/dL (2.5-4.9); Potassium 3.9 mEq/L (3.5-5.1); Protein, Total 6.3 g/dL (6.4-8.2)
[2024-07-06 06:56] LABS: Thyroid Stimulating Hormone 6.09 uIU/mL (0.358-3.740)
[2024-07-06] MEDS: NOREPINEPHRINE BITARTRATE/D5W 4 MG/250 ML BAG IV SCH (07:00)
[2024-07-06] MEDS: D50W 25 GM/50 ML SYRINGE IV ONE (07:11)
[2024-07-06 07:31] VITALS: BMI 21.4
[2024-07-06] MEDS: ENOXAPARIN 30 MG/0.3 ML SQ SCH (08:15)
[2024-07-06] MEDS: POTASSIUM CL SA 10 MEQ TAB PO ONE (08:15)
[2024-07-06] MEDS: NA CHLORIDE 0.9% 250 ML IV ONE (10:46)
[2024-07-06] MEDS: ALBUMIN HUMAN 25% 100 ML IV ONE (12:29)
[2024-07-06] MEDS: LEVOTHYROXINE SODIUM 100 MCG VIAL IV ONE (12:29)
--- NOTE | 2024-07-06 14:01 | RAD REPORT ---
EXAM: CT CHEST, ABDOMEN AND PELVIS WITH CONTRAST CLINICAL INDICATION: Shock TECHNIQUE: CT chest, abdomen and pelvis was performed, following the administration of contrast, as p er department protocol. Axial, sagittal and coronal reconstructions were obtained. One or more of the following dose reduction techniques were used: Automated exposure control, adjustment of the mA a nd/or kV according to patient size, and/or iterative reconstruction. Unless otherwise specified, incidental findings do not require dedicated imaging follow-up. COMPARISON: No prior exam. FINDINGS: LUNGS: 6 mm nodule seen left lower lobe, indeterminate. Small linear opacities bilaterally likely ate lectasis. There is no focal pulmonary infiltrate or mass. PLEURA: No pleural effusion. No pneumothorax. MEDIASTINUM AND LYMPH NODES: Aortic valve replacement noted. Small hiatal hernia. No bulky lymphadeno jose seen. OSSEOUS STRUCTURES AND CHEST WALL: Diffuse osteopenia is seen. No acute fracture. LIVER: Normal in size and contour. No focal lesion or biliary dilatation. Nonvisualized gallbladder. PANCREAS: Calcifications are present in the pancreatic head. There is atrophy of the pancreas with ir regular ductal dilatation. SPLEEN: Normal size. No focal lesion. ADRENALS: Normal; no mass. KIDNEYS: Normal size and contour. No hydronephrosis. Multiple bilateral renal cysts. No calculus is s een right kidney. URINARY BLADDER: Normal contour. GASTROINTESTINAL TRACT: No bowel obstruction, free air, significant free fluid or abscess. Moderate stool retained in the colon. APPENDIX: Appendix not visualized, but no inflammatory changes in region of appendix. LYMPH NODES: No lymphadenopathy. MUSCULOSKELETAL: Diffuse osteopenia. Sclerosis of both femoral head superiorly likely AVN. OTHER: Significant atherosclerosis abdominal aorta and branch vessels. IMPRESSION: No acute processes evident. Multiple additional nonacute findings are detailed above.
--- NOTE | 2024-07-06 19:02 | CON ---
Date of Consultation: 07/06/2024 Reason For Consultation: Shock and low blood pressure. History Of Present Illness: A 68-year-old female with history of hypertension, diabetes, COPD, and c hronic kidney disease, presents with low blood pressure. Denies having any chest pain or shortness o f breath. No cardiac complaints. I was consulted for a short condition, rule out cardiac etiology f or that. Saw her by bedside. Blood pressure is good. She has no cardiac complaints. Past Medical History: As outlined above in the HPI. Medications: Refer reconciliation sheet for detailed list. Medications reviewed. Allergies: SUDAFED AND TRAMADOL. Family History: No premature coronary artery disease or cancer. Social History: Does not smoke or drink. Does not use any drugs. Ex-smoker. Review of Systems: All systems reviewed and they are negative except as mentioned in the HPI. Physical Examination: Vital Signs: Reviewed. Head And Neck: Pupils are equal reactive to light. Intact eye movements. No JVD, no cervical lymph adenopathy. Neck is supple. Thyroid is not enlarged. Lungs: Clear to auscultation bilaterally . No rhonchi, wheezing, or crackles. No accessory muscle use. Heart: Regular rate and rhythm. No extra sounds. Abdomen: Soft, nontender. Bowel sounds positive. No organomegaly. No masses or hernia. No rigidi ty or rebound. Extremities: No edema, clubbing, cyanosis. Intact pulses. Skin: No rash. Neurologic: Alert, awake, and oriented x3. No acute focal deficits appreciated. Investigations: BUN is 44, creatinine 1.4. Troponins are negative. Assessment/recommendation: 1. Shock condition that seems to be resolved, but this is not cardiogenic in etiology. Echo showing normal ejection fraction. At this point, there is no cardiac issue. Troponins are negative. 2. Acute renal failure, worsening. Recommend Nephrology evaluation. Cardiology will sign off. SR/MODL Voice ID: [id number] Report ID: [id number]
[2024-07-07] MEDS: MORPHINE 2 MG/ML SYR IV PRN (02:05)
[2024-07-07 05:45] LABS: Absolute Eosinophils 0.1 K/uL (0-0.5); Absolute Lymphocytes (CBC) 0.8 K/uL (0.7-4.9); Absolute Monocytes 0.2 K/uL (0.1-1.3); Basophils % 0.5 % (0-1.3); Eosinophils % 3.5 % (0-4.4); Hematocrit 27.6 % (36.0-45.0); Hemoglobin 9.2 g/dL (12.0-15.0); Lymphocytes % 18.7 % (15.3-44.8); MCH 33.2 pg (27.0-35.0); MCHC 33.3 g/dL (32.0-36.0); MCV 99.9 fL (80-100); MPV 8.8 fL (7.6-11.3); Monocytes % 5.8 % (3.3-12.3); Neutrophils % 71.5 % (41.7-73.7); Nucleated Red Blood Cells % 0.1 % (0-0); Platelets 75 thou/uL (152-406); RBC Red Blood Cell Count 2.76 M/uL (3.86-4.86); Red Cell Distribution Width 16.2 % (12.1-15.2)
[2024-07-07 06:13] LABS: Albumin 2.5 g/dL (3.4-5.0); Albumin/Globulin Ratio 0.8 (1.1-1.8); Anion Gap 8.5 mEq/L (5.0-15.0); Bilirubin Total 0.3 mg/dL (0.2-1.0); Globulin 3.3 g/dL (2.3-3.5); Potassium 3.5 mEq/L (3.5-5.1); Protein, Total 5.8 g/dL (6.4-8.2)
[2024-07-07] MEDS: LEVOTHYROXINE SOD 0.1 MG TAB PO SCH (06:13)
[2024-07-07 06:40] LABS: Magnesium 1.7 mg/dL (1.6-2.4)
[2024-07-07 07:02] LABS: Phosphorus 3.2 mg/dL (2.5-4.9)
[2024-07-07] MEDS: HYDROCODONE/APAP 5/325 MG TAB PO PRN (07:37)
[2024-07-07] MEDS: MAGNESIUM SULFATE 1 gm IVPB 1 GM/100 ML BAG IV ONE (08:55)
[2024-07-07] MEDS: POTASSIUM 25 MEQ EFFERV TAB PO ONE (08:56)
[2024-07-07] MEDS: ONDANSETRON 4 MG/2 ML VIAL IV PRN (17:31)
--- NOTE | 2024-07-07 23:30 | P.PN ---
Subjective Date of Service: 07/07/24 Patient is clinically feeling better. Able to get out of bed and ambulate. Respiratory status has improved. Overall, patient is feeling much better. Arrange for discharge planning at this time. Review of Systems 10-point ROS is otherwise unremarkable Physical Examination - Vital Signs Temperature: 98 F Blood Pressure: 129/77 Pulse: 101 Respirations: 18 Pulse Ox (%): 98 - Physical Exam General: Alert, In no apparent distress, Oriented x3 Respiratory: Clear to auscultation bilaterally, Normal air movement Cardiovascular: Regular rate/rhythm, Normal S1 S2, No murmurs Gastrointestinal: Normal bowel sounds, Soft and benign, Non-distended, No tenderness Musculoskeletal: No clubbing, No swelling, No tenderness Neurological: Sensation intact, Cranial nerves 3-12 intact - Studies Medications List Reviewed: Yes Assessment & Plan - Problems (Diagnosis) (1) Hypotension Current Visit: No Status: Acute Qualifiers: Hypotension type: hypotension due to hypovolemia Qualified Code(s): I95.89 - Other hypotension; E86.1 - Hypovolemia (2) Type 2 diabetes mellitus with hyperglycemia, with long-term current use of insulin Current Visit: No Status: Acute (3) COPD (chronic obstructive pulmonary disease) Current Visit: No Status: Chronic Qualifiers: COPD type: unspecified COPD Qualified Code(s): J44.9 - Chronic obstructive pulmonary disease, unspecified (4) Hepatitis C Current Visit: No Status: Chronic Qualifiers: Viral hepatitis chronicity: unspecified Hepatic coma status: without hepatic coma Qualified Code(s): B19.20 - Unspecified viral hepatitis C without hepatic coma (5) Hypothyroidism Current Visit: No Status: Chronic Qualifiers: Hypothyroidism type: acquired Qualified Code(s): E03.9 - Hypothyroidism, unspecified (6) Chronic kidney disease, stage IV (severe) Current Visit: No Status: Chronic (7) Pancytopenia Current Visit: Yes Status: Acute - Plan Plan: 1. Hypotension; most likely related to hypovolemic shock; continue with hydration and monitor renal function closely. 2. Chronic kidney disease stage 4; acute on chronic kidney disease -continue with IV hydration 3. Hypothyroidism; continue with levothyroxine 80 4. Hyponatremia; continue with sodium 5. COPD; continue with inhaler therapy 6. Type 2 diabetes; strict blood sugar control 7. GI/DVT prophylaxis Discharge Plan: Home Plan to discharge in: Greater than 2 days - Advance Directives Does patient have a Living Will: No Does patient have a Durable POA for Healthcare: No - Code Status/Comfort Care Code Status: Full Code Critical Care: Yes Time Spent Managing PTS Care (In Minutes): 40
[2024-07-08 06:18] LABS: Absolute Eosinophils 0.1 K/uL (0-0.5); Absolute Lymphocytes (CBC) 0.7 K/uL (0.7-4.9); Absolute Monocytes 0.3 K/uL (0.1-1.3); Absolute Neutrophil 3.1 K/uL (1.8-8.0); Basophils % 0.5 % (0-1.3); Eosinophils % 3.2 % (0-4.4); Hematocrit 28.6 % (36.0-45.0); Hemoglobin 9.8 g/dL (12.0-15.0); Lymphocytes % 15.9 % (15.3-44.8); MCH 33.7 pg (27.0-35.0); MCHC 34.1 g/dL (32.0-36.0); MCV 98.7 fL (80-100); Monocytes % 6.9 % (3.3-12.3); Neutrophils % 73.5 % (41.7-73.7); Nucleated Red Blood Cells % 0.1 % (0-0); Platelets 73 thou/uL (152-406); Red Cell Distribution Width 15.8 % (12.1-15.2)
[2024-07-08 06:23] LABS: Anion Gap 9.2 mEq/L (5.0-15.0); Magnesium 1.8 mg/dL (1.6-2.4); Potassium 3.2 mEq/L (3.5-5.1)
[2024-07-08] MEDS: KCL 20 MEQ/100 mL IVPB 20 MEQ/100 ML BAG IV ONE (07:00)
[2024-07-08 08:05] LABS: Basophilic Stippling 1+; Blood Morphology Comment NOTED (NOT SEEN); Platelet Estimate DECR; White Blood Cell Scan OK (OK)
[2024-07-08] MEDS: POTASSIUM PHOS IN 0.9 % NACL 15 MMOL/250 ML BAG IV ONE (08:45)
[2024-07-08] MEDS: METOPROLOL TARTRATE 5 MG/5 ML INJ IV STA (17:44)
[2024-07-08] MEDS: METOPROLOL TAR 25 MG TAB PO SCH (18:12)
[2024-07-08] MEDS: VANCOMYCIN 1 GM in NA CHLORIDE 0.9% 250 ML IVPB SCH (18:12)
[2024-07-08] MEDS: NA CHLORIDE 0.9% 500 ML IV ONE (20:25)
[2024-07-08] MEDS: POTASSIUM CL SA 10 MEQ TAB PO ONE (20:25)
--- NOTE | 2024-07-09 09:09 | ECHO ---
HEIGHT: 5 ft 0 in WEIGHT: 110 lb 1.6 oz DATE OF STUDY: 07/06/[address]: Joey Vences DO 2-DIMENSIONAL: YES M.MODE: YES DOPPLER: YES COLOR FLOW: YES TDS: PORTABLE: YES DEFINITY: BUBBLE STUDY: DIAGNOSIS: SHOCK CARDIAC HISTORY: CATHERIZATION: NO SURGERY: YES PROSTHETIC VALVE: YES PACEMAKER: NO MEASUREMENTS (cm) DIASTOLIC (NORMALS) SYSTOLIC (NORMALS) IVSd 0.9 (0.6-1.2) LA Diam 1.8 (1.9-4.0) LVEF 60-65% LVIDd 3.5 (3.5-5.7) LVIDs 2.2 (2.0-3.5) %FS 38% LVPWd 1.0 (0.6-1.2) Ao Diam (2.0-3.7) 2 DIMENSIONAL ASSESSMENT: RIGHT ATRIUM: NORMAL LEFT ATRIUM: NORMAL RIGHT VENTRICLE: NORMAL LEFT VENTRICLE: NORMAL TRICUSPID VALVE: MILD TRICUSPID REGURGITATION MITRAL VALVE: SEVERE MITRAL ANNULAR CALCIFICATION PULMONIC VALVE: NORMAL AORTIC VALVE: MILD AORTIC INSUFFICIENCY PERICARDIAL EFFUSION: NONE AORTIC ROOT: NORMAL LEFT VENTRICULAR WALL MOTION: NORMAL DOPPLER/COLOR FLOW: SEE BELOW COMMENTS: 1. NORMAL LEFT VENTRICULAR EJECTION FRACTION 60-65% 2. NORMAL WALL MOTION 3. MITRAL ANNULAR CALCIFICATION WITH TRACE MITRAL REGURGITATION 4. MILD AORTIC INSUFFICIENCY, TRICUSPID REGURGITATION 5. DIASTOLIC DYSFUNCTION 6. POOR WINDOWS TECHNOLOGIST: BHAVNA NEUMANN
[2024-07-09 09:30] VITALS: O2SAT 100
[2024-07-09] MEDS: METHYLPREDNISOLONE 125 MG INJ IV ONE (11:26)
--- NOTE | 2024-07-09 12:12 | EKG ---
Test Date: 2024-07-05 Test Time: 21:28:10 [employer] Artisan: MARTIN MEASUREMENT RESULTS: Intervals: Rate: 60 NE: 122 QRSD: 80 QT: 454 QTc: 454 [place]: P: 70 NE: 122 QRS: 69 T: 81 INTERPRETIVE STATEMENTS: Normal sinus rhythm Normal ECG Compared to ECG 07/26/2023 19:52:08 Sinus tachycardia no longer present Electronically Signed On 07-09-24 12:03:37 CDT by Torsten Houston
[2024-07-09] MEDS: predniSONE 20 MG TAB PO SCH (13:06)
[2024-07-09] MEDS: FUROSEMIDE 20 MG/ 2ML VIAL IV ONE (15:41)
[2024-07-09] MEDS: METOPROLOL TAR 50 MG TAB PO ONE (15:50)
[2024-07-09 16:21] VITALS: BP 171/74; TEMP 98.7
== END 2024-07-09 17:48 | disposition home or self-care (01) | DRG 292 ==
LOC: ER 21:18 → 3RD-ICU 07-06 04:52 → 2ND 07-08 18:00
PROVIDERS: ADMIT Family Medicine; ATTEND Hospitalist
PROC: 02HV33Z Insertion of Infusion Device into Superior Vena Cava, Percutaneous Approach (ICD-10-PCS; principal; 2024-07-06)
PROC: B5181ZA Fluoroscopy of Superior Vena Cava using Low Osmolar Contrast, Guidance (ICD-10-PCS; 2024-07-06)
PROC: 3E043XZ Introduction of Vasopressor into Central Vein, Percutaneous Approach (ICD-10-PCS; 2024-07-06)
DX: R57.9 Shock, unspecified (principal); D61.818 Other pancytopenia; N17.9 Acute kidney failure, unspecified; N18.4 Chronic kidney disease, stage 4 (severe); E11.22 Type 2 diabetes mellitus with diabetic chronic kidney disease; I12.9 Hypertensive chronic kidney disease with stage 1 through stage 4 chronic kidney disease, or unspecified chronic kidney disease; Z79.4 Long term (current) use of insulin; F41.8 Other specified anxiety disorders; J44.9 Chronic obstructive pulmonary disease, unspecified; B18.2 Chronic viral hepatitis C; Z90.49 Acquired absence of other specified parts of digestive tract; Z90.710 Acquired absence of both cervix and uterus
CPT/HCPCS: 36415; 36556; 70450; 71045; 71260; 74177; 80048; 80053; 80202; 80307; 81001; 82533; 82607; 82947; 83605; 83735; 84100; 84132; 84145; 84439; 84443; 84484; 85025; 85379; 85610; 85730; 87040; 87428; 93005; 93306; 94760; 96365; 96366; 97116; 97161; 97530; 99283; 99291; 99292; J1650; J1940; J2270; J2405; J2543; J2919; J3370; J3475; J3480; J7030; J7040; J7050; J7512; P9047; Q9967